=== PATIENT | female | born 1995 | race Caucasian/White ===

== ENCOUNTER → 2017-06-28 14:10 | Outpatient (CLI) | payer MEDICAID, SELFPAY ==
[2017-07-03 14:46] LABS: HPV Reflexed? NOT INDICATED
== END ==
PROVIDERS: Family Provider Student in an Organized Health Care Education/Training Program; PCP Student in an Organized Health Care Education/Training Program; Visit Provider Obstetrics & Gynecology
DX: Z34.83 Encounter for supervision of other normal pregnancy, third trimester (principal); R87.613 High grade squamous intraepithelial lesion on cytologic smear of cervix (HGSIL)
CPT/HCPCS: 88175; G0145

== ENCOUNTER → 2017-07-22 14:04 | Outpatient (CLI) | payer MEDICAID, SELFPAY ==
[2017-07-22 16:24] LABS: AST(SGOT) 33 U/L (15-37); Alanine Aminotransfer ALT/SGPT 38 U/L (13-56); Albumin, Serum 2.7 g/dL (3.2-5.0); Alkaline Phosphatase 222 U/L (45-117); Bilirubin, Direct 0.12 mg/dL (0.00-0.30); Globulin 3.8 g/dL (2.2-4.2); Protein, Total 6.5 g/dL (6.4-8.2)
[2017-07-22 16:48] LABS: Group B Strep DNA By PCR Negative (Negative); Internal Control PASS; Probe Check PASS; Specimen Processing Control PASS
[2017-07-24 20:07] LABS: HCV Quant. RNA PCR 601000 IU/mL (.)
[2017-07-25 09:23] LABS: HCV log 10 5.779 (.)
== END ==
PROVIDERS: Visit Provider Obstetrics & Gynecology
DX: Z36.85 Encounter for antenatal screening for Streptococcus B (principal); B18.9 Chronic viral hepatitis, unspecified
CPT/HCPCS: 36415; 80076; 87081; 87522; 87653

== ENCOUNTER 2017-07-28 20:00 | Outpatient (CLI) | payer MEDICAID, SELFPAY ==
[2017-07-28 20:36] VITALS: BMI 24.1
[2017-07-28 20:48] LABS: ROM Internal Control Test YES-OK TO RESULT pt. (Internal QC)
[2017-07-28 20:49] LABS: ROM Patient Test Negative (Negative)
[2017-07-28 21:00] LABS: Color, Urine Yellow (Yellow); Glucose, Dipstick Normal (Normal); Ketone-Dipstick Negative (Negative); Leukocyte Esterase-Dipstick 25 /ul (Negative); Nitrite-Dipstick Negative (Negative); Occult Blood-Urine Negative /ul (Negative); Protein-Dipstick Negative (Negative); Urine Bilirubin Dipstick Negative (Negative); Urine Clarity Clear (Clear); Urine Urobilinogen Normal (Normal); Urine pH 6.5 (5.0 - 8.0)
--- NOTE | 2017-07-29 20:20 | OB.TRI.NOTE ---
History of Present Illness Date of Service: 07/28/17 Was patient seen by the physician?: No Reason For Visit: R/O LABOR Date of Service: 07/28/17 Final SHANELLE: 08/15/17 Final SHANELLE Source: US <20 weeks Gestational age: 37 Weeks and 3 Days History of Present Illness: 37+ week intrauterine presents with some contractions and possible rupture of membranes. Good movement. care remarkable for prior deliveries at 36 and 37 weeks. She is also hepatitis C positive and has a history of genital herpes with suppression starting at 36 weeks gestation. Patient is also a smoker and has been advised to quit. Home Medications Medication Instructions Recorded Pnv Combo #22/Iron/FA/Om3/Dha 1 each PO DAILY #30 combo..pkg 09/29/13 [Director Supply-Heme Ob + Dha Combo Pack] Valacyclovir HCl [Valacyclovir] 1 gm PO DAILY 05/04/14 Ferrous Sulfate 325 mg PO DAILY@0800 07/28/17 Naproxen 500 mg PO DAILY PRN 07/28/17 Pyridoxine HCl [Vitamin B-6] 1 tab PO DAILY 07/28/17 Allergies amoxicillin [Amoxicillin] Allergy (Intermediate, Verified 07/28/17 20:38) Rash NST - FHR Rate Baby A NST Reactive:: Yes Impression/Plan 37 week intrauterine with false labor. UA is negative. ROM test is negative. Active nonstress test. No cervical change after monitoring. Will release to home with routine instructions and follow-up
--- NOTE | 2017-07-29 20:27 | OB.TRI.HP_ITS ---
History of Present Illness Date of Service: 07/28/17 Was patient seen by the physician?: No Reason For Visit: R/O LABOR Date of Service: 07/28/17 Final SHANELLE: 08/15/17 Final SHANELLE Source: US <20 weeks Gestational age: 37 Weeks and 3 Days History of Present Illness: 37+ week intrauterine presents with some contractions and possible rupture of membranes. Good movement. care remarkable for prior deliveries at 36 and 37 weeks. She is also hepatitis C positive and has a history of genital herpes with suppression starting at 36 weeks gestation. Patient is also a smoker and has been advised to quit. Home Medications Medication Instructions Recorded Pnv Combo #22/Iron/FA/Om3/Dha 1 each PO DAILY #30 combo..pkg 09/29/13 [Truck Caterer-Heme Ob + Dha Combo Pack] Valacyclovir HCl [Valacyclovir] 1 gm PO DAILY 05/04/14 Ferrous Sulfate 325 mg PO DAILY@0800 07/28/17 Naproxen 500 mg PO DAILY PRN 07/28/17 Pyridoxine HCl [Vitamin B-6] 1 tab PO DAILY 07/28/17 Allergies amoxicillin [Amoxicillin] Allergy (Intermediate, Verified 07/28/17 20:38) Rash NST - FHR Rate Baby A NST Reactive:: Yes Impression/Plan 37 week intrauterine with false labor. UA is negative. ROM test is negative. Active nonstress test. No cervical change after monitoring. Will release to home with routine instructions and follow-up
== END 2017-07-28 21:20 | disposition home or self-care (01) ==
LOC: WPOUT 20:14 → WP 20:15
PROVIDERS: Family Provider Student in an Organized Health Care Education/Training Program; PCP Student in an Organized Health Care Education/Training Program; Visit Provider Obstetrics & Gynecology
DX: O47.1 False labor at or after 37 completed weeks of gestation (principal); Z3A.37 37 weeks gestation of pregnancy; O98.313 Other infections with a predominantly sexual mode of transmission complicating pregnancy, third trimester; A60.00 Herpesviral infection of urogenital system, unspecified; O99.333 Smoking (tobacco) complicating pregnancy, third trimester; F17.200 Nicotine dependence, unspecified, uncomplicated; B19.20 Unspecified viral hepatitis C without hepatic coma
CPT/HCPCS: 59025; 59050; 81002; 84112; 99218; G0378

== ENCOUNTER 2017-08-16 13:55 | Inpatient (IN) | payer MEDICAID, SELFPAY ==
[2017-08-16 14:08] VITALS: BMI 24.5
[2017-08-16] MEDS: Lactated Ringers 1,000 ML 50 ML IV ×3 (15:05→22:37)
[2017-08-16] MEDS: Oxytocin 30 units/NS 500 ml 30 UNITS/500 ML IV.SOLN IV (15:05)
[2017-08-16 15:07] LABS: Hematocrit 33.7 % (37-47); Hemoglobin 11.3 g/dl (12.0-15.0); Mean Corp Hgb Conc 33.5 g/gl (32-36); Mean Corpuscular Hgb 28.5 pg (27.0-32.0); Mean Corpuscular Volume 85.1 fL (81-99); Mean Platelet Vol. 10.9 fl (6.2-12.0); Platelet Count 279 K/mm3 (150-450); RBC Distribution Width CV 14.7 % (11.6-14.6); RBC Distribution Width SD 46.2 fl (35.1-43.9); Red Blood Count 3.96 M/mm3 (4.2-5.4); White Blood Count 12.8 K/mm3 (4.4-11.0)
[2017-08-16 15:08] LABS: Scan Indicated on CBC? Y/N NO
[2017-08-16 15:33] LABS: Amphetamine Urine VISTA NEGATIVE (<1000 ng/mL); Barbiturate Urine VISTA NEGATIVE (< 200 ng/mL); Benzodiazepine Urine VISTA NEGATIVE (< 200 ng/mL); Cocaine Urine VISTA NEGATIVE (< 300 ng/mL); Ecstacy Urine VISTA NEGATIVE (< 500 ng/mL); Methadone Urine VISTA NEGATIVE (< 300 ng/mL); PCP Urine VISTA NEGATIVE (< 25 ng/mL); THC Urine VISTA NEGATIVE (< 50 ng/mL); Vista UDS pH Range 6
[2017-08-16] MEDS: fentaNYL-bupivacaine (epidural) 100 ML BAG EPIDURAL (17:18)
--- NOTE | 2017-08-16 20:04 | PCM.PN.BLA ---
Progress Note LABOR PROGRESS NOTE Comfortable w/ epidural AVSS Pitocin induction after AROM EFM 110-120s with accels. Category I tracing. Variable decelerations. UCs q 2 2 1/2 min CX: 8 cm/ stretchy A/P: term IUP Induction Anticipate .
--- NOTE | 2017-08-16 20:06 | PCM.DCVAG ---
Discharge Diet: No Restrictions Discharge Activity: May Shower, May Take a Tub Bath May resume sexual activity in: 4-6 weeks Additional Activity Instructions:: Nothing in the vagina for 4-6 weeks. You may return to work/school in 6 weeks. Additional Instructions: If you experience any of the following, contact your healthcare provider. Bleeding that soaks a pad every hour for 2 hours Fever 100.4 or higher Unrelieved abdominal pain Problems urinating (including inability to urinate or burning while urinating). Visual changes Severe headache Flu-like symptoms Pain or redness in one of both of your breasts Pain, warmth, tenderness or swelling in your legs, especially the calf area Frequent nausea and vomiting Symptoms of depression or anxiety If you experience any of the following, call 911 or go to the nearest Emergency Room. Chest pain Problems breathing Seizure activity Partial or complete paralysis of a body part, slurred speech, weakness or drooping of the face, or a sudden inability to walk or hold your balance Allergies/Adverse Reactions: Allergies amoxicillin [Amoxicillin] Allergy (Intermediate, Verified 07/28/17 20:38) Rash Medications to take at Discharge Pnv Combo #22/Iron/FA/Om3/Dha [Director Home-Heme Ob + Dha Combo Pack] 1 each PO DAILY 08/16/17 Orders to be completed after discharge: Electric breast pump Time Frame: 1 Year, Location: None Selected Please Follow Up With: Hallie Casillas MD - [phone] When: Call to make an appointment with your doctor in 6 weeks. Primary Care Physician: Roney Weiss DO [Primary Care Provider] - Proposed Discharge Date: 08/18/17
--- NOTE | 2017-08-16 20:10 | DCINST_ITS ---
Discharge Diet: No Restrictions Discharge Activity: May Shower, May Take a Tub Bath May resume sexual activity in: 4-6 weeks Additional Activity Instructions:: Nothing in the vagina for 4-6 weeks. You may return to work/school in 6 weeks. Additional Instructions: If you experience any of the following, contact your healthcare provider. * Bleeding that soaks a pad every hour for 2 hours * Fever 100.4 or higher * Unrelieved abdominal pain * Problems urinating (including inability to urinate or burning while urinating) . * Visual changes * Severe headache * Flu-like symptoms * Pain or redness in one of both of your breasts * Pain, warmth, tenderness or swelling in your legs, especially the calf area * Frequent nausea and vomiting * Symptoms of depression or anxiety If you experience any of the following, call 911 or go to the nearest Emergency Room. * Chest pain * Problems breathing * Seizure activity * Partial or complete paralysis of a body part, slurred speech, weakness or drooping of the face, or a sudden inability to walk or hold your balance Allergies/Adverse Reactions: Allergies amoxicillin [Amoxicillin] Allergy (Intermediate, Verified 07/28/17 20:38) Rash Medications to take at Discharge Pnv Combo #22/Iron/FA/Om3/Dha [Cigar Machine Feeder-Heme Ob + Dha Combo Pack] 1 each PO DAILY Orders to be completed after discharge: Electric breast pump Time Frame: 1 Year, Location: None Selected Please Follow Up With: Hallie Casillas MD - [phone] When: Call to make an appointment with your doctor in 6 weeks. Primary Care Physician: Roney Weiss DO [Primary Care Provider] - Proposed Discharge Date: 08/18/17
--- NOTE | 2017-08-16 21:09 | PCM.PN.BLA ---
Progress Note LABOR PROGRESS NOTE Attempted to push anterior lip reducible. AVSS EFM 110-120 with accels Decleration noted to 80-90 with pushing. Unable to push effectively, no descent with push. Position changes and to hands and knees -- Helton bulb reduced with pt in hands and knees-- then to back again. Fluid bolus given IV, Pitocin off and O2 on with recovery of FHT. O2 off and pitocin restarted @ 2 mIU/min. FHT stable then Category I CX: anterior lip. LOP. A/P: induction to anterior lip. Will put in hands and knees for a while. Begin pushing again with further descent.
--- NOTE | 2017-08-16 23:09 | PCM.PN.BLA ---
Progress Note Delivered all other babies at 37 wks. This baby is likely larger than all others: induction at 39 6/7 wk EGA. 5# 11 oz. to 6# 11 oz. Complete since 2030. AVSS pitocin induction EFM: overall reassuring. Scalp stim noted with exam. 110-120s with accels. Category II tracing , decelerations noted with pushing. O2 on and Pitocin off again. EXAM: increased caput noted. ? OP. No further descent from exams prior. Labia and vaginal srinivasan edematous. A/P: Induction 40 06/02 . Advised pt that will ok to watch Complete/pushing for up to 3 hr, multip. Initially OK with pushing for another 30 mins.. Per RN then: patient requests to go ahead with C/S now ZAY. Declines pushing for the additional 16 minutes to meet full criteria for SECOND STAGE ARREST.
--- NOTE | 2017-08-16 23:20 | PCM.DCCSEC ---
Discharge Diet: No Restrictions Discharge Activity: May not drive while taking narcotic pain medications., May Shower, May Take a Tub Bath May resume sexual activity in: 4-6 weeks Lifting Restrictions: 20 pounds Additional Activity Instructions:: Nothing in the vagina for 4-6 weeks. You may return to work/school in 6 weeks. Change Dressing in (Days):: 14 Remove Dressing in (days):: 14 Cleanse incision/area with: Soap & Water, Keep Dressing Clean & Dry Additional Instructions: If you experience any of the following, contact your healthcare provider. Bleeding that soaks a pad every hour for 2 hours Fever 100.4 or higher Unrelieved incision or abdominal pain Swelling, redness, discharge or bleeding from your incision Problems urinating (including inability to urinate or burning while urinating). Visual changes Severe headache Flu-like symptoms Pain or redness in one of both of your breasts Pain, warmth, tenderness or swelling in your legs, especially the calf area Frequent nausea and vomiting Symptoms of depression or anxiety If you experience any of the following, call 911 or go to the nearest Emergency Room. Chest pain Problems breathing Seizure activity Partial or complete paralysis of a body part, slurred speech, weakness or drooping of the face, or a sudden inability to walk or hold your balance Allergies/Adverse Reactions: Allergies amoxicillin [Amoxicillin] Allergy (Intermediate, Verified 07/28/17 20:38) Rash Medications to take at Discharge Docusate Sodium [Colace] 100 mg PO BID PRN PRN #30 cap 08/16/17 Naproxen [Naprosyn] 250 - 500 mg PO TID PRN #30 tab 08/16/17 Oxycodone [Oxyir] 5 - 10 mg PO Q6H PRN PRN 7 Days #28 tablet 08/16/17 Pnv Combo #22/Iron/FA/Om3/Dha [Stage Driver-Heme Ob + Dha Combo Pack] 1 each PO DAILY 08/16/17 The following prescriptions were given: Oxycodone [Oxyir] 5 - 10 mg PO Q6H PRN PRN 7 Days #28 tablet PRN Reason: Mod-Severe Pain (-03/05) Docusate Sodium [Colace] 100 mg PO BID PRN PRN #30 cap PRN Reason: Constipation Naproxen [Naprosyn] 250 - 500 mg PO TID PRN #30 tab PRN Reason: Mild-Mod Pain (1-10/03) Orders to be completed after discharge: Electric breast pump Time Frame: 1 Year, Location: None Selected Follow-Up: Call to make an appointment with your doctor for an incision check in 1-2 weeks. You will also need a 6 week post- follow up appointment. Please Follow Up With: Hallie Casillas MD - [phone] When: Call to make an appointment for an incision check in 2 weeks. Primary Care Physician: Roney Weiss DO [Primary Care Provider] - Proposed Discharge Date: 08/18/17
--- NOTE | 2017-08-16 23:24 | DCINST_ITS ---
Discharge Diet: No Restrictions Discharge Activity: May not drive while taking narcotic pain medications., May Shower, May Take a Tub Bath May resume sexual activity in: 4-6 weeks Lifting Restrictions: 20 pounds Additional Activity Instructions:: Nothing in the vagina for 4-6 weeks. You may return to work/school in 6 weeks. Change Dressing in (Days):: 14 Remove Dressing in (days):: 14 Cleanse incision/area with: Soap & Water, Keep Dressing Clean & Dry Additional Instructions: If you experience any of the following, contact your healthcare provider. * Bleeding that soaks a pad every hour for 2 hours * Fever 100.4 or higher * Unrelieved incision or abdominal pain * Swelling, redness, discharge or bleeding from your incision * Problems urinating (including inability to urinate or burning while urinating) . * Visual changes * Severe headache * Flu-like symptoms * Pain or redness in one of both of your breasts * Pain, warmth, tenderness or swelling in your legs, especially the calf area * Frequent nausea and vomiting * Symptoms of depression or anxiety If you experience any of the following, call 911 or go to the nearest Emergency Room. * Chest pain * Problems breathing * Seizure activity * Partial or complete paralysis of a body part, slurred speech, weakness or drooping of the face, or a sudden inability to walk or hold your balance Allergies/Adverse Reactions: Allergies amoxicillin [Amoxicillin] Allergy (Intermediate, Verified 07/28/17 20:38) Rash Medications to take at Discharge Docusate Sodium [Colace] 100 mg PO BID PRN PRN #30 cap 08/16/17 Naproxen [Naprosyn] 250 - 500 mg PO TID PRN #30 tab 08/16/17 Oxycodone [Oxyir] 5 - 10 mg PO Q6H PRN PRN 7 Days #28 tablet 08/16/17 Pnv Combo #22/Iron/FA/Om3/Dha [Syrup Mixer Helper-Heme Ob + Dha Combo Pack] 1 each PO DAILY The following prescriptions were given: Oxycodone [Oxyir] 5 - 10 mg PO Q6H PRN PRN 7 Days #28 tablet PRN Reason: Mod-Severe Pain (-03/05) Docusate Sodium [Colace] 100 mg PO BID PRN PRN #30 cap PRN Reason: Constipation Naproxen [Naprosyn] 250 - 500 mg PO TID PRN #30 tab PRN Reason: Mild-Mod Pain (1-5/10) Orders to be completed after discharge: Electric breast pump Time Frame: 1 Year, Location: None Selected Follow-Up: Call to make an appointment with your doctor for an incision check in 1-2 weeks. You will also need a 6 week post- follow up appointment. Please Follow Up With: Hallie Casillas MD - [phone] When: Call to make an appointment for an incision check in 2 weeks. Primary Care Physician: Roney Weiss DO [Primary Care Provider] - Proposed Discharge Date: 08/18/17
[2017-08-16] MEDS: Cefazolin 2 GM in 0.9% Normal Saline 100 ML IV (23:30)
[2017-08-16] MEDS: Oxytocin 30 units/NS 500 ml 30 UNITS/500 ML IV.SOLN 167 UNITS IV (23:45)
[2017-08-17] VITALS (23 sets, daily range): BP systolic 85–113; BP diastolic 41–68; PULSE 57–95; RESP 14–18; TEMP 36.2–37.3; O2SAT 95–100
[2017-08-17] MEDS: Ketorolac 30 MG/ML Syringe IV ×4 (00:20→18:38)
--- NOTE | 2017-08-17 00:23 | OP.PCM_ITS ---
Operative Report Date of Procedure: 08/17/17 Date of Procedure: 08/17/17 PROCEDURE: Primary C section. Preoperative diagnosis: 40 1/7 wk induction of labor Cephalopelvic disproportion, Second stage arrest Postop diagnosis: 40 1/7 wk induction of labor Cephalopelvic disproportion, Second stage arrest Anesthesia: Epidural , Fiordaliza Bates MD Surgeon: Hallie Casillas MD Medical Scribe: NICOLE Santos EBL 600 cc Complications: none Drains: Helton draining blood tinged urine (noted with pushing also, prior to C/ S) Fluids: replacement LR Findings: At amniotomy, clear fluid was noted. Barrera viable male in vertex presentation, direct OP . Apgars 8/9, Baby weight: 7 # 14 oz. There was a normal appearing uterus, fallopian tubes and ovaries bilaterally. PATH: Routine cord gases were sent. Narrative account: After the risks, benefits and alternatives of the procedure were reviewed with the patient, informed consent was obtained. The patient was taken to the Operative room with an IV running, an epidural catheter in place and Helton catheter in place. The epidural was dosed to surgical levels. She was positioned to the dorsal supine position then prepped and draped in the usual sterile fashion. Once the epidural was deemed adequate, a Pfannenstiel skin incision was created using the knife and the incision was carried down to the rectus fascia using the knife and Bovie cautery. The fascia was nicked in the midline. The fascial incision was extended bilaterally using curved Dueñas scissors. The superior aspect of the fascial incision was grasped with Ray clamps and tented up and the underlying rectus abdominal muscles were dissected free. In a similar manner, the inferior aspect of the facial incision was grasped with Ray clamps tented up and the underlying rectus abdominal muscles were dissected free. The rectus abdominis muscles were in the midline at the diastasis, by blunt dissection and the peritoneum was identified and entered high in the incision by blunt dissection. The peritoneal incision was extended superiorly and then inferiorly, using Metzenbaum scissors. The peritoneum was stretched laterally and a bladder blade was inserted. A bladder flap was created along the lower uterine segment with Metzenbaum scissors . The uterine incision was then created using Metzenbaum scissors. The operators fingertips were used to extend the uterine incision by blunt dissection in a caudad- cephalad orientation . Clear fluid was noted at amniotomy. The vertex was then delivered atraumatically through the incision. The OP and nares were bulb suctioned on the abdomen. The shoulders delivered easily . The cord was clamped x two and cut. And the infant was handed off to the nurse awaiting delivery after briefly showing him to his parents. The baby had a spontaneous, vigorous cry. The placenta was then delivered by manual extraction. The uterus was exteriorized and cleared of clots and debris . The uterine incision was repaired with 1 Vicryl in a running locked fashion. A second imbricating layer was then placed, using 1 Monocryl in running nonlocked fashion. There was a small hematoma inferior to the incision: this was oversewn with interrupted horizontal mattress stitches and figure of eight stitches of 1 Vicryl. Excellent hemostasis was noted and no further extension of the hematoma was noted. At this point the uterus was returned to the abdominal cavity. The gutters were cleared of clots and debris and the incision at the uterus was inspected. the pelvis and abdomen was irrigated. Ksenia was dusted over the uterine incision. Excellent hemostasis was noted. The peritoneal edges and rectus abdominis muscles were reapproximated in the midline with vertical mattress stitches and figure of eight stitches of 1 Vicryl . Excellent hemostasis was noted at the subfascial space. The fascia was closed in a running nonlocked fashion with a Strattofix. The Subcutaneous fatty tissue was Bovie cauterized as needed for hemostasis. This layer was then reapproximated with a single layer of running 3-0 Vicryl to eliminate space. The skin edges were closed in a Subcuticular stitch of 4-0 Monocryl suture. The incision was cleansed. The incision was dressed with: Cavilon, Steristrips, and a Mepilex dressing . The patient was then transferred to the recovery room bed in stable condition after tolerating the procedure well. Sponge, lap, needle and instrument counts correct times two. Medications given preop and intraoperatively included: Ancef 2 gm given business analysis consultant to the operating room. The patient also received Pitocin given IV after cord clamp, and Toradol 30 mg IV times one. For a complete listing of medications given preop and intraoperatively, please see the anesthesia record.
[2017-08-17] MEDS: Lactated Ringers 1,000 ML 100 ML IV ×2 (04:19→12:32)
[2017-08-17 07:19] LABS: Hematocrit 26.1 % (37-47); Hemoglobin 8.8 g/dl (12.0-15.0); Mean Corp Hgb Conc 33.7 g/gl (32-36); Mean Corpuscular Hgb 28.9 pg (27.0-32.0); Mean Corpuscular Volume 85.6 fL (81-99); Mean Platelet Vol. 10.4 fl (6.2-12.0); Platelet Count 213 K/mm3 (150-450); RBC Distribution Width CV 14.6 % (11.6-14.6); Red Blood Count 3.05 M/mm3 (4.2-5.4); Scan Indicated on CBC? Y/N NO; White Blood Count 16.7 K/mm3 (4.4-11.0)
--- NOTE | 2017-08-17 09:38 | PCM.PN.OB ---
Subjective: POD#0 to 1 (del just prior to MN last night) Some soreness, hard to sit up. Breast feeding OK. No concerns voiced. Objective: Sitting up, semi recumbent in bed. Holding and tending to baby. - Physical Exam General: Alert, Oriented x3, Cooperative, No apparent distress HEENT: Atraumatic Neck: Supple Abdomen: Soft - Softly distended and tympanic, fundus firm and tender c/w postop status at umbilicus Skin: Incision - Mepilex dressing CDI. Neurological: Cranial nerves II-XII grossly intact Psych/Mental Status: Normal Affect Vital Signs Temp Pulse Resp BP Pulse Ox 98.5 F 67 18 99/53 L 96 08/17/17 08:15 08/17/17 08:15 08/17/17 08:15 08/17/17 08:15 08/17/17 08:15 Oxygen Delivery Method Room Air Weight: 55 kg Body Mass Index (BMI) 24.5 Intake and Output for Last 24 Hours 08/15/17 08/16/17 08/17/17 23:59 23:59 23:59 Intake Total 1888 / 1888 3235 / 3235 Output Total 200 / 200 1999 / 1999 Balance 1688 / 1688 1235 / 1235 Laboratory Tests Past 24 Hrs 08/16/17 08/16/17 08/16/17 14:00 14:00 14:00 WBC 12.8 H RBC 3.96 L Hgb 11.3 L Hct 33.7 L MCV 85.1 MCH 28.5 MCHC 33.5 RDW 14.7 H RDW Differential 46.2 H Plt Count 279 MPV 10.9 Urine Opiates Screen NEGATIVE Urine Methadone Screen NEGATIVE Ur Barbiturates Screen NEGATIVE Ur Phencyclidine Scrn NEGATIVE Ur Amphetamines Screen NEGATIVE U Methamphetamin-MDMA NEGATIVE U Benzodiazepines Scrn NEGATIVE Urine Cocaine Screen NEGATIVE U Cannabinoids Screen NEGATIVE Ur Drug Screen Comment Blood Type A POSITIVE Antibody Screen NEGATIVE 08/17/17 07:09 WBC 16.7 H RBC 3.05 L Hgb 8.8 L Hct 26.1 L MCV 85.6 MCH 28.9 MCHC 33.7 RDW 14.6 RDW Differential 44.0 H Plt Count 213 MPV 10.4 Urine Opiates Screen Urine Methadone Screen Ur Barbiturates Screen Ur Phencyclidine Scrn Ur Amphetamines Screen U Methamphetamin-MDMA U Benzodiazepines Scrn Urine Cocaine Screen U Cannabinoids Screen Ur Drug Screen Comment Blood Type Antibody Screen Medical Necessity - Tobacco Use Smoking Status: Light Smoker (<10/day) Assessment/Plan A/P: 1.) POD# 0 to 1 (del just prior to MN last night) Stable pp. S/L IV. D/c caballero for voiding trial Inc diet and activity as tolerated. Continue care. 2.) HEPATITIS C -- will f/u with PCP and liver specialist after pp check. Spouse with hepatitis C also. Pt aware of tx and what her insurance will cover.
--- NOTE | 2017-08-17 13:03 | CASEMGMT ---
SOCIAL WORK: Referral received this date due to history of positive tox screen for THC earlier in ; hepatitis C positive and possible need for resources. SW met with Hallie, mom of baby, this afternoon. Introduced self and SW role at [facility]. Father of baby, López, at bedside and cooperative with stepping out of room. Hallie pleasant and with good eye contact. She was receptive to talking with this SW. Refer to assessment in baby boy's chart for additional details. Mary Ann GARCIA,KVNG
[2017-08-17] MEDS: HYDROmorphone 0.5 MG/0.5 ML SYRINGE IV ×2 (17:19→20:01)
[2017-08-17] MEDS: Ferrous Sulfate 325 MG Tablet PO (17:20)
[2017-08-17] MEDS: Ondansetron 4 MG/2 ML Vial IV (17:21)
[2017-08-18] VITALS: RESP 16; O2SAT 98
[2017-08-18] MEDS: 0.9% Saline Lock 10 ML Syringe IV ×4 (00:12→18:17)
[2017-08-18] MEDS: Ketorolac 30 MG/ML Syringe IV ×4 (00:12→18:16)
[2017-08-18 02:00] VITALS: BP 91/56; PULSE 72; RESP 16; TEMP 36.4; O2SAT 98
[2017-08-18] MEDS: oxyCODONE 5 MG Tablet PO ×4 (04:57→20:32)
[2017-08-18] MEDS: Senna/Docusate Sodium 1 Tablet PO (05:58)
--- NOTE | 2017-08-18 08:07 | PCM.PN.OB ---
Subjective: POD#1-2 Primary C/S CPD Doing well. Nursing. baby is sleepy now. Some inc soreness with movement. Not sure about activity at home - Physical Exam General: Alert, Oriented x3, Cooperative, No apparent distress HEENT: Atraumatic Neck: Supple Abdomen: Soft - Fundus firm tender c/w postop status, at 2 cm inferior to umbilicus. Abdomen less distended/tympantic today. Skin: Incision - Mepilex CDI Psych/Mental Status: Normal Affect Vital Signs Temp Pulse Resp BP Pulse Ox 97.5 F L 72 16 91/56 L 98 08/18/17 02:00 08/18/17 02:00 08/18/17 02:00 08/18/17 02:00 08/18/17 02:00 Oxygen Delivery Method Room Air Weight: 55 kg Body Mass Index (BMI) 24.5 Intake and Output for Last 24 Hours 08/16/17 08/17/17 08/18/17 23:59 23:59 23:59 Intake Total 1888 / 1888 4064 / 4064 Output Total 200 / 200 1999 / 1999 1600 / 1600 Balance 1688 / 1688 2064 / 2064 -1600 / -1600 Medical Necessity - Tobacco Use Smoking Status: Light Smoker (<10/day) Assessment/Plan A/P: 1.) POD# 1 to 2 (del just prior to MN ) Stable pp. S/L IV to be d/c'd today. Continue care. 2.) HEPATITIS C -- will f/u with PCP and liver specialist after pp check.
[2017-08-18 08:28] VITALS: BP 96/63; PULSE 76; RESP 18; TEMP 35.9; O2SAT 98
[2017-08-18] MEDS: Ferrous Sulfate 325 MG Tablet PO ×2 (10:22→18:14)
[2017-08-18] MEDS: Prenatal Vits Tablet 1 TABLET PO (10:22)
[2017-08-18 14:31] VITALS: BP 116/64; PULSE 78; RESP 14; TEMP 35.9; O2SAT 98
--- NOTE | 2017-08-18 17:26 | NURSING ---
Mother reporting small cracked open areas to lt nipple. Assessed per RN and cracks noted. Reeducated patient on the need for pumping and disposing of breastmilk. Verbalized understanding and agreement. Denies cracked areas to rt breast. Lansinoh cream given and after discussing with will give breast shells for healing.
[2017-08-18 20:25] VITALS: BP 103/61; PULSE 77; RESP 16; TEMP 36.6; O2SAT 98
[2017-08-19 01:50] VITALS: BP 107/66; PULSE 83; RESP 16; TEMP 37.2; O2SAT 98
[2017-08-19] MEDS: oxyCODONE 5 MG Tablet PO ×2 (03:26→07:50)
[2017-08-19 07:45] VITALS: BP 102/63; PULSE 65; RESP 18; TEMP 36.9; O2SAT 97
[2017-08-19] MEDS: Senna/Docusate Sodium 1 Tablet PO (07:49)
[2017-08-19] MEDS: Ferrous Sulfate 325 MG Tablet PO (07:49)
--- NOTE | 2017-08-19 08:24 | PCM.PN.OB ---
Subjective: POD#2 to 3 Primary C/S CPD Doing OK but still with multiple concerns and not sure she is ready to go home today. States labia swollen still. Dressing got wet so was removed. hips still feel swollen. Incision soreness. Breast feeding, but baby is sleeping a lot. Objective: sitting up semirecumbent in bed. - Physical Exam General: Alert, Oriented x3, Cooperative, No apparent distress HEENT: Atraumatic Neck: Supple Abdomen: Soft - Fundus firm, tender consistent with postop status, at 2 cm inferior to umbilicus Skin: Incision - CDI. Mepilex dressing removed. Steristrips partially removed. Still intact to L side of the incision. Neurological: Cranial nerves II-XII grossly intact Psych/Mental Status: Normal Affect Vital Signs Temp Pulse Resp BP Pulse Ox 99.0 F 83 16 107/66 98 08/19/17 01:50 08/19/17 01:50 08/19/17 01:50 08/19/17 01:50 08/19/17 01:50 Oxygen Delivery Method Room Air Weight: 55 kg Body Mass Index (BMI) 24.5 Intake and Output for Last 24 Hours 08/17/08/18/17 08/19/17 23:59 23:59 23:59 Intake Total 4064 / 4064 250 / 250 Output Total 1999 / 2099 Balance 2063 / 2063 -1850 / -1850 Medical Necessity - Tobacco Use Smoking Status: Light Smoker (<10/day) Assessment/Plan A/P: 1.) POD# 2 to 3 (del just prior to MN ) Stable pp. Not sure she wants to go home today. Continue care. 2.) HEPATITIS C -- will f/u with PCP and liver specialist after pp check.
[2017-08-19] MEDS: Prenatal Vits Tablet 1 TABLET PO (09:47)
--- NOTE | 2017-08-19 10:00 | NURSING ---
agree with student's assessment
--- NOTE | 2017-08-19 11:11 | NURSING ---
[employer] reviewed the charting completed by the student nurse, Denice Romero.
--- NOTE | 2017-08-19 11:15 | CASEMGMT ---
Social Work - Labor and Delivery Unit Informant: Handoff from RADHA Flynn; conversation with Mother of baby (MOB) Summary: Met with MOB today as a follow up to social work visit on Saturday08-17-17. MOB reports to know about resources in the area, including WIC. MOB reports will apply for WIC once ends, to be able to get help with formula. MOB denies any history of depression but admits to history of some anxiety. Educated MOB to anxiety versus depression, and touched on risk factors present for MOB. MOB reporting to be a bit nervous going home after caesarian section, being sore and caring for 4 children. MOB reports that father of baby (FOB) is helpful, and will be home most of the time, but that for a few hours in the morning FOB works so MOB will be alone. MOB reports can call in-laws or own family for support if needed, but many do have to work still. MOB reports besides the worry about the first few days home, no other identified concerns. MOB reports to feel good about this baby and to love babies in general. Assessment: MOB pleasant during social work visit. Good eye contact, relaxed motor activity, bright affect. MOB holding baby, attentive, gentle, and smiling down at baby. MOB appropriate in interactions. MOB agreed to have healthcare social worker print up some [place] applications. MOB reports that if feeling upset or in need of emotional support can talk to FOB or to FOBs mother. MOB denies any needs for home going at this time. Interventions: Provided MOB with [place] applications, resources list for [facility] so that MOB had WIC number in hand. Provided packet on depression, online resources, and local resources for support, including 24 hour helpline numbers. Note, did have to mail this information out to MOB, as MOB left the unit before this blurb writer was able to return back to MOBs room with the written information. Plan: MOB and infant to home when ready for discharge. Social work to monitor of meconium drug screen results in baby's chart. Otherwise no other services requested or indicated. -SHIVA Cassidy, LEE
--- NOTE | 2017-08-19 12:55 | PCM.DC.SUM ---
Discharge Date and Diagnosis Date of Admission: 08/16/17 - induction of labor 40 1/7 wk CPD Date of Discharge: 08/19/17 - Same S/P primary C section for CPD Hospital Course and Treatment Operations: - - Induction of labor. Primary C section for CPD 7# 14 oz male. Summary of Care Provided: The patient is a 22 year old female at 40 1/7 wk presents for induction of labor. Prior vaginal deliveries but all at 36-37 wks. Progressed to complete and pushing, but no descent for more than 4hr. Primary C/S delivery performed d/t CPD. Procedure uncomplicated. Postop course uneventful Requests dischg to home today, POD#2-3 from primary C/S performed JUST prior to MN on 08/16/2017 Discharge Diet: No Restrictions Discharge Activity: May not drive while taking narcotic pain medications., May Shower, May Take a Tub Bath May resume sexual activity in: 4-6 weeks Additional Activity Instructions:: Nothing in the vagina for 4-6 weeks. You may return to work/school in 6 weeks. Change Dressing in (Days):: 14 Remove Dressing in (days):: 14 Cleanse incision/area with: Soap & Water, Keep Dressing Clean & Dry Home Medications: Medications to take at Discharge Docusate Sodium [Colace] 100 mg PO BID PRN PRN #30 cap 08/16/17 Naproxen [Naprosyn] 250 - 500 mg PO TID PRN #30 tab 08/16/17 Oxycodone [Oxyir] 5 - 10 mg PO Q6H PRN PRN 7 Days #28 tablet 08/16/17 Pnv Combo #22/Iron/FA/Om3/Dha [Boiler Control Technician-Heme Ob + Dha Combo Pack] 1 each PO DAILY 08/16/17 Following Prescrptions Were Given to Patient: Oxycodone [Oxyir] 5 - 10 mg PO Q6H PRN PRN 7 Days #28 tablet PRN Reason: Mod-Severe Pain (4-10/10) Docusate Sodium [Colace] 100 mg PO BID PRN PRN #30 cap PRN Reason: Constipation Naproxen [Naprosyn] 250 - 500 mg PO TID PRN #30 tab PRN Reason: Mild-Mod Pain (1-5/10) Other Amb Orders: Electric breast pump Time Frame: 1 Year, Location: None Selected Primary Care Physician: Roney Weiss DO [Primary Care Provider] - Please Follow Up With: Hallie Casillas MD - [phone] When: Call to make an appointment for an incision check in 2 weeks. Medical Necessity - Tobacco Use Smoking Status: Light Smoker (<10/day) Meaningful Use Info Meaningful Use Diagnoses (Choose all that apply): None applicable
--- NOTE | 2017-08-19 12:58 | DS.PCM_ITS ---
Discharge Date and Diagnosis Date of Admission: 08/16/17 - induction of labor 40 1/7 wk CPD Date of Discharge: 08/19/17 - Same S/P primary C section for CPD Hospital Course and Treatment Operations: - - Induction of labor. Primary C section for CPD 7# 14 oz male. Summary of Care Provided: The patient is a 22 year old female at 40 1/7 wk presents for induction of labor. Prior vaginal deliveries but all at 36-37 wks. Progressed to complete and pushing, but no descent for more than 4hr. Primary C/S delivery performed d /t CPD. Procedure uncomplicated. Postop course uneventful Requests dischg to home today, POD#2-3 from primary C/S performed JUST prior to MN on 08/16/2017 Discharge Diet: No Restrictions Discharge Activity: May not drive while taking narcotic pain medications., May Shower, May Take a Tub Bath May resume sexual activity in: 4-6 weeks Additional Activity Instructions:: Nothing in the vagina for 4-6 weeks. You may return to work/school in 6 weeks. Change Dressing in (Days):: 14 Remove Dressing in (days):: 14 Cleanse incision/area with: Soap & Water, Keep Dressing Clean & Dry Home Medications: Medications to take at Discharge Docusate Sodium [Colace] 100 mg PO BID PRN PRN #30 cap 08/16/17 Naproxen [Naprosyn] 250 - 500 mg PO TID PRN #30 tab 08/16/17 Oxycodone [Oxyir] 5 - 10 mg PO Q6H PRN PRN 7 Days #28 tablet 08/16/17 Pnv Combo #22/Iron/FA/Om3/Dha [D[employer] Design Layout-Heme Ob + Dha Combo Pack] 1 each PO DAILY Following Prescrptions Were Given to Patient: Oxycodone [Oxyir] 5 - 10 mg PO Q6H PRN PRN 7 Days #28 tablet PRN Reason: Mod-Severe Pain (4-10/10) Docusate Sodium [Colace] 100 mg PO BID PRN PRN #30 cap PRN Reason: Constipation Naproxen [Naprosyn] 250 - 500 mg PO TID PRN #30 tab PRN Reason: Mild-Mod Pain (1-5/10) Other Amb Orders: Electric breast pump Time Frame: 1 Year, Location: None Selected Primary Care Physician: Roney Weiss DO [Primary Care Provider] - Please Follow Up With: Hallie Casillas MD - [phone] When: Call to make an appointment for an incision check in 2 weeks. Medical Necessity - Tobacco Use Smoking Status: Light Smoker (<10/day) Meaningful Use Info Meaningful Use Diagnoses (Choose all that apply): None applicable
== END 2017-08-19 11:00 | disposition home or self-care (01) | DRG 370 ==
PROVIDERS: Admitting Provider Obstetrics & Gynecology; Family Provider Student in an Organized Health Care Education/Training Program; PCP Student in an Organized Health Care Education/Training Program; Visit Provider Obstetrics & Gynecology
DX: O98.42 Viral hepatitis complicating childbirth (principal); B19.20 Unspecified viral hepatitis C without hepatic coma; O90.2 Hematoma of obstetric wound; O33.9 Maternal care for disproportion, unspecified; O62.1 Secondary uterine inertia; O76 Abnormality in fetal heart rate and rhythm complicating labor and delivery; O99.334 Smoking (tobacco) complicating childbirth; F17.200 Nicotine dependence, unspecified, uncomplicated; Z3A.40 40 weeks gestation of pregnancy; Z37.0 Single live birth
CPT/HCPCS: 59025; 59050; 80307; 85027; 86850; 86900; 99218; J7120; A4216; G0378; J2405

== ENCOUNTER → 2018-03-10 14:12 | Outpatient (CLI) | payer MEDICAID, SELFPAY ==
--- NOTE | 2018-03-10 | IMM_PTH ---
PATIENT: HALLIE ORTIZ LOC: [facility] U#:[id number] AGE/SX: 29/F ROOM: RE03/10/[address]: Dr. Hallie Casillas MD : 1995 BED: DIS: SPEC #: [id number] RECD: 03/11/18 11:34 STATUS: KIERA REQ #: [id number] PATRICIA: 03/10/18 00:[address]: Hallie Casillas DEPT: IMMUNOHISTOCHEMISTRY RECD BY: Aracely Adams ENTERED: 03/11/18 11:35 SP TYPE: IMMUNO OTHR DR: Dr. Roney Weiss DO Tissues: Endocervical Procedures: p16 (initial) KI-67 (add) PHYSICIAN & INSTITUTION [place] [id number] SPECIMEN INFORMATION: Tissue Source: [facility] Clinical Info: HGSIL Specimen Number: [id number] CPT code: 23310, 78454 METHODOLOGY: Deparaffinized sections of prefer/formalin-fixed tissue or PAP/DQ stained slides are incubated with monoclonal/polyclonal antibodies/oligonucleotide probes. Localization is made via biotin free immunoperoxidase method. Appropriate controls are performed and reacted as expected. Results on target cell population are indicated in the following table: RESULTS: ANTIBODY / CLONE RESULT P16 (E6H4) positive, block staining Ki-67 (30-9) positive, moderate These tests were developed and their performance characteristics determined by [facility]. They may not have been cleared or approved by the U.S. Food and Drug Administration. The FDA has determined that such clearance or approval is not necessary. INTERPRETATION: ECC: Detached and unoriented fragment of squamous epithelium with moderate squamous dysplasia. SJ:donny 03/11/18
--- NOTE | 2018-03-10 11:30 | CER_PTH ---
PATIENT: HALLIE ORTIZ LOC: [facility] U#:[id number] AGE/SX: 29/F ROOM: RE03/10/[address]: [address]. Hallie Casillas MD : 1995 BED: DIS: SPEC #: [id number] RECD: 03/10/18 13:47 STATUS: KIERA RECathleen #: [id number] PATRICIA: 03/10/18 11:[address]: Hallie Casillas DEPT: SURGICAL PATHOLOGY RECD BY: Aracely Adams ENTERED: 03/11/18 07:50 SP TYPE: CERV OTHR DR: Dr. Roney Weiss DO Tissues: Uterine cervix, NOS Procedures: Surgery Specimen Level IV HEADER OPERATION: Colposcopy PRE-OP DIAGNOSIS: HGSIL TISSUE SUBMITTED: ECC MICROSCOPIC DIAGNOSIS ECC: Detached and unoriented fragments of squamous epithelium with moderate squamous dysplasia (HGSIL and KIERRA-II). Fragments of benign endocervical epithelium and mucous. See comment. SJ:donny 03/11/18 COMMENT Immunohistochemistry ([id number]) for surrogate HPV marker (p16) supports the above diagnosis. MICROSCOPIC DESCRIPTION Slides are reviewed. GROSS DESCRIPTION Received in fixative is one container labeled with the patient's name and designated ECC. The specimen consists of multiple fragments of hemorrhagic mucoid tissue that in aggregate measure 1.5 x 1.5 x 0.2 cm. The specimen is totally submitted in one cassette. / FELECIA:donny 03/10/18 TC:5 CPT: 47703
== END ==
PROVIDERS: Family Provider Student in an Organized Health Care Education/Training Program; PCP Student in an Organized Health Care Education/Training Program; Referring Provider Obstetrics & Gynecology; Visit Provider Obstetrics & Gynecology
DX: N89.8 Other specified noninflammatory disorders of vagina (principal); R87.613 High grade squamous intraepithelial lesion on cytologic smear of cervix (HGSIL)
CPT/HCPCS: 88305; 88341; 88342

== ENCOUNTER 2018-04-10 07:31 | Day surgery (SDC) | payer MEDICAID, SELFPAY ==
--- NOTE | 2018-04-10 | IMM_PTH ---
PATIENT: HALLIE ORTIZ LOC: [facility] U#:[id number] AGE/SX: 22/F ROOM: RE04/10/[address]: Dr. Hallie Casillas MD : 1995 BED: DIS: 04/10/2018 SPEC #: [id number] RECD: 04/11/18 13:56 STATUS: KIERA REQ #: [id number] PATRICIA: 04/10/18 00:[address]: Hallie Casillas DEPT: IMMUNOHISTOCHEMISTRY RECD BY: Saumya Roca ENTERED: 04/11/18 13:57 SP TYPE: IMMUNO OTHR DR: No Primary Care Phys Tissues: UTERINE CERVIX LEEP Procedures: p16 (initial) KI-67 (add) PHYSICIAN & INSTITUTION [place] [id number] SPECIMEN INFORMATION: Tissue Source: [facility] with anel Clinical Info: Sterilization request, high grade squamous intraepithelial lesion Specimen Number: [id number] CPT code: 51796, 34335 METHODOLOGY: Deparaffinized sections of prefer/formalin-fixed tissue or PAP/DQ stained slides are incubated with monoclonal/polyclonal antibodies/oligonucleotide probes. Localization is made via biotin free immunoperoxidase method. Appropriate controls are performed and reacted as expected. Results on target cell population are indicated in the following table: RESULTS: ANTIBODY / CLONE RESULT P16 (E6H4) positive, block-like Ki-67 (30-9) positive, moderate to high These tests were developed and their performance characteristics determined by [facility]. They may not have been cleared or approved by the U.S. Food and Drug Administration. The FDA has determined that such clearance or approval is not necessary. 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
[2018-04-10 07:50] LABS: Internal QC Validated? YES +Cl - CLEAR BKGD; Pregnancy, Urine Negative Negative
[2018-04-10 08:04] VITALS: BP 95/63; PULSE 73; RESP 16; TEMP 36.7; O2SAT 100; BMI 19.1
[2018-04-10 08:25] LABS: AST(SGOT) 31 U/L (15-37); Alanine Aminotransfer ALT/SGPT 60 U/L (13-56); Alkaline Phosphatase 80 U/L (45-117); Bilirubin, Direct 0.13 mg/dL (0.00-0.30); Globulin 3.5 g/dL (2.2-4.2); Protein, Total 7.5 g/dL (6.4-8.2)
--- NOTE | 2018-04-10 10:30 | FALS_PTH ---
PATIENT: HALLIE ORTIZ [place] [facility] [place] U[place][id number] AGE/SX: 22/F ROOM: RE04/10/[address]: Dr. Hallie Casillas MD : 1995 BED: DIS: 04/10/2018 SPEC #: [id number] RECD: 04/10/18 12:33 STATUS: KIERA JAZMÍN #: [id number] PATRICIA: 04/10/18 10:[address]: Hallie Casillas DEPT: SURGICAL PATHOLOGY RECD BY: Saumya Roca ENTERED: 04/10/18 15:35 SP TYPE: FALL TUBES OTHR DR: Alexandra Primary Care Phys Tissues: A - Fallopian tube B - UTERINE CERVIX LEEP Procedures: Surgery Specimen Level II Surgery Specimen Level IV HEADER OPERATION: Laparoscopic salpingectomy, bilateral; LEEP PRE-OP DIAGNOSIS: Sterilization request, high grade squamous intraepithelial lesion TISSUE SUBMITTED: A. Bilateral fallopian tubes, B. LEEP with tophat MICROSCOPIC DIAGNOSIS A. Right and left fallopian tubes, bilateral salpingectomies: Complete segments of right and left fallopian tubes with no pathologic change. B. 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 Chronic inflammation. Margins of excision are free of dysplasia. AM:jonny 04/11/18 COMMENT Immunohistochemistry ([id number]) supports the above diagnosis. Case has been reviewed in consultation with Dr. Stewart who concurs with the above diagnosis. IDC:SJ MICROSCOPIC DESCRIPTION Slides are reviewed. GROSS DESCRIPTION A. Received is one container labeled with the patient's name and designated bilateral fallopian tubes. The specimen consists of two tubular pieces of pink-roche soft tissue with the right identified with a suture. The average length is 2.5 cm in length and average diameter is 0.6 cm. Cosmetics Machine Operator sections are submitted in 2 cassettes. B. Received in fixative is one container labeled with the patient's name and designated LEEP with tophat. Received is one container labeled with the patient name and designated LEEP with tophat. The specimen consists of four glistening fragments of roche mucosa with passed submucosal tissue ranging in size from 0.6 to 1.5 cm. The fragments are inked, section and totally submitted in four cassettes. / DAVIS:jonny 04/10/18 TC: 0 CPT: 26772, 53310
--- NOTE | 2018-04-10 11:06 | PCM.DC.TUB ---
Discharge Diet: No Restrictions Discharge Activity: May not drive while taking narcotic pain medications., May Shower, May Take a Tub Bath Return to work on:: 04/14/18 May resume sexual activity in: 1 week Additional Activity Instructions:: Ambulate often the next week after surgery. Nothing in the vagina for two weeks after surgery to allow the cervix to heal after the LEEP procedure. Call your doctor if you observe: Fever of 101 or Higher, Inability to have a bowel movement, Using more than one pad per hour, Calf discomfort, Uncontrolled pain Change Dressing in (Days):: 4 Remove Dressing in (days):: 4 Cleanse incision/area with: Soap & Water, Keep Dressing Clean & Dry Additional Instructions: You may take three Ibuprofen (200 mg each) every 6 hrs for milder pain. Add the Oxycodone for more severe pain. Resume activities as tolerated/comfortable on postop day #1 Nothing in vagina for 2 wks to allow healing of the cervix after LEEP. Allergies/Adverse Reactions: Allergies amoxicillin [Amoxicillin] Allergy (Intermediate, Verified 04/09/18 10:05) Rash Medications to take at Discharge Ibuprofen 600 mg PO PRN PRN 04/09/18 Multivit with Calcium,Iron,Min [Multiple Vitamins For Women] 1 each PO DAILY 04/09/18 Oxycodone [Oxyir] 5 mg PO Q6H PRN PRN 1 Days #4 tablet 04/10/18 The following prescriptions were given: Oxycodone [Oxyir] 5 mg PO Q6H PRN PRN 1 Days #4 tablet PRN Reason: Mod-Severe Pain (4-10/10) Primary Care Physician: Care Physician,No Primary [Primary Care Provider] - Test Results: Test results from this visit will be discussed in further detail at your follow-up appointment, if applicable. Please Follow Up With: Hallie Casillas MD - [phone] When: Call to arrange postoperative check up for two weeks after surgery. Proposed Discharge Date: 04/10/18
[2018-04-10] MEDS: Bupiv/Epi 0.5% Mpf 30 ML Vial (11:30)
[2018-04-10] MEDS: FERRIC SUBSULFATE 8 GM SOLN (11:44)
--- NOTE | 2018-04-10 12:11 | OP.PCM_ITS ---
Operative Report Date of Procedure: 04/10/18 PROCEDURE: Laparoscopic Bilateral Salpingectomy LEEP with top hat ectocervical biopsy PREOPERATIVE DIAGNOSIS: Sterilization request HGSIL pap, Mild,mod, severe by biopsy prior Last pap LGSIL but cannot r/o higher grade lesion POSTOPERATIVE diagnosis: Sterilization request HGSIL pap, Mild,mod, severe by biopsy prior Last pap LGSIL but cannot r/o higher grade lesion Surgeon: Hallie Casillas MD Anesthesia: general anesthesia. Dr. Cuevas Sanitation Inspector: none. EBL: minimal Complications: None Drains: Red Cadena catheter used to drain the bladder prior to initiation of the case Fluids: LR replacement Pathology specimens: Bilateral fallopian tubes LEEP cone biopsy with top hat, ectocervix. Findings; Normal appearing, anteverted uterus. Fallopian tubes and ovaries are WNL. R fallopian tube distal end with filmy adhesions to the R pelvic side wall. Gross inspection of bowel, omentum. liver edge also WNL. photos were taken of the uterus and ovaries after Bilateral salpingectomy, and of the RUQ / liver edge Narrative account: After the risks, benefits, alternatives of procedure had been reviewed with the patient, informed consent was obtained. The patient was taken back to the Operating room with an IV running. she was positioned on the operating table in dorsal supine position, where she was given general anesthesia. Once asleep she was repositioned to the dorsal lithotomy position and prepped and draped in the usual sterile fashion. A red Cadena catheter was used to drain the bladder prior to initiating the case. A sponge stick was placed into the vagina to allow manipulation of the uterus and cervix during the case. Attention was then turned to the anterior abdominal wall where 0.25 % Marcaine with epinephrine was instilled at the suprapubic and infraumbilical skin and at a point midway between in the midline. Skin incisions were then created in the midline at the suprapubic skin and at the infraumbilical skin and midway between the two. While maintaining upward traction of the anterior abdominal wall a Veress needle was inserted through the umbilical incision into the peritoneal cavity. There was free drop of saline, low opening pressure and free flow of CO2 noted. Once the intraabdominal pressure had reached 12 mm of mercury the Veress needle was removed and a bladeless 5 mm trocar was placed through infraumbilical skin incision into the peritoneal cavity. Correct placement was confirmed using the scope. Under direct visualization then with the patient in Trendelenburg position, a bladeless 5 mm trocar was inserted in through suprapubic skin incision into the peritoneal cavity and at a point midway betwee n the infraumbilical and suprapubic trocars. The uterus as anteverted and both ovaries and fallopian tubes were WNL. There were filmy adhesions at the R fallopian tube fimbriated end to pelvic side wall. The R fallopian tube was grasped and retracted medially and using a LigaSure device the fallopian tube was excised from the ovary and mesosalpinx. Excellent hemostasis was noted at the excision site. The R fallopian tube was brought through the suprapubic trocar and set aside for later pathology review. In a similar manner the L fallopian tube was grasped and retracted medially and the fallopian tube was excised and removed from the abdominal cavity through the suprapubic trochar. The Fallopian tubes were sent to pathology. Excellent hemostasis was noted by visualization of the pelvis, ovaries, and remaining mesosalpinx. Photos were taken of the uterus and Bilateral remaining ovaries and of the RUQ and liver edge. The pneumoperitoneum was reduced and the instruments and trocars were removed from he the anterior abdominal wall skin. The skin incisions were closed with 4-0 Monocryl in a subcuticular fashion. Dermabond and OpSites were applied to the skin. Attention was then turned to the LEEP procedure. The sponge stick was removed from the vagina. A coated Graves speculum was placed, the cervix was identified and Lugol's solution was applied to the cervix. A Lugol nonstaining area was noted at the ectocervix. A loop electrical excision procedure was then performed at a power of 50-50 with blend of 1 between cut and coag. The biopsy was performed with a single pass. A top hat specimen was then collected. Ball cautery was then used to cauterize the margins of the cervix at the biopsy site. Monsel solution was applied to the cervix . Excellent hemostasis was noted. A sponge stick was then used to remove any remaining tissue and blood from the upper vagina and cervix . All instruments were then removed from the vagina. At this point the the procedure was terminated. The patient was returned to dorsal supine position. She was awakened from general anesthesia. She was transferred to the recovery room bed in stable condition after tolerating the procedure well. Sponge, lap, needle and instrument counts were correct x two. Medications given preop and intraoperatively included: 10 cc of 1/2 % Marcaine with epinephrine --used as a subcutaneous block and Toradol 30 mg IV x one. For a complete listing of medications given preop and intraop , please see the anesthesia record.
[2018-04-10 12:15] VITALS: BP 113/89; BP 95/63; PULSE 66; RESP 16; TEMP 36.2; O2SAT 100
[2018-04-10 12:30] VITALS: BP 103/69; BP 95/63; PULSE 55; RESP 16; O2SAT 96
[2018-04-10 12:48] VITALS: BP 95/63; BP 96/61; PULSE 56; RESP 16; TEMP 36.3; O2SAT 97
[2018-04-10] MEDS: oxyCODONE 5 MG Tablet PO (13:46)
[2018-04-10 13:55] VITALS: BP 95/63
== END 2018-04-10 13:57 | disposition home or self-care (01) ==
LOC: SDC 07:32 → AC 07:34
PROVIDERS: Anesthesiology; Referring Provider Obstetrics & Gynecology; Visit Provider Obstetrics & Gynecology
PROC: (CPT 58661; principal; 2018-04-10 10:15)
DX: D06.9 Carcinoma in situ of cervix, unspecified (principal); N72 Inflammatory disease of cervix uteri; Z30.2 Encounter for sterilization; Z86.19 Personal history of other infectious and parasitic diseases; Z86.2 Personal history of diseases of the blood and blood-forming organs and certain disorders involving the immune mechanism
CPT/HCPCS: 00840; 57522; 58661; 36415; 80076; 81025; 88302; 88305; 88341; 88342; J7120; J2405

== ENCOUNTER → 2018-09-17 14:18 | Outpatient (CLI) | payer MEDICAID, SELFPAY ==
[2018-09-24 17:48] LABS: HPV HC, High Risk Negative (Negative); HPV Reflexed? YES, CHARGE PATIENT
== END ==
PROVIDERS: Referring Provider Obstetrics & Gynecology; Visit Provider Obstetrics & Gynecology
DX: Z12.4 Encounter for screening for malignant neoplasm of cervix (principal); R87.613 High grade squamous intraepithelial lesion on cytologic smear of cervix (HGSIL)
CPT/HCPCS: 87624; 88175; G0145

== ENCOUNTER 2020-11-21 22:27 | Emergency (ER) | payer MEDICAID, SELFPAY ==
[2020-11-21 22:28] VITALS: PULSE 93; RESP 12; TEMP 36.5; O2SAT 100; BMI 22.2
--- NOTE | 2020-11-21 22:36 | EKG12_ITS ---
Test Reason : OVERDOSE Blood Pressure : / mmHG Vent. Rate : 082 BPM Atrial Rate : 082 BPM P-R Int : 182 ms QRS Dur : 106 ms QT Int : 380 ms P-R-T Axes : 063 078 029 degrees QTc Int : 443 ms Normal sinus rhythm Incomplete right bundle branch block Nonspecific T wave abnormality Abnormal ECG Confirmed by TYREE NI, NAGI ([id number]), offline editor STEVEN BARRETT ([id number]) on 11/24/2020 7:51:34 AM Referred By: TAYLER Confirmed By:NAGI CLEMENTS MD
[2020-11-21] MEDS: 0.9% Normal Saline 1,000 ML 1000 ML IV (22:38)
--- NOTE | 2020-11-21 22:40 | EX.ED.DYSGE1 ---
HPI History of Present Illness Chief Complaint: Overdose Informant: patient Onset/Context/Timing Onset: Today Context: Sudden Onset Timing: Continuous Current Severity: Moderate Maximum Severity: Severe Narrative Narrative: The patient is a 25-year-old female presents to the emergency department after an overdose. Patient was drinking alcohol tonight. She states that she also took a Percocet. Patient was found agonal and unresponsive. CPR was started and patient was given Narcan. She did awake. On arrival, the patient is lethargic but responds to voice. She states she is not suicidal homicidal. Her only current complaint is that her chest hurts. She denies any other ingestion. [facility] Medical History Substance abuse Home Medications dextroamphetamine-amphetamine 1 cap PO DAILY 11/21/20 [History Last Taken Unknown] Allergy/AdvReac Type Severity Reaction Status Date / Time amoxicillin [Amoxicillin] Allergy Intermediate Rash Verified 04/09/18 10:05 Social History Smoking Status: Current every day smoker tobacco type: cigarettes ROS ROS ED Constitutional Constitutional ED: Denies chills or fever(s) Eyes Eyes: Denies blurry vision or change in vision ENT ENT ED: Denies ear pain or sore throat Cardiovascular Cardiovascular: Reports chest pain; Denies palpitations Respiratory/Chest Respiratory/Chest: Denies cough, dyspnea or dyspnea on exertion Gastrointestinal Gastrointestinal: Denies abdominal pain, nausea or vomiting Genitourinary Genitourinary ED: Denies dysuria or urinary frequency Musculoskeletal Musculoskeletal: Denies arthralgias or myalgias Integumentary Denies rash Neurologic Neurologic: Denies headache(s) or paresthesias Psychiatric Psychiatric: Denies anxiety or depression Endocrine Endocrinology: Denies polydipsia or polyuria Allergic/Immunologic Allergic/Immunologic ED: Denies urticaria EXAM Physical Exam Const Vital Signs: 11/21/20 22:28 11/22/20 00:01 11/22/20 00:46 Temperature 97.7 F L 98.2 F Temperature Source Temporal Temporal Pulse Rate 93 84 77 Respiratory Rate 12 16 14 Blood Pressure 103/68 110/56 L Blood Pressure Mean 79 74 Pulse Ox 100 100 97 Oxygen Delivery Method Non-Rebreather Nasal Cannula Room Air Oxygen Flow Rate (L/min) 15 3 11/22/20 00:52 11/22/20 02:08 Temperature Temperature Source Pulse Rate 78 Respiratory Rate 14 16 Blood Pressure 103/71 Blood Pressure Mean 81 Pulse Ox 98 Oxygen Delivery Method Room Air Oxygen Flow Rate (L/min) Positive well nourished and well developed General Appearance ED: well developed HEENT Reports normocephalic, head/scalp atraumatic and moist mucous membranes Eyes PERRL and EOMs intact bilaterally Neck no lymphadenopathy and supple General: Negative for tenderness Chest Wall inspection of chest normal Chest Narrative: Tenderness to palpation Resp normal respiratory effort and clear to auscultation bilaterally Cardio regular rate, regular rhythm and no murmurs GI normal to inspection, nondistended, normoactive bowel sounds Palpation: Negative for tender, guarding or rebound tenderness present Back/Spine no CVA tenderness Cervical Spine: Negative for cervical spine tenderness Thoracic Spine / Upper Back: Negative for thoracic spinal tenderness Extremity normal to inspection General Extremety ED: Negative for tenderness Neuro oriented x3 and CN's II-XII intact bilaterally Neuro Narrative: No focal deficits appreciated. Sensorium / Orientation: alert Psych mental status grossly normal Skin no rashes or lesions noted, no wounds and skin turgor normal MDM MDM MDM Narrative Medical decision making narrative: Patient presents after accidental overdose of Percocet and was drinking alcohol. She had been given Narcan prehospital he. There was CPR that was started and she was complaining of some chest pain. EKG was obtained which showed sinus rhythm without evidence of acute ischemia. I obtained a chest x-ray. There was no evidence of pneumothorax or occult rib fracture. This is reviewed by both myself and the radiologist. Labs do demonstrate hypokalemia and this is replaced. The patient is mildly intoxicated. Her urine was positive for opiates. The patient has been observed for 4 hours. She is now much more awake. I did discuss with her about detox. The patient adamantly refuses. I did high school guidance counselor her we have programs to help with recovery. She does not want to stay. At this point, the patient is awake and alert. She is not hypoxic. She is required no other supplemental intervention. She will be discharged home. Impression 1. Accidental overdose Lab Data Attestation: I reviewed the patient's lab results. Labs: Laboratory Results - last 24 hr 11/21/20 11/21/20 11/21/20 20:35 20:35 20:35 WBC 6.7 RBC 4.37 Hgb 12.4 Hct 37.2 MCV 85.1 MCH 28.4 MCHC 33.3 RDW Std Deviation 41.6 RDW Coeff of Nanette 13.2 Plt Count 252 MPV 10.3 Immature Gran % (Auto) 2.500 H Neut % (Auto) 43.1 L Lymph % (Auto) 43.4 H Dillingham % (Auto) 5.2 Eos % (Auto) 5.1 H Baso % (Auto) 0.7 Absolute Neuts (auto) 2.9 Absolute Lymphs (auto) 2.91 Nucleated RBC % 0 Sodium 136 Potassium 2.8 L Chloride 101 Carbon Dioxide 23.0 Anion Gap 12 BUN 6 L Creatinine 0.78 Estim Creat Clear Calc 85.34 Est GFR (MDRD) Af Amer 114 Est GFR (MDRD) Non-Af 94 BUN/Creatinine Ratio 7.7 L Glucose 177 H Calcium 8.4 L Total Bilirubin 0.30 AST 97 H ALT 161 H Alkaline Phosphatase 113 Total Protein 7.8 Albumin 4.1 Globulin 3.7 Albumin/Globulin Ratio 1.1 Serum , Qual Urine Color Urine Clarity Urine pH Ur Specific Glynn Urine Protein Urine Glucose (UA) Urine Ketones Urine Occult Blood Urine Nitrite Urine Bilirubin Urine Urobilinogen Ur Leukocyte Esterase Urine RBC Urine WBC Ur Squamous Epith Cells Amorphous Sediment Urine Bacteria Hyaline Casts Urine Mucus Ethyl Alcohol 144.0 11/21/20 11/21/20 20:35 22:54 WBC RBC Hgb Hct MCV MCH MCHC RDW Std Deviation RDW Coeff of Nanette Plt Count MPV Immature Gran % (Auto) Neut % (Auto) Lymph % (Auto) Dillingham % (Auto) Eos % (Auto) Baso % (Auto) Absolute Neuts (auto) Absolute Lymphs (auto) Nucleated RBC % Sodium Potassium Chloride Carbon Dioxide Anion Gap BUN Creatinine Estim Creat Clear Calc Est GFR (MDRD) Af Amer Est GFR (MDRD) Non-Af BUN/Creatinine Ratio Glucose Calcium Total Bilirubin AST ALT Alkaline Phosphatase Total Protein Albumin Globulin Albumin/Globulin Ratio Serum , Qual NEGATIVE Urine Color Yellow Urine Clarity Clear Urine pH 6.5 Ur Specific Glynn 1.015 Urine Protein 100 H Urine Glucose (UA) Normal Urine Ketones Negative Urine Occult Blood Negative Urine Nitrite Negative Urine Bilirubin Negative Urine Urobilinogen Normal Ur Leukocyte Esterase Negative Urine RBC 0 SEEN Urine WBC 0 SEEN Ur Squamous Epith Cells 0 SEEN Amorphous Sediment 2+ Urine Bacteria 2+ Hyaline Casts 0-5 SEEN Urine Mucus 0 SEEN Ethyl Alcohol Radiography Diagnostic Testing: Radiology Impression Chest X-Ray 11/21/20 22:55 IMPRESSION: No evidence of acute cardiopulmonary process. at 2350 Reported and signed by: Christian Merida MD Electronically Signed: Christian Merida MD at 23:48 EDT Tel , Service support , Discharge Plan Triage Chief Complaint: Overdose ED Provider: Javon Zaragoza Dx/Rx/DC Orders Instructions: ED Overdose, Opiate Prescriptions: No Action dextroamphetamine-amphetamine 20 mg capsule,extended release 24hr 1 cap PO DAILY RF: 0 Primary Care Provider: Care Physician,No Primary Referrals: Care Physician,No Primary [Primary Care Provider] - [facility] [STAFF PHYSICIAN] - As soon as possible
[2020-11-21 22:48] LABS: Absolute Lymphocyte Count 2.91 X10^3/uL (0.83-4.51); Absolute Neutrophil Count 2.9 X10^3/uL (2.0-7.7); Basophil# 0.05 X10^3/uL; Basophil% 0.7 % (0-1); Eosinophil# 0.34 X10^3/uL; Eosinophils% 5.1 % (0-5); Hematocrit 37.2 % (37-47); Hemoglobin 12.4 g/dL (12.0-15.0); Lymphocyte # 2.91 X10^3/ul (0.83-4.51); Lymphocyte % 43.4 % (19-41); Mean Corp Hgb Conc 33.3 g/dL (32-36); Mean Corpuscular Hgb 28.4 pg (27.0-32.0); Mean Corpuscular Volume 85.1 fL (81-99); Mean Platelet Vol. 10.3 fl (6.2-12.0); Monocyte# 0.35 X10^3/uL; Monocyte% 5.2 % (0-10); NRBC Flagged by Analyzer 0 % (0-5); Neutrophil # 2.88 X10^3/uL (2.7-7.7); Neutrophil % 43.1 % (47-70); Platelet Count 252 K/mm3 (150-450); RBC Distribution Width CV 13.2 % (11.6-14.6); RBC Distribution Width SD 41.6 fl (35.1-43.9); Red Blood Count 4.37 M/mm3 (4.2-5.4); White Blood Count 6.7 K/mm3 (4.4-11.0)
--- NOTE | 2020-11-21 22:55 | RAD_ITS ---
HISTORY: sob EXAMINATION/TECHNIQUE: XR Chest 1 View: COMPARISON: None FINDINGS: LINES/DEVICES: None. LUNGS: No airspace consolidation. Unremarkable interstitium. No effusion. No pneumothorax. MEDIASTINUM: No cardiomegaly. MUSCULOSKELETAL: No acute osseous finding. RAD/Chest 1 View (Portable) IMPRESSION: No evidence of acute cardiopulmonary process. at 2350 Reported and signed by: Christian Merida MD Electronically Signed: Christian Merida MD at 23:48 EDT Tel , Service support ,
[2020-11-21 22:58] LABS: Internal QC Validated? YES +Cl - CLEAR BKGD; Pregnancy, Serum, hCG Quali. NEGATIVE Negative
[2020-11-21 23:01] LABS: Mucous, Urine 0 SEEN /hpf (<or=2+); Red Blood Cells-Urine 0 SEEN /hpf (0-5); Squamous Epithelial Cells - UA 0 SEEN /hpf (5-10); White Blood Cells 0 SEEN /hpf (0-5)
[2020-11-21 23:02] LABS: Color, Urine Yellow (Yellow); Glucose, Dipstick Normal (Normal); Ketone-Dipstick Negative (Negative); Leukocyte Esterase-Dipstick Negative /ul (Negative); Nitrite-Dipstick Negative (Negative); Occult Blood-Urine Negative /ul (Negative); Protein-Dipstick 100 mg/dl (Negative); Specific Gravity, Urine 1.015 (1.002-1.030); Urine Bilirubin Dipstick Negative (Negative); Urine Clarity Clear (Clear); Urine Urobilinogen Normal (Normal); Urine pH 6.5 (5.0 - 8.0)
[2020-11-21 23:07] LABS: ALB/GLOB Ratio 1.1 RATIO (0.9-2.4); AST(SGOT) 97 U/L (15-37); Alanine Aminotransfer ALT/SGPT 161 U/L (13-56); Albumin, Serum 4.1 g/dL (3.2-5.0); Alkaline Phosphatase 113 U/L (45-117); Anion Gap 12 (5-15); BUN 6 mg/dL (7-18); BUN/Creat Ratio 7.7 RATIO (10-20); Calcium,Total 8.4 mg/dL (8.5-10.1); Chloride 101 mmol/L (98-107); Creatinine, Serum 0.78 mg/dL (0.55-1.02); EST Glomerular Filtration Rate 94 mL/min (>60); Est Glom Filt Rate - Afr Amer 114 mL/min (>60); Estimated Creatinine Clearance 85.34 ml/min; Globulin 3.7 g/dL (2.2-4.2); Glucose 177 mg/dL (74-106); Potassium 2.8 mmol/L (3.5-5.1); Protein, Total 7.8 g/dL (6.4-8.2); Sodium Level 136 mmol/L (136-145)
[2020-11-21 23:11] LABS: Amorphous Sediment 2+; Bacteria 2+ /hpf (None Seen); Hyaline Cast 0-5 SEEN /lpf (0-5)
[2020-11-21] MEDS: Potassium Chloride 10mEq/100mL 10 MEQ/100 ML IV.SOLN. 100 MEQ IV BOLUS (23:31)
[2020-11-22 00:01] VITALS: BP 103/68; PULSE 84; RESP 16; TEMP 36.8; O2SAT 100
[2020-11-22] MEDS: Ondansetron 4 MG/2 ML Vial IV ×2 (00:10→02:50)
[2020-11-22] MEDS: Potassium Chloride 10mEq/100mL 10 MEQ/100 ML IV.SOLN. 100 MEQ IV BOLUS (00:44)
[2020-11-22 00:46] VITALS: BP 110/56; PULSE 77; RESP 14; O2SAT 97
[2020-11-22 00:52] VITALS: RESP 14
--- NOTE | 2020-11-22 01:18 | ED.RN ---
APNEA ALARM GOING OFF AGAIN AND RESPIRATIONS ARE 9-10 A MINUTE. SPO2 STAYING AT 92 WHEN BREATHING SLOWS AND TO 95-96 WHEN BREATHNG BETTER. HER BREATHING IS SHALLOW BUT SPO2 GOOD. DR PONCE AWARE AND WILL CONTINUE TO MONITOR
--- NOTE | 2020-11-22 01:33 | ED.RN ---
obtained verbal consent from pt to provided information to Ana avitia over the phone.
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
[2020-11-22 02:08] VITALS: BP 103/71; PULSE 78; RESP 16; O2SAT 98
--- NOTE | 2020-11-22 02:10 | ED.RN ---
PATIENT DECLINES HELP WITH REHAB OR ADMIT TO FLOOR FOR DETOX/HELP WITH WITHDRAWAL SYMPTOMS AND SAYS SHE DOES NOT NEED HELP WITH PSYCH SHE ALREADY SEES A COUNSELOR. SHE SAYS SHE WONT GO THROUGH WITHDRAWAL SHE IS NOT A USER AND STATES THE DOCTOR ALREADY ASKED HER THIS AND SHE DECLINED. THE DOCTOR IS TALKING WITH PATIENT'S FATHER AT THIS TIME, IN PRIVATE, QUIET AREA.
--- NOTE | 2020-11-22 02:36 | ED.RN ---
discussed referral for addiction and counseling again and patient again states she wants to go home and not to the floor for detox and states she is already signed up to start a program.
[2020-11-22 02:55] LABS: Amphetamine Urine VISTA NEGATIVE (<1000 ng/mL); Barbiturate Urine VISTA NEGATIVE (< 200 ng/mL); Benzodiazepine Urine VISTA NEGATIVE (< 200 ng/mL); Cocaine Urine VISTA NEGATIVE (< 300 ng/mL); Ecstacy Urine VISTA NEGATIVE (< 500 ng/mL); Methadone Urine VISTA NEGATIVE (< 300 ng/mL); PCP Urine VISTA NEGATIVE (< 25 ng/mL); THC Urine VISTA POSITIVE (< 50 ng/mL); Vista UDS pH Range 6
[2020-11-22 02:58] VITALS: BP 105/76; PULSE 74; RESP 13; O2SAT 98
== END 2020-11-22 03:02 | disposition home or self-care (01) ==
LOC: ED 11-22 00:04
PROVIDERS: Emergency Provider Emergency Medicine
DX: T40.2X1A Poisoning by other opioids, accidental (unintentional), initial encounter (principal); F10.129 Alcohol abuse with intoxication, unspecified; R53.83 Other fatigue; Y92.9 Unspecified place or not applicable; E87.6 Hypokalemia; F17.210 Nicotine dependence, cigarettes, uncomplicated
CPT/HCPCS: 71045; 80053; 80307; 81001; 82077; 84703; 85025; 93005; 96361; 96365; 96366; 96375; 96376; 99285; J7030; P9612; A4216; J2405

== ENCOUNTER 2021-07-06 14:24 | Outpatient (CLI) | payer MEDICAID, SELFPAY ==
[2021-07-09 10:07] LABS: Chlamydia By Nucleic Acid AMP Negative (Negative)
[2021-07-09 10:48] LABS: Gonococcus By Nucleic Acid AMP Negative (Negative)
[2021-07-11 17:04] LABS: HPV Reflexed? NOT INDICATED
== END 2021-07-06 23:59 | disposition home or self-care (01) ==
LOC: LABSPEC 14:25
PROVIDERS: Referring Provider Nurse Practitioner Women's Health; Visit Provider Nurse Practitioner Women's Health
DX: N76.0 Acute vaginitis (principal); Z87.42 Personal history of other diseases of the female genital tract; Z11.3 Encounter for screening for infections with a predominantly sexual mode of transmission
CPT/HCPCS: 87070; 87205; 87491; 87591; 88175; G0145

== ENCOUNTER 2024-06-23 08:00 | Outpatient (RCR) | payer MEDICAID, SELFPAY ==
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
--- NOTE | 2024-06-23 08:30 | BH.MTP ---
Master Treatment Plan Patient Information Program Physician:: Shannon Aguilar Primary Therapist:: Hal Boateng [facility] Psychiatric Diagnoses Psychiatric Diagnoses:: 1. Bipolar 2 disorder 2. Anxiety disorder, NOS 3. 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 Opiate use disorder in full remission for 4 years 5. Alcohol use disorder in full remission for 5 months 6. Nicotine use disorder 7. History of PTSD Diagnosis Code(s):: f31.9 Estimated LOS Estimated LOS (in weeks):: 8 Problem/Goal #1 Problem/Goal #1 Stated Goal:: Stated Goal:: Client will reduce depressive symptoms, worthlessness, anhedonia, isolation, passive thoughts of , lack of concentration, and negative core beliefs AEB self-report and decreased score on the depression and SI domains of the DSM-5 crosscutting scales. Description of Barriers: Significant isolation, limited support, limited coping skills, and hx of non-compliance with counseling services. Functional Impact: Isolation, avoidance, low motivation, social anxiety, passive thoughts of , excess sleep are impacting daily functioning including ability to obtain and maintain employment and responsibilities. Goal Relevant Strengths/Supports: Intelligent, insight, and reports being motivated. Objectives Objective #1: Stated Objective: Client will reduce avoidance/isolative behaviors that reinforce depression by setting 1-2 behavioral activation goals each week to increase behavioral activation/ opposite-action, motivation, and purpose. Interventions: Interventions: Through individual and group counseling will provide education on behavioral activation, avoidance behaviors and maintenance cycles. Will teach client coping skills to improve emotional regulation, mindfulness, and distress tolerance to help client cope with distress related to breaking depressive cycle. Discharge Criteria: Will complete 1-2 weekly behavior activation goals while in [facility] Target Date: 08/21/24 Review Date: 07/22/24 Objective #2: Stated Objective: Stated Objective: Client will work with therapist to develop a concrete ?crisis plan? or emotional dysregulation plan to implement during depressive episodes or acute events which includes emergency telephone numbers, internal/external coping strategies for SI/overwhelming emotions, lists of supports, warning signs, positive aspects of life, and motivations Interventions: Client will work with therapist to develop a ?crisis plan? or emotional dysregulation plan which includes emergency telephone numbers, internal/external coping strategies for SI/overwhelming emotions, lists of supports, warning signs, positive aspects of life, and motivations Discharge Criteria: Complete emotion regulation plan. Reduction of scores on the depression and SI domains of the DSM-5 cross-cutting scales Target Date: 07/22/24 Review Date: 08/21/24 Problem/Goal #2 Problem/Goal #2 Stated Goal:: Stated Goal:: Client will increase emotional regulation and reduce intensity and duration of anxiety and panic symptoms AEB self-report and reduction of scores on the anxiety and irritability domains of the DSM-5 cross-cutting scales Description of Barriers: Significant isolation, limited support, limited coping skills, emotion dysregulation, irritability, and hx of non-compliance with counseling services. Functional Impact: Isolation, avoidance, low motivation, social anxiety, passive thoughts of , excess sleep are impacting daily functioning including ability to obtain and maintain employment and responsibilities. Goal Relevant Strengths/Supports: Intelligent, insight, and reports being motivated. Objectives Objective #1: Stated Objective: Client will identify 5 physical warning signs, 2-3 anxiety triggers, and 5 ways to calm and manage anxiety. Pt will develop an anxiety scale indicating degrees of anxiety from 0-10 and physiological signals of his level of anxiety Plan is become aware of escalating anger/anxiety and implement skill early to avoid escalation Interventions: Through individual and group counseling will education the client on calming techniques as part of a tailored strategy for reducing chronic and acute physiological tension that accompanies the escalation of his anxiety/angry feelings Discharge Criteria: Able to identify 5 physiological warning signs, 2-3 anger/anxiety buttons, and 5 ways to calm Target Date: 08/21/24 Review Date: 07/22/24 Objective #2: Stated Objective: Client will identify 2-3 cognitive distortions that lead to rumination and learn 2-3 ways to manage these thoughts to better manage anxiety as shown by reduced DSM-5 scores for anxiety Interventions: Through individual and group counseling will provide education on the most common cognitive distortions and teach client the connection between thoughts, emotions, and feelings. Therapist will assist client in identifying, challenging, and replacing dysfunctional thoughts with positive, more realistic thoughts. Discharge Criteria: Able to identify 3 commonly used cognitive distortions and 3 ways to manage or challenge these distortions. Target Date: 08/21/24 Review Date: 07/22/24
--- NOTE | 2024-06-23 09:00 | BH.COMM ---
Communication Note Communication with Client Communication Note: met with patient to complete initial paperwork. Denies any significant changes since pre-admission screening. Completed suicide risk assessment with low risk. Consulted with Dr. De Leon with plan to admit to IOP with dx F31.53
--- NOTE | 2024-06-23 09:05 | BH.SGPN.GN ---
Behaviors/Verbalizations/Mental Status: []Pt alert and oriented, neatly dressed and groomed. Eye contact good. Motor activity appropriate. Speech within normal limits. Affect congruent, mood irritated. Thoughts linear, logical, no signs of hallucinations or delusions. Reviewed pt?s symptom tracker, no risk for suicidal ideation, plan, or intent 06/23/24. Client Response/Progress/Benefit: []Pt was an active participant in group discussions. Attentive. Able to identify mental health wins including coming today even though she did not want to and meeting her requirements for probation. Pt's stressor today is I'm really not thrilled to be here and pt shared she feels like I have too many requirements. Pt stated pt is feeling annoyed this morning. Pt receptive to feedback from peers which pt reported was helpful. Progress noted, but pt's stress continues to be an issue. Benefited from group support, encouragement, and feedback. Will continue in IOP to prevent decompensation, improve daily functioning, and gain healthy coping skills. Narrative Note: []
--- NOTE | 2024-06-23 10:10 | BH.SGPN.GN ---
Behaviors/Verbalizations/Mental Status: []Patient was alert and oriented, casually dressed and groomed. Eye contact good. motor activity appropriate. speech within normal limits. Affect congruent, mood depressed. Thoughts linear, logical, no signs of hallucinations or delusion. Client Response/Progress/Benefit: []Pt participated in the group discussions AEB providing input, nodding and taking notes. Attentive during psychoeducation Goal Setting. Participated during the discussion on common barriers. Pt stated a personal barrier to accomplishing goals is believing lack of motivation and procrastination. Group also identified benefits of goals as sense of purpose, improved self-confidence, more motivation for other goals, sense of accomplishment, and improved mental health. Pt identified personal benefits to goal setting. Benefited from increased awareness of mental health benefits of goals as well as psychoeducation on SMART goal criteria. Will continue in IOP to improve functioning and mood stability, challenge distorted thoughts, and prevent decompensation. Narrative Note: []
--- NOTE | 2024-06-23 11:10 | BH.SGPN.GN ---
Behaviors/Verbalizations/Mental Status: [] Pt alert and oriented. Appearance is casual. Eye contact good. Motor activity appropriate. Speech within normal limits. Affect is anxious. Mood is constricted. Thoughts linear, logical, no signs of hallucinations or delusions. Client Response/Progress/Benefit: [] Pt was engaged during discussion and experiential activity. Completed the worksheet challenging them to develop a personal SMART goal. Pt chose a SMART goal related to participating in IOP group sessions. Believes that being consistent with treatment and engagment will help her improve mental stability. Identified obstacles such as lack of motivation and negative thoughts.. Benefited from this group by developing a short-term SMART goal related to mental health. Will continue IOP to improve daily functioning, improve distress tolerance, and prevent decompensation.
--- NOTE | 2024-06-24 09:45 | BH.NA ---
Physical Data Vital Signs Pulse Rate: 77 Blood Pressure: 140/86 Height/Weight Height: 1.51 m Weight:: 54.431 kg Weight in Pounds: 120.0 lbs Current Medication Compliance Medication Compliance Do you take your medication as prescribed?: Yes Nutritional History Appetite Nutritional Instructions: Describe your appetite:: Good Additional nutritional information:: Client states she has gained 20lbs and is working to lose weight. Functional Assessment Sleep Pattern Describe any problems with sleeping: Client states she sleeps about 9 hours per day. Sensory/Communication Assess Communication Problems Do you have difficulty understanding what people are saying?: No Medical Problems/History Cancer History Type of Cancer:: Cervical Pain Assessment Do you have acute or chronic pain?: No Family History Family History (Updated 07/06/21 @ 10:45 by Kim Moncada) Grandfather Diabetes Heart disease Additional History Additional comments:: ADHD as a kid Surgical History Surgical History Have you had any surgeries? If so, list type and date:: Yes (LEEP, tubal) Substance Abuse Substance Abuse Please describe substance abuse in the last 30 days:: Client states she has used alcohol in the past but denies current use. Client states she has been a regular cigarette smoker since age 11, but switched to vaping nicotine about 3 years ago. Client states she used methamphetamines' about 4 times to help her stay up all night to clean her house and states the last use was in the summer of 2023. Client states she has a history of opiate use and lasted used about 3 years ago. Client states she drinks 1-2 cups of coffee per day. Mental Status Summary Mental Status Significant Findings/Observations on Appearance and Mood:: Client is alert and oriented x 4. Client is casually groomed. Client is cooperative with assessment. Client makes fair eye contact. Client's voice has normal rate and volume. Client has an appropriate affect. Client makes logical associations and has normal processing. Client denies delusions/hallucinations. Client denies current SI. Suicide Assessment Suicidal Ideation Are you currently or have you been suicidal in the past?: Yes Suicidal Intentional Rating Scale (SIRS): Suicidal thoughts (past) Physician Notification Past Psychiatric History MH Treatment Hx Past Psychiatric Medications:: several antidepressants, ADHD medication as a child Age of first mental health symptoms: Client states she took medication for ADHD as a child. Client states she had symptoms of anxiety/depression as teenager, and trialed antidepressants that did not help. Client states she was diagnosed as bipolar 2 around the age of 22. Describe (age, circumstance, etc) any past hospitalizations: None. Current providers for mental health treatment (counselor, psychiatrist, machine adjuster leader case trim, etc.): [facility] at [facility] for therapy, Terra Torrez MD at [facility] for psychiatry Fall Risk Assessment Age Age: Less than 60 Mental Status Mental Status: Willing & able to ask for assistance when needed Physical Status Physical Status: No problems Impairments Impairments: None Elimination Elimination: Continent AND independent Gait or Balance Gait or Balance: Walks independently Hx of Falls History of falls in the past 6 months: No known history Medications/Substances Psychotropics:: Antidepressants Medications/substances used within the past 24 hours or ordered to administer: 1-2 of the medications/substances listed above Total Score Total Points:: 1 RN Summary of Impressions Impressions Recommendations Impressions: Psychiatric Issues: 1. Bipolar 2 disorder 2. Anxiety disorder, NOS 3. 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 Opiate use disorder in full remission for 4 years 5. Alcohol use disorder in full remission for 5 months 6. Nicotine use disorder 7. History of PTSD 8. Primary support and work issues Level of Care How do the client's current symptoms and functional deficits support need for this level of care?: Client was referred to IOP by her outpatient therapist for anxiety and depression affecting her ability to function. Client reports anxiety in social situations and isolates herself. Client denies SI currently, but does state she has had SI in the past with no plan. Client states her kids are protective factors from hurting herself. Client states she comes to IOP looking for ways to help herself with her mental health because anxiety and depression are affecting her functioning. IOP will promote gains and prevent further decompensation while providing social support and skills training.
--- NOTE | 2024-06-24 10:15 | BH.SGPN.GN ---
Behaviors/Verbalizations/Mental Status: []Pt alert and oriented, neatly dressed and groomed. Eye contact fair. Motor activity appropriate. Speech within normal limits. Affect congruent, mood agitated. Thoughts linear, logical, no signs of hallucinations or delusions. Client Response/Progress/Benefit: [] Pt was attentive during psychoeducation and participated in group activity. Group discussed what contributes to a person?s perspective and how perspective can positively or negatively impact mental health treatment. Pt reflected on their perspective today and how it is impacting them. Pt shared their perspective is more negative and that they did not want to start IOP, so pt recognizes she is less engaged at times. Pt appeared to benefit from increasing awareness of different perspectives and how they can affect mental health. Pt will continue IOP tx to prevent decompensation, improve daily functioning, and maintain sobriety. Narrative Note: []
[2024-06-24 10:16] VITALS: BP 140/86; PULSE 77
--- NOTE | 2024-06-24 11:15 | BH.SGPN.GN ---
Behaviors/Verbalizations/Mental Status: []Pt alert and oriented, casually dressed and groomed. Eye contact good. Motor activity appropriate. Speech within normal limits. Affect congruent, mood depressed. Thoughts linear, logical, no signs of hallucinations or delusions. Client Response/Progress/Benefit: []Pt was attentive and contributed to group discussion. Pt worked with group to identify strategies that can help with challenging negative perspective. Pt stated she can remind self that thoughts are not facts as a way to challenge negative perspective. Pt completed strengths exploration worksheet, identifying personal strengths. Pt able to acknowledge how these strengths are helping pt and can continue to help pt in mental health journey. Pt identified wanting to work on leaning on strength of open-mindedness. Benefited from identifying personal strengths and strategies for enhancing use of identified strengths. Pt will continue IOP tx to continue improve functioning and mood stability, and prevent decompensation. Narrative Note: []
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
--- NOTE | 2024-06-24 12:13 | BH.DR.ITP ---
Initial Treatment Plan Patient Information Visit Information: ADMISSION DATE: EXPECTED LOS: 4-6 weeks Problems/Symptoms Problem #1:: Depression Symptom:: Sadness, hopelessness, worthlessness, low motivation, anhedonia, hypersomnia, low energy, decreased concentration, guilt, passive thoughts of Problem #2:: Anxiety Symptom:: Worry, rumination, avoidance of social activity and trauma triggers
--- NOTE | 2024-06-26 09:05 | BH.SGPN.GN ---
Behaviors/Verbalizations/Mental Status: [] Eye contact is good. Motor activity is appropriate. Appearance is casual. Speech is Appropriate. Mood is euthymic. Affect is full. Thoughts are linear and logical. No evidence of psychosis. Reviewed daily check in sheet and no reports of suicidal ideations or intent. Client Response/Progress/Benefit: [] Pt was an active participant in group discussions. Attentive. Daily symptom tracker notes no significant distress. States overall mood and functioning are better. Proud of herself for being consistent and attending IOP. Describes decreased isolation and improved engagement stating I'm starting to get in the swing of things. Structure, routine, and support have improved mental health, motivation, and productivity. Shared struggles that her son has had with mental health which has resulted in him being residential for quite some time. Son is being transferred to a local residential facility which will make visitation easier. Briefly discussed how her mental health struggles have impacted her functioning and ability to maintain consistent work. Progress noted. Benefited from group support, encouragement, and feedback. Will continue in IOP to prevent decompensation, stabilize mood, and increase healthy coping. Narrative Note: []
--- NOTE | 2024-06-26 10:05 | BH.SGPN.GN ---
Behaviors/Verbalizations/Mental Status: [] Eye contact is good. Motor activity is appropriate. Appearance is casual. Speech is Appropriate. Mood is depressed. Affect is congruent. Thoughts are linear and logical. No evidence of psychosis. Client Response/Progress/Benefit: [] Pt engaged participant AEB listening to others, engaging in activity, and providing feedback throughout. Attentive during psychoeducation and provided insight into obstacles that impede mental wellness. Pt chose shared with group current mental health reality and desired mental health reality, noting she would like to feel more present and content. Attentive to others that shared. Identified barriers to desired reality include: isolation, negative self-talk, and low motivation/depressed state. Benefited from taking look at current mental health state and obstacles for progress. Pt to continue IOP tx to improve coping repertoire, challenge negative self-talk, and prevent decompensation. Narrative Note: []
--- NOTE | 2024-06-26 11:05 | BH.SGPN.GN ---
Behaviors/Verbalizations/Mental Status: [] Eye contact is good. Motor activity is appropriate. Appearance is casual. Speech is Appropriate. Mood is dysthymic and anxious. Affect is congruent. Thoughts are linear and logical. No evidence of psychosis Client Response/Progress/Benefit: [] Pt was engaged at times during group discussions and was attentive during group activity. Worked with peers to identify strategies to help overcome barriers and obstacles to desired reality. Group worked together to develop strategies for the common barriers. Identified personal barriers to desired reality and chose one obstacle to work. Pt stated pt wants to work on procrastination and identified a strategy to set small realistic goals. Pt seemed to benefit from increased knowledge of practical strategies to overcome common barriers to moving forward. Will continue in IOP to prevent decompensation, increase healthy coping, stabilize mood, and improve functioning. Narrative Note: []
== END 2024-06-26 23:59 ==
LOC: BHIOP 08:00
PROVIDERS: Referring Provider Psychiatry & Neurology Psychiatry; Visit Provider Psychiatry & Neurology Psychiatry
DX: F41.9 Anxiety disorder, unspecified; F31.81 Bipolar II disorder; F15.91 Other stimulant use, unspecified, in remission; F12.91 Cannabis use, unspecified, in remission; F10.91 Alcohol use, unspecified, in remission; F17.210 Nicotine dependence, cigarettes, uncomplicated; F43.10 Post-traumatic stress disorder, unspecified
CPT/HCPCS: H2012; H2020

== ENCOUNTER 2024-06-29 07:17 | Outpatient (RCR) | payer MEDICAID, SELFPAY ==
[2024-06-27 02:45] VITALS: BP 140/86; PULSE 77
--- NOTE | 2024-07-01 09:30 | BH.MDN ---
Multi-Disciplinary Note Note 30-min Individual: Time Started:: 09:30 Date: 07/01/24 Purpose of session/treatment goals addressed:: Review current progress and symptoms. Finalize treatment plan goals. Eye Contact:: Good Motor Activity:: Appropriate Appearance:: Casual Speech:: Appropriate Mood:: Anxious Affect:: Congruent Thoughts:: Linear Staff Interventions:: motivational interviewing, treatment planning and goal setting Client Response:: This is the first day of pt's second week. States I like it. According to pt she related to group peers and topics. She was recently in an IOP focused on substance abuse and struggled to related to peers and program which led to limited engagement. Admits to a hx of struggles with treatment compliance and maintain consistent providers. Insight that her judgmental attitudes impacts her relationship, contributes to her isolation, and hinders growth. When asked about goals for treatment pt states she would like to improve her ability to manage her thoughts and emotions consistently. She would also like to improve her motivation and socialization while decreasing isolation. Also has an interest in healthier living through increased exercise and nutrition. Risks/Concerns:: No current risks or concerns. Daily symptom tracker show no suicidal ideations. Progress Toward Goals/Plan:: Progress noted since last week. Consistent attendance and is engaged during groups. Overall reports support, education, and routine of IOP has improved mental health. While she is consistent and engaged in IOP she continues to struggle outside of IOP specifically with motivation, sleep, and letting emotions run my life. Continues to report isolation, avoidance, and anhedonia on daily basis. Able to set a small goal for this next week to sign up for a local winter hiking challenge which she has verbalized she wants to complete. This challenge meets several of her goals to be healthier, decrease isolation, and socialize. Will continue in IOP to prevent decompensation, increase healthy support, in improve functioing. Time Stopped:: 10:00
--- NOTE | 2024-07-01 10:10 | BH.SGPN.GN ---
Behaviors/Verbalizations/Mental Status: []Eye contact is good. Motor activity is appropriate. Appearance is casual. Speech is Appropriate. Mood is calm. Affect is congruent. Thoughts are linear and logical. No evidence of psychosis. Client Response/Progress/Benefit: []Pt was an active participant in group discussion. Engaged and attentive during psychoeducation and interactive discussion on coping skills, why people use unhealthy coping skills, how to replace unhealthy coping skills, and internal vs external coping skills. Attentive as peers came up with list of unhealthy coping skills. Pt reported personally, pt has used substances to cope and this led to pt having consequences and shutting down. Group discussed the effects of maladaptive coping skills on mental health. Benefited from increased understanding of unhealthy coping skills and the need for developing healthy internal and external coping skills. Actively participated during experiential group activity and was able to related this activity to group topic. Will continue in IOP to prevent decompensation, gain healthy coping skills, and improve functioning. Narrative Note: []
--- NOTE | 2024-07-01 11:10 | BH.SGPN.GN ---
Behaviors/Verbalizations/Mental Status: []Pt alert and oriented, casual in appearance. Eye contact fair. Motor activity appropriate. Speech within normal limits. Affect constricted, mood anxious. Thoughts linear, logical, no signs of hallucinations or delusions. Client Response/Progress/Benefit: [] Pt engaged participant AEB provided contributions during discussion, taking notes, and listening attentively to others. Engaged in the provided activity. Group discussed the different categories of coping skills which included distraction, emotional release, grounding, self-love, and thought challenging. Pt participated in creating a coping skills ?menu? from the different categories of coping skills. Pt's coping skill menu included: yoga, playing with children, meditation, me time, and continuing therapy. Appeared to benefit from increasing repertoire of healthy coping skills. Will continue IOP to continue use of coping skills and prevent decompensation.
--- NOTE | 2024-07-02 09:05 | BH.SGPN.GN ---
Behaviors/Verbalizations/Mental Status: [] Pt alert and oriented, neatly dressed and groomed. Eye contact good. Motor activity appropriate. Speech within normal limits. Affect congruent, mood irritable. Thoughts linear, logical, no signs of hallucinations or delusions. Reviewed pt?s symptom tracker, no risk for suicidal ideation, plan, or intent 07/02/24. Client Response/Progress/Benefit: []Pt was an active participant in group discussions. Attentive. Able to identify mental health wins including getting to IOP despite lack of motivation and practicing self-care yesterday by doing her nails. Pt's stressor today is she continues to struggle with feeling overwhelmed with tasks but needing a part-time job. Pt stated pt is feeling blah this morning. Pt receptive to feedback from peers which pt reported was helpful. Progress noted, but pt's stress continues to be an issue. Benefited from group support, encouragement, and feedback. Will continue in IOP to prevent decompensation, improve daily functioning, and increase distress tolerance. Narrative Note: []
--- NOTE | 2024-07-02 10:15 | BH.SGPN.GN ---
Behaviors/Verbalizations/Mental Status: [] Eye contact is good. Motor activity is appropriate. Appearance is casual. Speech is Appropriate. Mood is irritable. Affect is congruent. Thoughts are linear and logical. No evidence of psychosis. Client Response/Progress/Benefit: [] Pt was an active participant in group discussions. Attentive during psychoeducation on the 4 communication styles (Passive, Passive-Aggressive, Aggressive, and Assertive) and the obstacles to effective communication. Contributed during interactive discussion on the benefits of communicating effectively. Worked well with peers to identify the benefits and disadvantages to the different communication styles. Pt believes that she is assertive in her communication however does admit that she can be indirect and struggles to communication effectively. Benefited from increased understanding of communication styles and how these can impact effective communication. Will continue in IOP to prevent decompensation, stablize mood, increase healthy coping, and improve functioning. Narrative Note: []
--- NOTE | 2024-07-02 11:10 | BH.SGPN.GN ---
Behaviors/Verbalizations/Mental Status: []Pt alert and oriented, casually dressed and groomed. Eye contact good. Motor activity appropriate. Speech within normal limits. Affect congruent, mood agitated and dysthymic. Thoughts linear, logical, no signs of hallucinations or delusions. Client Response/Progress/Benefit: [] Pt responded well to session AEB Pt listening attentively to others and providing input during group discussion on the pay offs and costs of the different communication styles. Pt able to connect how current communication style impacts mental health. Connected with peers? comments about importance of using assertive communication. Pt seemed to benefit from increasing awareness of healthy strategies to improve communication. Identified wanting to work on communicating before criticizing others. Will continue IOP tx to prevent decompensation, improve mood stability, and improve daily functioning. ? Narrative Note: []
--- NOTE | 2024-07-03 09:00 | BH.SGPN.GN ---
Behaviors/Verbalizations/Mental Status: [] Eye contact is good. Motor activity is appropriate. Appearance is casual. Speech is Appropriate. Mood is euthymic. Affect is full. Thoughts are linear and logical. No evidence of psychosis. Reviewed daily check in sheet and no reports of suicidal ideations or intent Client Response/Progress/Benefit: [] Pt participated when prompted. Attentive. Daily symptom tracker notes 4/5 for anxiety and agitation.Tearful at times during her check-in. Sahred with the group being emotional this AM due to hurtful words that her daughter recently told her. Narrative Note: []
--- NOTE | 2024-07-03 10:15 | BH.SGPN.GN ---
Behaviors/Verbalizations/Mental Status: [] Eye contact is good. Motor activity is appropriate. Appearance is casual. Speech is Appropriate. Mood is anxious and irritable. Affect is congruent. Thoughts are linear and logical. No evidence of psychosis Client Response/Progress/Benefit: [] Pt receptive to session AEB listening attentively to others and taking notes. Pt attentive and contributed throughout psychoeducation on the cognitive triangle and maintenance cycles. Pt engaged during group discussion reviewing the impact of daily activities and behaviors in either reinforcing unhealthy maintenance cycles and depression or assisting in reducing symptoms (?down? vs ?up? activities). Pt participated during interactive discussion in which pt identified common up activities (dressing up, showering, hiking, grounding, getting sunlight) and down activities (unrealistic goals, substances, isolating, neglecting hygiene, no self-care). Appeared to benefit from increased awareness of current behaviors and impact these have on mental health. Will continue IOP to prevent decompensation, stablize mood, improve functioning, and increase healthy coping. Narrative Note: []
--- NOTE | 2024-07-03 11:10 | BH.SGPN.GN ---
Behaviors/Verbalizations/Mental Status: []Pt alert and oriented, neatly dressed and groomed. Eye contact good. Motor activity appropriate. Speech within normal limits. Affect congruent, mood irritable. Thoughts linear, logical, no signs of hallucinations or delusions. Client Response/Progress/Benefit: [] Pt responded well to session, attentive and engaged in group discussions and activity. Actively engaged in continued discussion about up activities and down activities. Active participant as group discussed values and the benefits that knowing one's values can have on one's mental health. Pt completed worksheet on values and set a goal to spend more one on one time with her kids and plan a family dinner. Benefited from increased awareness of their personal values and how incorporating their values into behavioral activation goals can positive impact mental health. Will continue in IOP to reduce irritability, increase distress tolerance skills, and reduce negative thinking patterns. Narrative Note: []
--- NOTE | 2024-07-08 11:03 | BH.COMM ---
Communication Note Communication with Client Communication Note: no call/ no show for IOP this AM
--- NOTE | 2024-07-09 09:00 | BH.SGPN.GN ---
Behaviors/Verbalizations/Mental Status: [] Eye contact is fair. Motor activity is appropriate. Appearance is casual. Speech is Appropriate. Mood is anxious. Affect is congruent. Thoughts are linear and logical. No evidence of psychosis. Reviewed daily check in sheet and no reports of suicidal ideations or intent Client Response/Progress/Benefit: [] Pt was an active participant in group discussions. Attentive. Daily symptom tracker notes 06/30 for anxiety and 05/31 for depression. Reports feeling present today. Acknowledged that she missed IO yesterday and discuss the events that led to not showing. Talked at length regarding being 'triggered during a meeting yesterday in which support was getting very loud. This brought back a ribeiro of emotions including fear. Elaborated on how this triggering event impacted her mental health and activity throughout the day. Today is better thought. According to pt she actively worked on changing her perspective on today. She has several responsibilities today I'm jam-packed today. Also has to drive several hours to a required appointment. Reframing the events as opportunities to follow-through which has increased motivation. Overall reports doing well. Progress noted. Benefited from group support, encouragement, and feedback. Will continue in IOP to prevent decompensation, stabilize mood, and improve functioning. Narrative Note: []
--- NOTE | 2024-07-09 10:10 | BH.SGPN.GN ---
Behaviors/Verbalizations/Mental Status: [] Eye contact is fair. Motor activity is appropriate. Appearance is casual. Speech is Appropriate. Mood is euthymic. Affect is constricted. Thoughts are linear and logical. No evidence of psychosis. Client Response/Progress/Benefit: [] Pt was an active participant during interactive group discussions. Along with peers contributed to interactive discussion on defining what a boundary is in mental health. Pt along with peers identified challenges to setting boundaries which included: people pleasing, fear of rejection, fear of loss, fear people won't respect the boundary. Pt stated a personal barrier to setting boundaries is the worry of severing family relationships and guilt. Pt along with peers identified the benefits to setting boundaries such as reduces assumptions, can reduce stress, improve communication/relationships, and can keep us safe. Attentive during psychoeducation on types of boundaries (rigid, porous, flexible). Pt benefited from increased awareness and insight on the importance/benefit to setting health boundaries. Will continue in IOP to promote use of healthy coping skills, challenge negative thinking, and prevent decompensation.
--- NOTE | 2024-07-09 11:05 | BH.SGPN.GN ---
Behaviors/Verbalizations/Mental Status: []Eye contact is good. Motor activity is appropriate. Appearance is casual. Speech is Appropriate. Mood is engaged. Affect is congruent. Thoughts are linear and logical. No evidence of psychosis. Client Response/Progress/Benefit: [] Pt responded well to session AEB listening attentively to peers and taking notes throughout. Reports connecting with rigid boundaries with most people, but porous with her mother. Pt stated she has had to be more firm with boundaries in the past due to getting emotionally hurt. Participated in group discussion brainstorming various strategies for improving healthy boundary setting. Pt identified wanting to work on distress tolerance skills by applying the ?24 hour rule.? Seemed to benefit from increased awareness of how different boundary styles can impact mental health. Will continue IOP tx to promote mood stability, increase distress tolerance skills, and improve daily functioning. Narrative Note: []
--- NOTE | 2024-07-10 09:30 | BH.MDN_ITS ---
Multi-Disciplinary Note Note 30-min Individual: Time Started:: 09:30 Date: 07/10/24 Purpose of session/treatment goals addressed:: Reviewed current symptoms and progress in treatment. Addressed treatment goals 1 and 2. Eye Contact:: Good Motor Activity:: Appropriate Appearance:: Casual Speech:: Appropriate Mood:: Anxious Affect:: Congruent Thoughts:: Linear, Logical and No evidence of hallucinations/delusions noted Staff Interventions:: thought challenging, psychoeducation on: (distress tolerance), rapport building and strengths perspective Client Response:: Pt present today in good spirts. Shared more in-depth regarding her requirements through children services which include weekly family court, sober support 3x weekly, weekly counseling, drug screens, case management, and IOP. She believes she has been making progress in the past several weeks. Along with these requirements she visits regularly with her 3 children in [place] which are in foster care. Pre-occupied with a conflicted relationship in her life which appears to be impacting her self-esteem, stress, guilt, regret, and overall mental health. She talked at length regarding triggers and impact of this relationship. Insight that setting boundaries would be beneficial, however states I just can't do it now. Psychoeducation on distress tolerance. Pt does believe that she has low distress tolerance which often leads to avoidance and isolation. Able to identify the impact this has had on her relationships, unhealthy decisions, and struggles to follow through with obstacles. This also related to her goals to decrease judgmental attitudes and improve her ability to manage her thoughts and emotions consistently. Risks/Concerns:: no risks or concerns noted. Daily symptom tracker notes no suicidal ideations. Progress Toward Goals/Plan:: Progress noted. Remains engaged in groups and decreased isolation/avoidance. She missed one day of IOP this week, however attended the remainder of days this week. According to patient she is following through with daily responsibilities and requirements. Received positive feedback during family court this week which she finds beneficial. Discussion on low distress tolerance resonated with patient and she agreed to research this further over the weekend. If she is agreeable I'd like to continue to work on improving her distress tolerance as this will benefit her relationships, increase socialization, increase confidence in managing stress, improve overall mental health. Time Stopped:: 10:00
--- NOTE | 2024-07-10 10:10 | BH.SGPN.GN ---
Behaviors/Verbalizations/Mental Status: []Pt alert and oriented, casually dressed and groomed. Eye contact good. Motor activity appropriate. Speech within normal limits. Affect congruent, mood agitated. Thoughts linear, logical, no signs of hallucinations or delusions. Client Response/Progress/Benefit: [] Pt participated during small group discussions. Attentive during psychoeducation about defense mechanisms. Showed engagement during small group discussions and helped group identify which defense mechanisms were maladaptive, adaptive, or ?somewhere in the marks.? Pt worked with small group on identifying how each defense mechanism can impact mental health and gave examples. ?Seemed to benefit from gaining awareness about the different defense mechanisms. Pt to continue IOP tx to prevent decompensation, increase use of healthy coping skills, and maintain sobriety. ? Narrative Note: []
--- NOTE | 2024-07-10 11:10 | BH.SGPN.GN ---
Behaviors/Verbalizations/Mental Status: []Pt alert and oriented, casually dressed and groomed. Eye contact good. Motor activity appropriate. Speech within normal limits. Affect congruent, mood euthymic. Thoughts linear, logical, no signs of hallucinations or delusions. Client Response/Progress/Benefit: []Pt responded well to session, participating in activity and small group discussion. Group reviewed the rest of the defense mechanisms and discussed how these are adaptive, maladaptive, or somewhere in the marks. Pt's defense mechanisms included intellectualization, rationalization, suppression, humor, denial, and self-discipline. Pt recognizes importance of working on decrease maladaptive defense mechanisms because it leads to anger and impulsive decisions. Pt listened to hydroelectric plant operator teach different skills to help pt?s cope with or change their defense mechanisms. Pt appeared to benefit from gaining insight to the different defense mechanisms and learning coping skills. Pt will continue IOP tx to reinforce healthy coping skills, build confidence, and prevent decompensation.
--- NOTE | 2024-07-10 12:11 | PCM.BH.PN ---
Progress Note Progress Note: History of Present Illness: [] The patient is a 29-year-old engaged female with a history of bipolar 2 disorder, anxiety, PTSD, depression, methamphetamine use disorder (sober since summer 2023), opiate use disorder (sober since 2020); alcohol use disorder (sober since summer 2023) and routine use disorder who was referred to the [facility] behavioral health IOP by her outpatient therapist due to inability to function due to worsening symptoms of depression in the past few months. The patient states on intake emotions run my life. I have no structure. The patient's stressors include losing custody of her children due to children services finding evidence of use of methamphetamine in the house and 2020. The patient did the substance IOP and counseling but says that it was not a good fit so she was referred here. Patient states that she last worked in the summer 2023 but then quit when she got sober to focus on her mental health. For primary support she states that she has no one. The patient has a court ordered counselor and has been seeing this person, appear support group and now the IOP and feels a little overwhelmed with all the things that she has to do on a regular basis now. She feels her symptoms may be a little better in the past 2 weeks. She has had sadness, hopelessness, worthlessness, low motivation, isolation, avoidance, anhedonia, low energy, decreased concentration and guilt. Appetite is stable and sleep is increased and she states I sleep all of the time. She does admit to passive thoughts of and not wanting to wake up. She denies suicidal ideation, plan for suicide, homicidal ideation, hallucinations or delusions. She has a history of hypomania when she is not on her medication according to the patient and at these times she would get impulsive and stop her medication but states that she has been more compliant in the last 3 years so has not hypomanic as much. She is a worrier by nature and has social anxiety also. No energy drinks but moderate coffee use. She denies panic attacks, OCD and eating disorder. She has a history of cutting since her teenage years and last cut herself a few months ago. Her fianc? she has been with for several months and he is 31 years old and is working and is sober from drug use according to the patient. Current Psychiatric Medications: [] Effexor XR 150 mg p.o. daily (increased several months ago); Lamictal 200 mg p.o. daily (increased several months ago) Mental Status Examination: [] The patient is a 29-year-old female who appears normal for stated age and has a buzz cut on her hair. She is casually dressed and groomed with good hygiene and is ambulatory with a normal gait. She has no psychomotor agitation or retardation. She is cooperative during the interview. Speech is normal rate and rhythm and fluent with no pressure and eye contact is good. Mood is depressed. Affect is constricted. Thought process is goal-directed and organized. Thought content: There is evidence of passive thoughts of and not wanting to wake up. There is no evidence of suicidal ideation, plan for suicide, homicidal ideation, hallucinations, delusions or current symptoms of manuel or hypomania. Reality testing is intact. Intelligence is average. Judgment is intact. Insight is limited but some present. Impulsivity is high. Diagnoses: 1. Bipolar 2 disorder 2. Anxiety disorder, NOS 3. 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 Opiate use disorder in full remission for 4 years 5. Alcohol use disorder in full remission for 5 months 6. Nicotine use disorder 7. History of PTSD 8. Primary support and work issues Plan: [] The patient will start the [facility] and behavioral health as the structure, support, education and group therapy will hopefully prevent worsening of the patient's symptoms. She felt safe during the interview and she agreed that if it anytime she does not feel safe she will let us know or go to the emergency room. The risks, options, possible complications and side effects of the medications were discussed with the patient and she understands accepts these. The patient does not want any medication changes now because she feels that they are working well. She agrees to stay sober from all drug or alcohol use. She will continue to follow-up with her outpatient providers and I will see the patient in follow-up while she is in the IOP.
--- NOTE | 2024-07-15 09:05 | BH.SGPN.GN ---
Behaviors/Verbalizations/Mental Status: [] Eye contact is good. Motor activity is appropriate. Appearance is casual. Speech is Appropriate. Mood is dysthymic. Affect is congruent. Thoughts are linear and logical. No evidence of psychosis. Reviewed daily check in sheet and no reports of suicidal ideations or intent. Client Response/Progress/Benefit: [] Pt was an active participant in group discussions. Attentive. Did well to identify 2 mental health wins including being able to get to group today despite wanting to stay in bed. Identified use of opposite action. Additional win noted as completing all of her court ordered requirements to continue to work towards gaining custody of her children back. Current stressor noted as struggling with feeling low and less motivated today. Benefited from group support, encouragement, and feedback. Will continue in IOP to prevent decompensation, promote mood stability, and increase consistent use of healthy coping. Narrative Note: []
--- NOTE | 2024-07-15 10:10 | BH.SGPN.GN ---
Behaviors/Verbalizations/Mental Status: [] Pt alert and oriented, casually dressed and groomed. Eye contact good. Motor activity appropriate. Speech within normal limits. Affect congruent, mood agitated. Thoughts linear, logical, no signs of hallucinations or delusions. Client Response/Progress/Benefit: []Pt an active participant in group discussions on defining conflict (internal/external) and possible benefits to conflict. Attentive during psychoeducation on conflict styles (avoidant, accommodating, competing, cooperative) and engaged during group discussion in which peers identified the benefits and consequences to each conflict style. Pt identified that she tends to be avoidant or competing depending on her mood and whether she's been caring for herself. Benefited from increased awareness of the impact of conflict styles in mental health. Will continue in IOP tx to prevent decompensation, stabilize mood, and improve functioning to return to work. Narrative Note: []
--- NOTE | 2024-07-15 11:10 | BH.SGPN.GN ---
Behaviors/Verbalizations/Mental Status: []Client alert and oriented, casually dressed and groomed. Eye contact good. Motor activity appropriate. Speech within normal limits. Affect congruent, mood irritable. Thoughts linear, logical, no signs of hallucinations or delusions. Client Response/Progress/Benefit: [] Pt engaged in session AEB contributing to discussion and engaging in small group. Attentive during discussion on strategies for more effectively managing conflict in personal life. Pt participated in small group for activity and did well practicing how to manage conflict scenarios. Pt given handout on fair fighting rules and how to identify common conflict barriers. Pt indicated what needs improvement in conflict for them which was to ?assess what?s wrong before you begin? when addressing conflict. Appeared to benefit from gaining strategies to help Pt better manage conflict. Will continue IOP tx promote use of healthy coping skills, increase distress tolerance skills, and improve daily functioning. ? Narrative Note: []
--- NOTE | 2024-07-16 02:00 | BH.SGPN.GN ---
Behaviors/Verbalizations/Mental Status: [] Eye contact is good. Motor activity is appropriate. Appearance is casual. Speech is Appropriate. Mood is dysthymic. Affect is congruent. Thoughts are linear and logical. No evidence of psychosis. Reviewed daily check in sheet and no reports of suicidal ideations or intent. Client Response/Progress/Benefit: [] Pt was an active participant in group discussions. Attentive. Did well to identify 2 mental health wins including being able to get to group today despite wanting to stay in bed and not feeling into it today. Identified use of opposite action. Additional win noted as practicing emotional release skills via taking a shower when stressed. Current stressor noted as struggling with guilt about setting a boundary with her mother. Benefited from group support, encouragement, and feedback. Will continue in IOP to prevent decompensation, promote mood stability, and increase consistent use of healthy coping. Narrative Note: []
--- NOTE | 2024-07-16 10:10 | BH.SGPN.GN ---
Behaviors/Verbalizations/Mental Status: [] Pt alert and oriented, casually dressed and groomed. Eye contact good. Motor activity appropriate. Speech within normal limits. Mood: irritable. Affect: congruent. Thoughts linear, logical, no signs of hallucinations or delusions. Client Response/Progress/Benefit: [] Pt did not participate in group discussions. Attentive for a majority of psychoeducation on self-sabotage and its impact on mental health. Attentive as peers worked together to define self-sabotage. Attentive as peers provided examples of the eight types of self-sabotage (procrastination, self-medicating, unrealistic expectations, people-pleasing, and poor boundaries). Attentive as peers worked to identify reasons for self-sabotage behaviors (feels comfortable, can distract,perceived control, fear of success, and a type of self-protection). Seemed to benefit from gaining awareness about the self-sabotage. Pt to continue IOP tx to prevent decompensation, stabilize mood, increase healthy coping, and improve functioning. Narrative Note: []
--- NOTE | 2024-07-16 11:55 | PCM.BH.PN_ITS ---
Progress Note Progress Note: History of Present Illness/Interim History: The patient is a 29-year-old engaged female with a history of bipolar 2 disorder, anxiety, PTSD, depression, methamphetamine use disorder (sober since summer 2023), opiate use disorder (sober since 2020), alcohol use disorder (sober since summer 2023) who is seen in follow-up at the [facility] behavioral health IOP. I last saw the patient 3 weeks ago and at that time she did not want any medication changes and felt she was fine with the regimen she was on. The patient states that she has been doing okay overall in the past few weeks but admits that there is still some significant depression remaining. She is currently stressed by relationship issues with her mother which have always been there. She is also premenstrual lately and feels like maybe that is the cause of some of her worsening depression. She had a crying spell a day ago and during this had a very small urge to cut herself but did not cut herself. She is also stressed because she gained 30 pounds but states that it had nothing to do with being sober from methamphetamine for the past 6 months or so. Her thyroid has been checked and was normal. She feels she is learning valuable skills to deal with her mental health issues in the IOP. She still feels tired but she is not sleeping as much as she was before during the day when she used to sleep all the time. She denies any passive thoughts of now. She denies suicidal ideation, plan for suicide, homicidal ideation, hallucinations or delusions. No signs of hypomania. Current Psychiatric Medications: [] Effexor XR 150 mg p.o. daily (increased several months ago); Lamictal 200 mg p.o. daily (increased several months ago). Mental Status Examination: [] The patient is a 29-year-old female who has a buzz cut for her haircut and appears normal for stated age. She is casually dressed and groomed with good hygiene and is ambulatory with a normal gait. She has no psychomotor agitation or retardation. She is cooperative and pleasant during the interview. Eye contact is good and speech is normal rate and rhythm and fluent with no pressure. Mood is depressed. Affect is mildly constricted. Thought process is goal-directed and organized. Thought content: There is now no evidence of passive thoughts of . There is no evidence of suicidal ideation, plan for suicide, homicidal ideation, hallucinations or delusions. There is evidence of persistent occasional crying episodes and recent mild thoughts of self-harm with no actions. Reality testing is intact. Judgment is intact. Insight is fair and improving. Impulsivity is high. Diagnoses: [] 1. Bipolar 2 disorder 2. Anxiety disorder, NOS 3. 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 Opiate use disorder in full remission for 4 years 5. Alcohol use disorder in full remission for 5 months 6. Nicotine use disorder 7. History of PTSD 8. Primary support and work issues Plan: [] The patient will continue the IOP as the structure, support, education and group therapy will hopefully prevent worsening of the patient's symptoms. She felt safe during the interview and she agreed that if it anytime she does not feel safe she will let us know or go to the emergency room. The risk, options, possible complications and side effects of the medications were again discussed with the patient and she understands and accepts these. The patient agrees to add Abilify 2 mg to her medication regimen to help improve her depression to the point where she can do the behavioral changes using her mental health skills that she wants to implement. Prescription is sent in for Abilify 2 mg p.o. daily. She will continue to follow-up with her outpatient providers and stay sober from all alcohol or drug use and I will see the patient in fo llow-up in 2 weeks.
--- NOTE | 2024-07-16 15:00 | BH.TPR ---
Treatment Plan Review Demographics Date of Admission:: 06/23/24 Date of Treatment Plan Review:: 07/16/24 Admitting Diagnoses:: 1. Bipolar 2 disorder 2. Anxiety disorder, NOS 3. 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 Opiate use disorder in full remission for 4 years 5. Alcohol use disorder in full remission for 5 months 6. Nicotine use disorder 7. History of PTSD Current Diagnoses:: 1. Bipolar 2 disorder 2. Anxiety disorder, NOS 3. 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 Opiate use disorder in full remission for 4 years 5. Alcohol use disorder in full remission for 5 months 6. Nicotine use disorder 7. History of PTSD Patient Status Patient's Response to Treatment:: Pt has been consistently attending IOP. She is engaged in group discussions and reports benefit from the program overall. Admits that is has been a struggle to consistently attend. Remains sober and per her reports is also completing all responsibilities set forth by [facility] and family court. Status of Current Problems and Symptoms: Pt met with psychiatrist today and reports that she is still experiencing significant depression which is impacting her progress and functioning. Also reports ruminations about current stressors and difficulty with guilt related to her past. She appears to be attentive during IOP and is learning healthy coping skills however struggles to implement skills independently often falling back to unhealthy coping at times (isolation, avoidance, anger). She did agrees to a medication addition today per psychiatry to help with depression and emotion dysregulation. According to outcomes pt has had a 13% reduction in overall symptoms. Scores on the depression domain decreased by 33%, the anger domain decreased by 50%, and pt denied any suicidal thoughts in the past 2 weeks. Scores on the anxiety domain did not change from admission. Progress Problem #1: Problem Name:: Depression Status of Goals:: Obj 1- Struggled to follow through with BA goals and has not completed. Able to set a small goal to sign up for a local winter hiking challenge which she has verbalized she wants to complete. This challenge meets several of her goals to be healthier, decrease isolation, and socialize, however she did not follow through obj2- Not completed. She is gaining skills and knowledge through IOP to create her emotion regulation plan. Team Recommendations:: continue with current treatment goals. Suggested more reminders and accountability for BA goals. Problem #2: Problem Name:: Anxiety Status of Goals:: obj1- Not completed. Through continued attendance in groups will increase psychoeducation on coping skills, trigger identification, etc. Obj2- not completed. Has had education on cog, distortions. Will continue with education and increased awareness. Team Recommendations:: continue with current treatment goals. Suggested to practice coping skills during individual sessions to encourage use.
--- NOTE | 2024-07-17 09:05 | BH.SGPN.GN ---
Behaviors/Verbalizations/Mental Status: [] Eye contact is good. Motor activity is appropriate. Appearance is casual. Speech is Appropriate. Mood is irritable/depressed. Affect is congruent. Thoughts are linear and logical. No evidence of psychosis. Reviewed daily check in sheet and no reports of suicidal ideations or intent. Client Response/Progress/Benefit: [] Pt was an active participant in group discussions. Attentive. Daily symptom tracker notes 2/5 for irritability and /5 for depression/anxiety. Shared with the group that she ?wore jeans today? and elaborated on how this is a significant mental health win for her. Discussed how wearing jeans and dressing up? can increase her mood and overall engagement. Led to discussion on how we can complete small habits that can improve mental health. Overall her mood is ?blah? today however attempting skills. Progress noted. Benefited from group support, encouragement, and feedback. Will continue in IOP to prevent decompensation, stabilize mood, increase healthy coping, and improve functioning. Narrative Note: []
--- NOTE | 2024-07-17 10:15 | BH.SGPN.GN ---
Behaviors/Verbalizations/Mental Status: []Pt alert and oriented, casually dressed and groomed. Eye contact good. Motor activity appropriate. Speech within normal limits. Affect congruent, mood agitated. Thoughts linear, logical, no signs of hallucinations or delusions. Client Response/Progress/Benefit: [] Pt receptive to session AEB contributing to group discussion, as well as listening attentively to others, and taking notes. Worked with group to brainstorm the positive and negative aspects of stress on physical and mental health as well as the impact of distress on performance, relationships, and mental health. Pt shared their top stressors to be: all her requirements for court and her relationships. Shared when feeling overwhelmed with stress pt tends to shut down and give up. Benefited from increased awareness of positive and negative stress as well as how stress impact individuals. Will continue in IOP to prevent decompensation, increase distress tolerance skills, and improve daily functioning. ?? Narrative Note: []
--- NOTE | 2024-07-22 09:05 | BH.SGPN.GN ---
Behaviors/Verbalizations/Mental Status: [] Eye contact is good. Motor activity is appropriate. Appearance is casual. Speech is Appropriate. Mood is depressed/irritable. Affect is ocngruent. Thoughts are linear and logical. No evidence of psychosis. Reviewed daily check in sheet and no reports of suicidal ideations or intent. Client Response/Progress/Benefit: [] Pt was an active participant in group discussions. Attentive. Daily symptom tracker notes 3/5 for depression and 2/5 for anxiety/irritability. Reports mood had generally been worse. I had a pretty big setback. Elaborated on recent emotional dysregulation which resulted in not following through with a responsibility. However I didn't blow everything up. Was able to stablize and not make the situation worse which she viewed as a mental health win. In the past she would often blow things up and sabotage herself and her progress. This would also lead to isolation and avoidance. Progress noted. Benefited from group support, encouragement, and feedback. Will continue in IOP to prevent decompensation, stabilize mood, and improve functioning. Narrative Note: []
--- NOTE | 2024-07-22 10:10 | BH.MDN ---
Multi-Disciplinary Note Note 60-min Individual: Time Started:: 10:10 Date: 07/22/24 Purpose of session/treatment goals addressed:: Reviewed progress and current symptoms. Addressed treatment goal 1 (obj2) and goal 2(objs 1 and 2). Eye Contact:: Good Motor Activity:: Appropriate Appearance:: Casual Speech:: Appropriate Mood:: Anxious and Depressed Affect:: Congruent Thoughts:: Linear, Logical and No evidence of hallucinations/delusions noted Staff Interventions:: thought challenging, CBT techniques, mindfulness skills, rapport building and taught coping skills Client Response:: Pt utilized the session to process a recent breakdown. Elaborated on the event, her thoughts, her emotions, and her behaviors. Spent the majority of the session to utilize the event as an opportunity to better understand her triggers, possible coping strategies, and her current low distress tolerance. She did well to further explore the triggering events, her negative thoughts, and her anger response which led to not following through with a task. Pt was able to identify possible coping strategies however struggled to use the skills. Practiced breathing and mindfulness skills and encouraged her to practice and try when in distress. Risks/Concerns:: No risks or concerns noted. Progress Toward Goals/Plan:: Progress noted. Pt has been consistent and engaged in IOP. Reports getting benefit from the program. We are working on identifying and practicing coping strategies that she could place in her concrete emotion regulation plan. Also provided education and awareness on her physiological warning signs, triggers, and ways to calm. Therapist is also pointing out cognitive distortions when appropriate. Reframed distress as an opportunity to learn/growth rather than as a failure. According to pt she is following through with Family court responsibilities. She continues to struggles with using skills independently and low distress tolerance which often leads to isolation, self-sabotage, anger outbursts, guilt, and depression. Will continue in IOP to prevent decompensation, mika mood, and increase healthy coping.
--- NOTE | 2024-07-22 11:15 | BH.SGPN.GN ---
Behaviors/Verbalizations/Mental Status: []Client alert and oriented, neatly dressed and groomed. Eye contact good. Motor activity appropriate. Speech within normal limits. Affect congruent, mood depressed and anxious. Thoughts linear, logical, no signs of hallucinations or delusions. Client Response/Progress/Benefit: [] Pt responded well to session, attentive throughout. Did well to actively listen and contributed when prompted as group worked to review change process. Pt worked with group to relate the strategies used to overcome barriers in the various stages of change and common emotions throughout. Pt identified a change they would like to make is ?Going to hike daily.? Pt identified currently being in the preperation stage for this change. Pt said finding transportation as one thing she can do to help pt get to the next stage. Appeared to benefit from identifying a change they want and how to progress. Pt will continue IOP tx to prevent decompensation, combat distorted thought patterns, and improve self-compassion. Narrative Note: []
--- NOTE | 2024-07-24 09:05 | BH.SGPN.GN ---
Behaviors/Verbalizations/Mental Status: [] Eye contact is good. Motor activity is appropriate. Appearance is casual. Speech is Appropriate. Mood is euthymic. Affect is full. Thoughts are linear and logical. No evidence of psychosis. Reviewed daily check in sheet and no reports of suicidal ideations or intent. Client Response/Progress/Benefit: [] Pt was an active participant in group discussions. Attentive. Daily symptom tracker notes 05/31 for anxiety. Overall mood is ?better?. Shared with the group that she completed a very stress task last night. Worked through distress and utilize distress tolerance skills. Reports it was very stressful and frustrating however ? I did it?. Emotion is ?content?. Progress noted. Benefited from group support, encouragement, and feedback. Will continue in IOP to prevent decompensation, stabilize mood, and improve functioning. Narrative Note: []
--- NOTE | 2024-07-24 10:10 | BH.SGPN.GN ---
Behaviors/Verbalizations/Mental Status: [] Client alert and oriented, casually dressed and groomed. Eye contact fair. Motor activity appropriate. Speech within normal limits. Affect congruent, mood content. Thoughts linear, logical, no signs of hallucinations or delusions. Client Response/Progress/Benefit: [] Pt responded well to session AEB sharing and listening attentively to others. Group provided examples of benefits of having social support, including: validation, get assistance, and accountability. Pt also participated in group discussion regarding the barriers to accessing support identifying examples to include: negative thinking, lack of communication, and lack of trust. Personal example identified as lack of trust and isolating. Pt participated in experiential activity illustrating the impact communication, boundaries, and patience play in creating healthy support systems. Pt appeared to benefit from increased knowledge of the benefits of social support and greater self-awareness. Pt to continue IOP to improve distress tolerance, increase consistent use of healthy coping skills, and prevent decompensation. Narrative Note: []
--- NOTE | 2024-07-24 11:10 | BH.SGPN.GN ---
Behaviors/Verbalizations/Mental Status: []Client alert and oriented, casually dressed and groomed. Eye contact good. Motor activity appropriate. Speech within normal limits. Affect congruent, mood dysthymic. Thoughts linear, logical, no signs of hallucinations or delusions. Client Response/Progress/Benefit: [] Pt participated throughout AEB contributing to discussion, providing examples, and taking notes. Pt provided input during discussion on the types of support our supports can provide. Pt able to identify current support system and barriers that get in the way of using supports. Pt reported after identifying what type of supports pt receives, pt gained awareness that pt could benefit from more emotional support by reaching out more consistently to healthy supports. Pt seemed to benefit from identifying the type of support pt needs to work on improving. Pt recommended to continue IOP tx to promote mood stability, reduce negative thinking patterns, and improve daily functioning. Narrative Note: []
== END 2024-07-24 23:59 ==
LOC: BHIOP 07:17
PROVIDERS: Referring Provider Psychiatry & Neurology Psychiatry; Visit Provider Psychiatry & Neurology Psychiatry
DX: F31.81 Bipolar II disorder (principal); F41.9 Anxiety disorder, unspecified; F15.91 Other stimulant use, unspecified, in remission; F12.91 Cannabis use, unspecified, in remission; F10.91 Alcohol use, unspecified, in remission; F17.210 Nicotine dependence, cigarettes, uncomplicated; F43.10 Post-traumatic stress disorder, unspecified
CPT/HCPCS: H2012; H2020; S9480; 90832; 90837

== ENCOUNTER 2024-07-27 07:35 | Outpatient (RCR) | payer MEDICAID, SELFPAY ==
[2024-07-25 01:23] VITALS: BP 140/86; PULSE 77
--- NOTE | 2024-07-29 10:30 | BH.MDN_ITS ---
Multi-Disciplinary Note Note 30-min Individual: Time Started:: 10:30 Date: 07/29/24 Purpose of session/treatment goals addressed:: Reviewed current symptom and progress in IOP. Reviewed outcome scores. Addressed treatment goal 1; obj 1 Eye Contact:: Good Motor Activity:: Appropriate Appearance:: Casual Speech:: Appropriate Mood:: Euthymic Affect:: Full Thoughts:: Linear, Logical and No evidence of hallucinations/delusions noted Staff Interventions:: psychoeducation on: (distress tolerance), discharge planning and reviewed DSM-5 Client Response:: Pt immediately began the session discussing her progress in the [place] [facility] and CSB requirements. According to pt she has moved up to Phase 3 which means that she is meeting all expectations, has shown progress, and has remained sober. This phase give her more freedom therefore she does not have to attend weekly meeting with her team. She is excited and proud of herself however has insight that more free time can also be a negative as she benefits from routine and structure. She hopes with utilize the time to increase healthy habits such as exercise, walking, and addressing needs at home. Continued discussion and education on distress tolerance awareness and skills. Increased awareness has been helpful which she believes has been helped decrease unhealthy reactions and improve relationships. Risks/Concerns:: No risks or concerns noted. Daily symptom tracker showed no suicidal ideations. Progress Toward Goals/Plan:: Remains consistent and engaged in IOP. Outcomes scores show overall 13% decrease in symptoms. Scores also indicate reductions on the depression and anger scales. Also was agreeable with medication addition. Overall she reports improved emotion regulation, relationships, and overall functioning. She is following through will all expectations and has not isolated significantly. I've calmed down a lot. She also complete the hiking challenge that we discussed in earlier sessions. Currently in week 5 of IOP with plan to discharged in the next couple weeks. She is linked with weekly counseling at [facility]. Was encouraged to schedule an appointment with her outpatient psychiatrist. Time Stopped:: 11:00
--- NOTE | 2024-07-29 11:00 | BH.COMM ---
Communication Note Communication with Client Communication Note: IOP staff asked this nurse to talk to client about her complaints of a daily rash/warmth to her face. Discussed with client. Client states she has been taking Abilify 2mg for 1 week now, and daily since she started it a few hours after taking her dose her face feels warm/red with some slight hives. Client denies itching and denies rash or warmth/redness anywhere else on her body. Client is also on Lamictal and Effexor, but has been on both of them for several years. Client states overall her mental health does seem to be improved since starting the Abilify. Discussed with Dr. De Leon at this time and client is advised to stay on Abilify for now unless symptoms get worse. Discussed with client to come to IOP staff if further concerns about medication.
--- NOTE | 2024-07-29 11:10 | BH.SGPN.GN ---
Behaviors/Verbalizations/Mental Status: []Pt alert and oriented, casually dressed and groomed. Eye contact good. Motor activity appropriate. Speech within normal limits. Affect congruent, mood euthymic. Thoughts linear, logical, no signs of hallucinations or delusions. Client Response/Progress/Benefit: [] Pt was an engaged participant AEB listening attentively to others and providing input throughout group. Pt worked within their small group to identify strategies to manage inappropriate guilt. Identified a personal example of inappropriate guilt as ?I have a lot of mom guilt.? Pt wants to work on combatting inappropriate guilt by ?challenging distortions and using positive self-talk.? Pt seemed to benefit from learning about strategies to manage appropriate and inappropriate guilt. Pt to continue IOP tx to prevent decompensation, gain healthy coping skills, and maintain sobriety. ??? Narrative Note: []
--- NOTE | 2024-07-31 09:05 | BH.SGPN.GN ---
Behaviors/Verbalizations/Mental Status: [] Eye contact is good. Motor activity is appropriate. Appearance is casual. Speech is Appropriate. Mood is dysthymic. Affect is congruent. Thoughts are linear and logical. No evidence of psychosis. Reviewed daily check in sheet and no reports of suicidal ideations or intent. Client Response/Progress/Benefit: [] Pt was an active participant in group discussions. Attentive. Daily symptom tracker notes 05/31 for depression. Reports ?tiny plummet? yesterday regarding her mental health, however did not elaborate. Called off yesterday from IOP due to sickness. Also shared that she abruptly stopped smoking 3 days ago. Limited progress. Benefited from group support, encouragement, and feedback. Will continue in IOP to prevent decompensation, stabilize mood, and increase healthy coping. Narrative Note: []
--- NOTE | 2024-07-31 10:10 | BH.SGPN.GN ---
Behaviors/Verbalizations/Mental Status: [] Eye contact is good. Motor activity is appropriate. Appearance is casual. Speech is Appropriate. Mood is content. Affect is congruent. Thoughts are linear and logical. No evidence of psychosis. Client Response/Progress/Benefit: [] Pt receptive of session, actively engaged throughout AEB taking notes, providing input, and contributing in group discussion. Appeared to connect with group topic of automatic thoughts and cognitive distortions, as well as the impact of thought patterns on mental health, coping behaviors, and relationships. This particular group is very heavy on psychoeducation and pt appeared to connect with distortions and how they can impact functioning. Identified struggling with the mental filter distortion. Pt appeared to benefit from gaining insight on distorted thinking patterns and how this impacts overall mental health. Will continue IOP to stabilize mood, improve ability to function, and prevent decompensation. Narrative Note: []
--- NOTE | 2024-07-31 11:12 | BH.SGPN.GN ---
Behaviors/Verbalizations/Mental Status: [] Eye contact is good. Motor activity is appropriate. Appearance is casual. Speech is Appropriate. Mood is content. Affect is congruent. Thoughts are linear and logical. No evidence of psychosis. Client Response/Progress/Benefit: [] Pt was an active participant during group discussion. Pt was placed in a smaller group for activity and participated in identifying/combatting example distortions with peers. Pt was engaged in the smaller group, participated in group interactions to brainstorm answers, and appeared to be comprehending cognitive distortions. Pt stated could connect with many of the distortions covered in group. Benefited from gaining further insight and awareness of cognitive distortions as well as practicing ways to reframe and challenge thoughts. Will continue in IOP tx to improve self care, increase healthy coping skills, and prevent decompensation. Narrative Note: []
--- NOTE | 2024-08-05 09:00 | BH.SGPN.GN ---
Behaviors/Verbalizations/Mental Status: [] Eye contact is good. Motor activity is appropriate. Appearance is casual. Speech is Appropriate. Mood is dysthymic. Affect is constricted. Thoughts are linear and logical. No evidence of psychosis. Reviewed daily check in sheet and no reports of suicidal ideations or intent. Client Response/Progress/Benefit: [] Pt was an active participant in group discussions. Attentive. Daily symptom tracker notes 3/5 for depression and /5 for anxiety. Did well to provide supportive feedback to fellow participants; however, declined to share when it was her turn noting I don't feel like it today. Reports feeling blahhh and over it. Benefited from group support, encouragement, and feedback. Will continue in IOP to prevent decompensation, promote mood stability, and increase healthy coping. Narrative Note: []
--- NOTE | 2024-08-05 10:10 | BH.SGPN.GN ---
Behaviors/Verbalizations/Mental Status: [] Eye contact is good. Motor activity is appropriate. Appearance is casual. Speech is Appropriate. Mood is anxious and depressed. Affect is congruent. Thoughts are linear and logical. No evidence of psychosis. Client Response/Progress/Benefit: [] Pt was engaged and participating throughout, providing input and taking notes. Attentive during psychoeducation on anxiety and cognitive triangle. Participated in an interactive discussion on defining anxiety and identifying cognitive and physiological symptoms of anxiety. The group discussed the role of anxiety on isolation, avoidance, and overall functioning. Pt identified their physical/physiological signs of anxiety which includes: sweating, fidgeting, restless, hand shakes, dry mouth. Benefited from increased awareness and insight on anxiety and its impact. Will continue in IOP to prevent decompensation, stabilize mood, and increase healthy coping. Narrative Note: []
--- NOTE | 2024-08-05 12:18 | PCM.BH.PN ---
Progress Note Progress Note: History of Present Illness/Interim History: The patient is a 29-year-old engaged female with a history of bipolar 2 disorder, anxiety, PTSD, depression, methamphetamine use disorder (sober since summer 2023), opiate use disorder (sober since 2020), alcohol use disorder (sober since summer 2023) who is seen in follow-up at the [facility] behavioral health [facility]. I last saw the patient 3-1/2 weeks ago and at that time Abilify was added at 2 mg p.o. daily. The patient is now tolerating the Abilify well and has no side effects on it. She feels she is benefiting from the IOP and learning valuable skills. She states that overall she has been feeling pretty good and feels less depressed lately. She does however state that last night she had a meltdown where she was ruminating negatively on the fact that she has gained weight in the last 6 months and spiraled rapidly downhill. She felt guilty and ashamed of how she looks and how and how good her mother she is and she also had passive thoughts of last night. These have currently resolved and she denies them today. Her primary care doctor had worked her up for weight gain and her thyroid was normal as was everything else he checked. She remains sober from all drug use. She also had thoughts of self-harm by cutting last night but did not do any. She is trying to eat healthy and walk more to prevent any more weight gain and to start losing weight. Current Psychiatric Medications: [] Effexor XR 150 mg p.o. daily; Lamictal 200 mg p.o. daily; Abilify 2 mg p.o. daily (times 3+ weeks) Mental Status Examination: [] The patient is a 29-year-old female who has a buzz haircut and appears otherwise normal for stated age. She is ambulatory with a normal gait and casually dressed and groomed with good hygiene. She has no psychomotor agitation or retardation. She is cooperative during the interview. Speech is normal rate and rhythm and fluent with no pressure and eye contact is good. Mood is less depressed. Affect is mildly constricted. Thought process is goal-directed and organized. Thought content: There is no evidence of passive thoughts of , suicidal ideation, plan for suicide, homicidal ideation, hallucinations or delusions. There is evidence of persistent occasional meltdowns and crying made worse by negative rumination. There is evidence of recent mild thoughts of self-harm 24 hours ago and passive thoughts of but these have resolved when the meltdown resolved. Reality testing is intact. Judgment is intact. Insight is fair. Impulsivity is high. Diagnoses: [] 1. Bipolar 2 disorder 2. Anxiety disorder, NOS 3. 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 Alcohol use disorder in full remission for 5 months 5. Nicotine use disorder 6. Opiate use disorder in full remission for 4 years 7. History of PTSD 8. Primary support and work issues Plan: [] The patient will continue the IOP as the structure, support, education and group therapy will hopefully prevent worsening of the patient's symptoms. She felt safe during the interview and she agreed that if it anytime she does not feel safe she will let us know or go to the emergency room. No medication changes were made today. The patient agrees to work on distress tolerance and her tendency to ruminate negatively when stressed. She will continue to stay sober from all drug use. She will continue to follow-up with her outpatient providers and I will see the patient in follow-up while she is in the IOP.
--- NOTE | 2024-08-06 09:15 | BH.MDN ---
Multi-Disciplinary Note Note 45-min Individual: Time Started:: 09:15 Date: 08/06/24 Purpose of session/treatment goals addressed:: Utilized the session to review cognitive distortions and begin finalizing pt's emotion dysregulation plan. Eye Contact:: Good Motor Activity:: Appropriate Appearance:: Casual Speech:: Appropriate Mood:: Depressed Affect:: Constricted Thoughts:: Linear, Logical and No evidence of hallucinations/delusions noted Staff Interventions:: psychoeducation on: (cognitive distortions), CBT techniques and other (began finalizing emotion dysregulation plan. ) Client Response:: Majority of the session was spent finalizing emotion management plan. Therapist worked with patient to identify triggers to emotion dysregulation, warning signs (physiological, thought-based), and internal coping skills. Reviewed the role of cognitive distortions on automatic thoughts which she learned in an IOP group. She identified 6 common cognitive distortions (mental filter, overgeneralization, disqualifying the positives, shoulding, and catastrophizing). Risks/Concerns:: No risks or concerns noted. No report of SI on daily symptom tracker. Future-oriented as she is looking forward to visiting with 3 of her kids today. Progress Toward Goals/Plan:: Progress noted. Consistent and engaged in IOP. She reported an outburst on Saturday night in which she struggled with negative automatic thoughts, guilt, and emotion regulation. The development of a concrete plan is going to be very helpful for patient as she struggles to recall healthy coping when distressed. Overall progress noted in IOP level of care. She is also medication compliant. Discussed planned discharge for next week and she is agreeable. Time Stopped:: 10:00
--- NOTE | 2024-08-06 10:15 | BH.SGPN.GN ---
Behaviors/Verbalizations/Mental Status: [] Eye contact is good. Motor activity is appropriate. Appearance is casual. Speech is Appropriate. Mood is depressed and irritable. Affect is congruent. Thoughts are linear and logical. No evidence of psychosis Client Response/Progress/Benefit: [] Pt engaged in session AEB listening attentively to others and providing input throughout. Pt engaged in activity, able to connect how it can be uncomfortable and difficult to practice acceptance when situations are out of one?s own control. Worked with peer group to define acceptance and identify the benefits that acceptance can bring. Benefits included; reduce stuckness, reduced stress, helps one to focus on situations we can change, and decreased negative self-talk. Seemed to benefit from increased awareness of the meaning as well as the importance of acceptance. Will continue in IOP to prevent decompensation, stabilize mood, and improve functioning. Narrative Note: []
--- NOTE | 2024-08-06 11:15 | BH.SGPN.GN ---
Behaviors/Verbalizations/Mental Status: []Pt alert and oriented, casually dressed and groomed. Eye contact fair. Motor activity appropriate. Speech within normal limits. Affect congruent, mood depressed and agitated. Thoughts linear, logical, no signs of hallucinations or delusions. Client Response/Progress/Benefit: [] Pt responded well to session AEB taking notes and contributing to discussion throughout. Pt engaged as group continued discussion on acceptance and the mental health benefits of practicing acceptance. Pt and peers identified what makes acceptance challenging and pt completed a self-reflection exercise on what is hard to accept in pt's life. Pt identified something that is currently hard to accept as her past and present choices. Client stated by not accepting this it leads to feeling not good enough, depression, and self-sabotage. Group identified strategies to increase acceptance. Pt noted wanting to work on focusing on self-compassion. Pt appeared to benefit from gaining insight and learning strategies to increase acceptance. Pt will continue IOP tx to improve view of self, increase mood stability, and prevent decompensation. Narrative Note: []
--- NOTE | 2024-08-07 09:11 | BH.COMM ---
Communication Note Communication with Client Communication Note: Excused from IOP today. According to pt she has a job interview this AM.
--- NOTE | 2024-08-12 09:00 | BH.SGPN.GN ---
Behaviors/Verbalizations/Mental Status: [] Eye contact is good. Motor activity is appropriate. Appearance is casual. Speech is Appropriate. Mood is content. Affect is congruent. Thoughts are linear and logical. No evidence of psychosis. Reviewed daily check in sheet and no reports of suicidal ideations or intent. Client Response/Progress/Benefit: [] Pt was an active participant in group discussions. Attentive. Did well to identify 2 mental health wins including being able to spend time on self-care yesterday. Described spending time outdoors. Additional win noted as taking the step to find a job and feeling ready to return to work. Shared this is also her stressor but did well to identify skills to support her return. Benefited from group support, encouragement, and feedback. Will continue in IOP to prevent decompensation, promote mood stability, and increase consistent use of healthy coping. Narrative Note: []
--- NOTE | 2024-08-12 10:10 | BH.SGPN.GN ---
Behaviors/Verbalizations/Mental Status: []Pt alert and oriented, casually dressed and groomed. Eye contact good. Motor activity appropriate. Speech within normal limits. Affect congruent, mood dysthymic. Thoughts linear, logical, no signs of hallucinations or delusions. Client Response/Progress/Benefit: [] Pt took notes and contributed to group discussions. Attentive during psychoeducation on growth mindset. Participated during the activity. Interactive group discussion on growth mindset in which group verbalized their current fixed mindsets and how they affect their mental health. Pt shared common fixed mindset thoughts they have. These thoughts lead to feeling disheartened about self and the world, not reaching out to others for help, and self-criticism. Pt shared a personal fixed thought I'll never be successful. Pt able to connect negative impact fixed thoughts have on functioning. Pt benefited from increased awareness of growth mindset and fixed thoughts and how fixed thoughts impact their mental health. Will continue IOP to promote healthy coping, challenge distortions, and prevent decompensation.
--- NOTE | 2024-08-12 11:10 | BH.SGPN.GN ---
Behaviors/Verbalizations/Mental Status: []Pt alert and oriented, casually dressed and groomed. Eye contact good. Motor activity appropriate. Speech within normal limits. Affect congruent, mood calm. Thoughts linear, logical, no signs of hallucinations or delusions. Client Response/Progress/Benefit: [] Pt was an active participant during activity and discussion. Pt did well to remain attentive and participate as group worked on identifying characteristics and benefits of adopting a growth mindset. Worked with fellow participants in reframing the example fixed thoughts into growth mindset thoughts. Pt worked on changing own fixed thought and reframed the thought to ?I?ve been told medications help me and they do.? Pt also wants to work on using dialectical thinking. Pt appeared to benefit from challenging own thoughts and engaging in the activity. Pt will continue IOP tx to promote mood stability, increase distress tolerance, and establish aftercare. ? Narrative Note: []
--- NOTE | 2024-08-13 09:00 | BH.SGPN.GN ---
Behaviors/Verbalizations/Mental Status: [] Client alert and oriented, casual appearance. Eye contact good. Motor activity appropriate. Speech within normal limits. Affect congruent, mood euthymic. Thoughts linear, logical, no signs of hallucinations or delusions. Reviewed client's symptom tracker, no risk for suicidal ideation, plan, or intent. Client Response/Progress/Benefit: [] Client responded well to session AEB listening to others and sharing thoughts/feelings. Client reported mental positive as showed up today. Client stated additional month of positive as remembering that she has an appointment with her outpatient provider which is something that she often would Mr. Forget to go to. Client noted she has no current stressor. Client defined feeling content. Appeared to benefit from support from peers. Will continue IOP tx to promote healthy coping skills, challenge distortions, and prevent decompensation. Narrative Note: []
--- NOTE | 2024-08-13 10:15 | BH.SGPN.GN ---
Behaviors/Verbalizations/Mental Status: [] Pt alert and oriented, casually dressed and groomed. Eye contact good. Motor activity appropriate. Speech within normal limits. Affect congruent, mood dysthymic. Thoughts linear, logical, no signs of hallucinations or delusions. Client Response/Progress/Benefit: [] Pt participated at times in group discussions. Attentive during psychoeducation on the CBT [place] (Thoughts, Behaviors, Emotions). Engaged in group discussion on how thoughts and behaviors can contribute to maintaining adverse feelings, such as depression, anxiety, and irritability. Completed worksheet in which pt identified obstacles and/or thoughts that are keeping them stuck. Shared thoughts that included; I'm too much or not enough; I don't do anything right, i have too much baggage. Pt benefited from increased awareness of the basis of CBT therapy as well as specific thoughts that are impacting pt's progress. Will continue in IOP to prevent decompensation, stabilize mood, and increase healthy coping. Narrative Note: []
--- NOTE | 2024-08-13 11:30 | BH.MDN_ITS ---
Multi-Disciplinary Note Note 30-min Individual: Time Started:: 10:30 Date: 08/13/24 Purpose of session/treatment goals addressed:: Reviewed outcome scores, distress/emotion regulation plan, and finalized aftercare plans. Addressed treatment plan goals 1 and 2. Eye Contact:: Good Motor Activity:: Appropriate Appearance:: Casual Speech:: Appropriate Mood:: Anxious Affect:: Congruent Thoughts:: Linear, Logical and No evidence of hallucinations/delusions noted Staff Interventions:: discharge planning, reviewed DSM-5 and other (Completed and reviewed distress tolerance/ emotion dysregulation plan. ) Client Response:: Pt is scheduled to discharge successfully from IOP tomorrow. Reached maximum benefit from IOP and no longer meets criteria. Shared with therapist that she interviewed and was offered a FT job at a local [employer]. She is anxious however excited. Believes that her mental healthy is stable enough to start a job. Hopeful that the job will also provide a sense of purpose, distraction, financial stability, and social outlet. She is set to start next week. She met with her psychiatrist today via telehealth and was proud of herself for being honest. Insight that she tends to minimize her struggles and symptoms. She has noticed progress however admits that she still has episodes with intense anger, self-harm urges, and passive thoughts of with one last occurring on 08/04/24. We reviewed her individualized distr ess tolerance/emotional regulation plan which she was encouraged to use during these episodes. Risks/Concerns:: No risks or concerns noted. Progress Toward Goals/Plan:: Consistently attended the program. Current outcomes show an increase in symptoms since 4 week review on 07/16/24. At that point pt had a 13% reduction in overall symptoms which showed that the depression domain decreased by 33%, the anger domain decreased by 50%, and pt denied any suicidal thoughts in the past 2 weeks. Outcomes scores from today show an overall 4% increase in symptoms with slight increases in the anxiety and depression domains as well as decrease in anger domain. It would appear that IOP was beneficial in preventing decompensation during significant stressors in her life (children in custody of children services, children services requirements, starting a new job, etc.). According to pt she really likes the program and shared that its comforting to know its available if she decompensates in the future. From her perspective the program was helpful to stabilize her mental health enough to return to work. She hasn't worked in over a year. Linked with therapist (Angel Barriga) At [facility] with bi-monthly appointments and psychiatrist at [facility] (Terra Torrez) whom she saw this morning and has follow up on 09/24/24. Time Stopped:: 12:05
--- NOTE | 2024-08-14 09:05 | BH.SGPN.GN ---
Behaviors/Verbalizations/Mental Status: [] Eye contact is good. Motor activity is appropriate. Appearance is casual. Speech is Appropriate. Mood is euthymic. Affect is full. Thoughts are linear and logical. No evidence of psychosis. Reviewed daily check in sheet and no reports of suicidal ideations or intent. Client Response/Progress/Benefit: [] Pt was an active participant in group discussions. Attentive. Daily symptom tracker notes 07/01 for anxiety. Shared with the group that today is her last day in [facility] as she is set to discharge successfully. Emotion for today is ? anxious?. Proud of herself for finishing the program as she has a history of not following through with treatment. Shared her progress in IOP as well as aftercare plans. She is set to start a new job next week and is excited as she has not worked in over a year. Progress noted. Will be discharge from [facility] today. Narrative Note: []
--- NOTE | 2024-08-14 10:15 | BH.SGPN.GN ---
Behaviors/Verbalizations/Mental Status: []Pt alert and oriented, casually dressed and groomed. Eye contact good. Motor activity appropriate. Speech within normal limits. Affect congruent, mood content. Thoughts linear, logical, no signs of hallucinations or delusions. Client Response/Progress/Benefit: []Pt was an active participant in group discussion and activity. Attentive during psychoeducation. Along with peers, pt was able to identify barriers to taking action in their life. Identified several symptoms and stressors that pt feels are holding them back from progress such as poor boundaries, lack of communication of needs, and negative self-talk. Stated these things have kept pt from loving and advocating for herself, as well as making lasting changes. Pt shared that she wants to begin addressing poor boundaries. Benefited from increased self-awareness of obstacles. Will continue in outpatient counseling to maintain mood stability, promote consistent skill application, and prevent decompensation. Narrative Note: []
--- NOTE | 2024-08-14 10:45 | BH.DS_ITS ---
Discharge Summary Demographics Date of Admission:: 06/23/24 Discharge Date: 08/14/24 Presenting Problems at Admission:: Pt is a 29 year old female with hx of Bipolar 2, Generalized Anxiety Disorder, PTSD, Meth Use D/O (sober since summer 2023), Opiate Use D/O (sober since 2010), and Alcohol Use D/O (sober since summer 2023). Referred to IOP by outpatient therapist due to mental health decompensation for the past several months. Pt reports depressive episodes with excessive sleep, isolation, and avoidance. I sleep all the time. Emotion dysregulation stating My emotions run my life. Significant isolation and avoidance I have no structure. Endorses increased appetite (25lb weight gain since summer), low motivation, poor memory, anhedonia, hopelessness, and worthlessness. Denies active suicidal ideations, plan, or intent. No hx of attempts. Endorses passive thoughts of and survival ambivalence somedays I just don't want to wake up. Hx of hypomania when she does not take her medications which presents as impulsivity and poor choices. Pt also reports social anxiety which limits her functioning and increases avoidance as well as isolation. Currently unemployed since summer. Discharge Diagnoses:: 1. Bipolar 2 disorder 2. Anxiety disorder, NOS 3. 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 Alcohol use disorder in full remission for 5 months 5. Nicotine use disorder 6. Opiate use disorder in full remission for 4 years 7. History of PTSD Reason for Discharge:: Reached maximum benefit from IOP, completed treatment plan goals, and no longer meets criteria for IOP level of care. Treatment Progress During Treatment & Response: Consistently attended the program. Current outcomes show an increase in symptoms since 4 week review on 07/16/24. At that point pt had a 13% reduction in overall symptoms which showed that the depression domain decreased by 33%, the anger domain decreased by 50%, and pt denied any suicidal thoughts in the past 2 weeks. Outcomes scores from today show an overall 4% increase in symptoms with slight increases in the anxiety and depression domains as well as decrease in anger domain. It would appear that IOP was beneficial in preventing decompensation during significant stressors in her life (children in custody of children services, children services requirements, starting a new job, etc.). According to pt she really likes the program and shared that its comforting to know its available if she decompensates in the future. From her perspective the program was helpful to stabilize her mental health enough to return to work. She hasn't worked in over a year. Accomplished Treatment Plan goals 1. Completed an individualized distress tolerance/emotion dysregulation plan to implement during depressive episodes or acute events which includes internal/external coping strategies for SI/overwhelming emotions, lists of supports, warning signs, positive aspects of life, affirmations, triggers, and motivations 2. Identified over 5 physiological warning signs to distress/anxiety and triggers to anxiety/distress. These were added to individual plan as well as coping skills for anxiety. 3. Able to identify 3 common cognitive distortions and ways to reframe. This was also added to individualized plan. Issues Still to be Addressed:: Depression, anger, anxiety, and low distress tolerance. Pt's overall outcomes did not improve as much as the team would have expected from admission to discharge. Slight improve noted at 3-4 week period, however slight regression in the past week due in large part to psychosocial stressor and low distress tolerance. Discharge Recommendations/Instructions:: Linked with therapist (Angel Barriga) At [facility] with bi-monthly appointments and psychiatrist at [facility] (Terra Torrez) whom she saw this morning and has follow up on 09/24/24. Discharge Handout
--- NOTE | 2024-08-14 11:10 | BH.SGPN.GN ---
Behaviors/Verbalizations/Mental Status: []Pt alert and oriented, casually dressed and groomed. Eye contact fair. Motor activity appropriate. Speech within normal limits. Affect congruent, mood euthymic. Thoughts linear, logical, no signs of hallucinations or delusions. Client Response/Progress/Benefit: [] Pt responded well to session, taking notes and participating in worksheet discussion. Pt connected with the discussion on action steps, and this helped pt learn how to set goals differently. Pt set a SMART goal to improve physical health by exercising and eating a healthy meal three times a week. Pt shared setting a schedule for the week as something that can support herself in accomplishing this goal. Appeared to benefit from identifying a small goal to benefit mental health. Pt is to continue IOP to promote healthy coping skills, challenge distortions, and prevent decompensation.
== END 2024-08-14 12:16 | disposition home or self-care (01) ==
LOC: BHIOP 07:35
PROVIDERS: Referring Provider Psychiatry & Neurology Psychiatry; Visit Provider Psychiatry & Neurology Psychiatry
DX: F31.81 Bipolar II disorder (principal); F41.9 Anxiety disorder, unspecified; F15.91 Other stimulant use, unspecified, in remission; F12.91 Cannabis use, unspecified, in remission; F10.91 Alcohol use, unspecified, in remission; F17.210 Nicotine dependence, cigarettes, uncomplicated; F43.10 Post-traumatic stress disorder, unspecified
CPT/HCPCS: H2012; H2020; S9480; 90832; 90834

== ENCOUNTER 2025-04-27 22:08 | Emergency (ER) | payer MEDICAID, SELFPAY ==
[2025-04-27 22:09] VITALS: BP 122/89; PULSE 82; RESP 15; TEMP 36.7; O2SAT 99; BMI 26.2
--- NOTE | 2025-04-27 22:20 | EKG12_ITS ---
Test Reason : [facility] Blood Pressure : */* mmHG Vent. Rate : 69 BPM Atrial Rate : 69 BPM P-R Int : 244 ms QRS Dur : 98 ms QT Int : 380 ms P-R-T Axes : 76 72 46 degrees QTcB Int : 407 ms Sinus rhythm with sinus arrhythmia with 1st degree A-V block Incomplete right bundle branch block minor Nonspecific T wave abnormality Abnormal ECG Confirmed by Javon Carter ([id number]), sound editor GRECIA STEELE ([id number]) on 04/28/2025 8:48:34 AM Referred By: Confirmed By: Javon Carter
--- NOTE | 2025-04-27 22:21 | EX.ED.DYSGE1 ---
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 Patient states that tonight her fianc? . States that she is about to lose custody of her 4 children. She states that she has no place to stay now that her fianc? does not wish her there. She was drinking alcohol tonight. She refused to leave the premises police were called. She reportedly took unknown amount of propranolol 10mg (not extended release) but states that she spit it out (estimated 20 min before 911 call so appox 2100). She denies ingesting any. She states she sees a counselor weekly at 180. She does have a history of substance abuse. She also has a diagnosis of anxiety, PTSD, and bipolar 2. Patient is in handcuffs as she was fighting the police. [facility] Medical History Physical exam, pre-employment History of post traumatic stress disorder Alcohol use disorder in remission Methamphetamine use disorder, mild, in early remission Anxiety disorder, unspecified Bipolar 2 disorder Substance abuse Home Medications ?Medication ?Instructions ?Recorded ?Last Taken ?Type lamotrigine 200 mg tablet 200 mg PO DAILY 06/24/24 Unknown History (Lamictal) venlafaxine 150 mg 150 mg PO DAILY 06/24/24 Unknown History capsule,extended release 24 hr (Effexor XR) dextroamphetamine-amphetamine ER 1 cap PO DAILY 04/27/25 Unknown History 20 mg 24hr capsule,extend release propranolol 10 mg tablet 10 mg PO BID PRN PRN anxiety 04/27/25 Unknown History Allergy/AdvReac Type Severity Reaction Status Date / Time amoxicillin (Amoxicillin) Allergy Intermediate Rash Verified 04/27/25 22:24 Family History Grandfather Diabetes Heart disease Surgical History H/O tubal ligation H/O LEEP Social History household members: other current occupational status: employed current occupation: [employer] Smoking Status: Current every day smoker tobacco type: cigarettes alcohol intake: never substance use type: does not use what type of physical activity do you participate in: walking and yoga frequency: 1-2 times per week seatbelt use: always do you feel safe at home: Yes additional social history: lives in sober living house ROS ROS ED Constitutional Constitutional ED: Denies chills, fever(s) or weight loss Eyes Eyes: Denies change in vision or diplopia ENT ENT ED: Denies ear pain, rhinorrhea or sore throat Cardiovascular Cardiovascular: Denies chest pain, orthopnea, palpitations or racing heartbeat Respiratory/Chest Respiratory/Chest: Denies cough, dyspnea or orthopnea Gastrointestinal Gastrointestinal: Denies abdominal pain, diarrhea, nausea or vomiting Genitourinary Genitourinary ED: Denies dysuria, hematuria or urinary frequency Musculoskeletal Musculoskeletal: Denies arthralgias or myalgias Integumentary Denies abscess or rash Neurologic Neurologic: Denies headache(s) or weakness Psychiatric Psychiatric: Reports anxiety, depression, suicidal ideation and suicidal thoughts Endocrine Endocrinology: Denies polydipsia, polyphagia or polyuria Allergic/Immunologic Allergic/Immunologic ED: Denies mouth swelling, tongue swelling or urticaria EXAM Physical Exam Const Vital Signs: 04/27/25 22:09 04/27/25 23:09 Temperature 98.1 F Temperature Source Oral Pulse Rate 82 87 Respiratory Rate 15 20 H Blood Pressure 122/89 H 122/84 H Blood Pressure Mean 100 96 Pulse Ox 99 98 Oxygen Delivery Method Room Air Room Air Positive well nourished and well developed General Appearance ED: well developed and NAD HEENT Reports normocephalic, head/scalp atraumatic and moist mucous membranes Eyes PERRL and EOMs intact bilaterally Neck no lymphadenopathy, supple and no JVD Resp normal respiratory effort and clear to auscultation bilaterally Cardio regular rate, regular rhythm and no murmurs GI normal to inspection, nondistended, normoactive bowel sounds and non-tender Palpation: soft Back/Spine no CVA tenderness and normal ROM Extremity normal to inspection General Extremety ED: Negative for edema General Extremity: Negative for edema Neuro oriented x3 and CN's II-XII intact bilaterally Sensorium / Orientation: alert Motor Exam: strength 5/5 throughout Psych Mood & Affect: depressed and tearful Skin no rashes or lesions noted and no wounds MDM MDM MDM Narrative Medical decision making narrative: Differential diagnosis includes alcohol intoxication suicidality bipolar disorder propranolol overdose Patient removed monitoring equipment and IV. She began yelling at nursing. Because of potential for propranolol ingestion she needs to be monitored on the playground monitor. Geodon was ordered but the patient became compliant. Therefore it was held. CBC is normal creatinine 0.49 potassium 3.2 elevation of transaminases with an AST of 78 ALT of 110 alk phos 150 test is negative toxicology presenting positive for cannabinoids and alcohol level of 181. Care of the patient be turned over to the oncoming physician during her observational period and then we will need crisis to evaluate the patient. History & Record Review Discussion w/independent historian: EMS personnel, Patient and Other (Police) Lab Data Attestation: I reviewed the patient's lab results. Labs: Laboratory Results - last 24 hr 04/27/25 04/27/25 22:14 22:25 WBC 9.8 RBC 4.80 Hgb 13.7 Hct 40.2 MCV 83.8 MCH 28.5 MCHC 34.1 RDW Std Deviation 40.8 RDW Coeff of Nanette 13.2 Plt Count 268 MPV 10.1 Immature Gran % (Auto) 0.200 Neut % (Auto) 49.9 Lymph % (Auto) 41.0 [place] % (Auto) 8.7 Eos % (Auto) 0.0 Baso % (Auto) 0.2 Absolute Neuts (auto) 4.9 Absolute Lymphs (auto) 4.01 Nucleated RBC % 0 Sodium 139 Potassium 3.2 L Chloride 100 Carbon Dioxide 27.6 Anion Gap 12 BUN 6 Creatinine 0.49 L Estim Creat Clear Calc 133.46 Est GFR (MDRD) Non-Af 129 BUN/Creatinine Ratio 11.9 Glucose 83 Calcium 9.4 Total Bilirubin 0.41 AST 78 H ALT 110 H Alkaline Phosphatase 150 H Total Protein 7.4 Albumin 4.6 Globulin 2.8 Albumin/Globulin Ratio 1.7 Serum , Qual NEGATIVE Urine Opiates Screen NEGATIVE U Buprenorphine Qual NEGATIVE Ur Oxycodone Screen NEGATIVE Urine Methadone Screen NEGATIVE Urine Fentanyl Screen NEGATIVE Ur Barbiturates Screen NEGATIVE Ur Phencyclidine Scrn NEGATIVE Ur Amphetamines Screen NEGATIVE U Benzodiazepines Scrn NEGATIVE Urine Cocaine Screen NEGATIVE U Cannabinoids Screen PRESUMPTIVE POSITIVE Ethyl Alcohol 181.0 H Management Discussion w/another healthcare provider: Behavioral health Discharge Plan Triage Chief Complaint: Overdose ED Provider: Marcial Edouard Dx/Rx/DC Orders Prescriptions: No Action venlafaxine [Effexor XR] 150 mg capsule,extended release 24hr 150 mg PO DAILY lamotrigine [Lamictal] 200 mg tablet 200 mg PO DAILY propranolol 10 mg tablet 10 mg PO BID PRN PRN (Reason: anxiety) dextroamphetamine-amphetamine 20 mg capsule,extended release 24hr 1 cap PO DAILY Primary Care Provider: Care Physician,No Primary Referrals: Care Physician,No Primary [Primary Care Provider, Medical] Print Language: [place]
--- OUTSIDE RECORDS SUMMARY | 2025-04-27 22:29 | XMS RPT_ITS | CCD ---
Author Organization [facility] Care Team Providers Care Cigar Bander Hand Name Role Phone KIMBERLYSHERRIE Unavailable Unavailable PHYSICIAN, NONE Unavailable Unavailable JORDAN HUNTLEY Unavailable Unavailable HUNTLEY, JORDAN C Unavailable Unavailable NO, DOCTOR ON Unavailable Unavailable NO, DOCTOR ON Unavailable Unavailable HUNTLEY JORDAN C Unavailable Unavailable Alessandra NI, Wilda Primary Care Provider Alessandra NI, Wilda Primary Care Provider Alessandra NI, Wilda Primary Care Provider Alessandra NI, Wlida Primary Care Provider Alessandra NI, Wilda Primary Care Provider [phone] Tori Card PA-C Unavailable Older SECURITY SUPERVISOR.SPOUT POSITIONER, Amy Unavailable Ellen Quiroga PA-C Unavailable BLAINE CONNOLLY Referring Unavailable ALESSANDRA, WILDA Primary Care Unavailable CHAPO APARICIORA Primary Care Unavailable Qasim Granado Attending Unavailable Qasim Granado Referring Unavailable Care Physician, No Primary Primary Care Unava ilable Shannon Nelson Attending Unavailable Shannon Nelson Referring Unavailable Care Physician, No Primary Primary Care Unava ilable Qasim Granado Attending Unavailable Care Physician, No Primary Primary Care Unava ilable Care Physician, No Primary Referring Unava ilable Qasim Granado Attending Unavailable Care Physician, No Primary Referring Unava ilable Care Physician, No Primary Primary Care Unava ilable Shannon Nelson Referring Unavailable Care Physician, No Primary Primary Care Unava ilable Shannon Nelson Attending Unavailable Shannon Nelson Referring Unavailable Care Physician, No Primary Primary Care Unava ilable Shannon Nelson Attending Unavailable Unavailable Primary Care Provider Unavailabl e BLAINE CONNOLLY Referring Unavailable BLAINE CONNOLLY Attending Unavailable BLAINE CONNOLLY Attending Unavailable WILDA APARICIO Primary Care Unavailable MOHSEN, BLAINE Referring Unavailable MOHSEN, BLAINE Attending Unavailable WILDA APARICIO Primary Care Unavailable MOHSEN, BLAINE Referring Unavailable MOHSEN, BLAINE Attending Unavailable MOHSEN, BLAINE Referring Unavailable BLAINE CONNOLLY Attending Unavailable MOHSEN, BLAINE Referring Unavailable MOHSEN, BLAINE Attending Unavailable MOHSEN, BLAINE Referring Unavailable MOHSEN, BLAINE Attending Unavailable MOHSEN, BLAINE Referring Unavailable Allergies Allergy Classification Reported Allergen(s) Allergy Type Date of Onset Reaction(s) Facility Penicillins (antibiotic) (1 source) Amoxicillin Drug Allergy 04-07-2005 [facility] Work Phone: (3 sources) amoxicillin; Translations: [AMOXICILLIN] Drug Allergy 04-07-2005 [facility] Repository (20 sources) Amoxicillin Drug Allergy 04-07-2005 [facility] Work Phone: (1 source) Amoxicillin Drug Allergy 08-19-2024 [facility] Repository Medications Current Medications Medication Drug Class(es) Dates Sig (Normalized) Sig (Original) 24 hr amphetamine aspartate 5 mg / amphetamine sulfate 5 mg / dextroamphetamine saccharate 5 mg / dextroamphetamine sulfate 5 mg extended release oral capsule (9 sources) Central Nervous System Stimulant Start: 01-13-2025 End: 02-12-2025 take 1 capsule by mouth once daily amphetamine-dextro amphetamine XR (ADDERALL XR) 20 mg capsule Indications: Attention deficit hyperactivity disorder (ADHD), combined type , Encounter for long-term (current) use of medications Take 1 capsule by mouth once daily for 30 days. 30 capsule 01/13/2025 02/12/2025 Active Start: 10-21-2024 End: 01-17-2025 take 1 capsule by mouth once daily amphetamine-dextroamphetamine XR (ADDERA LL XR) 15 mg capsule Indications: Attention deficit hyperactivity disorder (ADHD), combined type Take 1 capsule by mouth once daily for 30 days. 30 capsule 12/18/2024 01/13/2025 Discontinued (Dosage adjustment) ARIPiprazole 2 mg oral tablet (10 sources) Atypical Antipsychotic Start: 08-13-2024 End: 01-26-2025 take 1 tablet by mouth once daily ARIPiprazole (ABILIFY) 2 mg tablet Indications: 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 TAKE 1 TABLET BY MOUTH EVERY DAY 90 tablet 01/26/2025 Active lamoTRIgine 200 mg oral tablet (20 sources) Mood Stabilizer, Anti-epileptic Agent Start: 01-20-2024 End: 02-01-2025 take 1 tablet by mouth once daily lamoTRIgine (LAMICTAL) 200 mg tablet Indications: 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 , Generalized anxiety disorder TAKE 1 TABLET BY MOUTH EVERY DAY 90 tablet 02/01/2025 Active Start: 10-28-2023 End: 12-27-2023 take 1 tablet by mouth once daily lamoTRIgine (LAMICTAL) 200 mg tablet Indications: 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 , Generalized anxiety disorder Take 1 tablet by mouth once daily. 30 tablet 1 10/28/2023 12/27/2023 Active Start: 05-06-2023 End: 10-28-2023 take 1 tablet by mouth once daily lamoTRIgine (LAMICTAL) 150 mg tablet Indications: Generalized anxiety disorder , 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 Take 1 tablet by mouth once daily. Must complete follow up appointment in order to receive further refills 30 tablet 0 08/27/2023 10/28/2023 Discontinued Start: 12-05-2022 End: 02-03-2023 take 1 tablet by mouth once daily lamoTRIgine (LAMICTAL) 150 mg tablet Indications: Generalized anxiety disorder , 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 Take 1 tablet by mouth once daily. 30 tablet 1 12/05/2022 02/03/2023 Active Start: 10-25-2022 End: 12-05-2022 take 1 tablet by mouth once daily lamoTRIgine (LAMICTAL) 100 mg tablet Indications: Generalized anxiety disorder , 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 Take 1 tablet by mouth once daily. 30 tablet 1 10/25/2022 12/05/2022 Discontinued Start: 07-02-2022 End: 11-25-2022 take 2 tablets by mouth once daily lamoTRIgine (LAMICTAL) 25 mg tablet Indications: Generalized anxiety disorder , 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 Take 2 tablets by mouth once daily. 60 tablet 1 09/26/2022 10/25/2022 Discontinued Start: 08-30-2021 End: 06-08-2022 take 2 tablets by mouth once daily lamoTRIgine (LAMICTAL) 25 mg tablet Indications: Generalized anxiety disorder , 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 Take 2 tablets by mouth once daily. 60 tablet 1 04/09/2022 06/08/2022 Active Start: 07-26-2021 End: 08-30-2021 take 1 tablet by mouth once daily, then take 2 tablets by mouth once daily lamoTRIgine (LAMICTAL) 25 mg tablet Indications: Generalized anxiety disorder Take 1 tablet by mouth once daily for 60 days, THEN 2 tablets once daily. 60 tablet 1 07/26/2021 08/30/2021 Discontinued Comment on above: Take 2 tablets by mo [facility] once daily. Take 1 tablet by michael th once daily for 60 days, THEN 2 tablets once daily. Take 1 tablet by michael th once daily. take 1 tablet by michael th every day Take 1 tablet by michael once daily. Must complete follow up appointment in order to receive further refills mupirocin 0.02 mg/mg topical ointment (1 source) RNA Synthetase Inhibitor Antibacterial Start: 11-21-19 End: 11-26-19 mupirocin (BACTROBAN) 2 % ointment Apply to affected area three times a day for 5 days. 30 g 0 11/21/2023 11/26/2023 Active propranolol hydrochloride 10 mg oral tablet (9 sources) beta-Adrenergic Zhang Start: 10-15-19 take 1 tablet by mouth twice daily as needed for anxiety propranolol (INDERAL) 10 mg tablet Indications: Generalized anxiety disorder TAKE 1 TABLET BY MOUTH TWO TIMES A DAY NEEDED (FOR BREAKTHROUGH ANXIETY) 60 tablet 10/14/2024 Active Start: 09-09-2024 take 1 tablet by michael th twice daily as needed for anxiety propranolol (INDERAL) 10 mg tablet Indications: Generalized anxiety disorder TAKE 1 TABLET BY MOUTH TWO TIMES A DAY NEEDED (FOR BREAKTHROUGH ANXIETY) 60 tablet 09/09/2024 Active Start: 08-13-2024 End: 09-09-2024 take 1 tablet by mouth twice daily as needed for anxiety propranolol (INDERAL) 10 mg tablet Indications: Generalized anxiety disorder Take 1 tablet by mouth two times a day as needed (for breakthrough anxiety). 60 tablet 08/13/2024 09/09/2024 Discontinued 24 hr venlafaxine 150 mg extended release oral capsule (20 sources) Serotonin and Norepinephrine Reuptake Inhibitor Start: 05-07-2024 End: 01-26-2025 take 1 capsule by mouth once daily venlafaxine ER (EFFEXOR XR) 150 mg 24 hr capsule Indications: Generalized anxiety disorder TAKE 1 CAPSULE BY MOUTH EVERY DAY 90 capsule 01/26/2025 Active Start: 01-20-2024 End: 05-07-2024 take 1 capsule by mouth once daily venlafaxine ER (EFFEXOR XR) 75 mg 24 hr capsule Indications: Generalized anxiety disorder Take 1 capsule by mouth once daily. 30 capsule 04/03/2024 05/07/2024 Discontinued Start: 05-06-2023 End: 12-27-2023 take 1 capsule by mouth once daily venlafaxine ER (EFFEXOR XR) 75 mg 24 hr capsule Indications: Generalized anxiety disorder Take 1 capsule by mouth once daily. 30 capsule 1 10/28/2023 12/27/2023 Active Start: 07-02-2022 End: 02-03-2023 take 1 capsule by mouth once daily venlafaxine ER (EFFEXOR XR) 75 mg 24 hr capsule Indications: Generalized anxiety disorder Take 1 capsule by mouth once daily. 30 capsule 1 10/25/2022 12/05/2022 Discontinued Start: 07-26-2021 End: 06-08-2022 take 1 capsule by mouth once daily venlafaxine ER (EFFEXOR XR) 75 mg 24 hr capsule Indications: Generalized anxiety disorder Take 1 capsule by mouth once daily. 30 capsule 1 04/09/2022 06/08/2022 Active Comment on above: Take 1 capsule by mo ut once daily. take 1 capsule by mo ut every day Take 1 capsule by mo ut once daily. Must complete follow up appointment in order to receive further refills Completed/Discontinued Medications Medication Drug Class(es) Dates Sig (Normalized) Sig (Original) lisdexamfetamine dimesylate 30 mg oral capsule (1 source) Central Nervous System Stimulant Start: End: take 1 capsule by mouth once daily lisdexamfetamine (VYVANSE) 30 mg capsule Indications: Attention deficit hyperactivity disorder (ADHD), combined type Take 1 capsule by mouth once daily for 30 days. 30 capsule 09/17/2024 10/21/2024 Discontinued (Side Effects) metroNIDAZOLE 500 mg oral tablet (1 source) Nitroimidazole Antimicrobial Start: 2 End: 2 take 1 tablet by mouth twice daily metroNIDAZOLE (FLAGYL) 500 mg tablet Take 500 mg by mouth twice daily. 0 07/10/2021 08/31/2021 Discontinued (Course of therapy completed) Comment on above: Take 500 mg by mouth twice daily. Multivitamin capsule (11 sources) Start: 2 End: 3 Multivitamin capsule Take by mouth. 0 07/06/2021 10/25/2022 Discontinued Start: 07-06-2021 End: 12-07-2021 Multivitamin capsule Take by mouth. 0 07/06/2021 12/07/2021 Discontinued (Duplicate Entry) Start: 07-06-2021 Multivitamin c apsule Take by mouth. 0 07/06/2021 Active Comment on above: Take by mouth. QUEtiapine 150 mg oral tablet (13 sources) Atypical Antipsychotic Start: 3 End: 3 take 1 tablet by mouth once daily at bedtime QUEtiapine 150 mg tablet Indications: Generalized anxiety disorder , 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 Take 1 tablet (150 mg) by mouth daily at bedtime. 30 tablet 1 07/02/2022 10/25/2022 Discontinued (Discontinued by Patient) Start: 01-17-2022 End: 06-08-2022 take 1 tablet by mouth once daily at bedtime QUEtiapine 150 mg tablet Indications: Generalized anxiety disorder , 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 Take 1 tablet (150 mg) by mouth daily at bedtime. 30 tablet 1 04/09/2022 06/08/2022 Active Start: 12-07-2021 End: 02-05-2022 take 1.5 tablets by mouth once daily at bedtime QUEtiapine (SEROQUEL) 50 mg tablet Indications: Generalized anxiety disorder , 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 Take 1.5 tablets by mouth daily at bedtime. 45 tablet 1 12/07/2021 02/05/2022 Active Start: 08-30-2021 End: 12-07-2021 take 1 tablet by mouth once daily at bedtime QUEtiapine (SEROQUEL) 50 mg tablet Indications: Generalized anxiety disorder , 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 Take 1 tablet by mouth daily at bedtime. 30 tablet 1 10/04/2021 12/07/2021 Discontinued Comment on above: Take 1 tablet by michael th daily at bedtime. Take 1.5 tablets by mouth daily at bedtime. Take 1 tablet (150 m g) by mouth daily at bedtime. Problems Active Problems Problem Classification Problem Date Documented Date Episodic/Chronic Administrative/social admission (2 sources) Encounter for pre-employment examination; Translations: [Encounter for pre-employment examination] Onset: 08-19-2024 Episodic Anxiety disorders (20 sources) Generalized anxiety disorder; Translations: [Generalized anxiety disorder] Onset: 03-23-2020 Chronic Attention-deficit, conduct, and disruptive behavior disorders (20 sources) Attention deficit hyperactivity disorder; Translations: [Attention-deficit hyperactivity disorder, unspecified type] Onset: 03-23-2020 03-23-2020 Chronic Attention-deficit, conduct, and disruptive behavior disorders (4 sources) Attention deficit hyperactivity disorder, combined type; Translations: [Attention-deficit hyperactivity disorder, combined type] 10-21-2024 Chronic Attention-deficit, conduct, and disruptive behavior disorders (1 source) Attention-deficit hyperactivity disorder, combined type; Translations: [Attention deficit hyperactivity disorder (ADHD), combined type] Onset: 03-23-2020 Chronic Nutritional deficiencies (3 sources) Vitamin D deficiency; Translations: [Vitamin D deficiency, unspecified] Onset: 05-07-2024 05-07-2024 Chronic Other aftercare (1 source) Patient encounter status; Translations: [Other termite exterminator (current) drug therapy] Episodic Other aftercare (4 sources) Long-term current use of drug therapy; Translations: [Other termite exterminator (current) drug therapy] 05-07-2024 Episodic Residual codes; unclassified (1 source) Failed encounter; Translations: [No-show for appointment] 09-05-2023 Episodic Skin and subcutaneous tissue infections (1 source) Paronychia of fingers of bilateral hands; Translations: [Cellulitis of right finger] 11-21-2023 Episodic Past or Other Problems Problem Classification Problem Date Documented Date Episodic/Chronic Mood disorders (20 sources) Mood disorder; Translations: [Mood disorder due to known physiological condition, unspecified] Onset: 09-17-2024 Episodic Other aftercare (2 sources) Other termite exterminator (current) drug therapy; Translations: [Encounter for long-term (current) use of medications] Onset: 05-07-2024 Episodic Other complications of (17 sources) Anemia of ; Translations: [Anemia complicating , unspecified trimester] Onset: 08-17-2011 Resolved: 11-30-2013 05-22-2021 Chronic Other complications of (17 sources) Venereal disease in mother complicating , childbirth AND/OR puerperium; Translations: [Other infections with a predominantly sexual mode of transmission complicating , unspecified trimester] Onset: 09-13-2011 Resolved: 08-25-2014 05-22-2021 Episodic Other complications of (17 sources) Maternal tobacco use in ; Translations: [Smoking (tobacco) complicating , unspecified trimester] Onset: 05-01-2012 Resolved: 11-30-2013 05-22-2021 Episodic Other female genital disorders (17 sources) History of premature labor; Translations: [Personal history of pre-term labor] Onset: 05-01-2012 Resolved: 11-30-2013 05-22-2021 Episodic Other and delivery including normal (20 sources) Normal ; Translations: [Encounter for supervision of other normal , unspecified trimester] Onset: 07-19-2011 Resolved: 11-30-2013 11-30-2013 Episodic Residual codes; unclassified (17 sources) Tobacco user; Translations: [Tobacco use] Onset: 06-03-2013 Resolved: 11-30-2013 11-30-2013 Episodic Substance-related disorders (17 sources) Marijuana user; Translations: [Cannabis use, unspecified, uncomplicated] Onset: 05-01-2012 Resolved: 11-30-2013 05-22-2021 Episodic Results Test Name Value Interpretation Reference Range Facility Quantiferon TB-Gold+on 08-21 QFT MITOGEN VENKATESH > 10.00 Normal . [facility] Comment on above: Performed By: #### L [id number] #### [facility] Laboratory [facility] [place], [address] QFT NIL VALUE 0.05 IU/mL Normal . [facility] Comment on above: Performed By: #### L [id number] #### [facility] [address] [place], [place], [id number] (414 QFT TB GOLD+ Comment Normal . [facility] Comment on above: Result Comment: Mal tiFERON-TB Gold Plus is a qualitative indirect test for M tuberculosis infection (including disease) and is intended for use in conjunction with risk assessment, radiography, and other medical and diagnostic evaluations. The QuantiFERON-TB Gold Plus result is determined by subtracting the Nil value from either TB antigen (Ag) value. The Mitogen tube serves as a control for the test. Performed By: #### L [id number] #### [facility] [address] [place], [place], [id number] (337 QFT TB POS CRIT Negative Normal Negative [facility] Comment on above: Result Comment: No r esponse to M tuberculosis antigens detected. Infection with M tuberculosis is unlikely, but high risk individuals should be considered for additional testing (ATS/IDSA/CDC Clinical Practice Guidelines, 2017). The reference range is an Antigen minus Nil result of <0.35 IU/mL. The specimen received for QuantiFERON testing was incubated by the ordering institution. Specific procedures outlined in our Directory of Services and in the package insert for the QuantiFERON Gold (In Tube) test must be followed to enable for proper stimulation of cells for the production of interferon gamma. Chemiluminescence immunoassay methodology Performed at: [address] [id number] International Trade Manager: Willem Pike PhD, Phone: [phone] Performed By: #### L [id number] #### [facility] [address] [place], [address] QFT TB1+ AG VENKATESH 0.05 IU/mL Normal . [facility] Comment on above: Performed By: #### L [id number] #### [facility] [address] [place], [address] QFT TB2+ AG VENKATESH 0.06 IU/mL Normal . [facility] Comment on above: Performed By: #### L [id number] #### [facility] [address] [place], [address] Office Visit Reporton 2024 Office Visit Report [facility] [address] [place] [address] OFFICE VISIT Date of Service: 08/19/24 MR#: [id number] Acct: [id number] Patient: HALLIE ORTIZ Rep #: [id number] : 1995 Provider: EMA Haile Age/Sex: 29/F Location: [facility] Status: Signed Intake Vital Signs 06/24/24 10:16 Height 4 ft 11.5 in Intake Visit Reasons: RESP FIT TEST/QUANT Chief Complaint: ABDOMINAL PAIN Allergies amoxicillin (Amoxicillin) Allergy (Intermediate, Verified 08/19/24 13:20) Rash Office Procedures [facility] Billing Sheet Testing Pre-Employment PE: Yes Respirator Fit Testing: Yes Occquant-Quantiferon: Yes 08/24/24705 Date Qasim Russell Signature: Date (if applicable) CC: Normal [facility] Urgent Care Visit Reporton 0 08-19-2024 Urgent Care Visit Report [facility] [address], [address] [place] [address] OFFICE VISIT Date of Service: 08/19/24 MR#: [id number] Acct: [id number] Name: HALLIE ORTIZ Rep #: [id number] : 1995 Provider: EMA Haile Age/Sex: 29/F Location: [facility] Status: Signed Intake Vital Signs 06/24/24 10:16 Height 4 ft 11.5 in Intake Visit Reasons: PE/NON DOT/PHYSICAL/[facility] Accompanied by: Self Allergies amoxicillin (Amoxicillin) Allergy (Intermediate, Verified 08/19/24 13:20) Rash Medications ???Medication ???Instructions ???Recorded ???Confirmed ???Type lamotrigine 200 mg tablet 200 mg PO DAILY 06/24/24 08/19/24 History (Lamictal) venlafaxine 150 mg 150 mg PO DAILY 06/24/24 08/19/24 History capsule,extended release 24 hr (Effexor XR) aripiprazole 2 mg tablet (Abilify) 2 mg PO DAILY #30 tabs 07/16/24 08/19/24 Rx Nurse's Note: Patient here for a pre-employment physical. [facility] Medical History (Updated 08/19/24 @ 13:44 by Qasim Tillman PA, PA) Physical exam, pre-employment History of post traumatic stress disorder Alcohol use disorder in remission Methamphetamine use disorder, mild, in early remission Anxiety disorder, unspecified Bipolar 2 disorder Substance abuse Surgical History (Updated 07/06/21 @ 10:39 by Kim Moncada) H/O tubal ligation H/O LEEP Family History (Updated 07/06/21 @ 10:45 by Kim Moncada) Grandfather Diabetes Heart disease Social History (Updated 07/06/21 @ 10:46 by Kim Moncada) household members: other current occupational status: employed current occupation: [employer] Smoking Status: Current every day smoker tobacco type: cigarettes alcohol intake: never substance use type: does not use what type of physical activity do you participate in: walking and yoga frequency: 1-2 times per week seatbelt use: always do you feel safe at home: Yes additional social history: lives in sober living house HPI HPI Details: HALLIE ORTIZ, is a 29 F who presents to the office today for Office Procedures Physical Exam Coding PE Coding Pre-employment PE: Yes Coding Level of Care Code No Charge Diagnoses Physical exam, pre-employment Z02.1 Assessment and Plan Assessment and Plan (1) Physical exam, pre-employment: Status: Acute Orders: Orders Quantiferon TB-Gold+ Today Z02.1 - Encounter for pre-employment examination 08/19/24 1344 Date Qasim Russell Signature: Date (if applicable) CC: Normal [facility] 25([place])D3 [facility] 2023 25-hydroxyvitamin D3 [Mass/Vol] 26.2 ng/mL Low 31.0-80.0 [facility] Comment on above: Order Comment: Speci men Type: BLOOD SPECIMEN Ordering Facility: [facility] Address: [address] [place] [address] Result Comment: Clas sification of 25 [place] Vitamin D status: Deficiency/Insufficiency: < or = 30 ng/ml. Sufficiency/Optimal Levels: 31-80 ng/mL Toxicity: > 100 ng/mL. Test performed by chemiluminescent immunoassay. Performed By: #### 1 989-3 #### [facility] CLIA [id number] [address] [place] [address] [place] CBC W Auto Differential pane l (Bld)on 05-07-2024 Basophils (Bld) [#/Vol] 10*3/uL Normal <0.11 [facility] Comment on above: Order Comment: Speci men Type: BLOOD SPECIMEN Ordering Facility: [facility] Address: [address] [place] [address] Performed By: #### 5 7021-8 #### [facility] CLIA [id number] [address] [place] [address] [place] Basophils/100 WBC (Bld) 0.2 % Normal [facility] Comment on above: Order Comment: Speci men Type: BLOOD SPECIMEN Ordering Facility: [facility] Address: [address] [place] [address] Performed By: #### 5 7021-8 #### [facility] CLIA [id number] [address] [place] [address] [place] Differential cell count method Nom (Bld) Auto Normal [facility] Comment on above: Order Comment: Speci men Type: BLOOD SPECIMEN Ordering Facility: [facility] Address: [address] [place] [address] Performed By: #### 5 7021-8 #### [facility] CLIA [id number] [address] [place] [address] [place] Eosinophils (Bld) [#/Vol] 10*3/uL Normal <0.46 [facility] Comment on above: Order Comment: Speci men Type: BLOOD SPECIMEN Ordering Facility: [facility] Address: [address] [place] [address] Performed By: #### 5 7021-8 #### [facility] CLIA [id number] [address] [place] [address] [place] Eosinophils/100 WBC (Bld) 0.0 % Normal [facility] Comment on above: Order Comment: Speci men Type: BLOOD SPECIMEN Ordering Facility: [facility] Address: [address] [place] [address] Performed By: #### 5 7021-8 #### [facility] CLIA [id number] [address] [place] [address] [place] Erythrocyte distribution width (RBC) [Ratio] 13.2 % Normal 11.5-15.0 [facility] Comment on above: Order Comment: Speci men Type: BLOOD SPECIMEN Ordering Facility: [facility] Address: [address] [place] [address] Performed By: #### 5 7021-8 #### [facility] CLIA [id number] [address] [place] [address] [place] Hematocrit (Bld) [Volume fraction] 38.8 % Normal 36.0-46.0 [facility] Comment on above: Order Comment: Speci men Type: BLOOD SPECIMEN Ordering Facility: [facility] Address: [address] [place] [address] Performed By: #### 5 7021-8 #### [facility] CLIA [id number] [address] [place] [address] [place] Hemoglobin (Bld) [Mass/Vol] 12.5 g/dL Normal 11.5-15.5 [facility] Comment on above: Order Comment: Speci men Type: BLOOD SPECIMEN Ordering Facility: [facility] Address: [address] [place] [address] Performed By: #### 5 7021-8 #### [facility] CLIA [id number] [address] [place] [address] [place] Immature granulocytes (Bld) [#/Vol] 10*3/uL Normal <0.10 [facility] Comment on above: Order Comment: Speci men Type: BLOOD SPECIMEN Ordering Facility: [facility] Address: [address] [place] [address] Performed By: #### 5 7021-8 #### [facility] CLIA [id number] [address] [place] [address] [place] Immature granulocytes/100 WBC (Bld) 0.2 % Normal [facility] Comment on above: Order Comment: Speci men Type: BLOOD SPECIMEN Ordering Facility: [facility] Address: [address] [place] [address] Performed By: #### 5 7021-8 #### [facility] CLIA [id number] [address] [place] [address] [place] Lymphocytes (Bld) [#/Vol] 1.78 10*3/uL Normal 1.00-4.00 [facility] Comment on above: Order Comment: Speci men Type: BLOOD SPECIMEN Ordering Facility: [facility] Address: [address] [place] [address] Performed By: #### 5 7021-8 #### [facility] CLIA [id number] [address] [place] [address] [place] Lymphocytes/100 WBC (Bld) 33.6 % Normal [facility] Comment on above: Order Comment: Speci men Type: BLOOD SPECIMEN Ordering Facility: [facility] Address: [address] [place] [address] Performed By: #### 5 7021-8 #### [facility] CLIA [id number] [address] [place] [address] [place] MCH (RBC) [Entitic mass] 28.2 pg Normal 26.0-34.0 [facility] Comment on above: Order Comment: Speci men Type: BLOOD SPECIMEN Ordering Facility: [facility] Address: [address] [place] [address] Performed By: #### 5 7021-8 #### [facility] CLIA [id number] [address] [place] [address] [place] MCHC (RBC) [Mass/Vol] 32.2 g/dL Normal 30.5-36.0 [facility] Comment on above: Order Comment: Speci men Type: BLOOD SPECIMEN Ordering Facility: [facility] Address: [address] [place] [address] Performed By: #### 5 7021-8 #### [facility] CLIA [id number] [address] [place] [address] [place] MCV (RBC) [Entitic vol] 87.6 fL Normal 80.0-100.0 [facility] Comment on above: Order Comment: Speci men Type: BLOOD SPECIMEN Ordering Facility: [facility] Address: [address] [place] [address] Performed By: #### 5 7021-8 #### [facility] CLIA [id number] [address] [place] [address] [place] Monocytes (Bld) [#/Vol] 0.71 10*3/uL Normal <0.87 [facility] Comment on above: Order Comment: Speci men Type: BLOOD SPECIMEN Ordering Facility: [facility] Address: [address] [place] [address] Performed By: #### 5 7021-8 #### [facility] CLIA [id number] [address] [place] [address] [place] Monocytes/100 WBC (Bld) 13.4 % Normal [facility] Comment on above: Order Comment: Speci men Type: BLOOD SPECIMEN Ordering Facility: [facility] Address: [address] [place] [address] Performed By: #### 5 7021-8 #### [facility] CLIA [id number] [address] [place] [address] [place] Neutrophils (Bld) [#/Vol] 2.79 10*3/uL Normal 1.45-7.50 [facility] Comment on above: Order Comment: Speci men Type: BLOOD SPECIMEN Ordering Facility: [facility] Address: [address] [place] [address] Performed By: #### 5 7021-8 #### [facility] CLIA [id number] [address] [place] [address] [place] Neutrophils/100 WBC (Bld) 52.6 % Normal [facility] Comment on above: Order Comment: Speci men Type: BLOOD SPECIMEN Ordering Facility: [facility] Address: [address] [place] [address] Performed By: #### 5 7021-8 #### [facility] CLIA [id number] [address] [place] [address] [place] Nucleated RBC (Bld) [#/Vol] 10*3/uL Normal <0.01 [facility] Comment on above: Order Comment: Speci men Type: BLOOD SPECIMEN Ordering Facility: [facility] Address: [address] [place] [address] Performed By: #### 5 7021-8 #### [facility] CLIA [id number] [address] [place] [address] [place] Nucleated RBC/100 WBC (Bld) [Ratio] 0.0 /100 WBC Normal [facility] Comment on above: Order Comment: Speci men Type: BLOOD SPECIMEN Ordering Facility: [facility] Address: [address] [place] [address] Performed By: #### 5 7021-8 #### [facility] CLIA [id number] [address] [place] [address] [place] Platelet mean volume (Bld) [Entitic vol] 10.3 fL Normal 9.0-12.7 [facility] Comment on above: Order Comment: Speci men Type: BLOOD SPECIMEN Ordering Facility: [facility] Address: [address] [place] [address] Performed By: #### 5 7021-8 #### [facility] CLIA [id number] [address] [place] [address] [place] Platelets (Bld) [#/Vol] 223 10*3/uL Normal 150-400 [facility] Comment on above: Order Comment: Speci men Type: BLOOD SPECIMEN Ordering Facility: [facility] Address: [address] [place] [address] Performed By: #### 5 7021-8 #### [facility] CLIA [id number] [address] [place] [address] [place] RBC (Bld) [#/Vol] 4.43 10*6/uL Normal 3.90-5.20 [facility] Comment on above: Order Comment: Speci men Type: BLOOD SPECIMEN Ordering Facility: [facility] Address: [address] [place] [address] Performed By: #### 5 7021-8 #### [facility] CLIA [id number] [address] [place] [address] [place] WBC (Bld) [#/Vol] 5.30 10*3/uL Normal 3.70-11.00 [facility] Comment on above: Order Comment: Speci men Type: BLOOD SPECIMEN Ordering Facility: [facility] Address: [address] [place] [address] Performed By: #### 5 7021-8 #### [facility] CLIA [id number] [address] [place] [address] [place] Comprehensive metabolic 2000 panelon 05-07-2024 Albumin [Mass/Vol] 4.6 g/dL Normal 3.9-4.9 [facility] Comment on above: Order Comment: Speci men Type: BLOOD SPECIMEN Ordering Facility: [facility] Address: [address] [place] [address] Performed By: #### 3 016-3, 53842-9 #### [facility] CLIA [id number] [address] [place] [address] [place] ALP [Catalytic activity/Vol] 224 U/L High 34-123 [facility] Comment on above: Order Comment: Speci men Type: BLOOD SPECIMEN Ordering Facility: [facility] Address: [address] [place] [address] Performed By: #### 3 016-3, 93433-1 #### [facility] CLIA [id number] [address] [place] [address] [place] ALT [Catalytic activity/Vol] 167 U/L High 7-38 [facility] Comment on above: Order Comment: Speci men Type: BLOOD SPECIMEN Ordering Facility: [facility] Address: [address] [place] [address] Performed By: #### 3 016-3, 69238-5 #### [facility] CLIA [id number] [address] [place] [address] [place] Anion gap [Moles/Vol] 10 mmol/L Normal 8-15 [facility] Comment on above: Order Comment: Speci men Type: BLOOD SPECIMEN Ordering Facility: [facility] Address: [address] [place] [address] Performed By: #### 3 016-3, 49736-7 #### [facility] CLIA [id number] [address] [place] [address] [place] AST [Catalytic activity/Vol] 114 U/L High 13-35 [facility] Comment on above: Order Comment: Speci men Type: BLOOD SPECIMEN Ordering Facility: [facility] Address: [address] [place] [address] Performed By: #### 3 016-3, #### [facility] CLIA [id number] [address] [place] [address] [place] Bilirubin [Mass/Vol] 0.4 mg/dL Normal 0.2-1.3 [facility] Comment on above: Order Comment: Speci men Type: BLOOD SPECIMEN Ordering Facility: [facility] Address: [address] [place] [address] Performed By: #### 3 016-3, 00331-5 #### [facility] CLIA [id number] [address] [place] [address] [place] Calcium [Mass/Vol] 8.8 mg/dL Normal 8.5-10.2 [facility] Comment on above: Order Comment: Speci men Type: BLOOD SPECIMEN Ordering Facility: [facility] Address: [address] [place] [address] Performed By: #### 3 016-3, 89864-5 #### [facility] CLIA [id number] [address] [place] [address] [place] Chloride [Moles/Vol] 101 mmol/L Normal 98-107 [facility] Comment on above: Order Comment: Speci men Type: BLOOD SPECIMEN Ordering Facility: [facility] Address: [address] [place] [address] Performed By: #### 3 016-3, 99740-4 #### [facility] CLIA [id number] [address] [place] [address] [place] CO2 [Moles/Vol] 28 mmol/L Normal 22-30 [facility] Comment on above: Order Comment: Nury borden Type: BLOOD SPECIMEN Ordering Facility: [facility] Address: [address] [place] [address] Performed By: #### 3 016-3, 01504-1 #### [facility] CLIA [id number] [address] [place] [address] [place] Creatinine [Mass/Vol] 0.55 mg/dL Low 0.58-0.96 [facility] Comment on above: Order Comment: Nury men Type: BLOOD SPECIMEN Ordering Facility: [facility] Address: [address] [place] [address] Performed By: #### 3 016-3, #### [facility] CLIA [id number] [address] [place] [address] [place] Creatinine and Glomerular filtration rate.predicted panel (S/P/Bld) 127 mL/min/1.73m??? Normal >=60 [facility] Comment on above: Order Comment: Nury borden Type: BLOOD SPECIMEN Ordering Facility: [facility] Address: [address] [place] [address] Result Comment: Marog mated Glomerular Filtration Rate (eGFR) is calculated using the 2020 CKD-EPI creatinine equation. This equation utilizes serum creatinine, sex, and age as parameters. The creatinine assay has traceable calibration to isotope dilution-mass spectrometry. Refer to KDIGO guidelines for clinical interpretation. In patients with unstable renal function, e.g. those with acute kidney injury, the eGFR may not accurately reflect actual GFR. Performed By: #### 3 016-3, 09955-6 #### [facility] CLIA [id number] [address] [place] [address] [place] Glucose [Mass/Vol] 73 mg/dL Low 74-99 [facility] Comment on above: Order Comment: Nury borden Type: BLOOD SPECIMEN Ordering Facility: [facility] Address: [address] [place] [address] Result Comment: The [place] [employer] Association (ADA) provides guidance for cutoff values for fasting glucose and random glucose. The ADA defines fasting as no caloric intake for at least 8 hours. Fasting plasma glucose results between 100 to 125 mg/dL indicate increased risk for diabetes (prediabetes). Fasting plasma glucose results greater than or equal to 126 mg/dL meet the criteria for diagnosis of diabetes. In the absence of unequivocal hyperglycemia, results should be confirmed by repeat testing. In a patient with classic symptoms of hyperglycemia or hyperglycemic crisis, random plasma glucose results greater than or equal to 200 mg/dL meet the criteria for diagnosis of diabetes. Reference: Standards of Medical Care in Diabetes 2016, [place] [employer]. Diabetes Care. 2016.39(Suppl 1). Performed By: #### 3 016-3, 62622-4 #### [facility] CLIA [id number] [address] [place] [address] [place] Potassium [Moles/Vol] 4.5 mmol/L Normal 3.7-5.1 [facility] Comment on above: Order Comment: Speci men Type: BLOOD SPECIMEN Ordering Facility: [facility] Address: [address] [place] [address] Performed By: #### 3 016-3, 62015-6 #### [facility] CLIA [id number] [address] [place] [address] [place] Protein [Mass/Vol] 7.2 g/dL Normal 6.3-8.0 [facility] Comment on above: Order Comment: Speci men Type: BLOOD SPECIMEN Ordering Facility: [facility] Address: [address] [place] [address] Performed By: #### 3 016-3, 46175-9 #### [facility] CLIA [id number] [address] [place] [address] [place] Sodium [Moles/Vol] 139 mmol/L Normal 136-144 [facility] Comment on above: Order Comment: Speci men Type: BLOOD SPECIMEN Ordering Facility: [facility] Address: [address] [place] [address] Performed By: #### 3 016-3, 32793-5 #### [facility] CLIA [id number] [address] [place] [address] [place] Urea nitrogen [Mass/Vol] 15 mg/dL Normal 7-21 [facility] Comment on above: Order Comment: Nury borden Type: BLOOD SPECIMEN Ordering Facility: [facility] Address: [address] [place] [address] Performed By: #### 3 016-3, 03814-0 #### [facility] CLIA [id number] [address] [place] [address] [place] TSH SerPl-aCncon 05-07-2024 TSH Qn 2.330 m[IU]/L Normal 0.270-4.200 [facility] Comment on above: Order Comment: Nury borden Type: BLOOD SPECIMEN Ordering Facility: [facility] Address: [address] [place] [address] Result Comment: If t he patient is , TSH reference range varies by gestational period: First Trimester (weeks 9-12): 0.180-2.990 mIU/L Second Trimester: 0.110-3.980 mIU/L Third Trimester: 0.480-4.710 mIU/L Alberto Lambert et al. A Practical Approach for the Verifications and Determination of Site- and Trimester-Specific Reference Intervals for Thyroid Function tests in . Thyroid, 2019:29:3:412-420. Oskar Martell, et al. 2017 Guidelines of the [place] Thyroid Association for the Diagnosis and Management of Thyroid Disease during and the . Thyroid, 2017:27:3:315-389. Performed By: #### 3 016-3, 53164-2 #### [facility] CLIA [id number] [address] [place] [address] [place] CNOVon 11-21-2023 CNOV Office Visit ([facility] ) HALLIE ORTIZ ([id number]) 1995 F [facility] Date Time Provider Department 11/21/23 3:15 PM [facility] During your visit today, we recorded the following information about you: Temperature Pulse Respiration Blood pressure 98.3 degrees 90/minute 18/minute 136/93 Weight 41.1 kg Heriberto Rowland, SECURITY SUPERVISOR.SPOUT POSITIONER 11/21/2023 3:45 PM Signed Subjective HPI Nontoxic-appearing female presents urgent care chief complaint cuticle inflammation. Duration of symptoms 3 days. Associated symptoms painful area over her cuticles. Patient states recently had a friend help her with manage care. [place] like that caused some discomfort. Has not used any OTC medications. Overall feels well. Denies any fever body aches chills productive cough chest pain shortness of breath pleuritic pain hemoptysis nausea vomiting abdominal pain change in bowel or bladder habits. Past medical history prescription medication use and allergies reviewed..Patient presents with: Derm Problem: All 10 finger cuticles infected x3 days PAST MEDICAL HISTORY Diagnosis Date Abnormal Pap smear of cervix 08/29/2015 HSIL ADHD Anemia WITH Attention deficit hyperactivity disorder (ADHD) 03/23/2020 Blood transfusion complicating two units PRBC Herpes simplex without mention of complication Ovarian cyst hemorrhagic Patient underweight 11/30/2013 PAST SURGICAL HISTORY Procedure Laterality Date SECTION HX CONIZATION OF CERVIX, LEEP [employer] INSERTION OF IUD 08/30/2015 PAST SURGICAL HISTORY OF ORAL SURGERY PAST SURGICAL HISTORY OF wisdom teeth TUBAL LIGATION 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 lamoTRIgine (LAMICTAL) 200 mg tablet Take 1 tablet by mouth once daily. FAMILY HISTORY Problem Relation Age of Onset Alcohol/Drug Father ETOH Hypertension Father Arthritis Maternal Grandmother Heart Maternal Grandfather Diabetes Maternal Grandfather Cancer Maternal Grandfather unknown type, skin other (borderline diabetes) Maternal Grandfather Cancer Paternal Grandmother Cervical Seizures Sister STRESS RELATED SEIZURES Social History Tobacco Use Smoking status: Every Day Packs/day: 0.50 Years: 10.00 Additional pack years: 0.00 Total pack years: 5.00 Types: Cigarettes Smokeless tobacco: Never Substance Use Topics Alcohol use: Yes Comment: Very seldom, NOT WHILE Drug use: No Types: Marijuana BP 136/93 Pulse 90 Temp 36.8 ?C (98.3 ?F) Resp 18 Wt 41.1 kg (90 lb 9.7 oz) LMP 11/01/2019 SpO2 100% BMI 18.30 kg/m? Review of Systems Constitutional: Negative for chills, fever and malaise/fatigue. HENT: Negative for congestion, ear discharge, ear pain, sinus pain and sore throat. Eyes: Negative for blurred vision, pain, discharge and redness. Respiratory: Negative for cough, hemoptysis, sputum production, shortness of breath, wheezing and stridor. Cardiovascular: Negative for chest pain. Gastrointestinal: Negative for abdominal pain, diarrhea, nausea and vomiting. Musculoskeletal: Negative for myalgias. Skin: Negative for itching and rash. Neurological: Negative for dizziness and headaches. Objective Physical Exam Constitutional: General: She is not in acute distress. Appearance: She is not toxic-appearing. HENT: Head: Normocephalic. Nose: Nose normal. Eyes: Pupils: Pupils are equal, round, and reactive to light. Cardiovascular: Rate and Rhythm: Normal rate. Pulmonary: Effort: Pulmonary effort is normal. No respiratory distress. Musculoskeletal: Cervical back: Normal range of motion. Comments: Mild erythema noted over cuticle fold of all digits. No drainage or fluctuance. Skin: General: Skin is warm and dry. Neurological: General: No focal deficit present. Mental Status: She is alert. ASSESSMENT/PLAN: 1. Paronychia of fingers of both hands - ICD9: 681.02, ICD10: L03.011, L03.012 Diagnosed with paronychia. Placed on mupirocin. Patient was educated on supportive therapies. Patient will follow up with primary care provider as needed. Patient was instructed to immediately proceed to emergency room for any new, worsening, or symptoms lasting longer than anticipated. The patient's clinical presentation is otherwise unremarkable at this time. Based on exam and clinical finding, the patient is stable for discharge. Plan of care was discussed with patient. Patient verbalizes understanding and agrees to plan of care. This note was generated using [employer] software. It may contain errors in wording, punctuation, or spelling. Heriberto Rowland APRN.SPOUT POSITIONER Allergies As of Date: 11/21/2023 Noted Allergy Reaction AMOXICILLIN 04/07/2005 2 - Rash Date Reviewe (more content not included)... Normal [facility] EMERGENCY REPORTon -[phone] 8 EMERGENCY REPORT [facility] EMERGENCY ROOM REPORT NAME ACCOUNT SEX AGE ADMIT DISCHARGE PT MED. RECORD# NUMBER DATE DATE TYPE HALLIE ORTIZ [id number] F 22 03/02/18 3 [id number] ROOM: ER DATE OF : 1995 DICTATING PHYSICIAN: Jordan Huntley CHIEF COMPLAINT: Possible spider bite. HISTORY OF PRESENT ILLNESS: The patient states that she has had several bug bites to her legs recently. She did not see anything bite her, and thought perhaps it was a spider. In any event, she has developed several bites to her legs that tend to get somewhat reddened and a little swollen, mostly itchy. They tend to gradually resolve over a few days. However, she has one to the right calf area that started 2 days ago, and she states that it is different than the others and that it is a little more painful and seems to be more red and swollen. No fever or chills. No nausea or vomiting. No other complaints. PAST MEDICAL HISTORY: Negative for chronic medical problems. PAST SURGICAL HISTORY: No previous surgeries. MEDICATIONS: She takes no medications. ALLERGIES: She is allergic to amoxicillin. SOCIAL HISTORY: She lives at home. She does smoke. She does not drink alcohol. PHYSICAL EXAMINATION: This is a thin 22-year-old female alert, appropriate, does not appear toxic. Skin is pink, warm, and dry. Vital signs: All within normal limits. Examination is generally focused to the lower extremities. She has no complaints of any bites to any other areas. She has some scattered small dark mostly superficial pustules. There is some surrounding redness and induration ranging anywhere from about a 1/2 centimeter to 3 to 4 cm. In general, the central portion is a little more indurated surrounded by redness that is not really indurated. There are no open areas. No purulent drainage. Normal range of motion. Good peripheral pulses and capillary refill. The one to the right calf however is about 4 cm and is somewhat reddened and indurated along the entire width. It does seem to be mildly tender. There is a small central dark area, but really does not appear to have any type of a significant pustule or ulceration. It does not appear that there would be any area to open or drain. She has no regional adenopathy. Normal range of motion. Normal neurovascular examination. EMERGENCY DEPARTMENT COURSE AND TREATMENT: I discussed management with her. Page 1 of 2 [facility] Emergency Room Report DIAGNOSIS: Bites to the leg, probable secondary infection. PLAN/DISPOSITION: I recommended warm compresses to the area. I did give her a prescription for Bactrim DS 1 b.i.d. to take over the next 10 days. I did tell her that if within 2 to 3 days things are not noticeably better or if they get worse in the meantime to follow up either with surgeon or return to the ED as she may need I&D to the area. Dictated By: Jordan Huntley MD 03/02/18 18:15 JOB #: [id number] Transcribed By: candace 03/02/18 18:20 Electronically signed by: TACO Huntley M.D. 03/05/18 07:38 Page 2 of 2 [facility] Emergency Room Report Normal [facility] Emergency Room Note on 06-20-2017 [place] Emergency Room Note Normal [facility] ([place] Patient Summary Documentson 06-20-2017 Patient Summary Documents Normal [facility] [place] RFLUon 06-20-2017 RFLU . MICRO - MicrobiologyPROCEDURE: Rapid Influenza A+B Screen w Cult if Ind [*1]SOURCE: Nasopharyngeal Swab BODY SITE:COLLECTED DATE/TIME: 06/20/2017 14:33 EST RECEIVED DATE/TIME: 06/20/2017 14:36 ESTSTART DATE/TIME: 06/20/2017 14:37 EST FREE TEXT SOURCE:FINAL REPORTSFinal Report []Verified Date/Time/Personnel: 06/20/2017 15:01 ESTInfluenza Virus Type ASpecimen is positive for the presence of influenza Aantigen..Specimen is negative for the presence of influenza Bantigen..A positve result does not rule outco-infections with other pathogens or identify anyspecific influenza virus subtype. If the current localprevalence of the influenza virus is low, the predictivevalue of a positive screening test is greatlydiminished. Positive screening results therefore shouldbe interpreted along with clinical symptoms..Detection by immunofluorescence technology. Thisorganism causes a reportable disease. Infection Controlhas been notified. [facility]Performing Locations*1: This test was performed at: [address], [place], [place], [address] [place] [address] ([place]) Comment on above: Performed By: #### R FLU ####[place] [address] Vital Signs Date Time Vital Sign Value Performing Clinician Sai talavera 11-21-2023 15:16-0400 Body mass index (BMI) [Ratio] 18.3 kg/m2 Heriberto Rowland APRN.SPOUT POSITIONER Work Phone: [facility] 11-21-2023 15:16-0400 Body temperature 98.29 [degF] Heriberto Rowland SECURITY SUPERVISOR.SPOUT POSITIONER Work Phone: [facility] 11-21-2023 15:16-0400 Body weight 41.1 kg Heriberto Rowland APRN.SPOUT POSITIONER Work Phone: [facility] 11-21-2023 15:16-0400 Diastolic blood pressure 93 mm[Hg] Heriberto Rowland SECURITY SUPERVISOR.SPOUT POSITIONER Work Phone: [facility] 11-21-2023 15:16-0400 Heart rate 90 /min Heriberto Rowland APRN.SPOUT POSITIONER Work Phone: [facility] 11-21-2023 15:16-0400 Respiratory rate 18 /min Heriberto Rowland APRN.SPOUT POSITIONER Work Phone: [facility] 11-21-2023 15:16-0400 SaO2% (BldA) [Mass fraction] 100 % Heriberto Rowland SECURITY SUPERVISOR.SPOUT POSITIONER Work Phone: [facility] 11-21-2023 15:16-0400 Systolic blood pressure 136 mm[Hg] Heriberto Rowland SECURITY SUPERVISOR.SPOUT POSITIONER Work Phone: [facility] Encounters Encounter Date Encounter Type Care Provider Facility Start: 02-12-2025 End: 02-12-2025 ambulatory [facility] Facility:[facility] Start: 02-01-2025 End: 02-01-2025 Refill Blaine Connolly SECURITY SUPERVISOR.SPOUT POSITIONER Work Phone: Psychiatry Comment on above: Refill Request Start: 01-26-2025 End: 01-26-2025 Refill Blaine Frazierley SECURITY SUPERVISOR.SPOUT POSITIONER Work Phone: Psychiatry Comment on above: Refill Request Start: 01-13-2025 End: 01-13-2025 Distance [facility] Blaine Frazierley SECURITY SUPERVISOR.SPOUT POSITIONER Work Phone: Psychiatry Comment on above: Attention deficit hy peractivity disorder (ADHD), combined type (Primary Dx); Generalized anxiety disorder; 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; Encounter for long-term (current) use of medications Start: 12-18-2024 End: 12-18-2024 Refill Blaine Frazierley SECURITY SUPERVISOR.SPOUT POSITIONER Work Phone: Psychiatry Comment on above: Refill Request Start: 11-16-2024 End: 11-16-2024 [facility] Blaine Connolly SECURITY SUPERVISOR.SPOUT POSITIONER Work Phone: Psychiatry Comment on above: Generalized anxiety disorder (Primary Dx); Attention deficit hyperactivity disorder (ADHD), combined type; 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; Encounter for long-term (current) use of medications Start: 10-21-2024 End: 10-21-2024 [facility] Blaine Frazierley SECURITY SUPERVISOR.SPOUT POSITIONER Work Phone: Psychiatry Comment on above: Mood disorder in con ditions classified elsewhere (Primary Dx); Generalized anxiety disorder; Attention deficit hyperactivity disorder (ADHD), combined type; Encounter for long-term (current) use of medications Start: 09-17-2024 End: 09-17-2024 ambulatory [facility] Facility:[facility] Start: 09-09-2024 End: 09-09-2024 Refill Blaine Frazierley SECURITY SUPERVISOR.SPOUT POSITIONER Work Phone: Psychiatry Comment on above: Refill Request Start: 08-19-2024 End: 08-19-2024 ambulatory Qasim Tillman [place] Facility:[facility] Start: 08-13-2024 End: 08-13-2024 [facility] Blaine Connolly SECURITY SUPERVISOR.SPOUT POSITIONER Work Phone: Psychiatry Comment on above: Generalized anxiety disorder; 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 Start: 08-13-2024 End: 08-13-2024 ambulatory [facility] Facility:[facility] Start: 07-27-2024 End: 08-14-2024 ambulatory [facility] Facility:[facility] Start: 07-13-2024 End: 07-13-2024 Refill Blaine Mohsen SECURITY SUPERVISOR.SPOUT POSITIONER Work Phone: Psychiatry Comment on above: Refill Request Start: 07-09-2024 End: 07-09-2024 Refill Blaine Mohsen SECURITY SUPERVISOR.SPOUT POSITIONER Work Phone: Psychiatry Comment on above: Refill Request Start: 06-29-2024 End: 07-24-2024 ambulatory [facility] Facility:[facility] Start: 06-23-2024 End: 06-26-2024 ambulatory [facility] Facility:[facility] Start: 05-07-2024 End: 05-07-2024 ambulatory [facility] Facility:[facility] Start: 05-07-2024 End: 05-07-2024 ambulatory [facility] Facility:[facility] Start: 05-07-2024 End: 05-07-2024 [facility] Blaine Frazierley SECURITY SUPERVISOR.SPOUT POSITIONER Work Phone: Psychiatry Comment on above: Encounter for long-t erm (current) use of medications (Primary Dx); Generalized anxiety disorder; 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; Vitamin D deficiency Start: 04-03-2024 End: 04-03-2024 Refill Blaine Mohsen SECURITY SUPERVISOR.SPOUT POSITIONER Work Phone: Psychiatry Comment on above: Refill Request Start: 01-18-2024 End: 01-20-2024 Refill Blaine Mohsen SECURITY SUPERVISOR.SPOUT POSITIONER Work Phone: Psychiatry Comment on above: Refill Request Start: 11-21-2023 End: 11-21-2023 ambulatory [facility] Facility:[facility] Start: 11-21-2023 End: 11-21-2023 Office outpatient visit 15 minutes Heriberto Bryanadrayn POE.SPOUT POSITIONER Work Phone: [facility] Comment on above: Paronychia of finger s of both hands (Primary Dx) Start: 10-28-2023 End: 10-28-2023 [facility] Blaine Connolly APRN.SPOUT POSITIONER Work Phone: Psychiatry Comment on above: Mood disorder in con ditions classified elsewhere (Primary Dx); Generalized anxiety disorder Start: 09-24-2023 Telephone encounter Blaine curtis APRN.SPOUT POSITIONER Work Phone: Psychiatry Start: 09-23-2023 Refill Blaine Connolly APRN.SPOUT POSITIONER Work Phone: Psychiatry Comment on above: Refill Request Start: 09-05-2023 End: 09-05-2023 Patient encounter procedure Blainegeraldine Connolly APRN.SPOUT POSITIONER Work Phone: Psychiatry Comment on above: No-show for appointm ent (Primary Dx) Start: 09-05-2023 End: 09-05-2023 Telemedicine consultation with patient Blaine Frazierjory OPE.SPOUT POSITIONER Work Phone: [facility] Start: 08-27-2023 Refill Blaine Connolly APRN.SPOUT POSITIONER Work Phone: Neurology Comment on above: Refill Request Start: 07-08-2023 Refill Blaine Connolly APRN.SPOUT POSITIONER Work Phone: Psychiatry Comment on above: Refill Request Start: 12-05-2022 End: 12-05-2022 [facility] Blaine Connolly APRN.SPOUT POSITIONER Work Phone: Psychiatry Comment on above: Generalized anxiety disorder; 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 Start: 10-25-2022 End: 10-25-2022 [facility] Blaine Connolly APRN.SPOUT POSITIONER Work Phone: Psychiatry Comment on above: Generalized anxiety disorder; 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 Start: 09-26-2022 Refill Blaine Connolly APRN.SPOUT POSITIONER Work Phone: Psychiatry Comment on above: Refill Request Start: 08-31-2022 ambulatory Blaine Connolly APRN.SPOUT POSITIONER Work Phone: [facility] Start: 08-31-2022 Patient encounter procedure Blaine Connolly SECURITY SUPERVISOR.SPOUT POSITIONER Work Phone: Psychiatry Comment on above: Schedule Appointment Start: 07-01-2022 Refill Blaine Connolly SECURITY SUPERVISOR.SPOUT POSITIONER Work Phone: Psychiatry Comment on above: Refill Request Start: 04-09-2022 End: 04-09-2022 [facility] Blaine Connolly APRN.SPOUT POSITIONER Work Phone: Psychiatry Comment on above: Generalized anxiety disorder (Primary Dx); 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 Start: 01-18-2022 Telephone encounter Blaine curtis APRN.SPOUT POSITIONER Work Phone: Psychiatry Comment on above: Medication Problem Start: 12-07-2021 End: 12-07-2021 [facility] Blaine Connolly SECURITY SUPERVISOR.SPOUT POSITIONER Work Phone: Psychiatry Comment on above: Encounter for long-t erm (current) use of medications (Primary Dx); Generalized anxiety disorder; 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SPOUT POSITIONER Work Phone: Plan of Treatment Date Care Activity Detail Author Start: 02-12-2025 End: 02-12-2025 Follow-up encounter 02/12/2025 11:00 AM EDT [facility] [address] [place] [address] Blaine Connolly APRN.SPOUT POSITIONER [address] [place] [address] follow up Psychiatry Comment on above: follow up Start: 01-25-2025 Influenza vaccination [facility] Start: 12-30-2024 End: 12-30-2024 ambulatory 12/30/2024 2:30 PM EDT [facility] [address] [place] [address] Blaine Connolly, DEEPIKA.SPOUT POSITIONER [address] [place] [address] [facility] Psychiatry Comment on above: [facility] Start: 09-24-2024 End: 09-24-2024 ambulatory 09/24/2024 3:00 PM EDT [facility] [address] [place] [address] Blaine Connolly, DEEPIKA.SPOUT POSITIONER [address] [place] [address] [facility] Psychiatry Comment on above: [facility] Med [facility] Start: 09-17-2024 End: 09-17-2024 ambulatory 09/17/2024 9:00 AM EDT [facility] [address] [place] [address] Blaine Connolly, DEEPIKA.SPOUT POSITIONER [address] [place] [address] [facility], Med check Psychiatry Comment on above: [facility], Med check Start: 08-03-2024 Screening for malign ant neoplasm of cervix [facility] Start: 06-11-2024 End: 06-11-2024 ambulatory 06/11/2024 11:00 AM EST [facility] Psych[facility] [address] [place] [address] Blaine Connolly, DEEPIKA.SPOUT POSITIONER [address] [place] [address] [facility], Med check Psychiatry Comment on above: [facility], Med check Start: 05-07-2024 End: 08-06-2024 25-hydroxyvitamin D3 [Mass/volume] in Serum or Plasma [facility] Comment on above: Expected: 05/07/2024 , Expires: 08/06/2024 Start: 05-07-2024 End: 08-06-2024 CBC W Auto Differential panel - Blood [facility] Work Phone: Comment on above: Expected: 05/07/2024 , Expires: 08/06/2024 Start: 05-07-2024 End: 08-06-2024 Comprehensive metabolic 2000 panel - Serum or Plasma [facility] Comment on above: Expected: 05/07/2024 , Expires: 08/06/2024 Start: 05-07-2024 End: 08-06-2024 Thyrotropin [Units/volume] in Serum or Plasma [facility] Comment on above: Expected: 05/07/2024 , Expires: 08/06/2024 Start: 01-26-2024 Covid-19 Vaccine ( season) Covid-19 Vaccine ( season) [facility] Start: 01-26-[address] [facility] Start: 11-27-2023 End: 11-27-2023 ambulatory 11/27/2023 11:30 AM EDT [facility] [address] [place] [address] Blaine Connolly APRN.SPOUT POSITIONER [address] [place] [address] med check Psychiatry Comment on above: med check Start: 2023 Screening for malign ant neoplasm of cervix HPV Testing [facility] Start: 05-27-2023 Behavioral Health Screening Behavioral Health Screening [facility] Start: 05-27-2023 Depression Assessment Depression Ass [facility] Start: 01-25-2023 Covid-19 Vaccine () Covid-19 Vaccine () [facility] Start: 01-25-[address] [facility] Start: 08-03-2022 PAP TESTING PAP TESTING [facility] Start: 05-27-2022 [facility] Start: 01-25-[address] [facility] Start: 12-07-2021 End: 02-06-2022 CBC W Auto Differential panel - Blood CBC + DIFF Lab Routine Encounter for long-term (current) use of medications Expected: 12/07/2021, Expires: 02/06/2022 [facility] Work Phone: Comment on above: Expected: 12/07/2021 , Expires: 02/06/2022 Start: 12-07-2021 End: 02-06-2022 Comprehensive metabolic 2000 panel - Serum or Plasma COMP METABOLIC PANEL Lab Routine Encounter for long-term (current) use of medications Expected: 12/07/2021, Expires: 02/06/2022 [facility] Work Phone: Comment on above: Expected: 12/07/2021 , Expires: 02/06/2022 Start: 12-07-2021 End: 02-06-2022 LIPID PANEL, NONFASTING LIPID PANEL, NONFASTING Lab Routine Encounter for long-term (current) use of medications Expected: 12/07/2021, Expires: 02/06/2022 [facility] Work Phone: Comment on above: Expected: 12/07/2021 , Expires: 02/06/2022 Start: 05-27-2021 DEPRESSION ASSESSMENT DEPRESSION ASS ESSMENT [facility] Start: 11-15-2016 Adult depression screening assessment DEPRESSION SCREENING [facility] Start: 07-29-2016 Urine microalbumin profile [facility] Start: 2012 ONE PNEUMOVAX PRIOR TO AGE 65 ONE PNEUMOVAX PRIOR TO AGE 65 [facility] Start: 2012 Pneumococcal vaccination Pneum ococcal Vaccine (1 of 2 - PCV) [facility] Start: 2011 Depression Screening Depression Scre ening [facility] Start: 1999 PNEUMOCOCCAL (1 - PCV) PNEUMOCOCCAL (1 - PCV) [facility] Start: 1999 Pneumococcal vaccination Pneum ococcal Vaccine (1 of 2 - PCV) [facility] Start: 1998 COVID-19 VACCINE (#1) COVID-19 VACCI NE (#1) [facility] Start: 1998 COVID-19 VACCINE (1) COVID-19 VACCIN E (1) [facility] Start: 02-26-1994 HEPATITIS B (3 of 3 - 3-dose series) HEPATITIS B (3 of 3 - 3-dose series) [facility] Start: 02-26-1994 Hepatitis B Vaccine (3 of 3 - 3-dose series) Hepatitis B Vaccine (3 of 3 - 3-dose series) [facility] Start: 1993 COVID-19 VACCINE (#1) COVID-19 VACCI NE (#1) [facility] Immunizations Immunization Date Immunization Notes Care Provider Fa david 04-04-2016 influenza virus vaccine, unspecified formulation Blaine Connolly APRN.CNP Work Phone: [facility] 05-26-2007 influenza virus vaccine, live, attenuated, for intranasal use Blaine Connolly APRN.CNP Work Phone: [facility] 07-29-2006 Meningococcal, MCV4, unspecified conjugate formulation(groups A, C, Y and W-135) Blaine Connolly APRN.CNP Work Phone: [facility] 07-29-2006 tetanus toxoid, redu satya diphtheria toxoid, and acellular pertussis vaccine, adsorbed Blaine Connolly APRN.SPOUT POSITIONER Work Phone: [facility] 07-26-1998 measles, mumps and rubella virus vaccine Blaine Connolly APRN.SPOUT POSITIONER Work Phone: [facility] Work Phone: 07-26-1998 poliovirus vaccine, inactivated Blaine Connolly APRN.SPOUT POSITIONER Work Phone: [facility] Work Phone: 07-26-1997 diphtheria, tetanus toxoids and acellular pertussis vaccine Blaine Connolly APRN.[facility] Work Phone: [facility] Work Phone: 01-01-1994 diphtheria, tetanus toxoids and acellular pertussis vaccine Blaine Connolly APRN.[facility] Work Phone: [facility] Work Phone: 01-01-1994 haemophilus influenz ae type b vaccine, HbOC conjugate Blaine Connolly APRN.[facility] Work Phone: [facility] Work Phone: 01-01-1994 hepatitis B vaccine, pediatric or pediatric/adolescent dosage Blaine Connolly APRN.[facility] Work Phone: [facility] Work Phone: 01-01-1994 hepatitis B vaccine, unspecified formulation Blaine Connolly APRN.SPOUT POSITIONER Work Phone: [facility] 1993 trivalent poliovirus vaccine, live, oral Blaine Connolly APRN.[facility] Work Phone: [facility] Work Phone: 1993 Chicken Pox (disease) Blaine Connolly APRN.SPOUT POSITIONER Work Phone: [facility] Work Phone: 1993 diphtheria, tetanus toxoids and acellular pertussis vaccine Blaine Connolly APRN.SPOUT POSITIONER Work Phone: [facility] Work Phone: 1993 haemophilus influenz ae type b vaccine, HbOC conjugate Blaine Connolly APRN.SPOUT POSITIONER Work Phone: [facility] Work Phone: 1993 trivalent poliovirus vaccine, live, oral Blaine Connolly APRN.SPOUT POSITIONER Work Phone: [facility] Work Phone: 1993 hepatitis B vaccine, pediatric or pediatric/adolescent dosage Blaine Connolly APRN.SPOUT POSITIONER Work Phone: [facility] Work Phone: Payers Date Payer Category Payer Self-pay 2022 Medicaid [id number] 2019 Medicaid [employer] [place] [id number] [address]-[facility] [phone] [address] [address] [place] [address] Medicaid [id number] 2019 Medicaid [id number] 2017 Medicaid [id number] 1993 Unknown [id number] Unknown [id number] Unknown [id number] Unknown [id number] Unknown [id number] Unknown [id number] Unknown [id number] Social History Date Type Detail Facility Start: 05-01-2012 End: 11-21-2023 Tobacco smoking status NHIS Smokes tobacco daily [facility] Work Phone: History of tobacco use Cigarette Smoker [facility] Work Phone: Start: 05-01-2012 End: 08-13-2024 Cigarettes smoked current (pack per day) - Reported 0.5 [facility] Start: 05-01-2012 End: 11-21-2023 Tobacco use and exposure Smokeless tobacco non-user [facility] Work Phone: Start: 08-31-2021 End: 11-21-2023 Alcohol intake Current drinker of alcohol (finding) [facility] Start: 10-12-2019 History SDOH Alcohol Frequency 4 [facility] Start: 10-12-2019 History SDOH Alcohol Std Drinks 1 [facility] Start: 03-27-2011 History SDOH Alcohol Comment Very seldom, NOT WHILE [facility] Start: 10-12-2019 History SDOH Social Connections Phone 5 [facility] Start: 10-12-2019 History SDOH Social Connections Get Together 2 [facility] Start: 10-12-2019 History SDOH Physica l Activity MPS 3 [facility] Start: 10-12-2019 Education 14 [facility] Start: 1993 Sex Assigned At Female [facility] Start: 08-20-2021 End: 12-07-2021 Exposure to SARS-CoV-2 (event) Unable to assess [facility] Start: 10-12-2019 End: 08-13-2024 Social connection and isolation panel [facility] Do you belong to any clubs or organizations such as holiness groups, unions, fraternal or athletic groups, or school groups? No [facility] Are you now , , , , never or living with a partner? [facility] How often to you hav e a drink containing alcohol? 2-3 time sa week [facility] How many standard dr inks containing alcohol do you have on a typical day? 1 or 2 [facility] How often do you hav e 6 or more drinks on 1 occasion? Never [facility] How hard is it for y ou to pay for the very basics like food, housing, medical care, and heating Somewhat hard [facility] Start: 04-27-2012 Adult Depression Screening Assessment 2 [facility] Do you feel stress - tense, restless, nervous, or anxious, or unable to sleep at night because your mind is troubled all the time - these days [OSQ] Very much [facility] (I/We) worried wheth er (my/our) food would run out before (I/we) got money to buy more. Never true [facility] Start: 02-16-2020 Gender identity Identifies as female gender (finding) [facility] Functional Status Date Assessment Result Facility 08-25-2014 Are you deaf, or do you have serious difficulty hearing No 08/25/2014 3:48 PM MARCELLUST Sierra Granger Ma [facility] Work Phone: 08-25-2014 Are you blind, or do you have serious difficulty seeing, even when wearing glasses No 08/25/2014 3:48 PM MARCELLUST Sierra Granger Ma [facility] 08-25-2014 Do you have serious difficulty walking or climbing stairs No 08/25/2014 3:48 PM Sierra Barrera Ma [facility] 08-25-2014 Do you have difficul ty dressing or bathing No 08/25/2014 3:48 PM Sierra Barrera Ma [facility] 08-25-2014 Because of a physica l, mental, or emotional condition, do you have difficulty doing errands alone such as visiting a physician's office or shopping No 08/25/2014 3:48 PM MARCELLUST Sierra Granger Ma [facility] Mental Status Date Assessment Result Facility 08-25-2014 Because of a physica l, mental, or emotional condition, do you have serious difficulty concentrating, remembering, or making decisions No 08/25/2014 3:48 PM Sierra Barrera [facility] Clinical Notes 06-03-2013 to 02-12-2025 Telephone Encounter - Javon Oneil - 02/01/2025 9:38 AM EDTTelephone Encounter - Javon Oneil - 02/01/2025 9:38 AM EDTTelephone Encounter - Cyril Boykin APRN.JULIO - 01/26/2025 12:04 PM EDT Note Date & Type Note Facility 02-12-2025 Note HNO ID: [id number] Author: BLAINE CONNOLLY APRN.JULIO Service: ? Author Type: Nurse Practitioner Type: Progress Notes Filed: 02/12/2025 11:16 Note Text: FOLLOW-UP PSYCHIATRIC PROGRESS NOTE Visit Type:Virtual Visit utilizing two-way audio and video for at least a portion of the visit. Consent for virtual visit obtained verbally. Confidentiality limitations with virtual visits reviewed with the patient and guardian, if present, who have accepted the risk verbally prior to proceeding with encounter. I have communicated my name and active licensure. The patient's identity and physical location were verified at the time of this visit. Either the patient or their legal pharmacy services representative has been informed of the risks and benefits of -- and alternatives to -- treatment through a remote evaluation and consents to proceed with the evaluation remotely. Reason for Visit: Outpatient follow-up and safety monitoring of previously prescribed psychiatric medication, psychotherapy or other treatment CHIEF COMPLAINT: Follow up for medication management HPI: Feels that things have improved with the increase in Adderall Notices an improvement with how she is able to stay on task at work Does feel that getting things done at home can still be a little difficult Sleeping well Appetite stable Continues to attend therapy - feels this is very beneficial Mood and anxiety stable Interval Progress since previous visit: improved VITAL SIGNS: There were no vitals filed for this visit. ROS: PSYCH: See HPI All other systems negative. PATIENT DATA: REX-7 More data exists 09/17/2024 10/21/2024 11/16/2024 01/13/2025 02/12/2025 REX-7 All Questions Feeling nervous, anxious, or on edge Several days Several days Several days Several days Several days Not being able to stop or control worrying Several days Several days Several days Several days Several days Worrying too much about different things Nearly Everyday Nearly Everyday More than half the days More than half the days More than half the days Trouble relaxing Several days Several days More than half the days Not at all Not at all Being so restless that it is hard to sit still Not at all Not at all More than half the days Several days Not at all Becoming easily annoyed or irritable More than half the days More than half the days Several days More than half the days Several days Feeling afraid, as if something awful might happen Several days Several days Not at all Several days Several days REX-7 Score 9 9 9 9 9 8 6 Details Multiple values from one day are sorted in reverse-chronological order PHQ-9 More data exists 09/17/2024 10/21/2024 11/16/2024 01/13/2025 02/12/2025 PHQ-9 Scores Little interest or pleasure in doing things: Several days Several days Several days Several days Several days Feeling down, depressed, or hopeless: Several days Several days Several days Several days Several days Trouble falling or staying asleep, or sleeping too much Not at all Not at all Not at all Not at all Not at all Feeling tired or having little energy Several days Several days Several days Several days Several days Poor appetite or overeating Not at all Not at all Not at all Not at all Not at all Feeling bad about yourself - or that you are a failure or have let yourself or your family down Nearly every day Nearly every day More than half the days Several days More than half the days Trouble concentrating on things, such as reading the newspaper or watching television Nearly every day Nearly every day More than half the days More than half the days Several days Moving or speaking so slowly that other people could have noticed. Or the opposite - being so fidgety or restless that you have been moving around a lot more than usual Not at all Not at all Not at all Not at all Not at all Thoughts that you would be better off , or of hurting yourself in some way Several days Several days Not at all Not at all Not at all PHQ-9 Score 10 10 10 10 7 6 6 Details Multiple values from one day are sorted in reverse-chronological order MENTAL STATUS EXAM: CONSTITUTIONAL: Well groomed, Appropriately dressed, Casually dressed ORIENTATION: Person, Place, Time and Situation MEMORY: No deficiencies noted CONCENTRATION: Normal MOOD: euthymic AFFECT: Full and appropriate to topic SPEECH : Clear AND distinct LANGUAGE : Normal ASSOCIATIONS: Intact THOUGHT PROCESS : Logical, Coherent, and Rational PROGRESSION : There was no evidence of disturbance in thought perception or progression. FUND OF KNOWLEDGE : Appropriate and Adequate SUICIDE: Currently denies suicidal thoughts, plan, or intent. HOMICIDE: Currently denies homicidal thoughts, plan, or intent. Labwork: CBC and Differential: WBC Date Value Ref Range Status 05/07/2024 5.30 3.70 - 11.00 k/uL Final RBC Date Value Ref Range Status 05/07/2024 4.43 3.90 - 5.20 m/uL Final Hematoc (more content not included)... [facility] 02-01-2025 Telephone encounter Note The following medication(s) is being requested: LAST APPT - 01/13/2025 NEXT APPT - 02/12/2025 Requested Prescriptions Pending Prescriptions Disp Refills lamoTRIgine (LAMICTAL) 200 mg tablet [Pharmacy Med Name: LAMOTRIGINE 200 MG TABLET] 90 tablet 0 Sig: TAKE 1 TABLET BY MOUTH EVERY DAY Please process accordingly Javon Oneil [facility] 02-01-2025 Miscellaneous Notes The following medication(s) is being requested: LAST APPT - 01/13/2025 NEXT APPT - 02/12/2025 Requested Prescriptions Pending Prescriptions Disp Refills lamoTRIgine (LAMICTAL) 200 mg tablet [Pharmacy Med Name: LAMOTRIGINE 200 MG TABLET] 90 tablet 0 Sig: TAKE 1 TABLET BY MOUTH EVERY DAY Please process accordingly Javon Oneil documented in this encounter [facility] 01-26-2025 Telephone encounter Note Refilled Abilify 2 mg and Efforxor XR 150 mg for 90 days while covering for the current provider [facility] 01-26-2025 Miscellaneous Notes Refilled Abilify 2 mg and Efforxor XR 150 mg for 90 days while covering for the current provider The following medication(s) is being requested: LAST APPT - 01/13/2025 NEXT APPT - 02/12/2025 Requested Prescriptions Pending Prescriptions Disp Refills ARIPiprazole (ABILIFY) 2 mg tablet [Pharmacy Med Name: ARIPIPRAZOLE 2 MG TABLET] 90 tablet 0 Sig: TAKE 1 TABLET BY MOUTH EVERY DAY venlafaxine ER (EFFEXOR XR) 150 mg 24 hr capsule [Pharmacy Med Name: VENLAFAXINE HCL ER 150 MG CAP] 90 capsule 0 Sig: TAKE 1 CAPSULE BY MOUTH EVERY DAY Please process accordingly Javon Oneil documented in this encounter [facility] 01-26-2025 Telephone encounter Note The following medication(s) is being requested: LAST APPT - 01/13/2025 NEXT APPT - 02/12/2025 Requested Prescriptions Pending Prescriptions Disp Refills ARIPiprazole (ABILIFY) 2 mg tablet [Pharmacy Med Name: ARIPIPRAZOLE 2 MG TABLET] 90 tablet 0 Sig: TAKE 1 TABLET BY MOUTH EVERY DAY venlafaxine ER (EFFEXOR XR) 150 mg 24 hr capsule [Pharmacy Med Name: VENLAFAXINE HCL ER 150 MG CAP] 90 capsule 0 Sig: TAKE 1 CAPSULE BY MOUTH EVERY DAY Please process accordingly Javon Oneil [facility] 01-13-2025 Note HNO ID: [id number] Author: BLAINE CONNOLLY APRN.SPOUT POSITIONER Service: ? Author Type: Nurse Practitioner Type: Progress Notes Filed: 01/13/2025 11:22 Note Text: FOLLOW-UP PSYCHIATRIC PROGRESS NOTE Visit Type:Virtual Visit utilizing two-way audio and video for at least a portion of the visit. Consent for virtual visit obtained verbally. Confidentiality limitations with virtual visits reviewed with the patient and guardian, if present, who have accepted the risk verbally prior to proceeding with encounter. I have communicated my name and active licensure. The patient's identity and physical location were verified at the time of this visit. Either the patient or their legal pharmacy services representative has been informed of the risks and benefits of -- and alternatives to -- treatment through a remote evaluation and consents to proceed with the evaluation remotely. Reason for Visit: Outpatient follow-up and safety monitoring of previously prescribed psychiatric medication, psychotherapy or other treatment CHIEF COMPLAINT: Follow up for medication management HPI: Feels things have been pretty good Feels she could benefit from an increase in Adderall - still struggles with getting day to day tasks and getting out of her seat at work which impacts her work performance Has seen some improvement with the Adderall but feels that there could be more improvement Has started a stretching routine Continues to see her counselor weekly which is beneficial Sometimes goes hiking and enjoys reading Interval Progress since previous visit: same VITAL SIGNS: There were no vitals filed for this visit. ROS: PSYCH: See HPI All other systems negative. PATIENT DATA: REX-7 More data exists 08/13/2024 09/17/2024 10/21/2024 11/16/2024 01/13/2025 REX-7 All Questions Feeling nervous, anxious, or on edge Several days Several days Several days Several days Several days Not being able to stop or control worrying Several days Several days Several days Several days Several days Worrying too much about different things More than half the days Nearly Everyday Nearly Everyday More than half the days More than half the days Trouble relaxing Several days Several days Several days More than half the days Not at all Being so restless that it is hard to sit still Several days Not at all Not at all More than half the days Several days Becoming easily annoyed or irritable Several days More than half the days More than half the days Several days More than half the days Feeling afraid, as if something awful might happen Not at all Several days Several days Not at all Several days REX-7 Score 7 9 9 9 9 9 8 Details Multiple values from one day are sorted in reverse-chronological order PHQ-9 More data exists 08/13/2024 09/17/2024 10/21/2024 11/16/2024 01/13/2025 PHQ-9 Scores Little interest or pleasure in doing things: Several days Several days Several days Several days Several days Feeling down, depressed, or hopeless: Several days Several days Several days Several days Several days Trouble falling or staying asleep, or sleeping too much Several days Not at all Not at all Not at all Not at all Feeling tired or having little energy Several days Several days Several days Several days Several days Poor appetite or overeating Several days Not at all Not at all Not at all Not at all Feeling bad about yourself - or that you are a failure or have let yourself or your family down Several days Nearly every day Nearly every day More than half the days Several days Trouble concentrating on things, such as reading the newspaper or watching television More than half the days Nearly every day Nearly every day More than half the days More than half the days Moving or speaking so slowly that other people could have noticed. Or the opposite - being so fidgety or restless that you have been moving around a lot more than usual Not at all Not at all Not at all Not at all Not at all Thoughts that you would be better off , or of hurting yourself in some way Several days Several days Several days Not at all Not at all PHQ-9 Score 9 10 10 10 10 7 6 Details Multiple values from one day are sorted in reverse-chronological order MENTAL STATUS EXAM: CONSTITUTIONAL: Well groomed, Appropriately dressed, Casually dressed ORIENTATION: Person, Place, Time and Situation MEMORY: No deficiencies noted CONCENTRATION: Normal MOOD: euthymic AFFECT: Full and appropriate to topic SPEECH : Clear AND distinct LANGUAGE : Normal ASSOCIATIONS: Intact THOUGHT PROCESS : Logical, Coherent, and Rational PROGRESSION : There was no evidence of disturbance in thought perception or progression. FUND OF KNOWLEDGE : Appropriate and Adequate SUICIDE: Currently denies suicidal thoughts, plan, or intent. HOMICIDE: Currently denies homicidal thoughts, plan, or intent. Labwork: CBC and Differential: WBC Date Value Ref Range Status (more content not included)... [facility] 01-13-2025 History of Presen t illness Narrative Images from the original note were not included. FOLLOW-UP PSYCHIATRIC PROGRESS NOTE Visit Type:Virtual Visit utilizing two-way audio and video for at least a portion of the visit. Consent for virtual visit obtained verbally. Confidentiality limitations with virtual visits reviewed with the patient and guardian, if present, who have accepted the risk verbally prior to proceeding with encounter. I have communicated my name and active licensure. The patient's identity and physical location were verified at the time of this visit. Either the patient or their legal pharmacy services representative has been informed of the risks and benefits of -- and alternatives to -- treatment through a remote evaluation and consents to proceed with the evaluation remotely. Reason for Visit: Outpatient follow-up and safety monitoring of previously prescribed psychiatric medication, psychotherapy or other treatment CHIEF COMPLAINT: Follow up for medication management HPI: Feels things have been pretty good Feels she could benefit from an increase in Adderall - still struggles with getting day to day tasks and getting out of her seat at work which impacts her work performance Has seen some improvement with the Adderall but feels that there could be more improvement Has started a stretching routine Continues to see her counselor weekly which is beneficial Sometimes goes hiking and enjoys reading Interval Progress since previous visit: same VITAL SIGNS: There were no vitals filed for this visit. ROS: PSYCH: See HPI All other systems negative. PATIENT DATA: REX-7 More data exists 08/13/2024 09/17/2024 10/21/2024 11/16/2024 01/13/2025 REX-7 All Questions Feeling nervous, anxious, or on edge Several days Several days Several days Several days Several days Not being able to stop or control worrying Several days Several days Several days Several days Several days Worrying too much about different things More than half the days Nearly Everyday Nearly Everyday More than half the days More than half the days Trouble relaxing Several days Several days Several days More than half the days Not at all Being so restless that it is hard to sit still Several days Not at all Not at all More than half the days Several days Becoming easily annoyed or irritable Several days More than half the days More than half the days Several days More than half the days Feeling afraid, as if something awful might happen Not at all Several days Several days Not at all Several days REX-7 Score 7 9 9 9 9 9 8 Details Multiple values from one day are sorted in reverse-chronological order PHQ-9 More data exists 08/13/2024 09/17/2024 10/21/2024 11/16/2024 01/13/2025 PHQ-9 Scores Little interest or pleasure in doing things: Several days Several days Several days Several days Several days Feeling down, depressed, or hopeless: Several days Several days Several days Several days Several days Trouble falling or staying asleep, or sleeping too much Several days Not at all Not at all Not at all Not at all Feeling tired or having little energy Several days Several days Several days Several days Several days Poor appetite or overeating Several days Not at all Not at all Not at all Not at all Feeling bad about yourself - or that you are a failure or have let yourself or your family down Several days Nearly every day Nearly every day More than half the days Several days Trouble concentrating on things, such as reading the newspaper or watching television More than half the days Nearly every day Nearly every day More than half the days More than half the days Moving or speaking so slowly that other people could have noticed. Or the opposite - being so fidgety or restless that you have been moving around a lot more than usual Not at all Not at all Not at all Not at all Not at all Thoughts that you would be better off , or of hurting yourself in some way Several days Several days Several days Not at all Not at all PHQ-9 Score 9 10 10 10 10 7 6 Details Multiple values from one day are sorted in reverse-chronological order MENTAL STATUS EXAM: CONSTITUTIONAL: Well groomed, Appropriately dressed, Casually dressed ORIENTATION: Person, Place, Time and Situation MEMORY: No deficiencies noted CONCENTRATION: Normal MOOD: euthymic AFFECT: Full and appropriate to topic SPEECH : Clear & distinct LANGUAGE : Normal ASSOCIATIONS: Intact THOUGHT PROCESS : Logical, Coherent, and Rational PROGRESSION : There was no evidence of disturbance in thought perception or progression. FUND OF KNOWLEDGE : Appropriate and Adequate SUICIDE: Currently denies suicidal thoughts, plan, or intent. HOMICIDE: Currently denies homicidal thoughts, plan, or intent. Labwork: CBC and Differential: WBC Date Value Ref Range Status 05/07/2024 5.30 3.70 - 11.00 k/uL Final RBC Date Value Ref Range Status 05/07/2024 4.43 3.90 - 5.20 m/uL Final Hematocrit Date Value Ref Range Status 05/07/2024 38.8 36.0 - 46.0 % Final MCV Date Value Ref Range Status 05/07/2024 87.6 80.0 - 100.0 fL Final MCH Date Value Ref Range Status 05/07/2024 28.2 26.0 - 34.0 pg Final MCHC Date Value Ref Range Status 05/07/2024 32.2 30.5 - 36.0 g/dL Final Platelet Count Date Value Ref Range Status 05/07/2024 223 150 - 400 k/uL Final MPV Date Value Ref Range Status 05/07/2024 10.3 9.0 - 12.7 fL Final Comprehensive Metabolic Panel: BUN Date Value Ref Range Status 05/07/2024 15 7 - 21 mg/dL Final Creatinine Date Value Ref Range Status 05/07/2024 0.55 (L) 0.58 - 0.96 mg/dL Final Sodium Date Value Ref Range Status 05/07/2024 139 136 - 144 mmol/L Final Potassium Date Value Ref Range Status 05/07/2024 4.5 3.7 - 5.1 mmol/L Final CO2 Date Value Ref Range Status 05/07/2024 28 22 - 30 mmol/L Final Albumin Date Value Ref Range Status 05/07/2024 4.6 3.9 - 4.9 g/dL Final ALT Date Value Ref Range Status 05/07/2024 167 (H) 7 - 38 U/L Final AST Date Value Ref Range Status 05/07/2024 114 (H) 13 - 35 U/L Final Gamma-Glutamyltransferase (GGT), Serum: No results found for: GGT Vitamin B12: No components found for: [id number] Vitamin D, Total: No results found for: VITD Thyroid Stimulating Hormone (TSH): TSH Date Value Ref Range Status 05/07/2024 2.330 0.270 - 4.200 mIU/L Final Comment: If the patient is , TSH reference range varies by gestational period: First Trimester (weeks 9-12): 0.180-2.990 mIU/L Second Trimester: 0.110-3.980 mIU/L Third Trimester: 0.480-4.710 mIU/L Alberto Lambert et al. A Practical Approach for the Verifications and Determination of Site- and Trimester-Specific Reference Intervals for Thyroid Function tests in . Thyroid, 2019:29:3:412-420. Oskar E, et al. 2017 Guidelines of the [place] [employer] for the Diagnosis and Management of Thyroid Disease during and the . Thyroid, 2017:27:3:315-389. Hemoglobin A1C: No results found for: HGBA1C Lipid Panel: Cholesterol, Total Date Value Ref Range Status 11/16/2015 142 100 - 199 mg/dL Final HDL Cholesterol Date Value Ref Range Status 11/16/2015 41 (L) >55 mg/dL Final LDL Cholesterol, Calculated Date Value Ref Range Status 11/16/2015 83 60 - 129 mg/dL Final DATA REVIEWED: Electronic medical record and PDMP website checked and validated. All prescriptions have been APPROPRIATELY filled. No suspicious activity was identified. 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 Discussed life situations and coping skills Support and encouragement provided PLAN AND FOLLOW UP: Medications: Continue: --Effexor (venlafaxine) XR 150 mg once daily --Lamictal 200 mg once daily --Abilify 2 mg once daily --propranolol 10 mg twice daily as needed for breakthrough anxiety Change: --Adderall XR 15 mg to 20 mg once daily in the morning Other: --continue with therapy Next appointment: --Schedule in 4-6 weeks or sooner if needed --To call the office call [phone] option 3 (for any questions or concerns) or you may call the department appointment line at [phone] --Message in [employer] any questions or concerns. For those experiencing a suicidal crisis: --call the National Suicide Prevention Lifeline at 988 (130.225.5792) --text the Crisis Text Line (text HOME to 050288) --call 911 and let them know you are having a mental health crisis or go to your nearest Emergency Room for stabilization. --You can also call [employer] at [phone]. Discussed side effects including any black box warnings, risks and benefits of medications, and alternatives. ASSESSMENT/PLAN: 1. Attention deficit hyperactivity disorder (ADHD), combined type - ICD9: 314.01, ICD10: F90.2 (primary diagnosis) --Per plan above - DEXTROAMPHETAMINE-AMPHETAMINE ER 20 MG 24HR CAPSULE,EXTEND RELEASE 2. Generalized anxiety disorder - ICD9: 300.02, ICD10: F41.1 --Per plan above 3. 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 Encounter for long-term (current) use of medications - ICD9: V58.69, ICD10: Z79.899 --Per plan above - DEXTROAMPHETAMINE-AMPHETAMINE ER 20 MG 24HR CAPSULE,EXTEND RELEASE MEDICATION CHANGES: - Reviewed Lamictal titration & risk of severe rash. Instructed to call [facility] if this occurs. See above for changes Follow Up: 4-6 weeks Medical Decision Making: Problems: Moderate: 1+ chronic illnesses with change Risk: Moderate: Drug management Medical Decision Making Level: 4 - Moderate ADD ON PSYCHOTHERAPY CODE : No Some elements copied from my note on 11/16/24, which have been updated where appropriate, and all reflect my current medical decision making from today. SIGNATURE: Blaine Connolly APRN.CNP PATIENT NAME: Hallie Ortiz DATE: 01/13/2025 TIME: 11:06 AM documented in this encounter [facility] 12-18-2024 Telephone encounter Note PDMP website checked and validated. All prescriptions have been APPROPRIATELY filled. No suspicious activity was identified. 12/18/2024 by Blaine Connolly APRN.CNP [facility] 12-18-2024 Miscellaneous Notes PDMP website checked and validated. All prescriptions have been APPROPRIATELY filled. No suspicious activity was identified. 12/18/2024 by Blaine Connolly APRN.JULIO The following medication(s) is being requested: LAST APPT - 11/16/2024 NEXT APPT - 12/30/2024 Requested Prescriptions Pending Prescriptions Disp Refills amphetamine-dextroamphetamine XR (ADDERALL XR) 15 mg capsule 30 capsule 0 Sig: Take 1 capsule by mouth once daily for 30 days. Please process accordingly Javon Oneil documented in this encounter [facility] 12-18-2024 Telephone encounter Note The following medication(s) is being requested: LAST APPT - 11/16/2024 NEXT APPT - 12/30/2024 Requested Prescriptions Pending Prescriptions Disp Refills amphetamine-dextroamphetamine XR (ADDERALL XR) 15 mg capsule 30 capsule 0 Sig: Take 1 capsule by mouth once daily for 30 days. Please process accordingly Javon Oneil [facility] 11-16-2024 Note HNO ID: [id number] Author: BLAINE CONNOLLY APRN.SPOUT POSITIONER Service: ? Author Type: Nurse Practitioner Type: Progress Notes Filed: 11/16/2024 16:23 Note Text: FOLLOW-UP PSYCHIATRIC PROGRESS NOTE Visit Type:Virtual Visit utilizing two-way audio and video for at least a portion of the visit. Consent for virtual visit obtained verbally. Confidentiality limitations with virtual visits reviewed with the patient and guardian, if present, who have accepted the risk verbally prior to proceeding with encounter. I have communicated my name and active licensure. The patient's identity and physical location were verified at the time of this visit. Either the patient or their legal pharmacy services representative has been informed of the risks and benefits of -- and alternatives to -- treatment through a remote evaluation and consents to proceed with the evaluation remotely. Reason for Visit: Outpatient follow-up and safety monitoring of previously prescribed psychiatric medication, psychotherapy or other treatment CHIEF COMPLAINT: Follow up for medication management HPI: Her new work position has been going well - likes it so far Feels that she still has a hard time getting things done that she needs to - this has been difficult for her as long as she can remember Feels that this is from not having self-discipline Wants to get back to working out but lacking motivation Has been working with her counselor on distress tolerance Adderall working better than vyvanse Interval Progress since previous visit: same VITAL SIGNS: There were no vitals filed for this visit. ROS: PSYCH: See HPI All other systems negative. PATIENT DATA: REX-7 More data exists 05/07/2024 08/13/2024 09/17/2024 10/21/2024 11/16/2024 REX-7 All Questions Feeling nervous, anxious, or on edge Not at all Several days Several days Several days Several days Not being able to stop or control worrying Not at all Several days Several days Several days Several days Worrying too much about different things Nearly Everyday More than half the days Nearly Everyday Nearly Everyday More than half the days Trouble relaxing Not at all Several days Several days Several days More than half the days Being so restless that it is hard to sit still Not at all Several days Not at all Not at all More than half the days Becoming easily annoyed or irritable Several days Several days More than half the days More than half the days Several days Feeling afraid, as if something awful might happen Not at all Not at all Several days Several days Not at all REX-7 Score 4 7 9 9 9 9 9 Details Multiple values from one day are sorted in reverse-chronological order PHQ-9 More data exists 05/07/2024 08/13/2024 09/17/2024 10/21/2024 11/16/2024 PHQ-9 Scores Little interest or pleasure in doing things: Several days Several days Several days Several days Several days Feeling down, depressed, or hopeless: Several days Several days Several days Several days Several days Trouble falling or staying asleep, or sleeping too much Several days Several days Not at all Not at all Not at all Feeling tired or having little energy Several days Several days Several days Several days Several days Poor appetite or overeating Not at all Several days Not at all Not at all Not at all Feeling bad about yourself - or that you are a failure or have let yourself or your family down Not at all Several days Nearly every day Nearly every day More than half the days Trouble concentrating on things, such as reading the newspaper or watching television Several days More than half the days Nearly every day Nearly every day More than half the days Moving or speaking so slowly that other people could have noticed. Or the opposite - being so fidgety or restless that you have been moving around a lot more than usual Not at all Not at all Not at all Not at all Not at all Thoughts that you would be better off , or of hurting yourself in some way Not at all Several days Several days Several days Not at all PHQ-9 Score 5 9 10 10 10 10 7 Details Multiple values from one day are sorted in reverse-chronological order MENTAL STATUS EXAM: CONSTITUTIONAL: Well groomed, Appropriately dressed, Casually dressed ORIENTATION: Person, Place, Time and Situation MEMORY: No deficiencies noted CONCENTRATION: Normal MOOD: euthymic AFFECT: Full and appropriate to topic SPEECH : Clear AND distinct LANGUAGE : Normal ASSOCIATIONS: Intact THOUGHT PROCESS : Logical, Coherent, and Rational PROGRESSION : There was no evidence of disturbance in thought perception or progression. FUND OF KNOWLEDGE : Appropriate and Adequate SUICIDE: Currently denies suicidal thoughts, plan, or intent. HOMICIDE: Currently denies homicidal thoughts, plan, or intent. Labwork: CBC and Differential: WBC Date Value Ref Range Status 05/07/2024 5.30 3.70 - 11.00 k/uL Final RBC Date Value Ref Range Status (more content not included)... [facility] 11-16-2024 History of Presen t illness Narrative Images from the original note were not included. FOLLOW-UP PSYCHIATRIC PROGRESS NOTE Visit Type:Virtual Visit utilizing two-way audio and video for at least a portion of the visit. Consent for virtual visit obtained verbally. Confidentiality limitations with virtual visits reviewed with the patient and guardian, if present, who have accepted the risk verbally prior to proceeding with encounter. I have communicated my name and active licensure. The patient's identity and physical location were verified at the time of this visit. Either the patient or their legal pharmacy services representative has been informed of the risks and benefits of -- and alternatives to -- treatment through a remote evaluation and consents to proceed with the evaluation remotely. Reason for Visit: Outpatient follow-up and safety monitoring of previously prescribed psychiatric medication, psychotherapy or other treatment CHIEF COMPLAINT: Follow up for medication management HPI: Her new work position has been going well - likes it so far Feels that she still has a hard time getting things done that she needs to - this has been difficult for her as long as she can remember Feels that this is from not having self-discipline Wants to get back to working out but lacking motivation Has been working with her counselor on distress tolerance Adderall working better than vyvanse Interval Progress since previous visit: same VITAL SIGNS: There were no vitals filed for this visit. ROS: PSYCH: See HPI All other systems negative. PATIENT DATA: REX-7 More data exists 05/07/2024 08/13/2024 09/17/2024 10/21/2024 11/16/2024 REX-7 All Questions Feeling nervous, anxious, or on edge Not at all Several days Several days Several days Several days Not being able to stop or control worrying Not at all Several days Several days Several days Several days Worrying too much about different things Nearly Everyday More than half the days Nearly Everyday Nearly Everyday More than half the days Trouble relaxing Not at all Several days Several days Several days More than half the days Being so restless that it is hard to sit still Not at all Several days Not at all Not at all More than half the days Becoming easily annoyed or irritable Several days Several days More than half the days More than half the days Several days Feeling afraid, as if something awful might happen Not at all Not at all Several days Several days Not at all REX-7 Score 4 7 9 9 9 9 9 Details Multiple values from one day are sorted in reverse-chronological order PHQ-9 More data exists 05/07/2024 08/13/2024 09/17/2024 10/21/2024 11/16/2024 PHQ-9 Scores Little interest or pleasure in doing things: Several days Several days Several days Several days Several days Feeling down, depressed, or hopeless: Several days Several days Several days Several days Several days Trouble falling or staying asleep, or sleeping too much Several days Several days Not at all Not at all Not at all Feeling tired or having little energy Several days Several days Several days Several days Several days Poor appetite or overeating Not at all Several days Not at all Not at all Not at all Feeling bad about yourself - or that you are a failure or have let yourself or your family down Not at all Several days Nearly every day Nearly every day More than half the days Trouble concentrating on things, such as reading the newspaper or watching television Several days More than half the days Nearly every day Nearly every day More than half the days Moving or speaking so slowly that other people could have noticed. Or the opposite - being so fidgety or restless that you have been moving around a lot more than usual Not at all Not at all Not at all Not at all Not at all Thoughts that you would be better off , or of hurting yourself in some way Not at all Several days Several days Several days Not at all PHQ-9 Score 5 9 10 10 10 10 7 Details Multiple values from one day are sorted in reverse-chronological order MENTAL STATUS EXAM: CONSTITUTIONAL: Well groomed, Appropriately dressed, Casually dressed ORIENTATION: Person, Place, Time and Situation MEMORY: No deficiencies noted CONCENTRATION: Normal MOOD: euthymic AFFECT: Full and appropriate to topic SPEECH : Clear & distinct LANGUAGE : Normal ASSOCIATIONS: Intact THOUGHT PROCESS : Logical, Coherent, and Rational PROGRESSION : There was no evidence of disturbance in thought perception or progression. FUND OF KNOWLEDGE : Appropriate and Adequate SUICIDE: Currently denies suicidal thoughts, plan, or intent. HOMICIDE: Currently denies homicidal thoughts, plan, or intent. Labwork: CBC and Differential: WBC Date Value Ref Range Status 05/07/2024 5.30 3.70 - 11.00 k/uL Final RBC Date Value Ref Range Status 05/07/2024 4.43 3.90 - 5.20 m/uL Final Hematocrit Date Value Ref Range Status 05/07/2024 38.8 36.0 - 46.0 % Final MCV Date Value Ref Range Status 05/07/2024 87.6 80.0 - 100.0 fL Final MCH Date Value Ref Range Status 05/07/2024 28.2 26.0 - 34.0 pg Final MCHC Date Value Ref Range Status 05/07/2024 32.2 30.5 - 36.0 g/dL Final Platelet Count Date Value Ref Range Status 05/07/2024 223 150 - 400 k/uL Final MPV Date Value Ref Range Status 05/07/2024 10.3 9.0 - 12.7 fL Final Comprehensive Metabolic Panel: BUN Date Value Ref Range Status 05/07/2024 15 7 - 21 mg/dL Final Creatinine Date Value Ref Range Status 05/07/2024 0.55 (L) 0.58 - 0.96 mg/dL Final Sodium Date Value Ref Range Status 05/07/2024 139 136 - 144 mmol/L Final Potassium Date Value Ref Range Status 05/07/2024 4.5 3.7 - 5.1 mmol/L Final CO2 Date Value Ref Range Status 05/07/2024 28 22 - 30 mmol/L Final Albumin Date Value Ref Range Status 05/07/2024 4.6 3.9 - 4.9 g/dL Final ALT Date Value Ref Range Status 05/07/2024 167 (H) 7 - 38 U/L Final AST Date Value Ref Range Status 05/07/2024 114 (H) 13 - 35 U/L Final Gamma-Glutamyltransferase (GGT), Serum: No results found for: GGT Vitamin B12: No components found for: [id number] Vitamin D, Total: No results found for: VITD Thyroid Stimulating Hormone (TSH): TSH Date Value Ref Range Status 05/07/2024 2.330 0.270 - 4.200 mIU/L Final Comment: If the patient is , TSH reference range varies by gestational period: First Trimester (weeks 9-12): 0.180-2.990 mIU/L Second Trimester: 0.110-3.980 mIU/L Third Trimester: 0.480-4.710 mIU/L Alberto Lambert et al. A Practical Approach for the Verifications and Determination of Site- and Trimester-Specific Reference Intervals for Thyroid Function tests in . Thyroid, 2019:29:3:412-420. Oskar Martell, et al. 2017 Guidelines of the [place] Thyroid Association for the Diagnosis and Management of Thyroid Disease during and the . Thyroid, 2017:27:3:315-389. Hemoglobin A1C: No results found for: HGBA1C Lipid Panel: Cholesterol, Total Date Value Ref Range Status 11/16/2015 142 100 - 199 mg/dL Final HDL Cholesterol Date Value Ref Range Status 11/16/2015 41 (L) >55 mg/dL Final LDL Cholesterol, Calculated Date Value Ref Range Status 11/16/2015 83 60 - 129 mg/dL Final DATA REVIEWED: Electronic medical record and PDMP website checked and validated. All prescriptions have been APPROPRIATELY filled. No suspicious activity was identified. 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 Discussed life situations and coping skills Support and encouragement provided PLAN AND FOLLOW UP: Medications: Continue: --Effexor (venlafaxine) XR 150 mg once daily --Lamictal 200 mg once daily --Abilify 2 mg once daily --propranolol 10 mg twice daily as needed for breakthrough anxiety --Adderall XR 15 mg once daily in the morning Other: --continue with therapy Next appointment: --Schedule in 6 weeks or sooner if needed --To call the office call [phone] option 3 (for any questions or concerns) or you may call the department appointment line at [phone] --Message in [employer] any questions or concerns. For those experiencing a suicidal crisis: --call the National Suicide Prevention Lifeline at 988 (464.641.5254) --text the Crisis Text Line (text HOME to 987824) --call 911 and let them know you are having a mental health crisis or go to your nearest Emergency Room for stabilization. --You can also call [employer] at [phone]. Discussed side effects including any black box warnings, risks and benefits of medications, and alternatives. ASSESSMENT/PLAN: 1. Generalized anxiety disorder - ICD9: 300.02, ICD10: F41.1 (primary diagnosis) --Per plan above 2. Attention deficit hyperactivity disorder (ADHD), combined type - ICD9: 314.01, ICD10: F90.2 --Per plan above - DEXTROAMPHETAMINE-AMPHETAMINE ER 15 MG 24HR CAPSULE,EXTEND RELEASE 3. 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 Encounter for long-term (current) use of medications - ICD9: V58.69, ICD10: Z79.899 --Per plan above MEDICATION CHANGES: - Reviewed Lamictal titration & risk of severe rash. Instructed to call [facility] if this occurs. See above for changes Follow Up: 6 weeks Medical Decision Making: Problems: Moderate: 2+ stable chronic illnesses Risk: Moderate: Drug management Medical Decision Making Level: 4 - Moderate ADD ON PSYCHOTHERAPY CODE : No Some elements copied from my note on 10/21/24, which have been updated where appropriate, and all reflect my current medical decision making from today. SIGNATURE: Blaine Connolly APRN.CNP PATIENT NAME: Hallie Ortiz DATE: 11/16/2024 TIME: 4:00 PM documented in this encounter [facility] 10-21-2024 Note HNO ID: [id number] Author: BLAINE CONNOLLY APRN.SPOUT POSITIONER Service: ? Author Type: Nurse Practitioner Type: Progress Notes Filed: 10/21/2024 15:31 Note Text: FOLLOW-UP PSYCHIATRIC PROGRESS NOTE Visit Type:Virtual Visit utilizing two-way audio and video for at least a portion of the visit. Consent for virtual visit obtained verbally. Confidentiality limitations with virtual visits reviewed with the patient and guardian, if present, who have accepted the risk verbally prior to proceeding with encounter. I have communicated my name and active licensure. The patient's identity and physical location were verified at the time of this visit. Either the patient or their legal pharmacy services representative has been informed of the risks and benefits of -- and alternatives to -- treatment through a remote evaluation and consents to proceed with the evaluation remotely. Reason for Visit: Outpatient follow-up and safety monitoring of previously prescribed psychiatric medication, psychotherapy or other treatment CHIEF COMPLAINT: Follow up for medication management HPI: Lost her previous job but started a new part-time position Tried the [employer] for a few weeks but was having headaches Would like to return to the [employer] since that worked well in the past Continues to see her counselor regularly which is going well Feels the other medications are working well Depression is improved Minimal anxiety - only needed the propranolol a few times Interval Progress since previous visit: same VITAL SIGNS: There were no vitals filed for this visit. ROS: PSYCH: See HPI All other systems negative. PATIENT DATA: REX-7 More data exists 10/28/2023 05/07/2024 08/13/2024 09/17/2024 10/21/2024 REX-7 All Questions Feeling nervous, anxious, or on edge Several days Not at all Several days Several days Several days Not being able to stop or control worrying Several days Not at all Several days Several days Several days Worrying too much about different things More than half the days Nearly Everyday More than half the days Nearly Everyday Nearly Everyday Trouble relaxing Several days Not at all Several days Several days Several days Being so restless that it is hard to sit still - Not at all Several days Not at all Not at all Becoming easily annoyed or irritable More than half the days Several days Several days More than half the days More than half the days Feeling afraid, as if something awful might happen Several days Not at all Not at all Several days Several days REX-7 Score - 4 7 9 9 9 9 Details Multiple values from one day are sorted in reverse-chronological order PHQ-9 More data exists 10/28/2023 05/07/2024 08/13/2024 09/17/2024 10/21/2024 PHQ-9 Scores Little interest or pleasure in doing things: More than half the days Several days Several days Several days Several days Feeling down, depressed, or hopeless: Several days Several days Several days Several days Several days Trouble falling or staying asleep, or sleeping too much Several days Several days Several days Not at all Not at all Feeling tired or having little energy Several days Several days Several days Several days Several days Poor appetite or overeating Several days Not at all Several days Not at all Not at all Feeling bad about yourself - or that you are a failure or have let yourself or your family down Several days Not at all Several days Nearly every day Nearly every day Trouble concentrating on things, such as reading the newspaper or watching television Several days Several days More than half the days Nearly every day Nearly every day Moving or speaking so slowly that other people could have noticed. Or the opposite - being so fidgety or restless that you have been moving around a lot more than usual Not at all Not at all Not at all Not at all Not at all Thoughts that you would be better off , or of hurting yourself in some way Not at all Not at all Several days Several days Several days PHQ-9 Score 8 5 9 10 10 10 10 Details Multiple values from one day are sorted in reverse-chronological order MENTAL STATUS EXAM: CONSTITUTIONAL: Well groomed, Appropriately dressed, Casually dressed ORIENTATION: Person, Place, Time and Situation MEMORY: No deficiencies noted CONCENTRATION: Normal MOOD: euthymic AFFECT: Full and appropriate to topic SPEECH : Clear AND distinct LANGUAGE : Normal ASSOCIATIONS: Intact THOUGHT PROCESS : Logical, Coherent, and Rational PROGRESSION : There was no evidence of disturbance in thought perception or progression. FUND OF KNOWLEDGE : Appropriate and Adequate SUICIDE: Currently denies suicidal thoughts, plan, or intent. HOMICIDE: Currently denies homicidal thoughts, plan, or intent. Labwork: CBC and Differential: WBC Date Value Ref Range Status 05/07/2024 5.30 3.70 - 11.00 k/uL Final RBC Date Value Ref Range Status 05/07/2024 4.43 3.90 - 5.20 m/uL Final Hematocrit (more content not included)... [facility] 10-21-2024 History of Presen t illness Narrative Images from the original note were not included. FOLLOW-UP PSYCHIATRIC PROGRESS NOTE Visit Type:Virtual Visit utilizing two-way audio and video for at least a portion of the visit. Consent for virtual visit obtained verbally. Confidentiality limitations with virtual visits reviewed with the patient and guardian, if present, who have accepted the risk verbally prior to proceeding with encounter. I have communicated my name and active licensure. The patient's identity and physical location were verified at the time of this visit. Either the patient or their legal pharmacy services representative has been informed of the risks and benefits of -- and alternatives to -- treatment through a remote evaluation and consents to proceed with the evaluation remotely. Reason for Visit: Outpatient follow-up and safety monitoring of previously prescribed psychiatric medication, psychotherapy or other treatment CHIEF COMPLAINT: Follow up for medication management HPI: Lost her previous job but started a new part-time position Tried the [employer] for a few weeks but was having headaches Would like to return to the [facility] since that worked well in the past Continues to see her counselor regularly which is going well Feels the other medications are working well Depression is improved Minimal anxiety - only needed the propranolol a few times Interval Progress since previous visit: same VITAL SIGNS: There were no vitals filed for this visit. ROS: PSYCH: See HPI All other systems negative. PATIENT DATA: REX-7 More data exists 10/28/2023 05/07/2024 08/13/2024 09/17/2024 10/21/2024 REX-7 All Questions Feeling nervous, anxious, or on edge Several days Not at all Several days Several days Several days Not being able to stop or control worrying Several days Not at all Several days Several days Several days Worrying too much about different things More than half the days Nearly Everyday More than half the days Nearly Everyday Nearly Everyday Trouble relaxing Several days Not at all Several days Several days Several days Being so restless that it is hard to sit still - Not at all Several days Not at all Not at all Becoming easily annoyed or irritable More than half the days Several days Several days More than half the days More than half the days Feeling afraid, as if something awful might happen Several days Not at all Not at all Several days Several days REX-7 Score - 4 7 9 9 9 9 Details Multiple values from one day are sorted in reverse-chronological order PHQ-9 More data exists 10/28/2023 05/07/2024 08/13/2024 09/17/2024 10/21/2024 PHQ-9 Scores Little interest or pleasure in doing things: More than half the days Several days Several days Several days Several days Feeling down, depressed, or hopeless: Several days Several days Several days Several days Several days Trouble falling or staying asleep, or sleeping too much Several days Several days Several days Not at all Not at all Feeling tired or having little energy Several days Several days Several days Several days Several days Poor appetite or overeating Several days Not at all Several days Not at all Not at all Feeling bad about yourself - or that you are a failure or have let yourself or your family down Several days Not at all Several days Nearly every day Nearly every day Trouble concentrating on things, such as reading the newspaper or watching television Several days Several days More than half the days Nearly every day Nearly every day Moving or speaking so slowly that other people could have noticed. Or the opposite - being so fidgety or restless that you have been moving around a lot more than usual Not at all Not at all Not at all Not at all Not at all Thoughts that you would be better off , or of hurting yourself in some way Not at all Not at all Several days Several days Several days PHQ-9 Score 8 5 9 10 10 10 10 Details Multiple values from one day are sorted in reverse-chronological order MENTAL STATUS EXAM: CONSTITUTIONAL: Well groomed, Appropriately dressed, Casually dressed ORIENTATION: Person, Place, Time and Situation MEMORY: No deficiencies noted CONCENTRATION: Normal MOOD: euthymic AFFECT: Full and appropriate to topic SPEECH : Clear & distinct LANGUAGE : Normal ASSOCIATIONS: Intact THOUGHT PROCESS : Logical, Coherent, and Rational PROGRESSION : There was no evidence of disturbance in thought perception or progression. FUND OF KNOWLEDGE : Appropriate and Adequate SUICIDE: Currently denies suicidal thoughts, plan, or intent. HOMICIDE: Currently denies homicidal thoughts, plan, or intent. Labwork: CBC and Differential: WBC Date Value Ref Range Status 05/07/2024 5.30 3.70 - 11.00 k/uL Final RBC Date Value Ref Range Status 05/07/2024 4.43 3.90 - 5.20 m/uL Final Hematocrit Date Value Ref Range Status 05/07/2024 38.8 36.0 - 46.0 % Final MCV Date Value Ref Range Status 05/07/2024 87.6 80.0 - 100.0 fL Final MCH Date Value Ref Range Status 05/07/2024 28.2 26.0 - 34.0 pg Final MCHC Date Value Ref Range Status 05/07/2024 32.2 30.5 - 36.0 g/dL Final Platelet Count Date Value Ref Range Status 05/07/2024 223 150 - 400 k/uL Final MPV Date Value Ref Range Status 05/07/2024 10.3 9.0 - 12.7 fL Final Comprehensive Metabolic Panel: BUN Date Value Ref Range Status 05/07/2024 15 7 - 21 mg/dL Final Creatinine Date Value Ref Range Status 05/07/2024 0.55 (L) 0.58 - 0.96 mg/dL Final Sodium Date Value Ref Range Status 05/07/2024 139 136 - 144 mmol/L Final Potassium Date Value Ref Range Status 05/07/2024 4.5 3.7 - 5.1 mmol/L Final CO2 Date Value Ref Range Status 05/07/2024 28 22 - 30 mmol/L Final Albumin Date Value Ref Range Status 05/07/2024 4.6 3.9 - 4.9 g/dL Final ALT Date Value Ref Range Status 05/07/2024 167 (H) 7 - 38 U/L Final AST Date Value Ref Range Status 05/07/2024 114 (H) 13 - 35 U/L Final Gamma-Glutamyltransferase (GGT), Serum: No results found for: GGT Vitamin B12: No components found for: [id number] Vitamin D, Total: No results found for: VITD Thyroid Stimulating Hormone (TSH): TSH Date Value Ref Range Status 05/07/2024 2.330 0.270 - 4.200 mIU/L Final Comment: If the patient is , TSH reference range varies by gestational period: First Trimester (weeks 9-12): 0.180-2.990 mIU/L Second Trimester: 0.110-3.980 mIU/L Third Trimester: 0.480-4.710 mIU/L Alberto Lambert et al. A Practical Approach for the Verifications and Determination of Site- and Trimester-Specific Reference Intervals for Thyroid Function tests in . Thyroid, 2019:29:3:412-420. Oskar E, et al. 2017 Guidelines of the [place] [employer] for the Diagnosis and Management of Thyroid Disease during and the . Thyroid, 2017:27:3:315-389. Hemoglobin A1C: No results found for: HGBA1C Lipid Panel: Cholesterol, Total Date Value Ref Range Status 11/16/2015 142 100 - 199 mg/dL Final HDL Cholesterol Date Value Ref Range Status 11/16/2015 41 (L) >55 mg/dL Final LDL Cholesterol, Calculated Date Value Ref Range Status 11/16/2015 83 60 - 129 mg/dL Final DATA REVIEWED: Electronic medical record and PDMP website checked and validated. All prescriptions have been APPROPRIATELY filled. No suspicious activity was identified. 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 Discussed life situations and coping skills Support and encouragement provided PLAN AND FOLLOW UP: Medications: Continue: --Effexor (venlafaxine) XR 150 mg once daily --Lamictal 200 mg once daily --Abilify 2 mg once daily --propranolol 10 mg twice daily as needed for breakthrough anxiety Start: --Adderall XR 15 mg once daily in the morning Stop: --vyvanse 30 mg once daily in the morning Other: --continue with therapy Next appointment: --Schedule in 4-6 weeks or sooner if needed --To call the office call [phone] option 3 (for any questions or concerns) or you may call the department appointment line at [phone] --Message in PlayerPro any questions or concerns. For those experiencing a suicidal crisis: --call the National Suicide Prevention Lifeline at 988 (919.822.7013) --text the Crisis Text Line (text HOME to 125188) --call 911 and let them know you are having a mental health crisis or go to your nearest Emergency Room for stabilization. --You can also call Mobile Crisis at [phone]. Discussed side effects including any black box warnings, risks and benefits of medications, and alternatives. ASSESSMENT/PLAN: 1. 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 Generalized anxiety disorder - ICD9: 300.02, ICD10: F41.1 --Per plan above - LAMOTRIGINE 200 MG TABLET - VENLAFAXINE ER 150 MG CAPSULE,EXTENDED RELEASE 24 HR 3. Attention deficit hyperactivity disorder (ADHD), combined type - ICD9: 314.01, ICD10: F90.2 --Per plan above - DEXTROAMPHETAMINE-AMPHETAMINE ER 15 MG 24HR CAPSULE,EXTEND RELEASE 4. Encounter for long-term (current) use of medications - ICD9: V58.69, ICD10: Z79.899 --Per plan above MEDICATION CHANGES: - Reviewed Lamictal titration & risk of severe rash. Instructed to call [facility] if this occurs. See above for changes Follow Up: 4-6 weeks Medical Decision Making: Problems: Moderate: 2+ stable chronic illnesses Risk: Moderate: Drug management Medical Decision Making Level: 4 - Moderate ADD ON PSYCHOTHERAPY CODE : No Some elements copied from my note on 09/17/24, which have been updated where appropriate, and all reflect my current medical decision making from today. SIGNATURE: Blaine Connolly APRN.CNP PATIENT NAME: Hallie Ortiz DATE: 10/21/2024 TIME: 3:09 PM documented in this encounter [facility] 09-17-2024 Note HNO ID: [id number] Author: BLAINE CONNOLLY APRN.CNP Service: ? Author Type: Nurse Practitioner Type: Progress Notes Filed: 09/17/2024 09:27 Note Text: FOLLOW-UP PSYCHIATRIC PROGRESS NOTE Visit Type:Virtual Visit utilizing two-way audio and video for at least a portion of the visit. Consent for virtual visit obtained verbally. Confidentiality limitations with virtual visits reviewed with the patient and guardian, if present, who have accepted the risk verbally prior to proceeding with encounter. I have communicated my name and active licensure. The patient's identity and physical location were verified at the time of this visit. Either the patient or their legal pharmacy services representative has been informed of the risks and benefits of -- and alternatives to -- treatment through a remote evaluation and consents to proceed with the evaluation remotely. Reason for Visit: Outpatient follow-up and safety monitoring of previously prescribed psychiatric medication, psychotherapy or other treatment CHIEF COMPLAINT: Follow up for medication management HPI: Finished up the IOP she was doing Feels the medications have continued to work well Tried the propranolol a few times Continues to have trouble with forgetfulness and feeling scattered brained - has a previous diagnosis of ADHD - discussed with her counselor who she reports suggested vyvanse to try Had previously been on Adderall XR 15 mg which she felt was helpful in the past Feels that the issues she has with forgetfulness lead her to be hard on herself Finds she can be sensitive to noises and finds these to be easily irritating at times Interval Progress since previous visit: same VITAL SIGNS: There were no vitals filed for this visit. ROS: PSYCH: See HPI All other systems negative. PATIENT DATA: REX-7 More data exists 12/05/2022 10/28/2023 05/07/2024 08/13/2024 09/17/2024 REX-7 All Questions Feeling nervous, anxious, or on edge More than half the days Several days Not at all Several days Several days Not being able to stop or control worrying Nearly Everyday Several days Not at all Several days Several days Worrying too much about different things Nearly Everyday More than half the days Nearly Everyday More than half the days Nearly Everyday Trouble relaxing More than half the days Several days Not at all Several days Several days Being so restless that it is hard to sit still Several days - Not at all Several days Not at all Becoming easily annoyed or irritable More than half the days More than half the days Several days Several days More than half the days Feeling afraid, as if something awful might happen Several days Several days Not at all Not at all Several days REX-7 Score 14 - 4 7 9 9 Details Multiple values from one day are sorted in reverse-chronological order PHQ-9 More data exists 12/05/2022 10/28/2023 05/07/2024 08/13/2024 09/17/2024 PHQ-9 Scores Little interest or pleasure in doing things: Several days More than half the days Several days Several days Several days Feeling down, depressed, or hopeless: Several days Several days Several days Several days Several days Trouble falling or staying asleep, or sleeping too much Several days Several days Several days Several days Not at all Feeling tired or having little energy Several days Several days Several days Several days Several days Poor appetite or overeating Not at all Several days Not at all Several days Not at all Feeling bad about yourself - or that you are a failure or have let yourself or your family down Several days Several days Not at all Several days Nearly every day Trouble concentrating on things, such as reading the newspaper or watching television More than half the days Several days Several days More than half the days Nearly every day Moving or speaking so slowly that other people could have noticed. Or the opposite - being so fidgety or restless that you have been moving around a lot more than usual Several days Not at all Not at all Not at all Not at all Thoughts that you would be better off , or of hurting yourself in some way Not at all Not at all Not at all Several days Several days PHQ-9 Score 8 8 5 9 10 10 Details Multiple values from one day are sorted in reverse-chronological order MENTAL STATUS EXAM: CONSTITUTIONAL: Well groomed, Appropriately dressed, Casually dressed ORIENTATION: Person, Place, Time and Situation MEMORY: No deficiencies noted; see HPI CONCENTRATION: Normal MOOD: euthymic AFFECT: Full and appropriate to topic SPEECH : Clear AND distinct LANGUAGE : Normal ASSOCIATIONS: Intact THOUGHT PROCESS : Logical, Coherent, and Rational PROGRESSION : There was no evidence of disturbance in thought perception or progression. FUND OF KNOWLEDGE : Appropriate and Adequate SUICIDE: Currently denies suicidal thoughts, plan, or intent. HOMICIDE: Currently denies homicidal thoughts, plan, or (more content not included)... [facility] 09-09-2024 Telephone encounter Note The following medication(s) is being requested: LAST APPT - 08/13/2024 NEXT APPT - 09/17/2024 Requested Prescriptions Pending Prescriptions Disp Refills propranolol (INDERAL) 10 mg tablet [Pharmacy Med Name: PROPRANOLOL 10 MG TABLET] 60 tablet 0 Sig: TAKE 1 TABLET BY MOUTH TWO TIMES A DAY NEEDED (FOR BREAKTHROUGH ANXIETY) Please process accordingly Ayanna Marcos [facility] 09-09-2024 Miscellaneous Notes The following medication(s) is being requested: LAST APPT - 08/13/2024 NEXT APPT - 09/17/2024 Requested Prescriptions Pending Prescriptions Disp Refills propranolol (INDERAL) 10 mg tablet [Pharmacy Med Name: PROPRANOLOL 10 MG TABLET] 60 tablet 0 Sig: TAKE 1 TABLET BY MOUTH TWO TIMES A DAY NEEDED (FOR BREAKTHROUGH ANXIETY) Please process accordingly Ayanna Marcos documented in this encounter [facility] 08-13-2024 Note HNO ID: [id number] Author: BLAINE CONNOLLY APRN.SPOUT POSITIONER Service: ? Author Type: Nurse Practitioner Type: Progress Notes Filed: 08/13/2024 10:29 Note Text: FOLLOW-UP PSYCHIATRIC PROGRESS NOTE Visit Type:Virtual Visit utilizing two-way audio and video for at least a portion of the visit. Consent for virtual visit obtained verbally. Confidentiality limitations with virtual visits reviewed with the patient and guardian, if present, who have accepted the risk verbally prior to proceeding with encounter. I have communicated my name and active licensure. The patient's identity and physical location were verified at the time of this visit. Either the patient or their legal pharmacy services representative has been informed of the risks and benefits of -- and alternatives to -- treatment through a remote evaluation and consents to proceed with the evaluation remotely. Reason for Visit: Outpatient follow-up and safety monitoring of previously prescribed psychiatric medication, psychotherapy or other treatment CHIEF COMPLAINT: Follow up for medication management HPI: Did a behavioral health IOP at [facility] - will be done tomorrow but feel it has been very helpful Has been seeing the psychiatry through IOP the last couple of months - started on Abilify 2 mg about a month ago Reports a couple of breakdowns where her depression was worse Reports no self harm over the last 6 months Feels that she hasn't seem much difference since starting the Abilify but does feel she was able to calm down more quickly in a recent stressful situation Has continued to follow through with family court I've been doing really well with that Has still been seeing her individual therapist who she likes Has been working out/being more active since she has gained about 30 lbs - feels that this has been a big stressor for her Inquires about something for breakthrough anxiety Interval Progress since previous visit: improving VITAL SIGNS: There were no vitals filed for this visit. ROS: PSYCH: See HPI All other systems negative. PATIENT DATA: REX-7 More data exists 10/25/2022 12/05/2022 10/28/2023 05/07/2024 08/13/2024 REX-7 All Questions Feeling nervous, anxious, or on edge Several days More than half the days Several days Not at all Several days Not being able to stop or control worrying Nearly Everyday Nearly Everyday Several days Not at all Several days Worrying too much about different things Nearly Everyday Nearly Everyday More than half the days Nearly Everyday More than half the days Trouble relaxing More than half the days More than half the days Several days Not at all Several days Being so restless that it is hard to sit still Several days Several days - Not at all Several days Becoming easily annoyed or irritable Nearly Everyday More than half the days More than half the days Several days Several days Feeling afraid, as if something awful might happen More than half the days Several days Several days Not at all Not at all REX-7 Score 15 14 - 4 7 PHQ-9 More data exists 10/25/2022 12/05/2022 10/28/2023 05/07/2024 08/13/2024 PHQ-9 Scores Little interest or pleasure in doing things: Several days Several days More than half the days Several days Several days Feeling down, depressed, or hopeless: Several days Several days Several days Several days Several days Trouble falling or staying asleep, or sleeping too much More than half the days Several days Several days Several days Several days Feeling tired or having little energy Several days Several days Several days Several days Several days Poor appetite or overeating Several days Not at all Several days Not at all Several days Feeling bad about yourself - or that you are a failure or have let yourself or your family down Several days Several days Several days Not at all Several days Trouble concentrating on things, such as reading the newspaper or watching television More than half the days More than half the days Several days Several days More than half the days Moving or speaking so slowly that other people could have noticed. Or the opposite - being so fidgety or restless that you have been moving around a lot more than usual Several days Several days Not at all Not at all Not at all Thoughts that you would be better off , or of hurting yourself in some way Several days Not at all Not at all Not at all Several days PHQ-9 Score 11 8 8 5 9 MENTAL STATUS EXAM: CONSTITUTIONAL: Well groomed, Appropriately dressed, Casually dressed ORIENTATION: Person, Place, Time and Situation MEMORY: No deficiencies noted CONCENTRATION: Normal MOOD: euthymic AFFECT: Full and appropriate to topic SPEECH : Clear AND distinct LANGUAGE : Normal ASSOCIATIONS: Intact THOUGHT PROCESS : Logical, Coherent, and Rational PROGRESSION : There was no evidence of disturbance in thought perception or progression. FUND OF KNOWLEDGE : Appropriate and A (more content not included)... [facility] 08-13-2024 History of Presen t illness Narrative Images from the original note were not included. FOLLOW-UP PSYCHIATRIC PROGRESS NOTE Visit Type:Virtual Visit utilizing two-way audio and video for at least a portion of the visit. Consent for virtual visit obtained verbally. Confidentiality limitations with virtual visits reviewed with the patient and guardian, if present, who have accepted the risk verbally prior to proceeding with encounter. I have communicated my name and active licensure. The patient's identity and physical location were verified at the time of this visit. Either the patient or their legal pharmacy services representative has been informed of the risks and benefits of -- and alternatives to -- treatment through a remote evaluation and consents to proceed with the evaluation remotely. Reason for Visit: Outpatient follow-up and safety monitoring of previously prescribed psychiatric medication, psychotherapy or other treatment CHIEF COMPLAINT: Follow up for medication management HPI: Did a behavioral health IOP at [facility] - will be done tomorrow but feel it has been very helpful Has been seeing the psychiatry through IOP the last couple of months - started on Abilify 2 mg about a month ago Reports a couple of breakdowns where her depression was worse Reports no self harm over the last 6 months Feels that she hasn't seem much difference since starting the Abilify but does feel she was able to calm down more quickly in a recent stressful situation Has continued to follow through with family court I've been doing really well with that Has still been seeing her individual therapist who she likes Has been working out/being more active since she has gained about 30 lbs - feels that this has been a big stressor for her Inquires about something for breakthrough anxiety Interval Progress since previous visit: improving VITAL SIGNS: There were no vitals filed for this visit. ROS: PSYCH: See HPI All other systems negative. PATIENT DATA: REX-7 More data exists 10/25/2022 12/05/2022 10/28/2023 05/07/2024 08/13/2024 REX-7 All Questions Feeling nervous, anxious, or on edge Several days More than half the days Several days Not at all Several days Not being able to stop or control worrying Nearly Everyday Nearly Everyday Several days Not at all Several days Worrying too much about different things Nearly Everyday Nearly Everyday More than half the days Nearly Everyday More than half the days Trouble relaxing More than half the days More than half the days Several days Not at all Several days Being so restless that it is hard to sit still Several days Several days - Not at all Several days Becoming easily annoyed or irritable Nearly Everyday More than half the days More than half the days Several days Several days Feeling afraid, as if something awful might happen More than half the days Several days Several days Not at all Not at all REX-7 Score 15 14 - 4 7 PHQ-9 More data exists 10/25/2022 12/05/2022 10/28/2023 05/07/2024 08/13/2024 PHQ-9 Scores Little interest or pleasure in doing things: Several days Several days More than half the days Several days Several days Feeling down, depressed, or hopeless: Several days Several days Several days Several days Several days Trouble falling or staying asleep, or sleeping too much More than half the days Several days Several days Several days Several days Feeling tired or having little energy Several days Several days Several days Several days Several days Poor appetite or overeating Several days Not at all Several days Not at all Several days Feeling bad about yourself - or that you are a failure or have let yourself or your family down Several days Several days Several days Not at all Several days Trouble concentrating on things, such as reading the newspaper or watching television More than half the days More than half the days Several days Several days More than half the days Moving or speaking so slowly that other people could have noticed. Or the opposite - being so fidgety or restless that you have been moving around a lot more than usual Several days Several days Not at all Not at all Not at all Thoughts that you would be better off , or of hurting yourself in some way Several days Not at all Not at all Not at all Several days PHQ-9 Score 11 8 8 5 9 MENTAL STATUS EXAM: CONSTITUTIONAL: Well groomed, Appropriately dressed, Casually dressed ORIENTATION: Person, Place, Time and Situation MEMORY: No deficiencies noted CONCENTRATION: Normal MOOD: euthymic AFFECT: Full and appropriate to topic SPEECH : Clear & distinct LANGUAGE : Normal ASSOCIATIONS: Intact THOUGHT PROCESS : Logical, Coherent, and Rational PROGRESSION : There was no evidence of disturbance in thought perception or progression. FUND OF KNOWLEDGE : Appropriate and Adequate SUICIDE: Currently denies suicidal thoughts, plan, or intent. HOMICIDE: Currently denies homicidal thoughts, plan, or intent. Labwork: CBC and Differential: WBC Date Value Ref Range Status 05/07/2024 5.30 3.70 - 11.00 k/uL Final RBC Date Value Ref Range Status 05/07/2024 4.43 3.90 - 5.20 m/uL Final Hematocrit Date Value Ref Range Status 05/07/2024 38.8 36.0 - 46.0 % Final MCV Date Value Ref Range Status 05/07/2024 87.6 80.0 - 100.0 fL Final MCH Date Value Ref Range Status 05/07/2024 28.2 26.0 - 34.0 pg Final MCHC Date Value Ref Range Status 05/07/2024 32.2 30.5 - 36.0 g/dL Final Platelet Count Date Value Ref Range Status 05/07/2024 223 150 - 400 k/uL Final MPV Date Value Ref Range Status 05/07/2024 10.3 9.0 - 12.7 fL Final Comprehensive Metabolic Panel: BUN Date Value Ref Range Status 05/07/2024 15 7 - 21 mg/dL Final Creatinine Date Value Ref Range Status 05/07/2024 0.55 (L) 0.58 - 0.96 mg/dL Final Sodium Date Value Ref Range Status 05/07/2024 139 136 - 144 mmol/L Final Potassium Date Value Ref Range Status 05/07/2024 4.5 3.7 - 5.1 mmol/L Final CO2 Date Value Ref Range Status 05/07/2024 28 22 - 30 mmol/L Final Albumin Date Value Ref Range Status 05/07/2024 4.6 3.9 - 4.9 g/dL Final ALT Date Value Ref Range Status 05/07/2024 167 (H) 7 - 38 U/L Final AST Date Value Ref Range Status 05/07/2024 114 (H) 13 - 35 U/L Final Gamma-Glutamyltransferase (GGT), Serum: No results found for: GGT Vitamin B12: No components found for: [id number] Vitamin D, Total: No results found for: VITD Thyroid Stimulating Hormone (TSH): TSH Date Value Ref Range Status 05/07/2024 2.330 0.270 - 4.200 mIU/L Final Comment: If the patient is , TSH reference range varies by gestational period: First Trimester (weeks 9-12): 0.180-2.990 mIU/L Second Trimester: 0.110-3.980 mIU/L Third Trimester: 0.480-4.710 mIU/L Alberto Lambert et al. A Practical Approach for the Verifications and Determination of Site- and Trimester-Specific Reference Intervals for Thyroid Function tests in . Thyroid, 2019:29:3:412-420. Oskar Martell, et al. 2017 Guidelines of the [place] Thyroid [employer] for the Diagnosis and Management of Thyroid Disease during and the . Thyroid, 2017:27:3:315-389. 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 Discussed life situations and coping skills Support and encouragement provided PLAN AND FOLLOW UP: Medications: Continue: --Effexor (venlafaxine) XR 150 mg once daily --Lamictal 200 mg once daily --Abilify 2 mg once daily Start: --propranolol 10 mg twice daily as needed for breakthrough anxiety Other: --continue with therapy Next appointment: --Schedule in 6 weeks or sooner if needed --To call the office call [phone] option 3 (for any questions or concerns) or you may call the department appointment line at [phone] --Message in PlayerPro any questions or concerns. For those experiencing a suicidal crisis: --call the National Suicide Prevention Lifeline at 988 (646.920.3359) --text the Crisis Text Line (text HOME to 372474) --call 270 and let them know you are having a mental health crisis or go to your nearest Emergency Room for stabilization. --You can also call [employer] at [phone]. Discussed side effects including any black box warnings, risks and benefits of medications, and alternatives. ASSESSMENT/PLAN: 1. Generalized anxiety disorder - ICD9: 300.02, ICD10: F41.1 --Per plan above - LAMOTRIGINE 200 MG TABLET - VENLAFAXINE ER 150 MG CAPSULE,EXTENDED RELEASE 24 HR - PROPRANOLOL 10 MG TABLET 2. 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 Instructed to call [facility] if this occurs. See above for changes Follow Up: 6 weeks Medical Decision Making: Problems: Moderate: 2+ stable chronic illnesses Risk: Moderate: Drug management Medical Decision Making Level: 4 - Moderate ADD ON PSYCHOTHERAPY CODE : No Some elements copied from my note on 05/07/24, which have been updated where appropriate, and all reflect my current medical decision making from today. SIGNATURE: Blaine Connolly APRN.CNP PATIENT NAME: Hallie Ortiz DATE: 08/13/2024 TIME: 10:00 AM documented in this encounter [facility] 07-13-2024 Telephone encounter Note I called the patient and left message on voice mail to contact the office for an appointment. The office phone number was provided. A My Chart message was sent also. Mila Ty July 13, 2024 1:16 PM [facility] 07-13-2024 Miscellaneous Notes I called the patient and left message on voice mail to contact the office for an appointment. The office phone number was provided. A My Chart message was sent also. Mila Ty July 13, 2024 1:16 PM The following medication(s) is being requested: LAST APPT - 05-07-24 follow up 4-6 weeks No show 06-11-24 NEXT APPT - None scheduled, message sent Requested Prescriptions Pending Prescriptions Disp Refills lamoTRIgine (LAMICTAL) 200 mg tablet [Pharmacy Med Name: LAMOTRIGINE 200 MG TABLET] 30 tablet 0 Sig: Take 1 tablet by mouth once daily. Please process accordingly Mila Ty documented in this encounter [facility] 07-13-2024 Telephone encounter Note The following medication(s) is being requested: LAST APPT - 05-07-24 follow up 4-6 weeks No show 06-11-24 NEXT APPT - None scheduled, message sent Requested Prescriptions Pending Prescriptions Disp Refills lamoTRIgine (LAMICTAL) 200 mg tablet [Pharmacy Med Name: LAMOTRIGINE 200 MG TABLET] 30 tablet 0 Sig: Take 1 tablet by mouth once daily. Please process accordingly Mila Ty [facility] 07-09-2024 Telephone encounter Note The following medication(s) is being requested: LAST APPT - 05/07/2024 NEXT APPT - None scheduled Requested Prescriptions Pending Prescriptions Disp Refills venlafaxine ER (EFFEXOR XR) 150 mg 24 hr capsule [Pharmacy Med Name: VENLAFAXINE HCL ER 150 MG CAP] 30 capsule 1 Sig: TAKE 1 CAPSULE BY MOUTH EVERY DAY Please process accordingly Ayanna Marcos [facility] 07-09-2024 Miscellaneous Notes The following medication(s) is being requested: LAST APPT - 05/07/2024 NEXT APPT - None scheduled Requested Prescriptions Pending Prescriptions Disp Refills venlafaxine ER (EFFEXOR XR) 150 mg 24 hr capsule [Pharmacy Med Name: VENLAFAXINE HCL ER 150 MG CAP] 30 capsule 1 Sig: TAKE 1 CAPSULE BY MOUTH EVERY DAY Please process accordingly Ayanna Marcos documented in this encounter [facility] 05-07-2024 Note HNO ID: [id number] Author: BLAINE CONNOLLY APRN.SPOUT POSITIONER Service: ? Author Type: Nurse Practitioner Type: Progress Notes Filed: 05/07/2024 09:05 Note Text: FOLLOW-UP PSYCHIATRIC PROGRESS NOTE Visit Type:Virtual Visit utilizing two-way audio and video for at least a portion of the visit. Consent for virtual visit obtained verbally. Confidentiality limitations with virtual visits reviewed with the patient and guardian, if present, who have accepted the risk verbally prior to proceeding with encounter. I have communicated my name and active licensure. The patient's identity and physical location were verified at the time of this visit. Either the patient or their legal pharmacy services representative has been informed of the risks and benefits of -- and alternatives to -- treatment through a remote evaluation and consents to proceed with the evaluation remotely. Reason for Visit: Outpatient follow-up and safety monitoring of previously prescribed psychiatric medication, psychotherapy or other treatment CHIEF COMPLAINT: Follow up for medication management HPI: Feels that lately she has been having trouble with her short term memory that is noticeably worse then her usual forgetfulness - gives the examples of forgetting appointments, forgets what she is doing, doesn't remember things that others have told her - is unclear how long this has been going on for but estimates possibly a couple of months Has been sleeping a lot, feeling tired all the time, no motivation to do anything but denies being sad - this has been going on for a few months Reports a weight gain of about 20 lbs Feels that these things have been causing me a lot of issues with keeping up with her responsibilities Has not been working as 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 ROS: PSYCH: See HPI All other systems negative. PATIENT DATA: REX-7 More data may exist 08/15/2022 10/25/2022 12/05/2022 10/28/2023 05/07/2024 REX-7 All Questions Feeling nervous, anxious, or on edge Several days Several days More than half the days Several days Not at all Not being able to stop or control worrying More than half the days Nearly Everyday Nearly Everyday Several days Not at all Worrying too much about different things More than half the days Nearly Everyday Nearly Everyday More than half the days Nearly Everyday Trouble relaxing Several days More than half the days More than half the days Several days Not at all Being so restless that it is hard to sit still Several days Several days Several days - Not at all Becoming easily annoyed or irritable More than half the days Nearly Everyday More than half the days More than half the days Several days Feeling afraid, as if something awful might happen Several days More than half the days Several days Several days Not at all REX-7 Score 10 15 14 - 4 Details PHQ-9 More data may exist 08/15/2022 10/25/2022 12/05/2022 10/28/2023 05/07/2024 PHQ-9 Scores Little interest or pleasure in doing things: Not at all Several days Several days More than half the days Several days Feeling down, depressed, or hopeless: Several days Several days Several days Several days Several days Trouble falling or staying asleep, or sleeping too much Not at all More than half the days Several days Several days Several days Feeling tired or having little energy Several days Several days Several days Several days Several days Poor appetite or overeating Several days Several days Not at all Several days Not at all Feeling bad about yourself - or that you are a failure or have let yourself or your family down Several days Several days Several days Several days Not at all Trouble concentrating on things, such as reading the newspaper or watching television Several days More than half the days More than half the days Several days Several days Moving or speaking so slowly that other people could have noticed. Or the opposite - being so fidgety or restless that you have been moving around a lot more than usual Not at all Several days Several days Not at all Not at all Thoughts that you would be better off , or of hurting yourself in some way Not at all Several days Not at all Not at all Not at all PHQ-9 Score 5 11 8 8 5 Details MENTAL STATUS EXAM: CONSTITUTIONAL: Well groomed, Appropriately dressed, Casually dressed, Well developed, Well nourished ORIENTATION: Person, Place, Time and Situation MEMORY: No defi (more content not included)... [facility] 05-07-2024 History of Presen t illness Narrative Images from the original note were not included. FOLLOW-UP PSYCHIATRIC PROGRESS NOTE Visit Type:Virtual Visit utilizing two-way audio and video for at least a portion of the visit. Consent for virtual visit obtained verbally. Confidentiality limitations with virtual visits reviewed with the patient and guardian, if present, who have accepted the risk verbally prior to proceeding with encounter. I have communicated my name and active licensure. The patient's identity and physical location were verified at the time of this visit. Either the patient or their legal pharmacy services representative has been informed of the risks and benefits of -- and alternatives to -- treatment through a remote evaluation and consents to proceed with the evaluation remotely. Reason for Visit: Outpatient follow-up and safety monitoring of previously prescribed psychiatric medication, psychotherapy or other treatment CHIEF COMPLAINT: Follow up for medication management HPI: Feels that lately she has been having trouble with her short term memory that is noticeably worse then her usual forgetfulness - gives the examples of forgetting appointments, forgets what she is doing, doesn't remember things that others have told her - is unclear how long this has been going on for but estimates possibly a couple of months Has been sleeping a lot, feeling tired all the time, no motivation to do anything but denies being sad - this has been going on for a few months Reports a weight gain of about 20 lbs Feels that these things have been causing me a lot of issues with keeping up with her responsibilities Has not been working as 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 ROS: PSYCH: See HPI All other systems negative. PATIENT DATA: REX-7 More data may exist 08/15/2022 10/25/2022 12/05/2022 10/28/2023 05/07/2024 REX-7 All Questions Feeling nervous, anxious, or on edge Several days Several days More than half the days Several days Not at all Not being able to stop or control worrying More than half the days Nearly Everyday Nearly Everyday Several days Not at all Worrying too much about different things More than half the days Nearly Everyday Nearly Everyday More than half the days Nearly Everyday Trouble relaxing Several days More than half the days More than half the days Several days Not at all Being so restless that it is hard to sit still Several days Several days Several days - Not at all Becoming easily annoyed or irritable More than half the days Nearly Everyday More than half the days More than half the days Several days Feeling afraid, as if something awful might happen Several days More than half the days Several days Several days Not at all REX-7 Score 10 15 14 - 4 Details PHQ-9 More data may exist 08/15/2022 10/25/2022 12/05/2022 10/28/2023 05/07/2024 PHQ-9 Scores Little interest or pleasure in doing things: Not at all Several days Several days More than half the days Several days Feeling down, depressed, or hopeless: Several days Several days Several days Several days Several days Trouble falling or staying asleep, or sleeping too much Not at all More than half the days Several days Several days Several days Feeling tired or having little energy Several days Several days Several days Several days Several days Poor appetite or overeating Several days Several days Not at all Several days Not at all Feeling bad about yourself - or that you are a failure or have let yourself or your family down Several days Several days Several days Several days Not at all Trouble concentrating on things, such as reading the newspaper or watching television Several days More than half the days More than half the days Several days Several days Moving or speaking so slowly that other people could have noticed. Or the opposite - being so fidgety or restless that you have been moving around a lot more than usual Not at all Several days Several days Not at all Not at all Thoughts that you would be better off , or of hurting yourself in some way Not at all Several days Not at all Not at all Not at all PHQ-9 Score 5 11 8 8 5 Details MENTAL STATUS EXAM: CONSTITUTIONAL: Well groomed, Appropriately dressed, Casually dressed, Well developed, Well nourished ORIENTATION: Person, Place, Time and Situation MEMORY: No deficiencies noted CONCENTRATION: Normal MOOD: euthymic AFFECT: Full and appropriate to topic SPEECH : Clear & distinct LANGUAGE : Normal ASSOCIATIONS: Intact THOUGHT PROCESS : Logical, Coherent, and Rational PROGRESSION : There was no evidence of disturbance in thought perception or progression. FUND OF KNOWLEDGE : Appropriate and Adequate SUICIDE: Currently denies suicidal thoughts, plan, or intent. HOMICIDE: Currently denies homicidal thoughts, plan, or intent. Labwork: CBC and Differential: WBC Date Value Ref Range Status 11/02/2019 10.48 3.70 - 11.00 k/uL Final RBC Date Value Ref Range Status 11/02/2019 4.70 3.90 - 5.20 m/uL Final Hematocrit Date Value Ref Range Status 11/02/2019 40.2 36.0 - 46.0 % Final MCV Date Value Ref Range Status 11/02/2019 85.5 80.0 - 100.0 fL Final MCH Date Value Ref Range Status 11/02/2019 28.9 26.0 - 34.0 pG Final MCHC Date Value Ref Range Status 11/02/2019 33.8 30.5 - 36.0 g/dL Final Platelet Count Date Value Ref Range Status 11/02/2019 309 150 - 400 k/uL Final MPV Date Value Ref Range Status 11/02/2019 10.5 9.0 - 12.7 fL Final Comprehensive Metabolic Panel: Albumin Date Value Ref Range Status 08/04/2019 5.0 (H) 3.9 - 4.9 g/dL Final ALT Date Value Ref Range Status 08/04/2019 98 (H) 7 - 38 U/L Final AST Date Value Ref Range Status 08/04/2019 43 (H) 13 - 35 U/L Final Gamma-Glutamyltransferase (GGT), Serum: No results found for: GGT Vitamin B12: No components found for: [id number] Vitamin D, Total: No results found for: VITD Thyroid Stimulating Hormone (TSH): TSH Date Value Ref Range Status 11/16/2015 1.680 0.400 - 5.500 uU/mL Final Comment: If the patient is , TSH reference range varies by gestational period: First Trimester 0.1-2.5 uU/mL Second Trimester 0.2-3.0 uU/mL Third Trimester 0.3-3.0 uU/mL Hemoglobin A1C: No results found for: HGBA1C Lipid Panel: Cholesterol, Total Date Value Ref Range Status 11/16/2015 142 100 - 199 mg/dL Final HDL Cholesterol Date Value Ref Range Status 11/16/2015 41 (L) >55 mg/dL Final LDL Cholesterol Date Value Ref Range Status 11/16/2015 83 60 - 129 mg/dL Final DATA REVIEWED: Electronic medical record DIAGNOSIS: Encounter for long-term (current) use of medications (primary encounter diagnosis) Generalized anxiety disorder 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 Discussed life situations and coping skills Support and encouragement provided PLAN AND FOLLOW UP: Medications: Change: --Effexor (venlafaxine) XR 75 mg to 150 mg once daily Continue: --Lamictal 200 mg once daily Other: --encouraged to continue with therapy --ordered labs for CBC, CMP, TSH, and vitamin D due to low energy and excessive tiredness Next appointment: --Schedule in 4-6 weeks or sooner if needed --To call the office call [phone] option 3 (for any questions or concerns) or you may call the department appointment line at [phone] --Message in PlayerPro any questions or concerns. For those experiencing a suicidal crisis: --call the National Suicide Prevention Lifeline at 988 (727-017-3948) --text the Crisis Text Line (text HOME to 505779) --call 911 and let them know you are having a mental health crisis or go to your nearest Emergency Room for stabilization. --You can also call Mobile Crisis at [phone]. Discussed side effects including any black box warnings, risks and benefits of medications, and alternatives. ASSESSMENT/PLAN: 1. Encounter for long-term (current) use of medications - ICD9: V58.69, ICD10: Z79.899 (primary diagnosis) --Per plan above - COMPLETE BLOOD COUNT AND DIFFERENTIAL - COMPREHENSIVE METABOLIC PANEL - THYROID STIMULATING HORMONE - VITAMIN D 25 HYDROXY 2. Generalized anxiety disorder - ICD9: 300.02, ICD10: F41.1 --Per plan above - VENLAFAXINE ER 150 MG CAPSULE,EXTENDED RELEASE 24 HR - LAMOTRIGINE 200 MG TABLET 3. 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 - ICD9: 293.83, ICD10: F06.30 --Per plan above - LAMOTRIGINE 200 MG TABLET 4. Vitamin D deficiency - ICD9: 268.9, ICD10: E55.9 --Per plan above - VITAMIN D 25 HYDROXY MEDICATION CHANGES: - Reviewed Lamictal titration & risk of severe rash. Instructed to call [facility] if this occurs. See above for changes Follow Up: 4-6 weeks Medical Decision Making: Problems: Moderate: 1+ chronic illnesses with change Data: Unique test(s) ordered: 3+ Risk: Moderate: Drug management Medical Decision Making Level: 4 - Moderate ADD ON PSYCHOTHERAPY CODE : No Some elements copied from my note on 10/28/23, which have been updated where appropriate, and all reflect my current medical decision making from today. SIGNATURE: Blaine Connolly APRN.CNP PATIENT NAME: Hallie Ortiz DATE: 05/07/2024 TIME: 8:40 AM documented in this encounter [facility] 04-03-2024 Telephone encounter Note In the absence of the patient's current psychiatric provider the chart was reviewed. A prescription for one month's supply of the requested medication was authorized. [facility] 04-03-2024 Miscellaneous Notes In the absence of the patient's current psychiatric provider the chart was reviewed. A prescription for one month's supply of the requested medication was authorized. Player[employer] message sent to patient request, patient schedule follow up appointment. The following medication(s) is being requested: LAST APPT - 10/28/2023 NEXT APPT - None scheduled Requested Prescriptions Pending Prescriptions Disp Refills venlafaxine ER (EFFEXOR XR) 75 mg 24 hr capsule 30 capsule 1 Sig: Take 1 capsule by mouth once daily. lamoTRIgine (LAMICTAL) 200 mg tablet 30 tablet 1 Sig: Take 1 tablet by mouth once daily. Please process accordingly Ayanna Marcos documented in this encounter [facility] 04-03-2024 Telephone encounter Note PlayerPro message sent to patient request, patient schedule follow up appointment. The following medication(s) is being requested: LAST APPT - 10/28/2023 NEXT APPT - None scheduled Requested Prescriptions Pending Prescriptions Disp Refills venlafaxine ER (EFFEXOR XR) 75 mg 24 hr capsule 30 capsule 1 Sig: Take 1 capsule by mouth once daily. lamoTRIgine (LAMICTAL) 200 mg tablet 30 tablet 1 Sig: Take 1 tablet by mouth once daily. Please process accordingly Ayanna Marcos [facility] 01-20-2024 Telephone encounter Note Patient needs appointment before any refills past today are given as there is currently no scheduled upcoming appointment [facility] 01-20-2024 Miscellaneous Notes Patient needs appointment before any refills past today are given as there is currently no scheduled upcoming appointment The following medication(s) is being requested: LAST APPT - 10/28/2023 NEXT APPT - None Scheduled Requested Prescriptions Pending Prescriptions Disp Refills venlafaxine ER (EFFEXOR XR) 75 mg 24 hr capsule [Pharmacy Med Name: VENLAFAXINE HCL ER 75 MG CAP] 30 capsule 1 Sig: take 1 capsule by mouth every day lamoTRIgine (LAMICTAL) 200 mg tablet [Pharmacy Med Name: LAMOTRIGINE 200 MG TABLET] 30 tablet 1 Sig: take 1 tablet by mouth every day Please process accordingly Ayanna Marcos documented in this encounter [facility] 01-20-2024 Telephone encounter Note The following medication(s) is being requested: LAST APPT - 10/28/2023 NEXT APPT - None Scheduled Requested Prescriptions Pending Prescriptions Disp Refills venlafaxine ER (EFFEXOR XR) 75 mg 24 hr capsule [Pharmacy Med Name: VENLAFAXINE HCL ER 75 MG CAP] 30 capsule 1 Sig: take 1 capsule by mouth every day lamoTRIgine (LAMICTAL) 200 mg tablet [Pharmacy Med Name: LAMOTRIGINE 200 MG TABLET] 30 tablet 1 Sig: take 1 tablet by mouth every day Please process accordingly Ayanna Marcos [facility] 11-21-2023 Note HNO ID: [id number] Author: HERIBERTO ROWLAND APRN.CNP Service: ? Author Type: Nurse Practitioner Type: Progress Notes Filed: 11/21/2023 15:45 Note Text: Subjective HPI Nontoxic-appearing female presents urgent care chief complaint cuticle inflammation. Duration of symptoms 3 days. Associated symptoms painful area over her cuticles. Patient states recently had a friend help her with manage care. [place] like that caused some discomfort. Has not used any OTC medications. Overall feels well. Denies any fever body aches chills productive cough chest pain shortness of breath pleuritic pain hemoptysis nausea vomiting abdominal pain change in bowel or bladder habits. Past medical history prescription medication use and allergies reviewed..Patient presents with: Derm Problem: All 10 finger cuticles infected x3 days PAST MEDICAL HISTORY Diagnosis Date Abnormal Pap smear of cervix 08/29/2015 [facility]IL ADHD Anemia WITH Attention deficit hyperactivity disorder (ADHD) 03/23/2020 Blood transfusion complicating two units PRBC Herpes simplex without mention of complication Ovarian cyst hemorrhagic Patient underweight 11/30/2013 PAST SURGICAL HISTORY Procedure Laterality Date SECTION HX CONIZATION OF CERVIX, LEEP [facility] INSERTION OF IUD 08/30/2015 PAST SURGICAL HISTORY OF ORAL SURGERY PAST SURGICAL HISTORY OF wisdom teeth TUBAL LIGATION 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 lamoTRIgine (LAMICTAL) 200 mg tablet Take 1 tablet by mouth once daily. FAMILY HISTORY Problem Relation Age of Onset Alcohol/Drug Father ETOH Hypertension Father Arthritis Maternal Grandmother Heart Maternal Grandfather Diabetes Maternal Grandfather Cancer Maternal Grandfather unknown type, skin other (borderline diabetes) Maternal Grandfather Cancer Paternal Grandmother Cervical Seizures Sister STRESS RELATED SEIZURES Social History Tobacco Use Smoking status: Every Day Packs/day: 0.50 Years: 10.00 Additional pack years: 0.00 Total pack years: 5.00 Types: Cigarettes Smokeless tobacco: Never Substance Use Topics Alcohol use: Yes Comment: Very seldom, NOT WHILE Drug use: No Types: Marijuana BP 136/93 Pulse 90 Temp 36.8 ?C (98.3 ?F) Resp 18 Wt 41.1 kg (90 lb 9.7 oz) LMP 11/01/2019 SpO2 100% BMI 18.30 kg/m? Review of Systems Constitutional: Negative for chills, fever and malaise/fatigue. HENT: Negative for congestion, ear discharge, ear pain, sinus pain and sore throat. Eyes: Negative for blurred vision, pain, discharge and redness. Respiratory: Negative for cough, hemoptysis, sputum production, shortness of breath, wheezing and stridor. Cardiovascular: Negative for chest pain. Gastrointestinal: Negative for abdominal pain, diarrhea, nausea and vomiting. Musculoskeletal: Negative for myalgias. Skin: Negative for itching and rash. Neurological: Negative for dizziness and headaches. Objective Physical Exam Constitutional: General: She is not in acute distress. Appearance: She is not toxic-appearing. HENT: Head: Normocephalic. Nose: Nose normal. Eyes: Pupils: Pupils are equal, round, and reactive to light. Cardiovascular: Rate and Rhythm: Normal rate. Pulmonary: Effort: Pulmonary effort is normal. No respiratory distress. Musculoskeletal: Cervical back: Normal range of motion. Comments: Mild erythema noted over cuticle fold of all digits. No drainage or fluctuance. Skin: General: Skin is warm and dry. Neurological: General: No focal deficit present. Mental Status: She is alert. ASSESSMENT/PLAN: 1. Paronychia of fingers of both hands - ICD9: 681.02, ICD10: L03.011, L03.012 Diagnosed with paronychia. Placed on mupirocin. Patient was educated on supportive therapies. Patient will follow up with primary care provider as needed. Patient was instructed to immediately proceed to emergency room for any new, worsening, or symptoms lasting longer than anticipated. The patient's clinical presentation is otherwise unremarkable at this time. Based on exam and clinical finding, the patient is stable for discharge. Plan of care was discussed with patient. Patient verbalizes understanding and agrees to plan of care. This note was generated using DoNanza software. It may contain errors in wording, punctuation, or spelling. Heriberto Rowland APRN.[facility] 11-21-2023 History of Presen t illness Narrative Subjective HPI Nontoxic-appearing female presents urgent care chief complaint cuticle inflammation. Duration of symptoms 3 days. Associated symptoms painful area over her cuticles. Patient states recently had a friend help her with manage care. [place] like that caused some discomfort. Has not used any OTC medications. Overall feels well. Denies any fever body aches chills productive cough chest pain shortness of breath pleuritic pain hemoptysis nausea vomiting abdominal pain change in bowel or bladder habits. Past medical history prescription medication use and allergies reviewed..Patient presents with: Derm Problem: All 10 finger cuticles infected x3 days PAST MEDICAL HISTORY Diagnosis Date Abnormal Pap smear of cervix 08/29/2015 HSIL ADHD Anemia WITH Attention deficit hyperactivity disorder (ADHD) 03/23/2020 Blood transfusion complicating two units PRBC Herpes simplex without mention of complication Ovarian cyst hemorrhagic Patient underweight 11/30/2013 PAST SURGICAL HISTORY Procedure Laterality Date SECTION HX CONIZATION OF CERVIX, LEEP [facility] [employer] [facility] INSERTION OF IUD 08/30/2015 PAST SURGICAL HISTORY OF ORAL SURGERY PAST SURGICAL HISTORY OF wisdom teeth TUBAL LIGATION 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 lamoTRIgine (LAMICTAL) 200 mg tablet Take 1 tablet by mouth once daily. FAMILY HISTORY Problem Relation Age of Onset Alcohol/Drug Father ETOH Hypertension Father Arthritis Maternal Grandmother Heart Maternal Grandfather Diabetes Maternal Grandfather Cancer Maternal Grandfather unknown type, skin other (borderline diabetes) Maternal Grandfather Cancer Paternal Grandmother Cervical Seizures Sister STRESS RELATED SEIZURES Social History Tobacco Use Smoking status: Every Day Packs/day: 0.50 Years: 10.00 Additional pack years: 0.00 Total pack years: 5.00 Types: Cigarettes Smokeless tobacco: Never Substance Use Topics Alcohol use: Yes Comment: Very seldom, NOT WHILE Drug use: No Types: Marijuana BP 136/93 Pulse 90 Temp 36.8 C (98.3 F) Resp 18 Wt 41.1 kg (90 lb 9.7 oz) LMP 11/01/2019 SpO2 100% BMI 18.30 kg/m Review of Systems Constitutional: Negative for chills, fever and malaise/fatigue. HENT: Negative for congestion, ear discharge, ear pain, sinus pain and sore throat. Eyes: Negative for blurred vision, pain, discharge and redness. Respiratory: Negative for cough, hemoptysis, sputum production, shortness of breath, wheezing and stridor. Cardiovascular: Negative for chest pain. Gastrointestinal: Negative for abdominal pain, diarrhea, nausea and vomiting. Musculoskeletal: Negative for myalgias. Skin: Negative for itching and rash. Neurological: Negative for dizziness and headaches. Objective Physical Exam Constitutional: General: She is not in acute distress. Appearance: She is not toxic-appearing. HENT: Head: Normocephalic. Nose: Nose normal. Eyes: Pupils: Pupils are equal, round, and reactive to light. Cardiovascular: Rate and Rhythm: Normal rate. Pulmonary: Effort: Pulmonary effort is normal. No respiratory distress. Musculoskeletal: Cervical back: Normal range of motion. Comments: Mild erythema noted over cuticle fold of all digits. No drainage or fluctuance. Skin: General: Skin is warm and dry. Neurological: General: No focal deficit present. Mental Status: She is alert. ASSESSMENT/PLAN: 1. Paronychia of fingers of both hands - ICD9: 681.02, ICD10: L03.011, L03.012 Diagnosed with paronychia. Placed on mupirocin. Patient was educated on supportive therapies. Patient will follow up with primary care provider as needed. Patient was instructed to immediately proceed to emergency room for any new, worsening, or symptoms lasting longer than anticipated. The patient's clinical presentation is otherwise unremarkable at this time. Based on exam and clinical finding, the patient is stable for discharge. Plan of care was discussed with patient. Patient verbalizes understanding and agrees to plan of care. This note was generated using DoNanza software. It may contain errors in wording, punctuation, or spelling. Heriberto Rowland APRN.[facility] documented in this encounter [facility] 10-28-2023 History of Presen t illness Narrative Images from the original note were not included. FOLLOW-UP PSYCHIATRIC PROGRESS NOTE Visit Type:Virtual Visit utilizing two-way audio and video for at least a portion of the visit. Consent for virtual visit obtained verbally. Confidentiality limitations with virtual visits reviewed with the patient and guardian, if present, who have accepted the risk verbally prior to proceeding with encounter. I have communicated my name and active licensure. The patient's identity and physical location were verified at the time of this visit. Either the patient or their legal pharmacy services representative has been informed of the risks and benefits of -- and alternatives to -- treatment through a remote evaluation and consents to proceed with the evaluation remotely. Reason for Visit: Outpatient follow-up and safety monitoring of previously prescribed psychiatric medication, psychotherapy or other treatment CHIEF COMPLAINT: Follow up for medication management HPI: Last seen 12/05/2022 at which time Lamictal was increased from 100 mg to 150 mg and she was to follow up in 4-6 weeks Feels that she has been doing okay but I'm still having a hard time regulating and feels we need to tweak the meds a little bit Describes the difficulty regulating as it is always too much with whatever emotion she feels at the time Feels that this has been causing me problems with relationships with other people Is currently in between jobs because she missed too many days at her previous job Feels that since she hasn't been working has been sleeping a lot - endorses feeling tired Reports that she didn't run out of her medications because she has been taking them every other day - denies this causing problems Still hasn't gotten into therapy Feels that sobriety is good Interval Progress since previous visit: same to slightly VITAL SIGNS: There were no vitals filed for this visit. ROS: PSYCH: See HPI All other systems negative. PATIENT DATA: REX-7 08/15/2022 10/25/2022 12/05/2022 10/28/2023 REX-7 All Questions Feeling nervous, anxious, or on edge Several days Several days More than half the days Several days Not being able to stop or control worrying More than half the days Nearly Everyday Nearly Everyday Several days Worrying too much about different things More than half the days Nearly Everyday Nearly Everyday More than half the days Trouble relaxing Several days More than half the days More than half the days Several days Being so restless that it is hard to sit still Several days Several days Several days - Becoming easily annoyed or irritable More than half the days Nearly Everyday More than half the days More than half the days Feeling afraid, as if something awful might happen Several days More than half the days Several days Several days REX-7 Score 10 15 14 - PHQ-9 08/15/2022 10/25/2022 12/05/2022 10/28/2023 PHQ-9 Scores Little interest or pleasure in doing things Not at all Several days Several days More than half the days Feeling down, depressed, or hopeless Several days Several days Several days Several days Trouble falling or staying asleep, or sleeping too much Not at all More than half the days Several days Several days Feeling tired or having little energy Several days Several days Several days Several days Poor appetite or overeating Several days Several days Not at all Several days Feeling bad about yourself - or that you are a failure or have let yourself or your family down Several days Several days Several days Several days Trouble concentrating on things, such as reading the newspaper or watching television Several days More than half the days More than half the days Several days Moving or speaking so slowly that other people could have noticed. Or the opposite - being so fidgety or restless that you have been moving around a lot more than usual Not at all Several days Several days Not at all Thoughts that you would be better off , or of hurting yourself in some way Not at all Several days Not at all Not at all PHQ-9 Score 5 11 8 8 MENTAL STATUS EXAM: CONSTITUTIONAL: Well groomed, Appropriately dressed, Casually dressed, Well developed, Well nourished ORIENTATION: Person, Place, Time and Situation MEMORY: No deficiencies noted CONCENTRATION: Normal MOOD: euthymic AFFECT: Full and appropriate to topic SPEECH : Clear & distinct LANGUAGE : Normal ASSOCIATIONS: Intact THOUGHT PROCESS : Logical, Coherent, and Rational PROGRESSION : There was no evidence of disturbance in thought perception or progression. FUND OF KNOWLEDGE : Appropriate and Adequate SUICIDE: Denies suicidal thoughts, plan, or intent currently. HOMICIDE: Denies homicidal thoughts, plan, or intent currently. Labwork: CBC and Differential: WBC Date Value Ref Range Status 11/02/2019 10.48 3.70 - 11.00 k/uL Final RBC Date Value Ref Range Status 11/02/2019 4.70 3.90 - 5.20 m/uL Final Hematocrit Date Value Ref Range Status 11/02/2019 40.2 36.0 - 46.0 % Final MCV Date Value Ref Range Status 11/02/2019 85.5 80.0 - 100.0 fL Final MCH Date Value Ref Range Status 11/02/2019 28.9 26.0 - 34.0 pG Final MCHC Date Value Ref Range Status 11/02/2019 33.8 30.5 - 36.0 g/dL Final Platelet Count Date Value Ref Range Status 11/02/2019 309 150 - 400 k/uL Final MPV Date Value Ref Range Status 11/02/2019 10.5 9.0 - 12.7 fL Final Comprehensive Metabolic Panel: Albumin Date Value Ref Range Status 08/04/2019 5.0 (H) 3.9 - 4.9 g/dL Final ALT Date Value Ref Range Status 08/04/2019 98 (H) 7 - 38 U/L Final AST Date Value Ref Range Status 08/04/2019 43 (H) 13 - 35 U/L Final Gamma-Glutamyltransferase (GGT), Serum: No results found for: GGT Vitamin B12: No components found for: [id number] Vitamin D, Total: No results found for: VITD Thyroid Stimulating Hormone (TSH): TSH Date Value Ref Range Status 11/16/2015 1.680 0.400 - 5.500 uU/mL Final Comment: If the patient is , TSH reference range varies by gestational period: First Trimester 0.1-2.5 uU/mL Second Trimester 0.2-3.0 uU/mL Third Trimester 0.3-3.0 uU/mL Hemoglobin A1C: No results found for: HGBA1C Lipid Panel: Cholesterol, Total Date Value Ref Range Status 11/16/2015 142 100 - 199 mg/dL Final HDL Cholesterol Date Value Ref Range Status 11/16/2015 41 (L) >55 mg/dL Final LDL Cholesterol Date Value Ref Range Status 11/16/2015 83 60 - 129 mg/dL Final DATA REVIEWED: Electronic medical record DIAGNOSIS: PRIMARY: Mood Disorder Major Depressive Disorder, Single Episode, Mild , Bipolar Disorder NOS SECONDARY: Anxiety Disorder Generalized Anxiety Disorder Child Onset Disorder Attention-Deficit/Hyperactivity Disorder, Combined Type TREATMENT PLAN: Reviewed symptoms, medications and their side effects, labs, and progress being made. Discussed life situations and coping skills Support and encouragement provided PLAN AND FOLLOW UP: Medications: Continue: --Effexor (venlafaxine) XR 75 mg once daily Change: --Lamictal 150 mg to 200 mg once daily Other: --strongly encouraged to schedule with therapy --sent referral for IOP --encouraged to remain in treatment for sobriety Next appointment: --Schedule in 4-6 weeks or sooner if needed --To call the office call [phone] option 3 (for any questions or concerns) or you may call the department appointment line at [phone] --Message in PlayerPro any questions or concerns. For those experiencing a suicidal crisis: --call the National Suicide Prevention Lifeline at 988 (942-514-8269) --text the Crisis Text Line (text HOME to 773366) --call 911 and let them know you are having a mental health crisis or go to your nearest Emergency Room for stabilization. --You can also call Mobile Crisis at [phone]. Discussed side effects including any black box warnings, risks and benefits of medications, and alternatives. ASSESSMENT/PLAN: 1. 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 Generalized anxiety disorder - ICD9: 300.02, ICD10: F41.1 --per plan above - CONSULT TO INTENSIVE OUTPATIENT PROGRAM (IOP) - VENLAFAXINE ER 75 MG CAPSULE,EXTENDED RELEASE 24 HR - LAMOTRIGINE 200 MG TABLET Medical Decision Making: Problems: Moderate: 1+ chronic illnesses with change Risk: Moderate: Drug management Medical Decision Making Level: 4 - Moderate MEDICATION CHANGES: - Reviewed Lamictal titration & risk of severe rash. Instructed to call [facility] if this occurs. See above for changes Follow Up: 4-6 weeks ADD ON PSYCHOTHERAPY CODE : No Some elements copied from my note on 12/05/2022, which have been updated where appropriate, and all reflect my current medical decision making from today. SIGNATURE: Blaine Connolly APRN.CNP PATIENT NAME: Hallie Ortiz DATE: 10/28/2023 TIME: 8:04 AM documented in this encounter [facility] 09-24-2023 Telephone encounter Note Called patient and left a voicemail to call and schedule and appointment. Patient last appointment was 12/05/2022. Patient asked for refill on medication and was refused. Ayanna Marcos September 24, 2023 9:16 AM [facility] 09-24-2023 Miscellaneous Notes Called patient and left a voicemail to call and schedule and appointment. Patient last appointment was 12/05/2022. Patient asked for refill on medication and was refused. Ayanna Marcos September 24, 2023 9:16 AM documented in this encounter [facility] 09-23-2023 Telephone encounter Note Pharmacy requested 90 day supply The following medication(s) is being requested: LAST APPT - 09/05/2023 NEXT APPT - None Scheduled Requested Prescriptions Pending Prescriptions Disp Refills venlafaxine ER (EFFEXOR XR) 75 mg 24 hr capsule 90 capsule 0 Sig: Take 1 capsule by mouth once daily. Must complete follow up appointment in order to receive further refills Please process accordingly Ayanna Marcos [facility] 09-23-2023 Miscellaneous Notes Pharmacy requested 90 day supply The following medication(s) is being requested: LAST APPT - 09/05/2023 NEXT APPT - None Scheduled Requested Prescriptions Pending Prescriptions Disp Refills venlafaxine ER (EFFEXOR XR) 75 mg 24 hr capsule 90 capsule 0 Sig: Take 1 capsule by mouth once daily. Must complete follow up appointment in order to receive further refills Please process accordingly Ayanna Marcos documented in this encounter [facility] 09-05-2023 History of Presen t illness Narrative Patient was a no show for appointment documented in this encounter [facility] 08-27-2023 Miscellaneous Notes The following medication(s) is being requested: LAST APPT - 12.05.22 NEXT APPT - 09.05.23 Requested Prescriptions Pending Prescriptions Disp Refills lamoTRIgine (LAMICTAL) 150 mg tablet 30 tablet 0 Sig: Take 1 tablet by mouth once daily. venlafaxine ER (EFFEXOR XR) 75 mg 24 hr capsule 30 capsule 0 Sig: Take 1 capsule by mouth once daily. Please process accordingly Mila Ty Requested Prescriptions Pending Prescriptions Disp Refills lamoTRIgine (LAMICTAL) 150 mg tablet 30 tablet 0 Sig: Take 1 tablet by mouth once daily. venlafaxine ER (EFFEXOR XR) 75 mg 24 hr capsule 30 capsule 0 Sig: Take 1 capsule by mouth once daily. Patient is scheduled for 09/04. Patient is currently out of both medications. documented in this encounter [facility] 07-08-2023 Miscellaneous Notes Colleen did not follow up on your note of 05-04-23. I called the patient and left message on voice mail to contact the office for an appointment. The office phone number was provided. The patient was informed a refill may not be allowed until an appointment is scheduled. The following medication(s) is being requested: LAST APPT - 01-17-23 NEXT APPT - None scheduled, message sent Requested Prescriptions Pending Prescriptions Disp Refills venlafaxine ER (EFFEXOR XR) 75 mg 24 hr capsule [Pharmacy Med Name: VENLAFAXINE HCL ER 75 MG CAP] 30 capsule 0 Sig: Take 1 capsule by mouth once daily. lamoTRIgine (LAMICTAL) 150 mg tablet [Pharmacy Med Name: LAMOTRIGINE 150 MG TABLET] 30 tablet 0 Sig: Take 1 tablet by mouth once daily. Please process accordingly Mila Ty documented in this encounter [facility] 12-05-2022 History of Presen t illness Narrative FOLLOW UP - PSYCHIATRIC PROGRESS NOTE Visit Type:Virtual Visit utilizing two-way audio and video for at least a portion of the visit. Consent for virtual visit obtained verbally. Confidentiality limitations with virtual visits reviewed with the patient and guardian, if present, who have accepted the risk verbally prior to proceeding with encounter. I have communicated my name and active licensure. The patient's identity and physical location were verified at the time of this visit. Either the patient or their legal pharmacy services representative has been informed of the risks and benefits of -- and alternatives to -- treatment through a remote evaluation and consents to proceed with the evaluation remotely. Reason for Visit: Outpatient follow-up and safety monitoring of previously prescribed psychiatric medication, psychotherapy or other treatment CC: Follow up for medication management HPI: -had court today and got custody of her children back which she is happy about -feels that things have been okay -feels that her mood has been better since the increase -feels like before the change she was irritable and easily triggered but that is better -is still feeling [place] mostly over dumb little things -work has been going well -sleep is the same as she is still having trouble with staying asleep but is less antsy at night and is able to fall back asleep a little easier -hasn't called yet to schedule for therapy but plans to -found a place to rent so moved out from her boyfriend's place to her own place with the kids -would like to try a further increase on the Lamictal Risks and benefits of the medication, including any black box warnings, were discussed with the patient. Interval Progress: Slightly improved PATIENT DATA: Generalized Anxiety Disorder Scale (REX-7) REX - 7 SCORES 08/15/2022 10/25/2022 12/05/2022 REX-7 Score 10 15 14 (0-4) minimal anxiety, (5-9) mild anxiety, (10-14) moderate anxiety, (15-21) severe anxiety Patient Health Questionnaire (PHQ-9) PHQ-9 08/15/2022 10/25/2022 12/05/2022 Score 5 11 8 (0-4) minimal depression, (5-9) mild depression, (10-14) moderate depression, (15-19) moderately severe depression, (20-27) severe depression PROMIS Global Health PROMIS Global Health - (T-Scores - the mean of general population = 50. Five points is a clinically meaningful difference.) 10/12/2019 08/15/2022 12/05/2022 Physical T-Score 47.7 54.1 47.7 Mental T-Score 33.8 38.8 33.8 PAST MEDICAL HISTORY Diagnosis Date Abnormal Pap smear of cervix 08/29/2015 HSIL ADHD Anemia WITH Attention deficit hyperactivity disorder (ADHD) 03/23/2020 Blood transfusion complicating two units PRBC Herpes simplex without mention of complication Ovarian cyst hemorrhagic Patient underweight 11/30/2013 PAST SURGICAL HISTORY Procedure Laterality Date SECTION HX CONIZATION OF CERVIX, LEEP [facility] [employer] INSERTION OF IUD 08/30/2015 PAST SURGICAL HISTORY OF ORAL SURGERY PAST SURGICAL HISTORY OF wisdom teeth TUBAL LIGATION HX 2018 lap salpingectomy- [facility] [employer] Current Outpatient Medications Medication Sig Dispense Refill lamoTRIgine (LAMICTAL) 100 mg tablet Take 1 tablet by mouth once daily. 30 tablet 1 venlafaxine ER (EFFEXOR XR) 75 mg 24 hr capsule Take 1 capsule by mouth once daily. 30 capsule 1 No current facility-administered medications for this visit. ROS: PSYCH: See HPI All other systems negative. PFSH: See HPI VITAL SIGNS: There were no vitals filed for this visit. MENTAL STATUS EXAM: CONSTITUTIONAL: Well groomed, Appropriately dressed, Casually dressed, Well developed, Well nourished ORIENTATION: Person, Place, Time and Situation MEMORY: No deficiencies noted CONCENTRATION: Normal MOOD: euthymic AFFECT: Full and appropriate to topic SPEECH : Clear & distinct LANGUAGE : Normal ASSOCIATIONS: Intact THOUGHT PROCESS : Logical, Coherent, and Rational PROGRESSION : There was no evidence of disturbance in thought perception or progression. FUND OF KNOWLEDGE : Appropriate and Adequate SUICIDE: Denies suicidal thoughts, plan, or intent. HOMICIDE: Denies homicidal thoughts, plan, or intent. DATA REVIEWED: Electronic medical record DIAGNOSIS: PRIMARY: Mood Disorder Major Depressive Disorder, Single Episode, Mild , Bipolar Disorder NOS SECONDARY: Anxiety Disorder Generalized Anxiety Disorder Child Onset Disorder Attention-Deficit/Hyperactivity Disorder, Combined Type GAF: 60 -60-51 Moderate symptoms or moderate difficulty in social, occupational or school functioning. TREATMENT PLAN: Reviewed symptoms, medications and their side effects, labs, and progress being made. Discussed life situations and coping skills Support and encouragement provided PLAN AND FOLLOW UP: If any acute concerns arise please call 911 or go to the nearest Emergency Department. Medications: Continue: --Effexor (venlafaxine) XR 75 mg once daily Change: --Lamictal 10 mg to 150 mg once daily Lab work: --will order as needed Other: --strongly encouraged to schedule with therapy --encouraged to remain in treatment for sobriety Next appointment: --Schedule in 4-6 weeks or sooner if needed --Call [phone] to schedule next appointment or for questions call [phone] option 3 as needed; call sooner as needed. --Message in PlayerPro any questions or concerns. MEDICATION CHANGES: Prescriptions given see above for any changes Lamotrigine titration: Watch for any new skin rash, skin blisters, redness/blistering in lips or around eyes. Call us and notify in case of these adverse effects. You should be seen by a doctor if you notice these changes. If determined to be medication induced, you may need an alternate medicine. Follow Up: 4-6 weeks I spent a total of 15 minutes on the date of the service which included preparing to see the patient, [id number] patient care, completing clinical documentation, performing a medically appropriate examination, counseling and educating the patient/family/caregiver and ordering medications, tests, or procedures. ADD ON PSYCHOTHERAPY CODE : No SIGNATURE: Blaine Connolly APRN.CNP PATIENT NAME: Hallie Ortiz DATE: December 05, 2022 TIME: 4:09 PM documented in this encounter [facility] 10-25-2022 History of Presen t illness Narrative FOLLOW UP - PSYCHIATRIC PROGRESS NOTE Visit Type:Virtual Visit utilizing two-way audio and video for at least a portion of the visit. Consent for virtual visit obtained verbally. Confidentiality limitations with virtual visits reviewed with the patient and guardian, if present, who have accepted the risk verbally prior to proceeding with encounter. I have communicated my name and active licensure. The patient's identity and physical location were verified at the time of this visit. Either the patient or their legal pharmacy services representative has been informed of the risks and benefits of -- and alternatives to -- treatment through a remote evaluation and consents to proceed with the evaluation remotely. Reason for Visit: Outpatient follow-up and safety monitoring of previously prescribed psychiatric medication, psychotherapy or other treatment CC: Follow up for medication management for bipolar HPI: -started a new job in early May and as a result she stopped taking the Seroquel because she was afraid that she wasn't going to be able to wake up since she had to be up early and they are strict with attendance -was worried that I didn't want to mess it up because it was a good job -feels that she had been doing fine at first but I've started to notice some things coming back -feels that she has been starting to have more trouble with sleep again, more issues with impulse control, spending more money than she would like, talking to herself more -says that she has not been doing as well lately -does feel that I sort of regret stopping the Seroquel and wants to know what options there are for something that helps her mood like the Seroquel without the strong drowsiness component -is looking for a place to rent but has been not having much luck with this yet but is mostly staying at her boyfriend's place -did do an intake appointment in July for therapy and then was recommended to follow up with one of the therapists that specializes in trauma - plans to call and schedule this -is going to go on a trip to [place] with her boyfriend over the summer Risks and benefits of the medication, including any black box warnings, were discussed with the patient. Interval Progress: Same PATIENT DATA: Generalized Anxiety Disorder Scale (REX-7) REX - 7 SCORES 08/15/2022 10/25/2022 REX-7 Score 10 15 (0-4) minimal anxiety, (5-9) mild anxiety, (10-14) moderate anxiety, (15-21) severe anxiety Patient Health Questionnaire (PHQ-9) PHQ-9 08/15/2022 10/25/2022 Score 5 11 (0-4) minimal depression, (5-9) mild depression, (10-14) moderate depression, (15-19) moderately severe depression, (20-27) severe depression PROMIS Global Health PROMIS Global Health - (T-Scores - the mean of general population = 50. Five points is a clinically meaningful difference.) 10/12/2019 08/15/2022 Physical T-Score 47.7 54.1 Mental T-Score 33.8 38.8 PAST MEDICAL HISTORY Diagnosis Date Abnormal Pap smear of cervix 08/29/2015 [facility] ADHD Anemia WITH Attention deficit hyperactivity disorder (ADHD) 03/23/2020 Blood transfusion complicating two units PRBC Herpes simplex without mention of complication Ovarian cyst hemorrhagic Patient underweight 11/30/2013 PAST SURGICAL HISTORY Procedure Laterality Date SECTION HX CONIZATION OF CERVIX, LEEP [facility] INSERTION OF IUD 08/30/2015 PAST SURGICAL HISTORY OF ORAL SURGERY PAST SURGICAL HISTORY OF wisdom teeth TUBAL LIGATION HX 2018 lap salpingectomy- [facility] Current Outpatient Medications Medication Sig Dispense Refill lamoTRIgine (LAMICTAL) 25 mg tablet Take 2 tablets by mouth once daily. 60 tablet 1 venlafaxine ER (EFFEXOR XR) 75 mg 24 hr capsule Take 1 capsule by mouth once daily. 30 capsule 1 QUEtiapine 150 mg tablet Take 1 tablet (150 mg) by mouth daily at bedtime. 30 tablet 1 Multivitamin capsule Take by mouth. No current facility-administered medications for this visit. ROS: PSYCH: See HPI All other systems negative. PFSH: See HPI VITAL SIGNS: There were no vitals filed for this visit. MENTAL STATUS EXAM: CONSTITUTIONAL: Well groomed, Appropriately dressed, Casually dressed, Well developed, Well nourished ORIENTATION: Person, Place, Time and Situation MEMORY: No deficiencies noted CONCENTRATION: Normal MOOD: euthymic AFFECT: Full and appropriate to topic SPEECH : Clear & distinct LANGUAGE : Normal ASSOCIATIONS: Intact THOUGHT PROCESS : Logical, Coherent, and Rational PROGRESSION : There was no evidence of disturbance in thought perception or progression. FUND OF KNOWLEDGE : Appropriate and Adequate SUICIDE: Denies suicidal thoughts, plan, or intent. HOMICIDE: Denies homicidal thoughts, plan, or intent. DATA REVIEWED: Electronic medical record DIAGNOSIS: PRIMARY: Child Onset Disorder Attention-Deficit/Hyperactivity Disorder, Combined Type SECONDARY: Anxiety Disorder Generalized Anxiety Disorder PROVISIONAL DIAGNOSIS: Mood Disorder Major Depressive Disorder, Single Episode, Mild , Bipolar Disorder NOS GAF: 60 -60-51 Moderate symptoms or moderate difficulty in social, occupational or school functioning. TREATMENT PLAN: Reviewed symptoms, medications and their side effects, labs, and progress being made. Discussed life situations and coping skills Support and encouragement provided PLAN AND FOLLOW UP: If any acute concerns arise please call 911 or go to the nearest Emergency Department. Medications: Continue: --Effexor (venlafaxine) XR 75 mg once daily Change: --Lamictal 50 mg to 100 mg once daily Stopped: --Seroquel 150 mg once daily at bedtime Lab work: --will order as needed Other: --strongly encouraged to schedule with therapy --encouraged to remain in treatment for sobriety Next appointment: --Schedule in 4-6 weeks or sooner if needed --Call [phone] to schedule next appointment or for questions call [phone] option 3 as needed; call sooner as needed. --Message in PlayerPro any questions or concerns. MEDICATION CHANGES: Prescriptions given see above for any changes Lamotrigine titration: Watch for any new skin rash, skin blisters, redness/blistering in lips or around eyes. Call us and notify in case of these adverse effects. You should be seen by a doctor if you notice these changes. If determined to be medication induced, you may need an alternate medicine. Follow Up: 4-6 weeks I spent a total of 25 minutes on the date of the service which included preparing to see the patient, [id number] patient care, completing clinical documentation, performing a medically appropriate examination, counseling and educating the patient/family/caregiver and ordering medications, tests, or procedures. ADD ON PSYCHOTHERAPY CODE : No SIGNATURE: Blaine Connolly APRN.CNP PATIENT NAME: Hallie Ortiz DATE: October 25, 2022 TIME: 4:05 PM documented in this encounter [facility] 09-26-2022 Miscellaneous Notes The following medication(s) is being requested: LAST APPT - 04.09.22 NEXT APPT - 10.25.22 Requested Prescriptions Pending Prescriptions Disp Refills lamoTRIgine (LAMICTAL) 25 mg tablet [Pharmacy Med Name: lamotrigine 25 mg tablet] 60 tablet 1 Sig: Take 2 tablets by mouth once daily. Please process accordingly Mila Ty documented in this encounter [facility] 07-02-2022 Miscellaneous Notes The following medication(s) is being requested: LAST APPT - 04/09/22 NEXT APPT - 07/20/22 Requested Prescriptions Pending Prescriptions Disp Refills venlafaxine ER (EFFEXOR XR) 75 mg 24 hr capsule 30 capsule 1 Sig: Take 1 capsule by mouth once daily. lamoTRIgine (LAMICTAL) 25 mg tablet 60 tablet 1 Sig: Take 2 tablets by mouth once daily. QUEtiapine 150 mg tablet 30 tablet 1 Sig: Take 1 tablet (150 mg) by mouth daily at bedtime. Please process accordingly Herminio Bolaños documented in this encounter [facility] 04-09-2022 History of Presen t illness Narrative Images from the original note were not included. PSYC FOLLOW UP - PSYCHIATRIC PROGRESS NOTE CC: Follow up for medication management for bipolar With the patient consent, visit was performed virtually. 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 -this work put her on a 3rd shift schedule so she had to flip-flop the time of her medications -has been having trouble readjusting to her schedule since being out and switching back on day shift -had a psychological evaluation done by [facility] which brought up something about a personality thing that she would like to better understand -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 Interval Progress: Same PATIENT DATA: Generalized Anxiety Disorder Scale (REX-7) No flowsheet data found.(0-4) minimal anxiety, (5-9) mild anxiety, (10-14) moderate anxiety, (15-21) severe anxiety Patient Health Questionnaire (PHQ-9) No flowsheet data found.(0-4) minimal depression, (5-9) mild depression, (10-14) moderate depression, (15-19) moderately severe depression, (20-27) severe depression PROMIS Global Health PROMIS Global Health - (T-Scores - the mean of general population = 50. Five points is a clinically meaningful difference.) 10/12/2019 Physical T-Score 47.7 Mental T-Score 33.8 PAST MEDICAL HISTORY Diagnosis Date Abnormal Pap smear of cervix 08/29/2015 [facility] ADHD Anemia WITH Attention deficit hyperactivity disorder (ADHD) 03/23/2020 Blood transfusion complicating two units PRBC Herpes simplex without mention of complication Ovarian cyst hemorrhagic Patient underweight 11/30/2013 PAST SURGICAL HISTORY Procedure Laterality Date SECTION HX CONIZATION OF CERVIX, LEEP [facility] [employer] [facility] INSERTION OF IUD 08/30/2015 PAST SURGICAL HISTORY OF ORAL SURGERY PAST SURGICAL HISTORY OF wisdom teeth TUBAL LIGATION HX 2018 lap salpingectomy- [facility] Current Outpatient Medications Medication Sig Dispense Refill QUEtiapine 150 mg tablet Take 1 tablet by mouth daily at bedtime. 30 tablet 1 lamoTRIgine (LAMICTAL) 25 mg tablet Take 2 tablets by mouth once daily. 60 tablet 1 venlafaxine ER (EFFEXOR XR) 75 mg 24 hr capsule Take 1 capsule by mouth once daily. 30 capsule 1 Multivitamin capsule Take by mouth. No current facility-administered medications for this visit. ROS: PSYCH: See HPI All other systems negative. PFSH: See HPI VITAL SIGNS: There were no vitals filed for this visit. MENTAL STATUS EXAM: CONSTITUTIONAL: Well groomed, Appropriately dressed, Casually dressed, Well developed, Well nourished ORIENTATION: Person, Place, Time and Situation MEMORY: No deficiencies noted CONCENTRATION: Normal MOOD: euthymic AFFECT: Full and appropriate to topic SPEECH : Clear & distinct LANGUAGE : Normal ASSOCIATIONS: Intact THOUGHT PROCESS : Logical, Coherent, and Rational PROGRESSION : There was no evidence of disturbance in thought perception or progression. FUND OF KNOWLEDGE : Appropriate and Adequate SUICIDE: Denies suicidal thoughts, plan, or intent. HOMICIDE: Denies homicidal thoughts, plan, or intent. DATA REVIEWED: Electronic medical record DIAGNOSIS: PRIMARY: Child Onset Disorder Attention-Deficit/Hyperactivity Disorder, Combined Type SECONDARY: Anxiety Disorder Generalized Anxiety Disorder PROVISIONAL DIAGNOSIS: Mood Disorder Major Depressive Disorder, Single Episode, Mild , Bipolar Disorder NOS GAF: 60 -60-51 Moderate symptoms or moderate difficulty in social, occupational or school functioning. TREATMENT PLAN: Reviewed symptoms, medications and their side effects, labs, and progress being made. Discussed life situations and coping skills Support and encouragement provided PLAN AND FOLLOW UP: If any acute concerns arise please call 911 or go to the nearest Emergency Department. Medications: Continue: --Effexor (venlafaxine) XR 75 mg once daily --Lamictal 50 mg once daily --Seroquel 150 mg once daily at bedtime Lab work: --last done 08/04/2019 and 11/02/2019 --ordered CBC, CMP, and lipid panel previous, will review when complete Other: --strongly encouraged to continue with therapy --encouraged to remain in treatment for sobriety Next appointment: --Schedule in 4-6 weeks or sooner if needed --Call [phone] to schedule next appointment or for questions call [phone] option 3 as needed; call sooner as needed. --Message in PlayerPro any questions or concerns. MEDICATION CHANGES: Prescriptions given see above for any changes Lamotrigine titration: Watch for any new skin rash, skin blisters, redness/blistering in lips or around eyes. Call us and notify in case of these adverse effects. You should be seen by a doctor if you notice these changes. If determined to be medication induced, you may need an alternate medicine. Follow Up: 4-6 weeks I spent a total of 25 minutes on the date of the service which included preparing to see the patient, [id number] patient care, completing clinical documentation, performing a medically appropriate examination, counseling and educating the patient/family/caregiver and ordering medications, tests, or procedures. ADD ON PSYCHOTHERAPY CODE : No SIGNATURE: Blaine Connolly APRN.CNP PATIENT NAME: Hallie Ortiz DATE: April 09, 2022 TIME: 4:08 PM PAGER: documented in this encounter [facility] 01-18-2022 Miscellaneous Notes Spoke with pharmacy to clarify Seroquel prescription. Prescription will be 50 mg 3 tablets at bedtime to keep as IR since the 150 mg tablet comes only in XR. Radha Ellison was left on machine from [facility] about patient's (Hallie Ortiz) Prescription direction and amount needs adjustment. Medication is Seroquel take 1.5 tabs by mouth daily. Pharmacy states this only come in extended release form. Patient was previously getting regular 15 mg not extended release. Pharmacy want clarity from you and can be Reached at [phone]. Thank you. Colleen Pinedo January 18, 2022 12:12 PM documented in this encounter [facility] 12-07-2021 History of Presen t illness Narrative Images from the original note were not included. PSYC FOLLOW UP - PSYCHIATRIC PROGRESS NOTE CC: Follow up for medication management for bipolar With the patient consent, visit was performed virtually. HPI: She says things have been okay but unorganized lately. She has been missing a lot of appointments and things I need to do. She feels that this is kind of a pattern and that I'll do really good and then I get kind of unmotivated. She is still waiting to hear an answer back about her skilled nursing time which she finds frustrating because she feels that this interferes with her ability to make plans. She would like to start looking for places to live as she is still living in the sober house. She also is thinking about starting school in the fall. 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 She has continued to follow the court process with her kids and that's going good. She has been taking her medications consistently but did have a couple times where she forgot to take them for 2 days in a row and I noticed the difference but felt that everything returned to normal after a few days. She feels her mood has been stable and less irritable. She has found a trauma focused counselor and is excited to get started with that and is going to start that in a week or two. Her sleep and appetite have been stable. She reports remaining sober. Risks and benefits of the medication, including any black box warnings, were discussed with the patient. Interval Progress: Slightly improved PATIENT DATA: Generalized Anxiety Disorder Scale (REX-7) No flowsheet data found.(0-4) minimal anxiety, (5-9) mild anxiety, (10-14) moderate anxiety, (15-21) severe anxiety Patient Health Questionnaire (PHQ-9) No flowsheet data found.(0-4) minimal depression, (5-9) mild depression, (10-14) moderate depression, (15-19) moderately severe depression, (20-27) severe depression PROMIS Global Health PROMIS Global Health - (T-Scores - the mean of general population = 50. Five points is a clinically meaningful difference.) 10/12/2019 Physical T-Score 47.7 Mental T-Score 33.8 PAST MEDICAL HISTORY Diagnosis Date Abnormal Pap smear of cervix 08/29/2015 [facility] ADHD Anemia WITH Attention deficit hyperactivity disorder (ADHD) 03/23/2020 Blood transfusion complicating two units PRBC Herpes simplex without mention of complication Ovarian cyst hemorrhagic Patient underweight 11/30/2013 PAST SURGICAL HISTORY Procedure Laterality Date SECTION HX CONIZATION OF CERVIX, LEEP [facility] INSERTION OF IUD 08/30/2015 PAST SURGICAL HISTORY OF ORAL SURGERY PAST SURGICAL HISTORY OF wisdom teeth TUBAL LIGATION HX 2018 lap salpingectomy- [facility] Current Outpatient Medications Medication Sig Dispense Refill venlafaxine ER (EFFEXOR XR) 75 mg 24 hr capsule Take 1 capsule by mouth once daily. 30 capsule 1 lamoTRIgine (LAMICTAL) 25 mg tablet Take 2 tablets by mouth once daily. 60 tablet 1 QUEtiapine (SEROQUEL) 50 mg tablet Take 1 tablet by mouth daily at bedtime. 30 tablet 1 Multivitamin capsule Take by mouth. No current facility-administered medications for this visit. ROS: PSYCH: See HPI All other systems negative. PFSH: See HPI VITAL SIGNS: There were no vitals filed for this visit. MENTAL STATUS EXAM: CONSTITUTIONAL: Well groomed, Appropriately dressed, Casually dressed, Well developed, Well nourished ORIENTATION: Person, Place, Time and Situation MEMORY: No deficiencies noted CONCENTRATION: Normal MOOD: euthymic AFFECT: Full and appropriate to topic SPEECH : Clear & distinct LANGUAGE : Normal ASSOCIATIONS: Intact THOUGHT PROCESS : Logical, Coherent and Rational PROGRESSION : There was no evidence of disturbance in thought perception or progression. FUND OF KNOWLEDGE : Appropriate and Adequate SUICIDE: Denies suicidal thoughts, plan, or intent. HOMICIDE: Denies homicidal thoughts, plan, or intent. DATA REVIEWED: Electronic medical record DIAGNOSIS: PRIMARY: Child Onset Disorder Attention-Deficit/Hyperactivity Disorder, Combined Type SECONDARY: Anxiety Disorder Generalized Anxiety Disorder PROVISIONAL DIAGNOSIS: Mood Disorder Major Depressive Disorder, Single Episode, Mild , Bipolar Disorder NOS GAF: 60 -60-51 Moderate symptoms or moderate difficulty in social, occupational or school functioning. TREATMENT PLAN: Reviewed symptoms, medications and their side effects, labs, and progress being made. Discussed life situations and coping skills Support and encouragement provided PLAN AND FOLLOW UP: If any acute concerns arise please call 911 or go to the nearest Emergency Department. Medications: Continue: --Effexor (venlafaxine) XR 75 mg once daily --Lamictal 50 mg once daily Change: --Seroquel 50 mg to 75 mg once daily at bedtime Lab work: --last done 08/04/2019 and 11/02/2019 --ordered CBC, CMP, and lipid panel today Other: --encouraged to continue with therapy Next appointment: --Schedule in 4-6 weeks or sooner if needed --Call [phone] to schedule next appointment or for questions call [phone] option 3 as needed; call sooner as needed. --Message in PlayerPro any questions or concerns. MEDICATION CHANGES: Prescriptions given see above for any changes Lamotrigine titration: Watch for any new skin rash, skin blisters, redness/blistering in lips or around eyes. Call us and notify in case of these adverse effects. You should be seen by a doctor if you notice these changes. If determined to be medication induced, you may need an alternate medicine. Follow Up: 4-6 weeks I spent a total of 30 minutes on the date of the service which included preparing to see the patient, [id number] patient care, completing clinical documentation, performing a medically appropriate examination, counseling and educating the patient/family/caregiver and ordering medications, tests, or procedures. ADD ON PSYCHOTHERAPY CODE : No SIGNATURE: Blaine Connolly APRN.CNP PATIENT NAME: Hallie Ortiz DATE: December 07, 2021 TIME: 8:45 AM PAGER: documented in this encounter [facility] 11-22-2021 Miscellaneous Notes Patient is scheduled for 11-22-21. Mila Ty November 22, 2021 9:49 AM documented in this encounter [facility] 10-04-2021 History of Presen t illness Narrative Images from the original note were not included. PSYC FOLLOW UP - PSYCHIATRIC PROGRESS NOTE CC: Follow up for medication management for bipolar With the patient consent, visit was performed virtually. HPI: She is good but I'm starting to get sick as she started getting a sore throat last night and her nose is stuffy today. For a week after starting the Seroquel she was in a really good mood but now it is back to normal. She was also sleeping better with the Seroquel and sleeping through the night but after the first week she is back to waking up a couple times through the night but doesn't feel as awake when I do wake up. She feels that this is good because she used to just wander around the house in the middle of the night. She describes an experience at work where she forgot where I was for a second when she walked out of one room and turned the wrong direction. She was very quickly able to get turned back in the right direction and get re-oriented. This startled her as she has had episodes in the past of not knowing where I am for a long time. She is now on [address] for getting her kids back. She is now able to have unsupervised visits with them. She has continued with her trauma therapist and I really like him which she is surprised by because she has had trouble liking providers in the past. She mentions that she was supposed to do 2 months of skilled nursing after her house arrest but she is hoping to get time served and avoid going to skilled nursing. She and few others are planning on writing letters to see if she can get time served due to the improvements that she has made over the last few months. She feels that the medications are pretty close to perfect and denies any side effects at this time. Risks and benefits of the medication, including any black box warnings, were discussed with the patient. Interval Progress: Slightly improved PATIENT DATA: Generalized Anxiety Disorder Scale (REX-7) No flowsheet data found.(0-4) minimal anxiety, (5-9) mild anxiety, (10-14) moderate anxiety, (15-21) severe anxiety Patient Health Questionnaire (PHQ-9) No flowsheet data found.(0-4) minimal depression, (5-9) mild depression, (10-14) moderate depression, (15-19) moderately severe depression, (20-27) severe depression PROMIS Global Health PROMIS Global Health - (T-Scores - the mean of general population = 50. Five points is a clinically meaningful difference.) 10/12/2019 Physical T-Score 47.7 Mental T-Score 33.8 PAST MEDICAL HISTORY Diagnosis Date Abnormal Pap smear of cervix 08/29/2015 [facility]IL ADHD Anemia WITH Attention deficit hyperactivity disorder (ADHD) 03/23/2020 Blood transfusion complicating two units PRBC Herpes simplex without mention of complication Ovarian cyst hemorrhagic Patient underweight 11/30/2013 PAST SURGICAL HISTORY Procedure Laterality Date SECTION HX CONIZATION OF CERVIX, LEEP [facility] [employer] [facility] INSERTION OF IUD 08/30/2015 PAST SURGICAL HISTORY OF ORAL SURGERY PAST SURGICAL HISTORY OF wisdom teeth TUBAL LIGATION HX 2018 lap salpingectomy- [facility] Current Outpatient Medications Medication Sig Dispense Refill venlafaxine ER (EFFEXOR XR) 75 mg 24 hr capsule Take 1 capsule by mouth once daily. 30 capsule 1 lamoTRIgine (LAMICTAL) 25 mg tablet Take 2 tablets by mouth once daily. 60 tablet 1 QUEtiapine (SEROQUEL) 50 mg tablet Take 1 tablet by mouth daily at bedtime. 30 tablet 1 Multivitamin capsule Take by mouth. No current facility-administered medications for this visit. ROS: HEENT: SEE HPI PSYCH: See HPI All other systems negative. PFSH: See HPI VITAL SIGNS: There were no vitals filed for this visit. MENTAL STATUS EXAM: CONSTITUTIONAL: Well groomed, Appropriately dressed, Casually dressed, Well developed, Well nourished ORIENTATION: Person, Place, Time and Situation MEMORY: No deficiencies noted CONCENTRATION: Normal MOOD: euthymic AFFECT: Full and appropriate to topic SPEECH : Clear & distinct LANGUAGE : Normal ASSOCIATIONS: Intact THOUGHT PROCESS : Logical, Coherent and Rational PROGRESSION : There was no evidence of disturbance in thought perception or progression. FUND OF KNOWLEDGE : Appropriate and Adequate SUICIDE: Denies suicidal thoughts, plan, or intent. HOMICIDE: Denies homicidal thoughts, plan, or intent. DATA REVIEWED: Electronic medical record DIAGNOSIS: PRIMARY: Child Onset Disorder Attention-Deficit/Hyperactivity Disorder, Combined Type SECONDARY: Anxiety Disorder Generalized Anxiety Disorder PROVISIONAL DIAGNOSIS: Mood Disorder Major Depressive Disorder, Single Episode, Mild , Bipolar Disorder NOS GAF: 60 -60-51 Moderate symptoms or moderate difficulty in social, occupational or school functioning. TREATMENT PLAN: Reviewed symptoms, medications and their side effects, labs, and progress being made. Discussed life situations and coping skills Support and encouragement provided PLAN AND FOLLOW UP: If any acute concerns arise please call 911 or go to the nearest Emergency Department. Medications: Continue: --Effexor (venlafaxine) XR 75 mg once daily --Lamictal 50 mg once daily --Seroquel 50 mg once daily at bedtime Lab work: --last done 08/04/2019 and 11/02/2019, will reorder yearly or as needed --plan to order EKG Other: --plan to continue to titrate Lamictal or seroquel in future - holding off on medication changes for now until she finds about skilled nursing time --encouraged to continue with therapy Next appointment: --Schedule in 4-6 weeks or sooner if needed --Call [phone] to schedule next appointment or for questions call [phone] option 3 as needed; call sooner as needed. --Message in PlayerPro any questions or concerns. MEDICATION CHANGES: Prescriptions given Lamotrigine titration: Watch for any new skin rash, skin blisters, redness/blistering in lips or around eyes. Call us and notify in case of these adverse effects. You should be seen by a doctor if you notice these changes. If determined to be medication induced, you may need an alternate medicine. Follow Up: 4-6 weeks I spent a total of 35 minutes on the date of the service which included preparing to see the patient, [id number] patient care, completing clinical documentation, performing a medically appropriate examination, counseling and educating the patient/family/caregiver and ordering medications, tests, or procedures. ADD ON PSYCHOTHERAPY CODE : No SIGNATURE: Blaine Connolly APRN.CNP PATIENT NAME: Hallie Ortiz DATE: October 04, 2021 TIME: 11:33 AM PAGER: documented in this encounter [facility] 08-30-2021 History of Presen t illness Narrative Images from the original note were not included. PSYC FOLLOW UP - PSYCHIATRIC PROGRESS NOTE CC: Follow up for medication management for mood management With the patient consent, visit was performed virtually. HPI: She has been feeling better lately and has been able able to go five weeks without getting in trouble with court. She goes to court weekly for family court with her children. She had previously been having problems with completing tasks and making it to appointments. She is still seeing her therapist through the court program but also had a first appointment with a trauma therapist. She is proud that I actually went although the first appointment was awkward but is going to be following up in a couple weeks. She states that she gave the therapist approval to contact you so you both can discuss with each each. She has tried journaling recently and feels that it is going okay. 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 She feels that the Lamictal has helped. She takes it during the day because it wasn't making her drowsy and she was having a hard time remembering to take it at night. She has started noticing that she wears herself out and will take a nap which she would have never felt calm enough to do before. She still struggles with sleep at night and will toss and turn and get up really early sometimes. She has also started having really weird dreams since starting the Lamictal which is not normal for me. She feels her mood has been better and that she can come out of it more quickly when she has a mood swing. She feels that the anxiety is better but she still has my moments when it is more severe. Risks and benefits of the medication, including any black box warnings, were discussed with the patient. Interval Progress: Improved PATIENT DATA: Generalized Anxiety Disorder Scale (REX-7) No flowsheet data found.(0-4) minimal anxiety, (5-9) mild anxiety, (10-14) moderate anxiety, (15-21) severe anxiety Patient Health Questionnaire (PHQ-9) No flowsheet data found.(0-4) minimal depression, (5-9) mild depression, (10-14) moderate depression, (15-19) moderately severe depression, (20-27) severe depression PROMIS Global Health PROMIS Global Health - (T-Scores - the mean of general population = 50. Five points is a clinically meaningful difference.) 10/12/2019 Physical T-Score 47.7 Mental T-Score 33.8 PAST MEDICAL HISTORY Diagnosis Date Abnormal Pap smear of cervix 08/29/2015 [facility] ADHD Anemia WITH Attention deficit hyperactivity disorder (ADHD) 03/23/2020 Blood transfusion complicating two units [facility] Herpes simplex without mention of complication Ovarian cyst hemorrhagic Patient underweight 11/30/2013 PAST SURGICAL HISTORY Procedure Laterality Date SECTION HX CONIZATION OF CERVIX, LEEP [facility] [employer] [facility] INSERTION OF IUD 08/30/2015 PAST SURGICAL HISTORY OF ORAL SURGERY PAST SURGICAL HISTORY OF wisdom teeth TUBAL LIGATION HX 2018 lap salpingectomy- [facility] Current Outpatient Medications Medication Sig Dispense Refill metroNIDAZOLE (FLAGYL) 500 mg tablet Take 500 mg by mouth twice daily. Multivitamin capsule Take by mouth. venlafaxine ER (EFFEXOR XR) 75 mg 24 hr capsule Take 1 capsule by mouth once daily. 30 capsule 1 lamoTRIgine (LAMICTAL) 25 mg tablet Take 1 tablet by mouth once daily for 60 days, THEN 2 tablets once daily. 60 tablet 1 No current facility-administered medications for this visit. ROS: PSYCH: See HPI All other systems negative. PFSH: See HPI VITAL SIGNS: There were no vitals filed for this visit. MENTAL STATUS EXAM: CONSTITUTIONAL: Well groomed, Appropriately dressed, Casually dressed, Well developed, Well nourished ORIENTATION: Person, Place, Time and Situation MEMORY: No deficiencies noted CONCENTRATION: Normal MOOD: euthymic AFFECT: Full and appropriate to topic SPEECH : Clear & distinct LANGUAGE : Normal ASSOCIATIONS: Intact THOUGHT PROCESS : Logical, Coherent and Rational PROGRESSION : There was no evidence of disturbance in thought perception or progression. FUND OF KNOWLEDGE : Appropriate and Adequate SUICIDE: Denies suicidal thoughts, plan, or intent. HOMICIDE: Denies homicidal thoughts, plan, or intent. DATA REVIEWED: Electronic medical record DIAGNOSIS: PRIMARY: Child Onset Disorder Attention-Deficit/Hyperactivity Disorder, Combined Type SECONDARY: Anxiety Disorder Generalized Anxiety Disorder PROVISIONAL DIAGNOSIS: Mood Disorder Major Depressive Disorder, Single Episode, Mild , Bipolar Disorder NOS GAF: 60 -60-51 Moderate symptoms or moderate difficulty in social, occupational or school functioning. TREATMENT PLAN: Reviewed symptoms, medications and their side effects, labs, and progress being made. Discussed life situations and coping skills Support and encouragement provided PLAN AND FOLLOW UP: If any acute concerns arise please call 911 or go to the nearest Emergency Department. Medications: Continue: --Effexor (venlafaxine) XR 75 mg once daily --Lamictal 50 mg once daily Start: Seroquel 50 mg once daily at bedtime Lab work: --last done 08/04/2019 and 11/02/2019, will reorder yearly or as needed --plan to order EKG Other: --plan to continue to titrate Lamictal at next appointment --encouraged to continue with therapy Next appointment: --Schedule in 4-6 weeks or sooner if needed --Call [phone] to schedule next appointment or for questions call [phone] option 3 as needed; call sooner as needed. --Message in PlayerPro any questions or concerns. MEDICATION CHANGES: Prescriptions given see above for changes Lamotrigine titration: Watch for any new skin rash, skin blisters, redness/blistering in lips or around eyes. Call us and notify in case of these adverse effects. You should be seen by a doctor if you notice these changes. If determined to be medication induced, you may need an alternate medicine. Follow Up: 4-6 weeks I spent a total of 35 minutes on the date of the service which included preparing to see the patient, [id number] patient care, completing clinical documentation, performing a medically appropriate examination, counseling and educating the patient/family/caregiver and ordering medications, tests, or procedures. ADD ON PSYCHOTHERAPY CODE : No SIGNATURE: Blaine Connolly APRN.CNP PATIENT NAME: Hallie Ortiz DATE: August 30, 2021 TIME: 12:53 PM PAGER: documented in this encounter [facility] 06-03-2013 History of Past i llness Narrative Problem Noted Date Resolved Date Tobacco abuse 06/03/2013 11/30/2013 History of labor 05/01/2012 014 Overview: 05/01/2012She delivered her previous child on October 23, 2011 at 36 weeks due to premature rupture of membranes. with uncertain dates 05/01/2012 0 11/30/2013 Overview: 05/01/2012Patient is unsure of the date of her last menstrual period. She believes it was sometime the end of February. She has only had one menses since her delivery in September. Tobacco use in 05/01/2012 014 Overview: 05/01/2012 Pt smokes 3/4 pack of cigarettes a day, down from one pack per day. Discussed risks of smoking during . Advised pt to quit. Marijuana use 05/01/2012 11/30/2013 Overview: 05/01/2012Patient admits to using marijuana last year. Patient denies any other drug use. Discussed with patient the importance of not using any illicit drugs during . Patient is advised that we may do random drug screens during and at the time of delivery Genital herpes complicating 09/13/2011 08/25/2014 Overview: 09/12 - needs proph at 36wks 05/01/2012 and 11/30/2013 Patient has a history of genital herpes.Discussed with pt. importance of reporting any outbreaks during should they occur. Maternal anemia in , antepartum 012 11/30/2013 Overview: September 27, 2011 RR- taking PNV and fe Supervision of other normal 07/19/2011 11/30/2013 documented as of this encounter (statuses as of 08/31/2021) [facility] History of Past illness Narrative* Problem Noted Date Resolved Date Tobacco abuse 06/03/2013 11/30/2013 History of labor 05/01/2012 014 Overview: 05/01/2012She delivered her previous child on October 23, 2011 at 36 weeks due to premature rupture of membranes. with uncertain dates 05/01/2012 0 11/30/2013 Overview: 05/01/2012Patient is unsure of the date of her last menstrual period. She believes it was sometime the end of February. She has only had one menses since her delivery in September. Tobacco use in 05/01/2012 014 Overview: 05/01/2012 Pt smokes 3/4 pack of cigarettes a day, down from one pack per day. Discussed risks of smoking during . Advised pt to quit. Marijuana use 05/01/2012 11/30/2013 Overview: 05/01/2012Patient admits to using marijuana last year. Patient denies any other drug use. Discussed with patient the importance of not using any illicit drugs during . Patient is advised that we may do random drug screens during and at the time of delivery Genital herpes complicating 09/13/2011 08/25/2014 Overview: 09/12 - needs proph at 36wks 05/01/2012 and 11/30/2013 Patient has a history of genital herpes.Discussed with pt. importance of reporting any outbreaks during should they occur. Maternal anemia in , antepartum 012 11/30/2013 Overview: September 27, 2011 RR- taking PNV and fe Supervision of other normal 07/19/2011 11/30/2013 documented as of this encounter (statuses as of 10/04/2021) [facility] History of Past illness Narrative* Problem Noted Date Resolved Date Tobacco abuse 06/03/2013 11/30/2013 History of labor 05/01/2012 014 Overview: 05/01/2012She delivered her previous child on October 23, 2011 at 36 weeks due to premature rupture of membranes. with uncertain dates 05/01/2012 0 11/30/2013 Overview: 05/01/2012Patient is unsure of the date of her last menstrual period. She believes it was sometime the end of February. She has only had one menses since her delivery in September. Tobacco use in 05/01/2012 014 Overview: 05/01/2012 Pt smokes 3/4 pack of cigarettes a day, down from one pack per day. Discussed risks of smoking during . Advised pt to quit. Marijuana use 05/01/2012 11/30/2013 Overview: 05/01/2012Patient admits to using marijuana last year. Patient denies any other drug use. Discussed with patient the importance of not using any illicit drugs during . Patient is advised that we may do random drug screens during and at the time of delivery Genital herpes complicating 09/13/2011 08/25/2014 Overview: 09/12 - needs proph at 36wks 05/01/2012 and 11/30/2013 Patient has a history of genital herpes.Discussed with pt. importance of reporting any outbreaks during should they occur. Maternal anemia in , antepartum 012 11/30/2013 Overview: September 27, 2011 RR- taking PNV and fe Supervision of other normal 07/19/2011 11/30/2013 documented as of this encounter (statuses as of 11/22/2021) [facility] History of Past illness Narrative* Problem Noted Date Resolved Date Tobacco abuse 06/03/2013 11/30/2013 History of labor 05/01/2012 014 Overview: 05/01/2012She delivered her previous child on October 23, 2011 at 36 weeks due to premature rupture of membranes. with uncertain dates 05/01/2012 0 11/30/2013 Overview: 05/01/2012Patient is unsure of the date of her last menstrual period. She believes it was sometime the end of February. She has only had one menses since her delivery in September. Tobacco use in 05/01/2012 014 Overview: 05/01/2012 Pt smokes 3/4 pack of cigarettes a day, down from one pack per day. Discussed risks of smoking during . Advised pt to quit. Marijuana use 05/01/2012 11/30/2013 Overview: 05/01/2012Patient admits to using marijuana last year. Patient denies any other drug use. Discussed with patient the importance of not using any illicit drugs during . Patient is advised that we may do random drug screens during and at the time of delivery Genital herpes complicating 09/13/2011 08/25/2014 Overview: 09/12 - needs proph at 36wks 05/01/2012 and 11/30/2013 Patient has a history of genital herpes.Discussed with pt. importance of reporting any outbreaks during should they occur. Maternal anemia in , antepartum 012 11/30/2013 Overview: September 27, 2011 RR- taking PNV and fe Supervision of other normal 07/19/2011 11/30/2013 documented as of this encounter (statuses as of 12/07/2021) [facility] History of Past illness Narrative* Problem Noted Date Resolved Date Tobacco abuse 06/03/2013 11/30/2013 History of labor 05/01/2012 014 Overview: 05/01/2012Nora delivered her previous child on October 23, 2011 at 36 weeks due to premature rupture of membranes. with uncertain dates 05/01/2012 0 11/30/2013 Overview: 05/01/2012Patient is unsure of the date of her last menstrual period. She believes it was sometime the end of February. She has only had one menses since her delivery in September. Tobacco use in 05/01/2012 014 Overview: 05/01/2012 Pt smokes 3/4 pack of cigarettes a day, down from one pack per day. Discussed risks of smoking during . Advised pt to quit. Marijuana use 05/01/2012 11/30/2013 Overview: 05/01/2012Patient admits to using marijuana last year. Patient denies any other drug use. Discussed with patient the importance of not using any illicit drugs during . Patient is advised that we may do random drug screens during and at the time of delivery Genital herpes complicating 09/13/2011 08/25/2014 Overview: 09/12 - needs proph at 36wks 05/01/2012 and 11/30/2013 Patient has a history of genital herpes.Discussed with pt. importance of reporting any outbreaks during should they occur. Maternal anemia in , antepartum 012 11/30/2013 Overview: September 27, 2011 RR- taking PNV and fe Supervision of other normal 07/19/2011 11/30/2013 documented as of this encounter (statuses as of 01/18/2022) [facility] History of Past illness Narrative* Problem Noted Date Resolved Date Tobacco abuse 06/03/2013 11/30/2013 History of labor 05/01/2012 014 Overview: 05/01/2012Nora delivered her previous child on October 23, 2011 at 36 weeks due to premature rupture of membranes. with uncertain dates 05/01/2012 0 11/30/2013 Overview: 05/01/2012Patient is unsure of the date of her last menstrual period. She believes it was sometime the end of February. She has only had one menses since her delivery in September. Tobacco use in 05/01/2012 014 Overview: 05/01/2012 Pt smokes 3/4 pack of cigarettes a day, down from one pack per day. Discussed risks of smoking during . Advised pt to quit. Marijuana use 05/01/2012 11/30/2013 Overview: 05/01/2012Patient admits to using marijuana last year. Patient denies any other drug use. Discussed with patient the importance of not using any illicit drugs during . Patient is advised that we may do random drug screens during and at the time of delivery Genital herpes complicating 09/13/2011 08/25/2014 Overview: 09/12 - needs proph at 36wks 05/01/2012 and 11/30/2013 Patient has a history of genital herpes.Discussed with pt. importance of reporting any outbreaks during should they occur. Maternal anemia in , antepartum 012 11/30/2013 Overview: September 27, 2011 RR- taking PNV and fe Supervision of other normal 07/19/2011 11/30/2013 documented as of this encounter (statuses as of 04/10/2022) [facility] History of Past illness Narrative* Problem Noted Date Resolved Date Tobacco abuse 06/03/2013 11/30/2013 History of labor 05/01/2012 014 Overview: 05/01/2012She delivered her previous child on October 23, 2011 at 36 weeks due to premature rupture of membranes. with uncertain dates 05/01/2012 0 11/30/2013 Overview: 05/01/2012Patient is unsure of the date of her last menstrual period. She believes it was sometime the end of February. She has only had one menses since her delivery in September. Tobacco use in 05/01/2012 014 Overview: 05/01/2012 Pt smokes 3/4 pack of cigarettes a day, down from one pack per day. Discussed risks of smoking during . Advised pt to quit. Marijuana use 05/01/2012 11/30/2013 Overview: 05/01/2012Patient admits to using marijuana last year. Patient denies any other drug use. Discussed with patient the importance of not using any illicit drugs during . Patient is advised that we may do random drug screens during and at the time of delivery Genital herpes complicating 09/13/2011 08/25/2014 Overview: 09/12 - needs proph at 36wks 05/01/2012 and 11/30/2013 Patient has a history of genital herpes.Discussed with pt. importance of reporting any outbreaks during should they occur. Maternal anemia in , antepartum 012 11/30/2013 Overview: September 27, 2011 RR- taking PNV and fe Supervision of other normal 07/19/2011 11/30/2013 documented as of this encounter (statuses as of 07/02/2022) [facility] History of Past illness Narrative* Problem Noted Date Resolved Date Tobacco abuse 06/03/2013 11/30/2013 History of labor 05/01/2012 014 Overview: 05/01/2012She delivered her previous child on October 23, 2011 at 36 weeks due to premature rupture of membranes. with uncertain dates 05/01/2012 0 11/30/2013 Overview: 05/01/2012Patient is unsure of the date of her last menstrual period. She believes it was sometime the end of February. She has only had one menses since her delivery in September. Tobacco use in 05/01/2012 014 Overview: 05/01/2012 Pt smokes 3/4 pack of cigarettes a day, down from one pack per day. Discussed risks of smoking during . Advised pt to quit. Marijuana use 05/01/2012 11/30/2013 Overview: 05/01/2012Patient admits to using marijuana last year. Patient denies any other drug use. Discussed with patient the importance of not using any illicit drugs during . Patient is advised that we may do random drug screens during and at the time of delivery Genital herpes complicating 09/13/2011 08/25/2014 Overview: 09/12 - needs proph at 36wks 05/01/2012 and 11/30/2013 Patient has a history of genital herpes.Discussed with pt. importance of reporting any outbreaks during should they occur. Maternal anemia in , antepartum 012 11/30/2013 Overview: September 27, 2011 RR- taking PNV and fe Supervision of other normal 07/19/2011 11/30/2013 documented as of this encounter (statuses as of 09/01/2022) [facility] History of Past illness Narrative* Problem Noted Date Resolved Date Tobacco abuse 06/03/2013 11/30/2013 History of labor 05/01/2012 014 Overview: 05/01/2012She delivered her previous child on October 23, 2011 at 36 weeks due to premature rupture of membranes. with uncertain dates 05/01/2012 0 11/30/2013 Overview: 05/01/2012Patient is unsure of the date of her last menstrual period. She believes it was sometime the end of February. She has only had one menses since her delivery in September. Tobacco use in 05/01/2012 014 Overview: 05/01/2012 Pt smokes 3/4 pack of cigarettes a day, down from one pack per day. Discussed risks of smoking during . Advised pt to quit. Marijuana use 05/01/2012 11/30/2013 Overview: 05/01/2012Patient admits to using marijuana last year. Patient denies any other drug use. Discussed with patient the importance of not using any illicit drugs during . Patient is advised that we may do random drug screens during and at the time of delivery Genital herpes complicating 09/13/2011 08/25/2014 Overview: 09/12 - needs proph at 36wks 05/01/2012 and 11/30/2013 Patient has a history of genital herpes.Discussed with pt. importance of reporting any outbreaks during should they occur. Maternal anemia in , antepartum 012 11/30/2013 Overview: September 27, 2011 RR- taking PNV and fe Supervision of other normal 07/19/2011 11/30/2013 documented as of this encounter (statuses as of 09/26/2022) [facility] History of Past illness Narrative* Problem Noted Date Resolved Date Tobacco abuse 06/03/2013 11/30/2013 History of labor 05/01/2012 014 Overview: 05/01/2012She delivered her previous child on October 23, 2011 at 36 weeks due to premature rupture of membranes. with uncertain dates 05/01/2012 0 11/30/2013 Overview: 05/01/2012Patient is unsure of the date of her last menstrual period. She believes it was sometime the end of February. She has only had one menses since her delivery in September. Tobacco use in 05/01/2012 014 Overview: 05/01/2012 Pt smokes 3/4 pack of cigarettes a day, down from one pack per day. Discussed risks of smoking during . Advised pt to quit. Marijuana use 05/01/2012 11/30/2013 Overview: 05/01/2012Patient admits to using marijuana last year. Patient denies any other drug use. Discussed with patient the importance of not using any illicit drugs during . Patient is advised that we may do random drug screens during and at the time of delivery Genital herpes complicating 09/13/2011 08/25/2014 Overview: 09/12 - needs proph at 36wks 05/01/2012 and 11/30/2013 Patient has a history of genital herpes.Discussed with pt. importance of reporting any outbreaks during should they occur. Maternal anemia in , antepartum 012 11/30/2013 Overview: September 27, 2011 RR- taking PNV and fe Supervision of other normal 07/19/2011 11/30/2013 documented as of this encounter (statuses as of 10/26/2022) [facility] History of Past illness Narrative* Problem Noted Date Diagnosed Date Resolved Date Tobacco abuse 06/03/2013 11/30/2013 History of labor 05/01/201211/2013 Overview: 05/01/2012She delivered her previous child on October 23, 2011 at 36 weeks due to premature rupture of membranes. with uncertain dates 05/01/2012 11/30/2013 Overview: 05/01/2012Patient is unsure of the date of her last menstrual period. She believes it was sometime the end of February. She has only had one menses since her delivery in September. Tobacco use in 05/01/201211/2013 Overview: 05/01/2012 Pt smokes 3/4 pack of cigarettes a day, down from one pack per day. Discussed risks of smoking during . Advised pt to quit. Marijuana use 05/01/2012 11/30/2013 Overview: 05/01/2012Patient admits to using marijuana last year. Patient denies any other drug use. Discussed with patient the importance of not using any illicit drugs during . Patient is advised that we may do random drug screens during and at the time of delivery Genital herpes complicating 09/13/2011 08/25/2014 Overview: 09/12 - needs proph at 36wks 05/01/2012 and 11/30/2013 Patient has a history of genital herpes.Discussed with pt. importance of reporting any outbreaks during should they occur. Maternal anemia in , antepartum 08/17/2011 11/30/2013 Overview: September 27, 2011 RR- taking PNV and fe Supervision of other normal 07/19/2011 11/30/2013 documented as of this encounter (statuses as of 12/06/2022) [facility] History of Past illness Narrative* Problem Noted Date Diagnosed Date Resolved Date Tobacco abuse 06/03/2013 11/30/2013 History of labor 05/01/201211/2013 Overview: 05/01/2012She delivered her previous child on October 23, 2011 at 36 weeks due to premature rupture of membranes. with uncertain dates 05/01/2012 11/30/2013 Overview: 05/01/2012Patient is unsure of the date of her last menstrual period. She believes it was sometime the end of February. She has only had one menses since her delivery in September. Tobacco use in 05/01/201211/2013 Overview: 05/01/2012 Pt smokes 3/4 pack of cigarettes a day, down from one pack per day. Discussed risks of smoking during . Advised pt to quit. Marijuana use 05/01/2012 11/30/2013 Overview: 05/01/2012Patient admits to using marijuana last year. Patient denies any other drug use. Discussed with patient the importance of not using any illicit drugs during . Patient is advised that we may do random drug screens during and at the time of delivery Genital herpes complicating 09/13/2011 08/25/2014 Overview: 09/12 - needs proph at 36wks 05/01/2012 and 11/30/2013 Patient has a history of genital herpes.Discussed with pt. importance of reporting any outbreaks during should they occur. Maternal anemia in , antepartum 08/17/2011 11/30/2013 Overview: September 27, 2011 RR- taking PNV and fe Supervision of other normal 07/19/2011 11/30/2013 documented as of this encounter (statuses as of 07/08/2023) [facility] History of Past illness Narrative* Problem Noted Date Diagnosed Date Resolved Date Tobacco abuse 06/03/2013 11/30/2013 History of labor 05/01/201211/2013 Overview: 05/01/2012She delivered her previous child on October 23, 2011 at 36 weeks due to premature rupture of membranes. with uncertain dates 05/01/2012 11/30/2013 Overview: 05/01/2012Patient is unsure of the date of her last menstrual period. She believes it was sometime the end of February. She has only had one menses since her delivery in September. Tobacco use in 05/01/201211/2013 Overview: 05/01/2012 Pt smokes 3/4 pack of cigarettes a day, down from one pack per day. Discussed risks of smoking during . Advised pt to quit. Marijuana use 05/01/2012 11/30/2013 Overview: 05/01/2012Patient admits to using marijuana last year. Patient denies any other drug use. Discussed with patient the importance of not using any illicit drugs during . Patient is advised that we may do random drug screens during and at the time of delivery Genital herpes complicating 09/13/2011 08/25/2014 Overview: 09/12 - needs proph at 36wks 05/01/2012 and 11/30/2013 Patient has a history of genital herpes.Discussed with pt. importance of reporting any outbreaks during should they occur. Maternal anemia in , antepartum 08/17/2011 11/30/2013 Overview: September 27, 2011 RR- taking PNV and fe Supervision of other normal 07/19/2011 11/30/2013 documented as of this encounter (statuses as of 08/28/2023) [facility] History of Past illness Narrative* Problem Noted Date Diagnosed Date Resolved Date Tobacco abuse 06/03/2013 11/30/2013 History of labor 05/01/201211/2013 Overview: 05/01/2012She delivered her previous child on October 23, 2011 at 36 weeks due to premature rupture of membranes. with uncertain dates 05/01/2012 11/30/2013 Overview: 05/01/2012Patient is unsure of the date of her last menstrual period. She believes it was sometime the end of February. She has only had one menses since her delivery in September. Tobacco use in 05/01/201211/2013 Overview: 05/01/2012 Pt smokes 3/4 pack of cigarettes a day, down from one pack per day. Discussed risks of smoking during . Advised pt to quit. Marijuana use 05/01/2012 11/30/2013 Overview: 05/01/2012Patient admits to using marijuana last year. Patient denies any other drug use. Discussed with patient the importance of not using any illicit drugs during . Patient is advised that we may do random drug screens during and at the time of delivery Genital herpes complicating 09/13/2011 08/25/2014 Overview: 09/12 - needs proph at 36wks 05/01/2012 and 11/30/2013 Patient has a history of genital herpes.Discussed with pt. importance of reporting any outbreaks during should they occur. Maternal anemia in , antepartum 08/17/2011 11/30/2013 Overview: September 27, 2011 RR- taking PNV and fe Supervision of other normal 07/19/2011 11/30/2013 documented as of this encounter (statuses as of 09/05/2023) [facility] 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- Primary Generalized anxiety disorder [facility] [place] [facility] Diagnosis Generalized anxiety disorder 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 [facility] [place] [facility]* Diagnosis Encounter for long-term (current) use of medications- Primary Encounter for long-term (current) use of other medications Generalized anxiety disorder 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 [facility] [place] [facility] Diagnosis Generalized anxiety disorder- Primary 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 [facility] [place] [facility] Diagnosis Generalized anxiety disorder 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 [facility] [place] [facility] Diagnosis Generalized anxiety disorder 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 [facility] [place] [facility] Diagnosis Generalized anxiety disorder 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 [facility] [place] [facility] Diagnosis Generalized anxiety disorder 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 [facility] [place] [facility] Diagnosis Generalized anxiety disorder 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 [facility] [place] [facility] Diagnosis No-show for appointment- Primary [facility] [place] [facility]* Diagnosis Generalized anxiety disorder [facility] [place] [facility] Diagnosis 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- Primary Generalized anxiety disorder [facility] [place] [facility] Diagnosis Paronychia of fingers of both hands- Primary [facility] [place] [facility] Diagnosis Generalized anxiety disorder 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 [facility] [place] [facility] Diagnosis Generalized anxiety disorder 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 [facility] [place] [facility] Diagnosis Encounter for long-term (current) use of medications- Primary Encounter for long-term (current) use of other medications Generalized anxiety disorder 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 Vitamin D deficiency Unspecified vitamin D deficiency [facility] [place] [facility] Diagnosis Generalized anxiety disorder [facility] [place] [facility] Diagnosis Generalized anxiety disorder 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 [facility] [place] [facility] Diagnosis Generalized anxiety disorder 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 [facility] [place] [facility] Diagnosis Generalized anxiety disorder [facility] [place] [facility] Diagnosis 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- Primary Generalized anxiety disorder Attention deficit hyperactivity disorder (ADHD), combined type Encounter for long-term (current) use of medications Encounter for long-term (current) use of other medications [facility] [place] [facility] Diagnosis Generalized anxiety disorder- Primary Attention deficit hyperactivity disorder (ADHD), combined type 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 Encounter for long-term (current) use of medications Encounter for long-term (current) use of other medications [facility] [place] [facility] Diagnosis Attention deficit hyperactivity disorder (ADHD), combined type [facility] [place] [facility] Diagnosis Attention deficit hyperactivity disorder (ADHD), combined type- Primary Generalized anxiety disorder 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 Encounter for long-term (current) use of medications Encounter for long-term (current) use of other medications [facility] [place] [facility] Diagnosis 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 Generalized anxiety disorder documented in this encounter [facility] note* Diagnosis 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 Generalized anxiety disorder documented in this encounter [facility] Summary Purpose Family History No Family History Records FoundNo Family History Records FoundNo Family History Records FoundNo Family History Records FoundNo Family History Records Found Advance Directives No Advanced Directives Records FoundNo Advanced Directives Records FoundNo Advanced Directives Records FoundNo Advanced Directives Records FoundNo Advanced Directives Records Found Reason for Referral Specialty Diagnoses / Procedures Referred By Contmarya t Referred To Contact Psychology Diagnoses Generalized anxiety disorder Procedures CONSULT TO PSYCHOLOGY OFFICE/OUTPATIENT [facility] 60-74 MINUTES Blaine Connolly APRN.SPOUT POSITIONER [id number] [place] [address] Referral ID Status Reason Start Date Expiration Date Visits Requested Visits Authorized [id number] Pending Review PCP Requested Referral 2 04/09/2023 1 1 Specialty Diagnoses / Procedures Referred By Contac t Referred To Contact ADULT PSYCHIATRY Diagnoses 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 Generalized anxiety disorder Procedures CONSULT TO INTENSIVE OUTPATIENT PROGRAM (IOP) OFFICE/OUTPATIENT [facility] 60 MINUTES Blaine Connolly APRN.CNP [id number] [place] [address] [facility] [address] [place] [id number] Referral ID Status Reason Start Date Expiration Date Visits Requested Visits Authorized [id number] Authorized PCP Requested Referral 10/28/2023 10/27/2024 1 1 Additional Source Comments INFORMATION SOURCE (unrecogn ized section and content) DATE CREATED AUTHOR 11/18/2017 [facility] ([place]) DATE CREATED AUTHOR AUTHOR'S ORGANIZ ATION 03/30/2018 [facility] DATE CREATED AUTHOR AUTHOR'S ORGANIZ ATION 05/10/2024 [facility] DATE CREATED AUTHOR AUTHOR'S ORGANIZ ATION 09/02/2024 [facility] DATE CREATED AUTHOR AUTHOR'S ORGANIZ ATION 02/13/2025 [facility] Source Comments (unrecognize d section and content) In the event this informatio n is protected by the Federal Confidentiality of Alcohol and Drug Abuse Patient Records regulations: The Federal rules restrict any use of the information to criminally investigate or prosecute any alcohol or drug abuse patient.[facility] event this information is protected by the Federal Confidentiality of Alcohol and Drug Abuse Patient Records regulations: The Federal rules restrict any use of the information to criminally investigate or prosecute any alcohol or drug abuse patient.[facility] the event this information is protected by the Federal Confidentiality of Alcohol and Drug Abuse Patient Records regulations: The Federal rules restrict any use of the information to criminally investigate or prosecute any alcohol or drug abuse patient.[facility] the event this information is protected by the Federal Confidentiality of Alcohol and Drug Abuse Patient Records regulations: The Federal rules restrict any use of the information to criminally investigate or prosecute any alcohol or drug abuse patient.[facility] the event this information is protected by the Federal Confidentiality of Alcohol and Drug Abuse Patient Records regulations: The Federal rules restrict any use of the information to criminally investigate or prosecute any alcohol or drug abuse patient.[facility] the event this information is protected by the Federal Confidentiality of Alcohol and Drug Abuse Patient Records regulations: The Federal rules restrict any use of the information to criminally investigate or prosecute any alcohol or drug abuse patient.[facility] the event this information is protected by the Federal Confidentiality of Alcohol and Drug Abuse Patient Records regulations: The Federal rules restrict any use of the information to criminally investigate or prosecute any alcohol or drug abuse patient.[facility] the event this information is protected by the Federal Confidentiality of Alcohol and Drug Abuse Patient Records regulations: The Federal rules restrict any use of the information to criminally investigate or prosecute any alcohol or drug abuse patient.[facility] the event this information is protected by the Federal Confidentiality of Alcohol and Drug Abuse Patient Records regulations: The Federal rules restrict any use of the information to criminally investigate or prosecute any alcohol or drug abuse patient.[facility] the event this information is protected by the Federal Confidentiality of Alcohol and Drug Abuse Patient Records regulations: The Federal rules restrict any use of the information to criminally investigate or prosecute any alcohol or drug abuse patient.[facility] the event this information is protected by the Federal Confidentiality of Alcohol and Drug Abuse Patient Records regulations: The Federal rules restrict any use of the information to criminally investigate or prosecute any alcohol or drug abuse patient.[facility] the event this information is protected by the Federal Confidentiality of Alcohol and Drug Abuse Patient Records regulations: The Federal rules restrict any use of the information to criminally investigate or prosecute any alcohol or drug abuse patient.[facility] the event this information is protected by the Federal Confidentiality of Alcohol and Drug Abuse Patient Records regulations: The Federal rules restrict any use of the information to criminally investigate or prosecute any alcohol or drug abuse patient.[facility] the event this information is protected by the Federal Confidentiality of Alcohol and Drug Abuse Patient Records regulations: The Federal rules restrict any use of the information to criminally investigate or prosecute any alcohol or drug abuse patient.[facility] the event this information is protected by the Federal Confidentiality of Alcohol and Drug Abuse Patient Records regulations: The Federal rules restrict any use of the information to criminally investigate or prosecute any alcohol or drug abuse patient.[facility] the event this information is protected by the Federal Confidentiality of Alcohol and Drug Abuse Patient Records regulations: The Federal rules restrict any use of the information to criminally investigate or prosecute any alcohol or drug abuse patient.[facility] the event this information is protected by the Federal Confidentiality of Alcohol and Drug Abuse Patient Records regulations: The Federal rules restrict any use of the information to criminally investigate or prosecute any alcohol or drug abuse patient.[facility] the event this information is protected by the Federal Confidentiality of Alcohol and Drug Abuse Patient Records regulations: The Federal rules restrict any use of the information to criminally investigate or prosecute any alcohol or drug abuse patient.[facility] the event this information is protected by the Federal Confidentiality of Alcohol and Drug Abuse Patient Records regulations: The Federal rules restrict any use of the information to criminally investigate or prosecute any alcohol or drug abuse patient.[facility] the event this information is protected by the Federal Confidentiality of Alcohol and Drug Abuse Patient Records regulations: The Federal rules restrict any use of the information to criminally investigate or prosecute any alcohol or drug abuse patient.[facility] the event this information is protected by the Federal Confidentiality of Alcohol and Drug Abuse Patient Records regulations: The Federal rules restrict any use of the information to criminally investigate or prosecute any alcohol or drug abuse patient.[facility] the event this information is protected by the Federal Confidentiality of Alcohol and Drug Abuse Patient Records regulations: The Federal rules restrict any use of the information to criminally investigate or prosecute any alcohol or drug abuse patient.[facility] the event this information is protected by the Federal Confidentiality of Alcohol and Drug Abuse Patient Records regulations: The Federal rules restrict any use of the information to criminally investigate or prosecute any alcohol or drug abuse patient.[facility] the event this information is protected by the Federal Confidentiality of Alcohol and Drug Abuse Patient Records regulations: The Federal rules restrict any use of the information to criminally investigate or prosecute any alcohol or drug abuse patient.[facility] the event this information is protected by the Federal Confidentiality of Alcohol and Drug Abuse Patient Records regulations: The Federal rules restrict any use of the information to criminally investigate or prosecute any alcohol or drug abuse patient.[facility] the event this information is protected by the Federal Confidentiality of Alcohol and Drug Abuse Patient Records regulations: The Federal rules restrict any use of the information to criminally investigate or prosecute any alcohol or drug abuse patient.[facility] the event this information is protected by the Federal Confidentiality of Alcohol and Drug Abuse Patient Records regulations: The Federal rules restrict any use of the information to criminally investigate or prosecute any alcohol or drug abuse patient.[facility] the event this information is protected by the Federal Confidentiality of Alcohol and Drug Abuse Patient Records regulations: The Federal rules restrict any use of the information to criminally investigate or prosecute any alcohol or drug abuse patient.[facility] the event this information is protected by the Federal Confidentiality of Alcohol and Drug Abuse Patient Records regulations: The Federal rules restrict any use of the information to criminally investigate or prosecute any alcohol or drug abuse patient.[facility] the event this information is protected by the Federal Confidentiality of Alcohol and Drug Abuse Patient Records regulations: The Federal rules restrict any use of the information to criminally investigate or prosecute any alcohol or drug abuse patient.[facility] the event this information is protected by the Federal Confidentiality of Alcohol and Drug Abuse Patient Records regulations: The Federal rules restrict any use of the information to criminally investigate or prosecute any alcohol or drug abuse patient.[facility] Reason for Visit (unrecogniz ed section and content) Reason Comments Follow Up Specialty Diagnoses / Procedures Referred By Contac t Referred To Contact Psychiatry / ADULT PSYCHIATRY Diagnoses med check Procedures VIDEO PSYC/PSYL EST Self Blaine Connolly, SPOUT POSITIONER [id number] [place] [id number] Referral ID Status Reason Start Date Expiration Date Visits Re quested Visits Authorized [id number] Closed 05/27/2020 05/26/2021 20 20 Specialty Diagnoses / Procedures Referred By Contac t Referred To Contact Psychiatry / ADULT PSYCHIATRY Diagnoses follow up Virtual Visit Procedures VIDEO PSYC/PSYL EST SelfMD Mohsen Laurel, DEEPIKA.SPOUT POSITIONER [id number] [place] [id number] Referral ID Status Reason Start Date Expiration Date Visits Requested Visits Authorized [id number] Ref Not Required OON/Self Pay Override 11/08/2021 05/26/2022 2 2 Reason Comments Medication Problem Reason Comments Follow Up Reason Onset Date Comments Refill Request 07/01/2022 Reason Comments Refill Request Reason Onset Date Comments Refill Request 08/27/2023 Reason Comments No Show Reason Onset Date Comments Refill Request 09/23/2023 Specialty Diagnoses / Procedures Referred By Contac t Referred To Contact Psychiatry / ADULT PSYCHIATRY Diagnoses med check Procedures VIDEO PSYC/PSYL EST Blaine Connolly APRN.SPOUT POSITIONER [id number] [place] [address] Blaine Connolly APRN.SPOUT POSITIONER [id number] [place] [address] Referral ID Status Reason Start Date Expiration Date V isits Requested Visits Authorized [id number] Authorized 05/27/2023 05/26/2024 99 99 Reason Comments Derm Problem All 10 finger cuticl es infected x3 days Reason Onset Date Comments Refill Request 04/03/2024 Specialty Diagnoses / Procedures Referred By Contac t Referred To Contact Psychiatry / ADULT PSYCHIATRY Diagnoses med check Procedures VIDEO PSYC/PSYL EST Blaine Connolly APRN.SPOUT POSITIONER [id number] [place] [address] Blaine Connolly APRN.SPOUT POSITIONER [id number] [place] [address] Referral ID Status Reason Start Date Expiration Date V isits Requested Visits Authorized [id number] Authorized 04/29/2024 05/26/2024 99 999 Specialty Diagnoses / Procedures Referred By Contac t Referred To Contact Psychiatry / ADULT PSYCHIATRY Diagnoses Med check Procedures VIDEO PSYC/PSYL EST Blaine Connolly APRN.SPOUT POSITIONER [address] [place] [address] Phone: tel: fax: Blaine Connolly APRN.SPOUT POSITIONER [id number] [place] [id number] Phone: tel: fax: Referral ID Status Reason Start Date Expiration Date V isits Requested Visits Authorized [id number] Authorized 05/27/2024 05/26/2025 99 99 Specialty Diagnoses / Procedures Referred By Contac t Referred To Contact Psychiatry / ADULT PSYCHIATRY Diagnoses Med check Procedures [facility] patient Blaine Connolly APRN.SPOUT POSITIONER [id number] [place] [address] Phone: tel: fax: Blaine Connolly APRN.SPOUT POSITIONER [address] [place] [address] Phone: tel: fax: Referral ID Status Reason Start Date Expiration Date V isits Requested Visits Authorized [id number] Authorized 07/25/2024 05/26/2025 99 99 Reason Onset Date Comments Refill Request 12/18/2024 Care Teams (unrecognized sec tion and content) Cig[employer] Bander Hand Relationship Specialty Start Date End Date Wilda Aparicio MD [address] [place] [address] PCP - General Internal Medicine 11/21/15 Cigar Bander Hand Relationship Specialty Start Date End Date Wilda Aparicio MD [address] [place] [address] PCP - General Internal Medicine 11/21/15 Cigar Bander Hand Relationship Specialty Start Date End Date Wilda Aparicio MD [address] [place] [address] PCP - General Internal Medicine 11/21/15 Cigar Bander Hand Relationship Specialty Start Date End Date Wilda Aparicio MD [address] [place] [address] PCP - General Internal Medicine 11/21/15 Cigar Bander Hand Relationship Specialty Start Date End Date Wilda Aparicio MD [address] [facility] [place] [address] PCP - General Internal Medicine 11/21/15 Cigar Bander Hand Relationship Specialty Start Date End Date Wilda Aparicio MD [address] [facility] [place] [address] PCP - General Internal Medicine 11/21/15 Cigar Bander Hand Relationship Specialty Start Date End Date Wilda Aparicio MD [address] [facility] [place] [address] PCP - General Internal Medicine 11/21/15 Cigar Bander Hand Relationship Specialty Start Date End Date Wilda Aparicio MD [address] [facility] [place] [address] PCP - General Internal Medicine 11/21/15 Cigar Bander Hand Relationship Specialty Start Date End Date Wilda Aparicio MD [address] [facility] [place] [address] PCP - General Internal Medicine 11/21/15 Cigar Bander Hand Relationship Specialty Start Date End Date Wilda Aparicio MD [address] [facility] [place] [address] PCP - General Internal Medicine 11/21/15 Cigar Bander Hand Relationship Specialty Start Date End Date Wilda Aparicio MD [address] [facility] [place] [address] PCP - General Internal Medicine 11/21/15 Cigar Bander Hand Relationship Specialty Start Date End Date Wilda Aparicio MD [address] [facility] [place] [address] PCP - General Internal Medicine 11/21/15 Cigar Bander Hand Relationship Specialty Start Date End Date Wilda Aparicio MD [address] [facility] [place] [address] PCP - General Internal Medicine 11/21/15 Cigar Bander Hand Relationship Specialty Start Date End Date Wilda Aparicio MD [address] [facility] [place] [address] PCP - General Internal Medicine 11/21/15 Cigar Bander Hand Relationship Specialty Start Date End Date Wilda Aparicio MD [address] [facility] [place] [address] PCP - General Internal Medicine 11/21/15 Cigar Bander Hand Relationship Specialty Start Date End Date Wilda Aparicio MD [address] [place] [address] PCP - General Internal Medicine 11/21/15 Cigar Bander Hand Relationship Specialty Start Date End Date Wilda Aparicio MD [address] [place] [address] PCP - General Internal Medicine 11/21/15 Cigar Bander Hand Relationship Specialty Start Date End Date Wilda Aparicio MD [address] [place] [address] PCP - General Internal Medicine 11/21/15 Tori Card PA-C [address] [place], [place] [id number] [facility] 05/03/24 Amy Felix APRN.CNP [address] [place] [address] [facility] 05/03/24 Ellen Quiroga PA-C [address] [place] [address] [facility] 05/03/24 Cigar Bander Hand Relationship Specialty Start Date End Date Wilda Aparicio MD [address] [place], [place] [id number] PCP - General Internal Medicine 11/21/15 Tori Card PA-C [address] [place] [address] [facility] 05/03/24 Amy Felix APRN.SPOUT POSITIONER [address] [place] [address] [facility] 05/03/24 Ellen Quiroga PA-C [address] [place] [address] [facility] 05/03/24 Cigar Bander Hand Relationship Specialty Start Date End Date Wilda Aparicio MD [address] [place] [address] PCP - General Internal Medicine 11/21/15 Tori Card PA-C [address] [place] [address] [facility] 05/03/24 Amy Felix APRN.SPOUT POSITIONER [address] [place] [address] [facility] Internal Medicine 05/03/24 Ellen Quiroga PA-C [address] [place] [address] [facility] 05/03/24 Cigar Bander Hand Relationship Specialty Start Date End Date Wilda Aparicio MD [address] [place] [address] PCP - General Internal Medicine 11/21/15 Tori Card PA-C [address] [place] [address] [facility] 05/03/24 Amy Felix APRN.SPOUT POSITIONER [address] [place] [address] [facility] Internal [facility] 05/03/24 Ellen Quiroga PA-C [address] [place] [address] [facility] 05/03/24 FOR RECORDS PERTAINING TO PATIENTS WHO ARE OR HAVE BEEN ENROLLED IN A CHEMICAL DEPENDENCY/SUBSTANCEABUSE PROGRAM, SOME INFORMATION MAY BE OMITTED. This clinical summary was aggregated from multiple sources. Caution should be exercised in using it in the provision of clinical care. This summary normalizes information from multiple sources, and as a consequence, information in this document may materially change the coding, format and clinical context of patient data. In addition, data may be omitted in some cases. CLINICAL DECISIONS SHOULD BE BASED ON THE PRIMARY CLINICAL RECORDS. [employer] provides no warranty or guarantee of the accuracy or completeness of information in this document.
[2025-04-27 22:47] LABS: Hematocrit 40.2 % (37-47); Hemoglobin 13.7 g/dL (12.0-15.0); Immature Granulocytes Count 0.020 X10^3/uL (0.0-0.0); Internal QC Validated? YES +Cl - CLEAR BKGD; Mean Corp Hgb Conc 34.1 g/dL (32-36); Mean Corpuscular Volume 83.8 fL (81-99); Mean Platelet Vol. 10.1 fl (6.2-12.0); NRBC Flagged by Analyzer 0 % (0-5); Platelet Count 268 K/mm3 (150-450); Pregnancy, Serum, hCG Quali. NEGATIVE Negative; RBC Distribution Width CV 13.2 % (11.6-14.6); RBC Distribution Width SD 40.8 fl (35.1-43.9); Record Kit Lot#, Serum Preg. 0000980607; Red Blood Count 4.80 M/mm3 (4.2-5.4); White Blood Count 9.8 K/mm3 (4.4-11.0)
--- NOTE | 2025-04-27 22:51 | ED.RN ---
Addendum entered by Kelle Regalado 04/27/25 23:07: doctor updated on patient removing saline lock and telemetry, medication and restraints ordered if patient continues to be non complaint. Second nurse able to start a new saline lock and reapply heart monitor. Doctor updated. Original Note: PT yelling at staff. wanting saline lock taken out. This nurse attempted to educate patient on reason for saline lock, I know I' not an idiot Patient refused this nurse to move saline lock to new location. This nurse stepped out of room do to patient becoming more agitated with nurse being in room. [employer] and a different nurse attempted to speak with patient who continued to yell at staff. patient removed her saline lock and cardiac monitoring. refusing to allow staff to touch her.
[2025-04-27 22:52] LABS: AST(SGOT) 78 U/L (<=31); Alanine Aminotransfer ALT/SGPT 110 U/L (<=34); Albumin, Serum 4.6 g/dL (3.5-5.0); Alcohol, Blood (Medical)-Serum 181.0 mg/dL (<=10.0); Alkaline Phosphatase 150 U/L (35-104); Anion Gap 12 (5-15); BUN 6 mg/dL (4-19); BUN/Creat Ratio 11.9 RATIO (10-20); Calcium,Total 9.4 mg/dL (7.6-11.0); Carbon Dioxide 27.6 mmol/L (21.0-32.0); Chloride 100 mmol/L (98-108); Estimated Creatinine Clearance 133.46 ml/min (50-250); Globulin 2.8 g/dL (2.2-4.2); Glucose 83 mg/dL (70-99); Potassium 3.2 mmol/L (3.3-5.1)
[2025-04-27 22:56] LABS: Barbiturate Urine NEGATIVE (< 200 ng/mL); Benzodiazepine Urine NEGATIVE (< 200 ng/mL); PCP Urine NEGATIVE (< 25 ng/mL); THC Urine PRESUMPTIVE POSITIVE (< 50 ng/mL)
[2025-04-27 23:09] VITALS: BP 122/84; PULSE 87; RESP 20; O2SAT 98
[2025-04-28] VITALS: BP 105/82; PULSE 84; RESP 16; O2SAT 100
[2025-04-28 00:44] VITALS: BP 102/73; PULSE 82; RESP 16; O2SAT 100
[2025-04-28 02:00] VITALS: BP 95/59; PULSE 78; RESP 16; O2SAT 97
[2025-04-28 03:00] VITALS: BP 97/61; PULSE 78; RESP 18
[2025-04-28 03:26] LABS: Alcohol, Blood (Medical)-Serum 73.4 mg/dL (<=10.0)
[2025-04-28 03:37] VITALS: BP 97/51; PULSE 80; RESP 18; TEMP 36.6; O2SAT 98
== END 2025-04-28 03:38 | disposition home or self-care (01) ==
PROVIDERS: Emergency Medicine; Emergency Provider Emergency Medicine; Visit Provider Emergency Medicine
DX: F10.929 Alcohol use, unspecified with intoxication, unspecified (principal); F31.81 Bipolar II disorder; Y90.6 Blood alcohol level of 120-199 mg/100 ml; F41.9 Anxiety disorder, unspecified; F17.210 Nicotine dependence, cigarettes, uncomplicated; Z79.899 Other long term (current) drug therapy
CPT/HCPCS: 80053; 80307; 82077; 84703; 85025; 93005; 99285; A4216

== ENCOUNTER → 2025-05-06 | Outpatient (CLI) | payer MEDICAID, SELFPAY ==
[2025-05-11 14:09] LABS: HPV APTIMA, High Risk Negative (Negative)
== END | disposition home or self-care (01) ==
PROVIDERS: Referring Provider Nurse Practitioner Family; Visit Provider Nurse Practitioner Family
DX: Z01.419 Encounter for gynecological examination (general) (routine) without abnormal findings (principal)
CPT/HCPCS: 87624; 88175; G0145

== ENCOUNTER → 2025-05-14 | Outpatient (CLI) | payer MEDICAID, SELFPAY ==
[2025-05-14 16:49] LABS: Hematocrit 37.4 % (37-47); Hemoglobin 12.7 g/dL (12.0-15.0); Immature Granulocytes Count 0.020 X10^3/uL (0.0-0.0); Mean Corp Hgb Conc 34.0 g/dL (32-36); Mean Corpuscular Volume 83.7 fL (81-99); Mean Platelet Vol. 10.7 fl (6.2-12.0); NRBC Flagged by Analyzer 0 % (0-5); Platelet Count 327 K/mm3 (150-450); RBC Distribution Width CV 12.5 % (11.6-14.6); RBC Distribution Width SD 38.2 fl (35.1-43.9); Red Blood Count 4.47 M/mm3 (4.2-5.4); White Blood Count 6.0 K/mm3 (4.4-11.0)
[2025-05-14 17:56] LABS: AST(SGOT) 46 U/L (<=31); Alanine Aminotransfer ALT/SGPT 83 U/L (<=34); Albumin, Serum 4.7 g/dL (3.5-5.0); Alkaline Phosphatase 133 U/L (35-104); Anion Gap 12 (5-15); BUN 11 mg/dL (4-19); BUN/Creat Ratio 21.5 RATIO (10-20); Calcium,Total 9.6 mg/dL (7.6-11.0); Carbon Dioxide 25.4 mmol/L (21.0-32.0); Chloride 100 mmol/L (98-108); Globulin 2.9 g/dL (2.2-4.2); Glucose 84 mg/dL (70-99); HIV Nonreactive (Nonreactive); Potassium 3.6 mmol/L (3.3-5.1); Syphilis Antibodies Nonreactive (Nonreactive)
== END | disposition home or self-care (01) ==
PROVIDERS: Referring Provider Nurse Practitioner Family; Visit Provider Nurse Practitioner Family
DX: Z11.3 Encounter for screening for infections with a predominantly sexual mode of transmission (principal); B18.2 Chronic viral hepatitis C
CPT/HCPCS: 36415; 80053; 85025; 86703; 86780; 87522; 87902